=== PATIENT | female | born 1955 ===

== ENCOUNTER → 2020-07-09 13:53 | Outpatient (BNVA) | payer OTHER, SELFPAY | PROVIDERS: PCP Internal Medicine; Visit Provider Student in an Organized Health Care Education/Training Program | DX: M25.50 Pain in unspecified joint (principal) | CPT/HCPCS: 99202 ==

== ENCOUNTER 2020-07-17 09:50 | Outpatient (REF) | payer OTHER, SELFPAY ==
[2020-07-17 11:04] LABS: MANUAL DIFF FLAG NO
[2020-07-17 11:08] LABS: Basophils Percent Auto 0.4 % (0-2); Eosinophils Absolute Auto 0.2 X10*3/uL (0.0-0.4); Eosinophils Percent Auto 2.3 % (0-4); Hematocrit 38.6 % (37-47); Hemoglobin 12.7 g/dl (12.0-16.0); Imm Gran Abs Auto 0.03 X10*3/uL (0.00-0.03); Imm Gran Pct Auto 0.4 % (0.0-0.4); Lymphocytes Percent Auto 36.6 % (20-40); Mean Corpuscular HGB Conc 32.9 g/dl (31.0-35.0); Mean Corpuscular Hemoglobin 29.7 pg (27.0-33.0); Mean Corpuscular Volume 90.2 fL (80-98); Mean Platelet Volume 10.4 fL (9.4-12.3); Monocytes Absolute Auto 0.4 X10*3/uL (0.1-1.2); Monocytes Percent Auto 4.8 % (2-11); Neutrophils Absolute Auto 4.5 X10*3/uL (2.0-8.3); Neutrophils Percent Auto 55.5 % (45-73); Platelet Count 244 X10*3/uL (160-400); Red Blood Count 4.28 X10*6/uL (4.20-5.50); Red Cell Distribution Width 12.2 % (11.0-16.0); White Blood Count 8.1 X10*3/uL (4.8-10.8)
[2020-07-17 11:37] LABS: Alanine Aminotransferase 16 U/L (0-31); Albumin Level 4.2 g/dL (3.5-5.0); Alkaline Phosphatase 74 U/L (39-117); Anion Gap 12 (12-20); Aspartate Amino Transferase 19 U/L (5-31); Bilirubin Total 0.9 mg/dL (0.0-1.0); Blood Urea Nitrogen 18 mg/dL (9-16); C Reactive Protein 1.17 mg/dL (< or = 0.50); Carbon Dioxide 31 mmol/L (22-29); Chloride 100 mmol/L (96-108); Estimated Glomerular Filt Rate 49; Glucose Random 164 mg/dL (60-115); Potassium 4.3 mmol/L (3.3-5.1); Rheumatoid Factor < 15.0 IU/mL (<15.0); Sodium 139 mmol/L (135-145); Total Protein 7.3 g/dL (6.5-8.0)
[2020-07-17 11:38] LABS: Alanine Aminotransferase 15 U/L (0-31); Albumin Level 4.2 g/dL (3.5-5.0); Alkaline Phosphatase 73 U/L (39-117); Anion Gap 13 (12-20); Aspartate Amino Transferase 19 U/L (5-31); Bilirubin Total 0.9 mg/dL (0.0-1.0); Blood Urea Nitrogen 17 mg/dL (9-16); Calcium 10.1 mg/dL (8.4-10.2); Carbon Dioxide 30 mmol/L (22-29); Chloride 100 mmol/L (96-108); Cholesterol 149 mg/dL; Estimated Glomerular Filt Rate 50; Glucose Fasting 165 mg/dL (60-99); HDL Cholesterol 37 mg/dL; LDL Cholesterol Calculated 75 mg/dl; Potassium 4.4 mmol/L (3.3-5.1); Sodium 139 mmol/L (135-145); Total Protein 7.2 g/dL (6.5-8.0); Triglycerides 186 mg/dL
[2020-07-17 11:56] LABS: Erythrocyte Sedimentation Rate 28 MM/HR (0-20)
[2020-07-17 12:00] LABS: TSH reflex Free T4 1.56 uIU/mL (0.32-4.0); Thyroid Stimulating Hormone 1.65 uIU/mL (0.32-4.0)
[2020-07-17 12:38] LABS: Microalbum/Creatinine Ratio Ur 25.3 ug/mg cr
[2020-07-20 09:21] LABS: IgA 528 mg/dL (70-320); IgG 1231 mg/dL (600-1540); IgM 95 mg/dL (50-300)
[2020-07-21 14:17] LABS: Vitamin D 25-OH, D2 <4 ng/mL; Vitamin D 25-OH, D3 27 ng/mL; Vitamin D 25-OH, Total 27 ng/mL (30-100)
[2020-07-21 15:27] LABS: Prot Elec - Alpha1 0.3 g/dL (0.2-0.3); Prot Elec - Alpha2 0.7 g/dL (0.5-0.9); Prot Elec - Beta 1 0.5 g/dL (0.4-0.6); Prot Elec - Beta 2 0.5 g/dL (0.2-0.5); Prot Elec - Gamma 1.2 g/dL (0.8-1.7); Prot Elec - Total Protein 7.1 g/dL (6.1-8.1)
[2020-07-22 22:57] LABS: Cyclic Citrullinated Peptide <16 UNITS
== END 2020-07-17 09:51 | disposition home or self-care (01) ==
LOC: HO.LAB 09:50
PROVIDERS: Absent Provider Student in an Organized Health Care Education/Training Program; PCP Physician Assistant; Visit Provider Physician Assistant
DX: M25.50 Pain in unspecified joint (principal); E11.9 Type 2 diabetes mellitus without complications; I10 Essential (primary) hypertension
CPT/HCPCS: 36415; 80053; 80061; 82043; 82306; 82784; 84155; 84165; 84443; 85025; 85652; 86140; 86200; 86334; 86431

== ENCOUNTER → 2020-08-13 12:54 | Outpatient (BNVA) | payer OTHER, SELFPAY | PROVIDERS: PCP Internal Medicine; Visit Provider Student in an Organized Health Care Education/Training Program | DX: M25.50 Pain in unspecified joint (principal) | CPT/HCPCS: 99212 ==

== ENCOUNTER → 2020-09-02 10:29 | Outpatient (BNVA) | payer OTHER, SELFPAY | PROVIDERS: PCP Internal Medicine; Visit Provider Hospitalist | DX: J45.40 Moderate persistent asthma, uncomplicated (principal); K21.9 Gastro-esophageal reflux disease without esophagitis; G47.33 Obstructive sleep apnea (adult) (pediatric); E11.9 Type 2 diabetes mellitus without complications; I27.20 Pulmonary hypertension, unspecified | CPT/HCPCS: 99202 ==

== ENCOUNTER 2020-10-06 09:20 | Outpatient (REF) | payer OTHER, SELFPAY ==
--- NOTE | 2020-10-06 17:42 | PFT_ITS ---
Forced vital capacity is moderately decreased. FEV1 also moderately decreased, but FEV1/FVC ratio is normal. [id number] normal. MVV moderately decreased. Post bronchodilator therapy, there is no significant change. Total lung capacity and residual volume are both moderately reduced. Diffusion capacity normal. CONCLUSION: There is no obstructive airway disorder and no response to bronchodilator therapy. Findings are consistent with moderately severe restrictive pulmonary disorder. Clinical correlation recommended. MD KATHIE Francis/SARAH / [id number]
== END 2020-10-06 09:21 | disposition home or self-care (01) ==
LOC: HO.RESP 09:20
PROVIDERS: PCP Internal Medicine; Visit Provider Hospitalist
DX: J45.40 Moderate persistent asthma, uncomplicated (principal)
CPT/HCPCS: 94060; 94727; 94729; 99212

== ENCOUNTER 2020-10-14 17:55 | Emergency (ER) | payer OTHER, SELFPAY ==
--- NOTE | ~2020-10-14 | XR_ITS ---
EXAMINATION: PORTABLE CHEST 1 VIEW CLINICAL INFORMATION: Cough . COMPARISON: 02/07/2018. TECHNIQUE: Portable frontal view of the chest was obtained. FINDINGS: Lungs well-expanded. Chronic reticular markings suggesting scarring again seen in the left lung and medial right base. No superimposed focal infiltrate, effusion, edema, or pneumothorax. Cardiac and mediastinal silhouettes within normal limits for size. Chronic bony deformity to the right ribs with degenerative changes in the spine and shoulders XR/XR chest 1V IMPRESSION: Chronic appearing changes similar to the prior study without acute superimposed process.
[2020-10-14 18:11] VITALS: BP 160/90; PULSE 94; RESP 18; TEMP 37.4; O2SAT 95; BMI 39.0
[2020-10-14 20:16] LABS: Basophils Percent Auto 0.4 % (0-2); Eosinophils Absolute Auto 0.2 X10*3/uL (0.0-0.4); Eosinophils Percent Auto 3.1 % (0-4); Hematocrit 36.7 % (37-47); Hemoglobin 12.1 g/dl (12.0-16.0); Imm Gran Abs Auto 0.02 X10*3/uL (0.00-0.03); Imm Gran Pct Auto 0.4 % (0.0-0.4); Lymphocytes Absolute Auto 1.9 X10*3/uL (1.2-4.9); Lymphocytes Percent Auto 35.3 % (20-40); MANUAL DIFF FLAG NO; Mean Corpuscular Hemoglobin 29.3 pg (27.0-33.0); Mean Corpuscular Volume 88.9 fL (80-98); Monocytes Absolute Auto 0.3 X10*3/uL (0.1-1.2); Neutrophils Percent Auto 54.8 % (45-73); Platelet Count 215 X10*3/uL (160-400); Red Blood Count 4.13 X10*6/uL (4.20-5.50); Red Cell Distribution Width 12.4 % (11.0-16.0); White Blood Count 5.5 X10*3/uL (4.8-10.8)
--- NOTE | 2020-10-14 20:26 | ED_ITS ---
HPI - URI/Sore Throat General Chief Complaint: Upper Respiratory Symptoms Stated Complaint: diff breathing, fever Time Seen by Provider: 10/14/20 20:24 Source: patient Mode of arrival: ambulatory Limitations: no limitations History of Present Illness HPI Narrative: 65-year-old female with a past medical history of hypertension, hypothyroidism, asthma, obstructive sleep apnea here with complaints of cough, wheezing, shortness of breath, headache, subjective fever for 2-3 days. No chest pain, leg swelling or pain. Using inhalers with continued symptoms. Of note seen by pulmonology on October 06. Diagnosed with pharyngitis and placed on course of Augmentin. Patient tells me that she took for several days but then discontinued due to complaints of diarrhea and abdominal discomfort. Related Data Home Medications Medication Instructions Recorded Confirmed albuterol sulfate 90 mcg/actuation 1 inh INHALATION QID 05/01/20 09/02/20 aerosol inhaler mirtazapine 7.5 mg tablet 7.5 mg PO BEDTIME 09/02/20 09/02/20 Previous Rx's Medication Instructions Recorded bupropion HCl 150 mg 24 hr tablet, 150 mg PO QAM #90 tab 03/13/20 extended release CPAP (CPAP Machine/Device) #1 ea 05/01/20 fluticasone propionate 50 1 spray INTRANASAL DAILY #15.8 ml 05/01/20 mcg/actuation nasal spray,suspension gabapentin 100 mg capsule 100 mg PO DAILY #90 cap 05/01/20 levothyroxine 25 mcg tablet 25 mcg PO DAILY 90 Days #90 tab 05/01/20 miscellaneous medical supply #1 ea 05/01/20 (Blood Pressure Cuff) omeprazole 20 mg capsule,delayed 20 mg PO DAILY #90 cap 05/01/20 release terbinafine HCl 1 % topical cream 1 appl TOPICAL BID 15 Days #30 g 05/01/20 doxepin 50 mg capsule 50 mg PO BEDTIME #90 cap 06/13/20 duloxetine 60 mg capsule,delayed 60 mg PO DAILY #90 cap 07/17/20 release (Cymbalta) metformin 1,000 mg tablet 1,000 mg PO BID #180 tab 07/17/20 cholecalciferol (vitamin D3) 25 25 mcg PO DAILY 90 Days #90 cap 08/05/20 mcg (1,000 unit) capsule fluticasone propionate 110 1 puff INHALATION BID 30 Days #12 g 08/05/20 mcg/actuation HFA aerosol inhaler (Flovent HFA) loratadine 10 mg tablet (Allergy 10 mg PO DAILY 90 Days #90 tab 08/05/20 Relief (loratadine)) fluticasone propionate 230 2 puff INHALATION Q12H 30 Days #12 09/02/20 mcg-salmeterol 21 mcg/actuation g HFA inhaler (Advair HFA) furosemide 20 mg tablet (Lasix) 20 mg PO DAILY 7 Days #7 tab 09/02/20 lancets 28 gauge (FreeStyle #100 ea 09/08/20 Lancets) amoxicillin 875 mg-potassium 1 tab PO BID 8 Days #16 tab 10/06/20 clavulanate 125 mg tablet (Augmentin) fluconazole 100 mg tablet 100 mg PO DAILY 7 Days #7 tab 10/06/20 (Diflucan) hydrochlorothiazide 25 mg tablet 25 mg PO DAILY #90 tab 10/11/20 meclizine 25 mg tablet 25 mg PO DAILY #90 tab 10/11/20 metoprolol tartrate 25 mg tablet 25 mg PO BID #90 tab 10/11/20 pravastatin 40 mg tablet 40 mg PO BEDTIME #90 tab 10/11/20 albuterol sulfate 2.5 mg/0.5 mL 2.5 mg INHALATION Q20M PRN #30 ea 10/14/20 solution for nebulization azithromycin 250 mg tablet See Rx Instructions .ROUTE 10/14/20 .COMPLEX #6 tab prednisone 20 mg tablet 40 mg PO DAILY #10 tab 10/14/20 Allergies Allergy/AdvReac Type Severity Reaction Status Date / Time acetaminophen [Ultracet] Allergy Intermediate anaphylaxis Verified 10/06/20 10:09 tramadol [From ULTRACET] Allergy Intermediate ANAPHYLAXIS Verified 10/06/20 10:09 lisinopril [Lisinopril] Allergy Mild SWELLING, Verified 10/06/20 10:09 anaphylaxis Review of Systems Review of Systems: Yes all other systems are reviewed and are negative Constitutional: Constitutional: Reports no additional constitutional complaints, Denies body ache(s), Reports chills, Reports fever(s), Reports headache(s) and Denies weakness Eyes: Eyes: Reports no additional eye complaints and Denies change in vision ENT: Reports system reviewed and no additional complaints, except as documented, Denies dizziness, Reports headache(s), Denies nasal congestion, Denies nasal discharge and Denies neck pain Cardiovascular: Cardiovascular: Reports no additional cardiovascular complaints, Denies chest pain, Denies leg edema and Reports dyspnea Respiratory: Respiratory: Reports no additional respiratory complaints, Reports cough and Reports dyspnea Gastrointestinal: Gastrointestinal: Reports no additional gastrointestinal complaints, Denies abdominal pain, Denies diarrhea, Denies nausea and Denies vomiting Genitourinary: Genitourinary: Reports no additional female genitourinary complaints and Denies urinary incontinence Musculoskeletal: Musculoskeletal: Reports no additional musculoskeletal complaints, Denies back pain, Denies arthralgias, Denies joint swelling, Denies neck pain, Denies numbness and Denies tingling Integumentary/Breasts: Skin/Breast: Reports system reviewed and no additional complaints, except as docu and Denies rash Neurologic: Reports system reviewed and no additional complaints, except as documented, Denies Abnormal speech present, Denies dizziness, Reports headache(s), Denies numbness, Denies tingling and Denies weakness PMFSH Past Medical History Attestation statement: The following information was validated with the patient. Source: old records reviewed and nursing notes reviewed Medical History Chronic restrictive lung disease Moderate asthma Murmur Surgical History History of laparoscopic cholecystectomy History of tubal ligation Family History Family History Father No problems noted. Mother Lymphoma Maternal Aunt Diabetes Paternal Uncle Diabetes Brother No problems noted. Sister No problems noted. Sister No problems noted. Son No problems noted. Daughter No problems noted. Daughter No problems noted. Social History Social History Housing: Apartment Alcohol intake: never Patient Tobacco Use Status: Never used Tobacco e-Cigarette/Vaping Use: Never Used Second Hand Smoke Exposure: No Advance Directives: No Advance Directives Information Provided: No Patient : No service: No Current occupational status: disabled Physical Exam Vital Signs: Vital Signs: Last Vital Signs Temp 99.4 F 10/14/20 18:11 Pulse 73 10/14/20 21:10 Resp 18 10/14/20 18:11 BP 160/90 H 10/14/20 18:11 Pulse Ox 95 10/14/20 18:11 Body Mass Index 39.0 Const: General: cooperative, healthy appearing, comfortable and no acute distress Orientation/consciousness: patient oriented x3 Limitations: no limitations HENMT: Head: Yes normal to inspection Ears: hearing grossly normal bilaterally General nose exam: Normal external nose present Face and sinus: Yes normal facial exam Mouth: Normal oral and palatal mucosa present Throat: Yes posterior oropharynx normal Eyes: General: appearance normal, both eyes and all related structures Pupils: Equal, round and reactive pupils present Neck: Neck: Yes normal visual inspection Chest: Chest palpation & inspection: normal inspection of the chest Resp: Other: Mild expiratory wheezing throughout Effort & Inspection: normal respiratory effort Cardio: Rate: regular rate Rhythm: regular rhythm Peripheral pulses: Per ipheral pulses 2+ throughout GI: Inspection: Yes normal to inspection Palpation (GI): Soft to palpation and nontender Auscultation: normal bowel sounds Back/Spine/Pelvis: Thoracic/Lumbar Spine: thoracic and lumbar spine normal to inspection Skin: General skin exam: no rashes or lesions noted Neuro: General: patient oriented x3, no focal motor deficits and normal sensation to monofilament Cranial nerves: Yes Equal, round and reactive pupils present Cognition (Neuro): normal cognition Speech: No Abnormal speech present Gait exam (Neuro): Normal gait present Motor exam (neuro): 5/5 motor strength present throughout Extrem: General: Yes normal to inspection, Yes no pedal edema and Yes no calf tenderness Course Course Course Narrative: Viral symptoms for several days. Using home inhalers with continued cough and wheezing with some mild shortness of breath. Will check labs, chest x-ray, COVID screen. 2100-chest x-ray shows no acute finding. COVID screen is negative. Labs are unremarkable. Patient has some mild expiratory wheezing throughout. Will give DuoNeb.. Likely benefit from prednisone burst which patient tells me has been helpful in the past. Will change antibiotic from Augmentin to azithromycin which patient to tolerate. 2230-feels much better. Oxygen saturations greater than 99%. Speaking full sentences. Will discharge home with course of antibiotics and prednisone. Reviewed worrisome signs and symptoms of when to return to the emergency department. Comfortable discharge home. MDM - URI/Sore Throat MDM Narrative Medical decision making narrative: Bronchitis, viral syndrome, pneumonia Medical Records Attestation: I reviewed the patient's medical records. Lab Data Attestation: I reviewed the patient's lab results. Result diagrams: 10/14/20 20:09 10/14/20 20:09 Labs: Lab Results 10/14/20 10/14/20 10/14/20 Range/Units 20:05 20:09 20:09 WBC 5.5 (4.8-10.8) X10*3/uL RBC 4.13 L (4.20-5.50) X10*6/uL Hgb 12.1 (12.0-16.0) g/dl Hct 36.7 L (37-47) % MCV 88.9 (80-98) fL MCH 29.3 (27.0-33.0) pg MCHC 33.0 (31.0-35.0) g/dl RDW 12.4 (11.0-16.0) % Plt Count 215 (160-400) X10*3/uL MPV 10.0 (9.4-12.3) fL Immature Gran % (Auto) 0.4 (0.0-0.4) % Neut % (Auto) 54.8 (45-73) % Lymph % (Auto) 35.3 (20-40) % Nicol[place] % (Auto) 6.0 (2-11) % Eos % (Auto) 3.1 (0-4) % Baso % (Auto) 0.4 (0-2) % Lymph # (Auto) 1.9 (1.2-4.9) X10*3/uL [place] # (Auto) 0.3 (0.1-1.2) X10*3/uL Eos # (Auto) 0.2 (0.0-0.4) X10*3/uL Baso # (Auto) 0.0 (0.0-0.2) X10*3/uL Abs Immat Gran (auto) 0.02 (0.00-0.03) X10*3/uL Absolute Neuts (auto) 3.0 (2.0-8.3) X10*3/uL Absolute Nucleated RBC 0.000 (0.0-0.012) X10*3/uL Nucleated RBC % (auto) 0.0 (0.0-0.2) /100WBC Sodium 143 (135-145) mmol/L Potassium 3.9 (3.3-5.1) mmol/L Chloride 108 (96-108) mmol/L Carbon Dioxide 26 (22-29) mmol/L Anion Gap 13 (12-20) BUN 9 (9-16) mg/dL Creatinine 0.92 (0.5-1.4) mg/dL Estim Creat Clear Calc 62.0 Estimated GFR > 60 Random Glucose 165 H (60-115) mg/dL Calcium 9.6 (8.4-10.2) mg/dL Total Bilirubin 0.7 (0.0-1.0) mg/dL AST 32 H D (5-31) U/L ALT 23 (0-31) U/L Alkaline Phosphatase 83 (39-117) U/L Total Protein 7.8 (6.5-8.0) g/dL Albumin 4.4 (3.5-5.0) g/dL COVID-19 (NESTOR) Negative (Negative) COVID-19 Clin Com See Note Imaging Data Chest x-ray: Attestation: I personally reviewed and interpreted this imaging study as follows: Radiologist's impression: [place] [id number] XRay Report Signed Patient: Fiordaliza Taveras I MR#: [id number] : 1955 Acct:[id number] Age/Sex: 65 / F ADM Date: 10/14/20 Loc: .ED Attending Dr: Ordering Physician: Generic ED Physician Date of Service: 10/14/20 Procedure(s): XR chest 1V Accession Number(s): [id number] cc: Generic ED Physician~ EXAMINATION: PORTABLE CHEST 1 VIEW CLINICAL INFORMATION: Cough . COMPARISON: 02/07/2018. TECHNIQUE: Portable frontal view of the chest was obtained. FINDINGS: Lungs well-expanded. Chronic reticular markings suggesting scarring again seen in the left lung and medial right base. No superimposed focal infiltrate, effusion, edema, or pneumothorax. Cardiac and mediastinal silhouettes within normal limits for size. Chronic bony deformity to the right ribs with degenerative changes in the spine and shoulders XR/XR chest 1V IMPRESSION: Chronic appearing changes similar to the prior study without acute superimposed process. ? Discharge Plan Discharge Clinical Impression: Bronchitis Patient Disposition: Home, Self-Care Instructions: Acute Bronchitis (ED) Additional Instructions: Use your albuterol inhaler 2 puffs every 4-6 hours as needed Start your prednisone and antibiotic tomorrow Increase fluids and rest COVID test negative Prescriptions: New albuterol sulfate 2.5 mg/0.5 mL solution for nebulization 2.5 mg inhalation Q20M PRN (Reason: shortness of breath or wheezing) Qty: 30 RF: 0 azithromycin 250 mg tablet See Rx Instructions .ROUTE .COMPLEX Qty: 6 RF: 0 prednisone 20 mg tablet 40 mg PO DAILY Qty: 10 RF: 0 No Action bupropion HCl 150 mg tablet extended release 24 hr 150 mg PO QAM Qty: 90 RF: 3 doxepin 50 mg capsule 50 mg PO BEDTIME Qty: 90 RF: 2 duloxetine [Cymbalta] 60 mg capsule,delayed release(DR/EC) 60 mg PO DAILY Qty: 90 RF: 1 metformin 1,000 mg tablet 1,000 mg PO BID Qty: 180 RF: 1 (DME) lancets [FreeStyle Lancets] 28 gauge misc See Rx Instructions .Route Qty: 100 RF: 11 metoprolol tartrate 25 mg tablet 25 mg PO BID Qty: 90 RF: 0 pravastatin 40 mg tablet 40 mg PO BEDTIME Qty: 90 RF: 0 meclizine 25 mg tablet 25 mg PO DAILY Qty: 90 RF: 0 hydrochlorothiazide 25 mg tablet 25 mg PO DAILY Qty: 90 RF: 0 Flovent HFA 110 mcg/actuation HFA aerosol inhaler 1 puff inhalation BID 30 Days Qty: 12 RF: 6 cholecalciferol (vitamin D3) 25 mcg (1,000 unit) capsule 25 mcg PO DAILY 90 Days Qty: 90 RF: 1 loratadine [Allergy Relief (loratadine)] 10 mg tablet 10 mg PO DAILY 90 Days Qty: 90 RF: 3 (DME) Blood Pressure Cuff Misc See Rx Instructions .ROUTE .MEDSUPPLY Qty: 1 RF: 0 (DME) CPAP Machine/Device Device See Rx Instructions .ROUTE .MEDSUPPLY Qty: 1 RF: 0 levothyroxine 25 mcg tablet 25 mcg PO DAILY 90 Days Qty: 90 RF: 1 omeprazole 20 mg capsule,delayed release(DR/EC) 20 mg PO DAILY Qty: 90 RF: 1 gabapentin 100 mg capsule 100 mg PO DAILY Qty: 90 RF: 1 fluticasone propionate 50 mcg/actuation spray,suspension 1 spray intranasal DAILY Qty: 15.8 RF: 1 terbinafine HCl 1 % cream 1 appl topical BID 15 Days Qty: 30 RF: 1 albuterol sulfate 90 mcg/actuation HFA aerosol inhaler 1 inh inhalation QID RF: 0 mirtazapine 7.5 mg tablet 7.5 mg PO BEDTIME RF: 0 Advair HFA 230-21 mcg/actuation HFA aerosol inhaler 2 puff inhalation Q12H 30 Days Qty: 12 RF: 5 furosemide [Lasix] 20 mg tablet 20 mg PO DAILY 7 Days Qty: 7 RF: 0 amoxicillin-pot clavulanate [Augmentin] 875-125 mg tablet 1 tab PO BID 8 Days Qty: 16 RF: 0 fluconazole [Diflucan] 100 mg tablet 100 mg PO DAILY 7 Days Qty: 7 RF: 0 Referrals: Dalila Olsen MD [Primary Care Provider] - 2 days Interventions: ED Discharge Assessment Last Done: 10/14/20 22:21 Discharge Date/Time: 10/14/20 22:23 Print Language: Estonian
[2020-10-14 20:34] LABS: COVID-19 Test Negative (Negative); IDNOW Serial# 9DD0AD1C
[2020-10-14 20:35] LABS: Alanine Aminotransferase 23 U/L (0-31); Albumin Level 4.4 g/dL (3.5-5.0); Alkaline Phosphatase 83 U/L (39-117); Anion Gap 13 (12-20); Aspartate Amino Transferase 32 U/L (5-31); Bilirubin Total 0.7 mg/dL (0.0-1.0); Blood Urea Nitrogen 9 mg/dL (9-16); Calcium 9.6 mg/dL (8.4-10.2); Carbon Dioxide 26 mmol/L (22-29); Chloride 108 mmol/L (96-108); Estimated Glomerular Filt Rate > 60; Glucose Random 165 mg/dL (60-115); Potassium 3.9 mmol/L (3.3-5.1); Sodium 143 mmol/L (135-145); Total Protein 7.8 g/dL (6.5-8.0)
[2020-10-14] MEDS: Albuterol/Iprat 2.5/0.5MG 3 ML AMPUL.NEB INHALE (21:09)
[2020-10-14] MEDS: Albuterol Sulfate (0.083%) 2.5 MG/3 ML VIAL.NEB 5 MG INHALE (21:09)
[2020-10-14 21:10] VITALS: PULSE 73; O2SAT 97
== END 2020-10-14 22:23 | disposition home or self-care (01) ==
PROVIDERS: Emergency Provider Emergency Medicine; PCP Internal Medicine
DX: J40 Bronchitis, not specified as acute or chronic (principal); Z20.822 Contact with and (suspected) exposure to COVID-19; R06.02 Shortness of breath; I10 Essential (primary) hypertension; E11.9 Type 2 diabetes mellitus without complications
CPT/HCPCS: 36415; 71045; 80053; 85025; 87635; 94640; 94644; 99283; 99284

== ENCOUNTER → 2020-10-16 14:06 | Outpatient (REF) | payer OTHER, SELFPAY ==
--- NOTE | 2020-10-16 14:09 | CA_ITS ---
Transthoracic Echocardiogram Patient (Last, First, Middle): Fiordaliza Taveras I Gender: Female Date of : 1955 Age: 65 Procedure Date: 10/16/2020 Procedure Type: Transthoracic Echocardiogram Location: OP Height: 149.86 cm Weight: 88.45 kg BSA: 1.82 m2 Heart Rate: bpm BP: 120 / 80 mmHg Education Managers: ORA Referring MD: Jai Loepz MD Symptoms: I27.20 - Pulmonary hypertension, unspecified Study Quality: Fair ECG Rhythm: Sinus Conclusions: - The left ventricular systolic function is normal. The visually estimated ejection fraction is between 60-65%. - No obvious valvular pathology seen on this study. - E/E prime ratio is between 8 and 15 consistent with indeterminate filling pressures. - Top normal pulmonary artery systolic pressure. Findings Left Ventricle Normal left ventricular cavity size. There is normal left ventricular wall thickness. The left ventricular systolic function is normal. The visually estimated ejection fraction is between 60-65%. There is no evidence of regional wall motion abnormalities. E/E prime ratio is between 8 and 15 consistent with indeterminate filling pressures. Evidence suggests grade I (mild) diastolic dysfunction. Right Ventricle Normal right ventricular cavity size and systolic function. Atria Both atria are normal in size. Aortic Valve There is a normal trileaflet aortic valve. There is no aortic valve stenosis. There is no aortic valve regurgitation. Mitral Valve The mitral valve appears normal. There is trace mitral valve regurgitation. There is no mitral valve stenosis. Pulmonic Valve The pulmonic valve was not well visualized. Tricuspid Valve Normal tricuspid valve structure. There is trace tricuspid valve regurgitation. The right ventricular systolic pressure is 35 mmHg. Top normal pulmonary artery systolic pressure. Great Vessels The aortic annulus, sinuses of valsalva, and asc aorta are normal in size. Venous The inferior vena cava is normal in size and collapses greater than 50% with inspiration. Pericardium/Pleural There is no evidence of pericardial effusion. Prior Study Comparison No significant change compared to prior study dated: 03/08/2007. Recommendations, Care & Conclusions No obvious valvular pathology seen on this study. Measurements 2D Linear Measurements IVSd: 0.96 0.6-0.9/0.6-1.0 cm LVIDd: 4.46 3.9-5.3/4.2-5.9 cm LVIDd Index: 2.45 2.4-3.2/2.2-3.1 cm/m2 LVIDs: 2.57 2.0-3.6 cm LVPWd: 0.97 0.7-1.1 cm Ao Root: 2.70 2.1-3.5 cm LA Diam: 3.70 2.7-3.8/3.0-4.0 cm LAIDs Index: 2.03 1.5-2.3 cm/m2 LV Mass: 179.22 67-162/88-224 g LV Mass Index: 98.47 43-95/49-115 g/m2 LVOT Diam: 1.90 3.0+(-)1.3 cm 2D Systolic Function EF 4C: 67.60 >55% EF 2C: 57.10 >55% EF BiP: 63.00 >55% Mitral Valve MV Pk E: 0.98 MV PK A: 0.73 MV Decel Time: 175.00 E/A: 1.30 E'Lateral: 9.14 E'Medial: 6.09 E/E' Med: 16.00 E/E' Lat: 10.70 PHT: 51.00 MVA PHT: 4.31 Decel [place]: 5.58 Aortic Valve AoV Pk Macario: 1.45 AoV Mn Macario: 1.02 AoV VTI: 0.34 AoV Pk Grad: 8.00 Aov Mn Grad: 5.00 REG Cont.VTI: 2.14 LVOT LVOT Pk Macario: 1.16 LVOT Mn Macario: 0.74 LVOT VTI: 0.26 LVOT Pk Grad: 5.00 LVOT Mn Grad: 3.00 LVOT Diam: 1.90 LVOT Area: 2.84 Diastolic Function MV Pk E: 0.98 MV Pk A: 0.73 E/A: 1.30 E'Medial: 6.09 E/E' Med: 16.00 E' Laterial: 9.14 E/E' Lat: 10.70 Right Ventricle TAPSE (mm): 2.26 TVS' Macario: 9.90 Tricuspid Valve TR Pk Macario: 2.84 TR Pk Grad: 32.00 RA Press: 3.00 RVSP: 35.00 Great Vessels Aorta Ao Root-2D: 2.70 2.0-3.7 cm Ao Asc: 3.30 2.1-3.4 cm Ao Arch: 3.40 Updated in Other Vendor System with Status of Final Omar Martinez MD electronically signed on 10/18/2020 1:14:25 PM with status of Final
== END ==
LOC: HO.CARD 14:06
PROVIDERS: Visit Provider Hospitalist
DX: I27.20 Pulmonary hypertension, unspecified (principal)
CPT/HCPCS: 93306

== ENCOUNTER 2020-12-02 08:17 | Outpatient (REF) | payer OTHER, SELFPAY ==
--- NOTE | ~2020-12-02 | XR_ITS ---
EXAMINATION: XR CHEST CLINICAL INFORMATION: Disorders of the lung COMPARISON: 10/14/2020 TECHNIQUE: 2 views of the chest were obtained. FINDINGS: Chronic chest wall deformity, particularly at the right apex. The lungs are well expanded. Linear markings at the lung bases are similar to prior and could represent atelectasis or scarring. No dense consolidation. No pleural effusion or pneumothorax. The cardiomediastinal silhouette is unchanged. Degenerative change throughout the spine. XR/XR chest 2V IMPRESSION: No acute pulmonary finding. Linear atelectasis or scarring.
[2020-12-02 09:24] LABS: Hematocrit 39.3 % (37-47); Hemoglobin 12.4 g/dl (12.0-16.0); Mean Corpuscular HGB Conc 31.6 g/dl (31.0-35.0); Mean Corpuscular Hemoglobin 28.3 pg (27.0-33.0); Mean Corpuscular Volume 89.7 fL (80-98); Mean Platelet Volume 11.1 fL (9.4-12.3); Platelet Count 227 X10*3/uL (160-400); Red Blood Count 4.38 X10*6/uL (4.20-5.50); Red Cell Distribution Width 12.4 % (11.0-16.0); White Blood Count 7.7 X10*3/uL (4.8-10.8)
[2020-12-02 09:52] LABS: Alanine Aminotransferase 22 U/L (0-31); Albumin Level 4.2 g/dL (3.5-5.0); Alkaline Phosphatase 69 U/L (39-117); Anion Gap 12 (12-20); Aspartate Amino Transferase 20 U/L (5-31); Bilirubin Total 0.6 mg/dL (0.0-1.0); Blood Urea Nitrogen 25 mg/dL (9-16); Calcium 10.1 mg/dL (8.4-10.2); Carbon Dioxide 28 mmol/L (22-29); Chloride 106 mmol/L (96-108); Cholesterol 159 mg/dL; Estimated Glomerular Filt Rate 58; Glucose Fasting 182 mg/dL (60-99); HDL Cholesterol 35 mg/dL; LDL Cholesterol Calculated 86 mg/dl; Potassium 4.2 mmol/L (3.3-5.1); Sodium 142 mmol/L (135-145); Total Protein 7.2 g/dL (6.5-8.0); Triglycerides 194 mg/dL
[2020-12-02 10:14] LABS: Thyroid Stimulating Hormone 3.12 uIU/mL (0.32-4.0)
[2020-12-02 10:48] LABS: Creatinine Urine 189.13 mg/dL; Microalbum/Creatinine Ratio Ur 55.5 ug/mg cr
[2020-12-06 15:16] LABS: Vitamin D 25-OH, D2 <4 ng/mL; Vitamin D 25-OH, D3 28 ng/mL; Vitamin D 25-OH, Total 28 ng/mL (30-100)
== END 2020-12-02 08:18 | disposition home or self-care (01) ==
LOC: HO.XRAY 08:17
PROVIDERS: Physician Assistant; Absent Provider Internal Medicine; PCP Internal Medicine; Visit Provider Hospitalist
DX: J98.4 Other disorders of lung (principal); E55.9 Vitamin D deficiency, unspecified; E03.9 Hypothyroidism, unspecified; E78.5 Hyperlipidemia, unspecified; I10 Essential (primary) hypertension; E11.9 Type 2 diabetes mellitus without complications
CPT/HCPCS: 36415; 71046; 80053; 80061; 82043; 82306; 84443; 85027

== ENCOUNTER → 2020-12-04 09:56 | Outpatient (BNVA) | payer OTHER, SELFPAY | PROVIDERS: PCP Internal Medicine; Visit Provider Hospitalist | DX: J45.40 Moderate persistent asthma, uncomplicated (principal); J98.4 Other disorders of lung; G47.33 Obstructive sleep apnea (adult) (pediatric); K21.9 Gastro-esophageal reflux disease without esophagitis; R01.1 Cardiac murmur, unspecified; I51.89 Other ill-defined heart diseases | CPT/HCPCS: 99212 ==

== ENCOUNTER → 2021-04-02 10:44 | Outpatient (BNVA) | payer OTHER, SELFPAY | PROVIDERS: PCP Internal Medicine; Visit Provider Hospitalist | DX: J45.40 Moderate persistent asthma, uncomplicated (principal); G47.33 Obstructive sleep apnea (adult) (pediatric); R01.1 Cardiac murmur, unspecified; I51.89 Other ill-defined heart diseases; J98.4 Other disorders of lung; J32.9 Chronic sinusitis, unspecified; Z99.89 Dependence on other enabling machines and devices | CPT/HCPCS: 99212 ==

== ENCOUNTER 2021-04-09 09:45 | Outpatient (REF) | payer OTHER, SELFPAY ==
--- NOTE | ~2021-04-09 | XR_ITS ---
EXAMINATION: XR CHEST CLINICAL INFORMATION: Type 2 diabetes mellitus without complications. COMPARISON: Prior chest x-ray 12/02/2020. TECHNIQUE: Chest 2 views. FINDINGS: LUNGS AND VALERIE: There is plate-like atelectasis at left lung base, this might be chronic or recurrent unchanged from prior exam. No lobar consolidation pneumonia. PLEURA: Normal. Costophrenic angles are sharp. No pneumothorax. HEART: The heart is normal in size. MEDIASTINUM: The mediastinum is within normal limits.. BONES: Right cervical rib, spondylosis of the dorsal spine, coursing osteophytes through multiple vertebra suggesting DISH. XR/XR chest 2V IMPRESSION: 1. Linear opacity likely plate-like atelectasis left lung base might be chronic or recurrent. 2. Right cervical rib. 3. Bridging osteophytes through multiple dorsal vertebrae suggesting DISH.
[2021-04-09 10:58] LABS: MANUAL DIFF FLAG NO
[2021-04-09 11:11] LABS: Basophils Percent Auto 0.4 % (0-2); Eosinophils Absolute Auto 0.1 X10*3/uL (0.0-0.4); Eosinophils Percent Auto 1.2 % (0-4); Hematocrit 37.5 % (37.0-47.0); Imm Gran Abs Auto 0.02 X10*3/uL (0.00-0.03); Imm Gran Pct Auto 0.3 % (0.0-0.4); Lymphocytes Absolute Auto 2.8 X10*3/uL (1.2-4.9); Lymphocytes Percent Auto 36.1 % (20-40); Mean Corpuscular Hemoglobin 28.8 pg (27.0-33.0); Mean Corpuscular Volume 90.1 fL (80.0-98.0); Mean Platelet Volume 10.3 fL (9.4-12.3); Monocytes Absolute Auto 0.4 X10*3/uL (0.1-1.2); Monocytes Percent Auto 4.8 % (2-11); Neutrophils Absolute Auto 4.4 x10*3/uL (2.0-8.3); Neutrophils Percent Auto 57.2 % (45-73); Platelet Count 258 X10*3/uL (160-400); Red Blood Count 4.16 X10*6/uL (4.20-5.50); Red Cell Distribution Width 12.5 % (11.0-16.0); White Blood Count 7.7 X10*3/uL (4.8-10.8)
[2021-04-09 11:54] LABS: Erythrocyte Sedimentation Rate 23 MM/HR (0-20)
[2021-04-15 00:01] LABS: IgA 459 mg/dL (70-320); IgG 1114 mg/dL (600-1540); IgM 90 mg/dL (50-300)
== END 2021-04-09 09:46 | disposition home or self-care (01) ==
LOC: HO.LAB 09:45
PROVIDERS: PCP Internal Medicine; Visit Provider Hospitalist
DX: E11.9 Type 2 diabetes mellitus without complications (principal); J30.9 Allergic rhinitis, unspecified; J45.40 Moderate persistent asthma, uncomplicated
CPT/HCPCS: 36415; 71046; 82784; 82785; 85025; 85652; 86003

== ENCOUNTER → 2021-07-07 07:47 | Outpatient (BNVA) | payer OTHER, SELFPAY | PROVIDERS: PCP Internal Medicine; Visit Provider Hospitalist | DX: J45.40 Moderate persistent asthma, uncomplicated (principal); J98.4 Other disorders of lung; K21.9 Gastro-esophageal reflux disease without esophagitis; G47.33 Obstructive sleep apnea (adult) (pediatric); R01.1 Cardiac murmur, unspecified; I51.89 Other ill-defined heart diseases | CPT/HCPCS: 99212 ==

== ENCOUNTER 2021-08-31 11:34 | Outpatient (REF) | payer OTHER, SELFPAY ==
[2021-08-31 12:13] LABS: COVID-19 Test Negative (Negative); IDNOW Serial# 16C4AD1C
== END 2021-08-31 11:35 | disposition home or self-care (01) ==
LOC: HO.LAB 11:34
PROVIDERS: Hospitalist; Visit Provider Internal Medicine
DX: Z20.822 Contact with and (suspected) exposure to COVID-19 (principal); J45.40 Moderate persistent asthma, uncomplicated
CPT/HCPCS: 87635; 99212

== ENCOUNTER → 2021-09-29 12:51 | Outpatient (REF) | payer OTHER, SELFPAY | LOC: HO.SL 12:51 | PROVIDERS: PCP Internal Medicine; Visit Provider Hospitalist | DX: G47.33 Obstructive sleep apnea (adult) (pediatric) (principal) | CPT/HCPCS: 95806 ==

== ENCOUNTER 2021-10-01 09:13 | Outpatient (REF) | payer OTHER, SELFPAY ==
[2021-10-01 10:47] LABS: Alanine Aminotransferase 21 U/L (0-31); Albumin Level 4.3 g/dL (3.5-5.0); Alkaline Phosphatase 69 U/L (39-117); Anion Gap 16 (12-20); Aspartate Amino Transferase 21 U/L (5-31); Bilirubin Total 1.1 mg/dL (0.0-1.0); Blood Urea Nitrogen 21 mg/dL (9-16); Carbon Dioxide 28 mmol/L (22-29); Chloride 100 mmol/L (96-108); Cholesterol 168 mg/dL; Estimated Glomerular Filt Rate 49; Glucose Fasting 155 mg/dL (60-99); HDL Cholesterol 39 mg/dL; LDL Cholesterol Calculated 85 mg/dl; Potassium 4.5 mmol/L (3.3-5.1); Sodium 139 mmol/L (135-145); Total Protein 7.4 g/dL (6.5-8.0); Triglycerides 222 mg/dL
[2021-10-01 10:57] LABS: Thyroid Stimulating Hormone 2.09 uIU/mL (0.32-4.0); Vitamin D 25-OH Total 28.6 ng/mL (>30)
[2021-10-01 11:19] LABS: Creatinine Urine 261.73 mg/dL; Microalbum/Creatinine Ratio Ur 42.7 ug/mg cr
== END 2021-10-01 09:14 | disposition home or self-care (01) ==
LOC: HO.LAB 09:13
PROVIDERS: PCP Internal Medicine; Visit Provider Internal Medicine
DX: E03.9 Hypothyroidism, unspecified (principal); E55.9 Vitamin D deficiency, unspecified; E78.5 Hyperlipidemia, unspecified; E11.9 Type 2 diabetes mellitus without complications
CPT/HCPCS: 36415; 80053; 80061; 82043; 82306; 84443

== ENCOUNTER → 2022-04-05 14:20 | Outpatient (BNVA) | payer OTHER, SELFPAY | PROVIDERS: PCP Internal Medicine; Visit Provider Hospitalist | DX: J45.40 Moderate persistent asthma, uncomplicated (principal); G47.33 Obstructive sleep apnea (adult) (pediatric); J98.4 Other disorders of lung; K21.9 Gastro-esophageal reflux disease without esophagitis; I51.89 Other ill-defined heart diseases; R01.1 Cardiac murmur, unspecified | CPT/HCPCS: 99212 ==

== ENCOUNTER 2022-05-11 09:10 | Outpatient (REF) | payer OTHER, SELFPAY ==
[2022-05-11 10:40] LABS: Alanine Aminotransferase 11 U/L (0-31); Albumin Level 4.1 g/dL (3.5-5.0); Alkaline Phosphatase 79 U/L (39-117); Anion Gap 15 (12-20); Aspartate Amino Transferase 15 U/L (5-31); Bilirubin Total 0.8 mg/dL (0.0-1.0); Blood Urea Nitrogen 19 mg/dL (9-16); Calcium 9.9 mg/dL (8.4-10.2); Carbon Dioxide 29 mmol/L (22-29); Chloride 102 mmol/L (96-108); Cholesterol 146 mg/dL; Estimated Glomerular Filt Rate 52; Glucose Fasting 128 mg/dL (60-99); HDL Cholesterol 33 mg/dL; LDL Cholesterol Calculated 86 mg/dl; Potassium 4.5 mmol/L (3.3-5.1); Sodium 141 mmol/L (135-145); Total Protein 7.5 g/dL (6.5-8.0); Triglycerides 135 mg/dL
[2022-05-11 10:53] LABS: Vitamin D 25-OH Total 35.5 ng/mL (>30)
[2022-05-11 11:10] LABS: Thyroid Stimulating Hormone 1.21 uIU/mL (0.32-4.0)
[2022-05-11 12:26] LABS: Microalbum/Creatinine Ratio Ur 87.9 ug/mg cr
[2022-05-13 12:18] LABS: NT-proBNP 81 pg/mL
== END 2022-05-11 09:11 | disposition home or self-care (01) ==
LOC: HO.LAB 09:10
PROVIDERS: PCP Internal Medicine; Visit Provider Internal Medicine
DX: E78.5 Hyperlipidemia, unspecified (principal); I51.89 Other ill-defined heart diseases; E55.9 Vitamin D deficiency, unspecified; E11.9 Type 2 diabetes mellitus without complications; E03.9 Hypothyroidism, unspecified
CPT/HCPCS: 36415; 80053; 80061; 82043; 82306; 83880; 84443

== ENCOUNTER 2022-10-04 14:31 | Outpatient (AMB) | payer OTHER, SELFPAY ==
--- NOTE | 2022-10-04 14:32 | A.OFFVIS_ITS ---
Intake Vital Signs 10/04/22 14:33 Height 4 ft 11 in Weight 194 lb 0.108 oz BMI 39.2 BP 154/78 H Blood Pressure Location Lt brachial Position Sitting Pulse 68 Pulse Source Pulse Oximeter Pulse Oximetry (%) 96 Oxygen Delivery Method Room Air Intake Visit Reasons: MELBA Follow Up Allergies acetaminophen [Ultracet] Allergy (Intermediate, Verified 10/04/22 14:39) anaphylaxis tramadol [From ULTRACET] Allergy (Intermediate, Verified 10/04/22 14:39) ANAPHYLAXIS lisinopril [Lisinopril] Allergy (Mild, Verified 10/04/22 14:39) SWELLING, anaphylaxis HPI HPI Comments History of Present Illness Details Patient is a 67-year-old woman with a known history of asthma in addition to obstructive sleep apnea on CPAP. Became sick with COVID-19 back in arly 2020. She did not require hospitalization. Although, she felt her respiratory status worsens. The patient been using Flovent but did the prescription ran and she using it. Therefore she has been using her short- acting beta agonist 3 to 4 times a day. The short-acting beta agonists is only partially helpful. She is describing increasing shortness of with activity. Severity. She has also noticed increased lower extremity edema. Although, she does get more edema usually in the summertime she has not had any recent pulmonary function studies or imaging studies to review at this time. On my examination her cardiac exam is still it out with a significant pronounced S2 suggesting the possibility of pulmonary hypertension. Again from a CPAP standpoint the patient has been very adherent to the therapy the 10 years. She used the machine than 4 hours a night. I do need to get a download from her machine to make sure that is adequate for her. 07/07/2021 the patient is here for a pulmonary follow-up visit. She is complaining of worsening shortness of breath and chest tightness. Moderate severity. She states that she is got back from [place]. Unfortunately when she was there she was not monitoring her intake. Therefore she did develop significant edema. She started developing wheezing and chest tightness. She is concerned about potential allergies. My suspicion is that she may have some cardiac asthma. We will increase her diuresis and she is going to monitor closely her sodium intake. In the meantime she does use her CPAP. The CPAP therapy continues to be affecting beneficial. She does use it more than 4 hours a night. She even to get on vacation to [place] based on the fact that she is now very comfortable using it. She does need to get supplies and will will request CPAP supplies from her DME company, [employer]. Based on the patient's symptoms also request a chest x-ray. Will also provide her with allergy medicine. If the patient is no better she is to call the office for an earlier evaluation. 08/31/2021 the patient is here for a pulmonary follow-up visit. Since we spoke the patient has developed a worsening cough and URI like symptoms. Denies any fevers or chills. She has not been tested for COVID. She feels like she has increasing wheezing and coughing. She has been using her rescue inhaler between 3 to 4 times a day. Will go ahead and treat her for an asthma exacerbation. In the meantime she can get tested for COVID as well. She has been using the CPAP. The CPAP therapy continues to be affecting beneficial. She does use it for more than 4 hours a night. Unfortunately she has not been able to get supplies because she is no longer active with a DME company. Therefore I will request a repeat study in order to get a reactivated with a [employer] company start getting supplies regularly. She is very compliant with therapy 04/05/2022 the patient is here for a pulmonary follow-up visit. She still struggling not get supplies with her CPAP. We did review her CPAP study from September 2021 demonstrating [id number] sleep apnea. we will resend a prescription for CPAP supplies will local DME company to see if we can try to assist in getting her supplies. In the meantime she does use a P 10 mask and I did have a sample available for her to use. She is going to continue using her machine as much as possible since she can not sleep without it. His CPAP therapy has been very affecting beneficial. Unfortunately she has not been able to the supplies. From the asthma standpoint she started to get more asthma symptoms now that she going to the fall. She is having significant allergies nasal congestion. Moderate severity. She does respond to the allergy medication and also her additional refills. [facility] Medical History Atelectasis Chronic restrictive lung disease Diastolic dysfunction Moderate asthma Murmur (~08/31/21) Surgical History History of colonoscopy (~2018) History of laparoscopic cholecystectomy (~2009) History of tubal ligation (~1991) Family History Father No problems noted. Mother Lymphoma Maternal Aunt Diabetes Paternal Uncle Diabetes Brother No problems noted. Sister No problems noted. Sister No problems noted. Son No problems noted. Daughter No problems noted. Daughter No problems noted. Social History Housing: Apartment Alcohol intake: never Patient Tobacco Use Status: Never used Tobacco e-Cigarette/Vaping Use: Never Used Second Hand Smoke Exposure: No service: No Current occupational status: disabled Cognitive needs: No Hearing needs: No Vision needs: No Review of Systems Const All systems reviewed & are unremarkable except as noted in HPI and below Reports weight gain Eyes Reports no additional complaints, Denies change in vision and Denies other visual disturbances ENT Reports nasal congestion, Reports nasal discharge and Denies sinus pressure Card Denies chest pain at rest, Denies chest pain with activity, Denies edema, Denies irregular heart rhythm, Denies claudication, Reports leg edema, Reports dyspnea, Reports dyspnea on exertion, Denies orthopnea, Denies paroxysmal nocturnal dyspnea and Denies slow heart rate Resp Reports cough, Reports dyspnea, Reports dyspnea on exertion and Reports wheezing GI Denies abdominal pain, Denies change in bowel habits, Denies excessive flatus, Reports dyspepsia, Reports heartburn, Denies nausea and Denies vomiting Denies urinary incontinence, Denies urinary hesitancy and Denies urinary urgency Aller/Immun Reports wheezing Physical Exam Vital Signs: Last Vital Signs Pulse 68 10/04/22 14:33 BP 154/78 H 10/04/22 14:33 Pulse Ox 96 10/04/22 14:33 Oxygen Delivery Method Room Air 10/04/22 14:33 BMI result Body Mass Index 39.2 Const General: alert HEENT Face and sinus: Yes sinus tenderness Neck Neck: Yes normal visual inspection, Yes full ROM and Yes no lymphadenopathy Chest Chest palpation & inspection: normal inspection of the chest Resp Auscultation: wheezes and diminished lung sounds Cardio Rate: regular rate Rhythm: regular rhythm Heart sounds: S1 normal heart sound present, S2 normal heart sound present (pronounced) and Murmur heart sound present systolic early, II/ and at the right sternal border GI Palpation (GI): Soft to palpation and nontender Auscultation: normal bowel sounds Skin General skin exam: rashes and/or lesions noted Immunizations pneumoc 20-tom conj-dip cr(PF) Performing Provider: Jai Lopez MD Administered by: Rain Smith LPN on 10/04/22 15:15 Dose Route Admin Location Lot Number Expiration Date NDC Reimbursement Representative 0.5 mL IM Left Deltoid [id number] 12/08/23 [id number] [address]/[employer]ide[employer] VIS Given Date VIS Provided VIS Publication Date 10/04/22 Single Vaccine 22 Eligibility Eligibility Date Funding Source Not [facility] Eligible 10/04/22 Private Assessment & Plan Assessment & Plan (1) Moderate asthma: Code(s): J45.909 - Unspecified asthma, uncomplicated Qualifiers: Asthma complication type: uncomplicated Asthma persistence: persistent Qualified Code(s): J45.40 - Moderate persistent asthma, uncomplicated (2) GERD (gastroesophageal reflux disease): Code(s): K21.9 - Gastro-esophageal reflux disease without esophagitis Qualifiers: Esophagitis presence: without esophagitis Qualified Code(s): K21.9 - Gastro-esophageal reflux disease without esophagitis (3) MELBA (obstructive sleep apnea): Code(s): G47.33 - Obstructive sleep apnea (adult) (pediatric) (4) Murmur: Onset Date: ~08/31/21 Code(s): R01.1 - Cardiac murmur, unspecified (5) Diastolic dysfunction: Code(s): I51.89 - Other ill-defined heart diseases (6) Chronic restrictive lung disease: Code(s): J98.4 - Other disorders of lung Plan cont Advair HFA twice a day ANIBAL to use as needed continue using CPAP, sent for supplies, will resend a script to the DME along with her recent +PSG Low Na diet Allergy medicine: Claritin Nasal therapy: fluticasone F/U 6 month Orders: Orders Pneumococcal 20 Immunization Today I27.20 - Pulmonary hypertension, unspecified, J45.909 - Unspecified asthma, uncomplicated, J98.4 - Other disorders of lung Medications: New montelukast (Singulair) 10 mg PO BEDTIME 30 days 30 tabs 11RF J45.909 - Unspecified asthma, uncomplicated Changed From fluticasone propionate 50 mcg/actuation administer into each nostril 1 spray intranasal DAILY 15.8 mL 1RF J30.9 - Allergic rhinitis, unspecified To fluticasone propionate 50 mcg/actuation administer into each nostril 2 sprays intranasal DAILY 15.8 mL 11RF J30.9 - Allergic rhinitis, unspecified Refilled cetirizine 10 mg PO DAILY 90 tabs 11RF fluticasone propion-salmeterol 230-21 mcg/actuation (Advair HFA) 2 puffs inhalation Q12H 30 days 12 grams 11RF albuterol sulfate 90 mcg/actuation 2 inhalations inhalation Q6H PRN 8.5 grams 11RF shortness of breath or wheezing 30 days B35.3 - Tinea pedis Coding Level of Care Code Est Pt Level 4 (34440) Diagnoses Moderate asthma J45.40 Asthma complication type: uncomplicated Asthma persistence: persistent GERD (gastroesophageal reflux disease) K21.9 Esophagitis presence: without esophagitis MELBA (obstructive sleep apnea) G47.33 Murmur R01.1 Diastolic dysfunction I51.89 Chronic restrictive lung disease J98.4 Time Spent (min) 18
[2022-10-04 14:33] VITALS: BP 154/78; PULSE 68; O2SAT 96; BMI 39.2
== END 2022-10-04 15:04 | disposition home or self-care (01) ==
PROVIDERS: PCP Physician Assistant; Visit Provider Hospitalist
DX: J45.40 Moderate persistent asthma, uncomplicated (principal); K21.9 Gastro-esophageal reflux disease without esophagitis; G47.33 Obstructive sleep apnea (adult) (pediatric); R01.1 Cardiac murmur, unspecified; I51.89 Other ill-defined heart diseases; J98.4 Other disorders of lung
CPT/HCPCS: 99214

== ENCOUNTER → 2022-10-04 14:31 | Outpatient (BNVA) | payer OTHER, SELFPAY | PROVIDERS: Visit Provider Hospitalist | DX: G47.33 Obstructive sleep apnea (adult) (pediatric) (principal); J45.40 Moderate persistent asthma, uncomplicated; K21.9 Gastro-esophageal reflux disease without esophagitis; R01.1 Cardiac murmur, unspecified; I51.89 Other ill-defined heart diseases; J98.4 Other disorders of lung; Z23 Encounter for immunization | CPT/HCPCS: 90471; 90677; 99212 ==

== ENCOUNTER 2022-11-10 14:58 | Outpatient (REF) | payer OTHER, SELFPAY | END 2022-11-10 14:59 | disposition home or self-care (01) | LOC: HO.US 14:58 | PROVIDERS: PCP Internal Medicine; Visit Provider Internal Medicine Hypertension Specialist | DX: N18.31 Chronic kidney disease, stage 3a (principal) | CPT/HCPCS: 76775 ==

== ENCOUNTER 2022-11-18 14:19 | Outpatient (AMB) | payer OTHER, SELFPAY ==
--- NOTE | 2022-11-18 14:29 | A.OFFPC_ITS ---
Vital Signs 11/18/22 14:36 Height 4 ft 11 in Weight 193 lb 0.2 oz BMI 39.0 BP 136/84 Blood Pressure Location Rt brachial Position Sitting Pulse 72 Pulse Source Pulse Oximeter Pulse Oximetry (%) 97 Oxygen Delivery Method Room Air Intake Visit Reasons: PE Allergies acetaminophen [Ultracet] Allergy (Intermediate, Verified 11/19/22 06:48) anaphylaxis tramadol [From ULTRACET] Allergy (Intermediate, Verified 11/19/22 06:48) ANAPHYLAXIS lisinopril [Lisinopril] Allergy (Mild, Verified 11/19/22 06:48) SWELLING, anaphylaxis Medication List - Last Reconciled 11/19/22 by MARIA L VillatoroP [adult diapers pull-ups As directed] albuterol sulfate 2.5 mg (0.5 mL) inhalation Q20M PRN albuterol sulfate 90 mcg/actuation 2 inhalations inhalation Q6H PRN 30 days [bath mat As directed] blood pressure monitor As directed blood sugar diagnostic (FreeStyle Lite Strips) Use 1 strip once a day blood-glucose meter (FreeStyle Lite Meter kit) As directed bupropion HCl 150 mg PO DAILY PRN cane As directed cetirizine 10 mg PO DAILY cholecalciferol (vitamin D3) 25 mcg PO DAILY 90 days CPAP (CPAP Machine/Device) As directed disposable gloves latex free gloves, large doxepin 50 mg PO BEDTIME duloxetine (Cymbalta) 60 mg PO DAILY fluticasone propion-salmeterol 230-21 mcg/actuation (Advair HFA) 2 puffs inhalation Q12H 30 days fluticasone propionate 50 mcg/actuation 2 sprays intranasal DAILY gabapentin 100 mg PO DAILY [handheld showerhead As directed] hydrochlorothiazide 25 mg PO DAILY [incontinence wipes 4 packages per month] lancets (FreeStyle Lancets) Use 1 lancet once a day levothyroxine 25 mcg PO DAILY 90 days loratadine (Allergy Relief (loratadine)) 10 mg PO DAILY 90 days meclizine 25 mg PO DAILY metformin 1,000 mg PO BID 90 days metoprolol tartrate 25 mg PO BID mirtazapine 7.5 mg PO BEDTIME miscellaneous medical supply (Blood Pressure Cuff) As directed montelukast (Singulair) 10 mg PO BEDTIME 30 days omeprazole 20 mg PO DAILY [pantyliner As directed] rosuvastatin 20 mg PO DAILY 90 days Tobacco use date assessed: 11/18/22 Fall risk assessment: No Falls in past year Last assessed Fall Risk: 11/18/22 Dental Screening Dental Screen Date: 11/18/22 Did you have a dental visit in the last 12 months?: Yes Did you have a dental problem in the last 6 months where you did not have access to dental care?: No Was dental information given to patient?: Patient has dentist HPI HPI Comments History of Present Illness Details 67-year-old female past medical history significant for polyarthralgia, GERD, hypothyroidism, type 2 diabetes, hyperlipidemia, hypertension, MELBA, chronic restrictive lung disease, depression and urinary continence. Patient , presents today for physical exam. Patient reports ongoing polyarthralgia will add CRP, ESR, ERIN and rheumatoid factor to previously ordered blood. Patient requesting referral to Rheumatology, referral entered. Mammogram:Scheduled on 11/25/22 Pap smear not required given patient's age Eye Exam:Appointment in February, Dr. Torres Colonoscopy: 10/24/18; By Dr. Christopher recommended follow up in 10 years. [facility] Medical History Atelectasis Diastolic dysfunction Chronic restrictive lung disease Murmur (~08/31/21) Moderate asthma Surgical History History of colonoscopy (~2018) History of laparoscopic cholecystectomy (~2009) History of tubal ligation (~1991) Family History Father No problems noted. Mother Lymphoma Maternal Aunt Diabetes Paternal Uncle Diabetes Brother No problems noted. Sister No problems noted. Sister No problems noted. Son No problems noted. Daughter No problems noted. Daughter No problems noted. Social History Housing: Apartment Alcohol intake: never Patient Tobacco Use Status: Never used Tobacco e-Cigarette/Vaping Use: Never Used Second Hand Smoke Exposure: No service: No Current occupational status: disabled Cognitive needs: No Hearing needs: No Vision needs: No Questionnaire PHQ-9 Over the last 2 weeks, how often have you been bothered by any of the following problems? 1. Little interest or pleasure in doing things: more than half the days 2. Feeling down, depressed, or hopeless: more than half the days 3. Trouble falling or staying asleep, or sleeping too much: nearly every day 4. Feeling tired or having little energy: nearly every day 5. Poor appetite or overeating: nearly every day 6. Feeling bad about yourself - or that you are a failure or have let yourself or your family down: several days 7. Trouble concentrating on things, such as reading the newspaper or watching television: not at all 8. Moving or speaking so slowly that other people could have noticed. Or the opposite - being so fidgety or restless that you have been moving around a lot more than usual: not at all 9. Thoughts that you would be better off or of hurting yourself in some way: not at all Total score: 14 Depression Screening Interpretation: Positive Depression Screening Follow-up: Existing condition (On medication) Depression Screening Done: Yes [id number] - PHQ-9 Billing: Yes Source: Developed by Drs. Aristeo Gifford, Cheryl Burgess, Chauncey Armenta and colleagues, with an educational nilsa from [employer]. Thrive Questionnaire Date Thrive assessed: 03/11/22 AUDIT C Alcohol Use Questionnaire (AUDIT-C) 1. How often do you have a drink containing alcohol?: Never Total Score: 0 BOBBY-7 AMB Questionnaire BOBBY-7 Date BOBBY - 7 assessed: 11/18/22 Feeling nervous, anxious, or on edge: 3 = Nearly every day Not being able to stop or control worryin = Nearly every day Worrying too much about different things: 1 = Several days Trouble relaxin = Several days Being so restless that it is hard to sit still: 1 = Several days Becoming easily annoyed or irritable: 0 = Not at all Feeling afraid as if something awful might happen: 0 = Not at all Total BOBBY-7 score (0-4 normal; 5-9 mild; 10-14 moderate; 15-21 severe): 9 Source: Developed by Drs. Aristeo GiffordCheryl, Chauncey Armenta and colleagues, with an educational nilsa from [employer]. BOBBY-7 Assessment Billing BOBBY-7 Assessment Tool: BOBBY-7 Assessment [id number] Review of Systems Const Denies chills, Denies fatigue, Denies fever(s) and Denies poor appetite Eyes Denies no additional complaints ENT Reports Normal hearing present Card Denies chest pain, Denies syncope, Denies rapid heart rate and Denies dyspnea Resp Denies cough and Denies dyspnea GI Denies change in stool character, Denies constipation, Denies diarrhea, Denies nausea and Denies vomiting Denies urinary frequency, Denies dysuria and Denies urinary urgency Neuro Reports Normal hearing present, Denies confusion and Denies syncope Psych Denies confusion Endo Denies fatigue Physical exam (Primary Care) Vital Signs: Last Vital Signs Pulse 72 11/18/22 14:36 BP 136/84 11/18/22 14:36 Pulse Ox 97 11/18/22 14:36 Oxygen Delivery Method Room Air 11/18/22 14:36 BMI result Body Mass Index 39.0 Tobacco/Smoking Status: Tobacco use Status Tobacco use date assessed 11/18/22 11/18/22 14:43 Patient Tobacco Use Status Never used Tobacco 11/18/22 14:34 e-Cigarette/Vaping Use Never Used 11/18/22 14:34 PHQ-9: PHQ-9 Score PHQ-9: Total score 14 11/19/22 06:52 Depression Screening Interpretation: Positive Depression Screening Follow-up: Existing condition (On medication) Thrive Assessment: Date of Thrive Assessment Date Thrive assessed 03/11/22 11/18/22 14:34 Const General: No confusion Orientation/consciousness: No confusion HENMT Head: Yes normocephalic and Yes atraumatic Ears: external ears normal and TM's normal bilaterally General nose exam: Normal external nose present and Normal nasal mucous membranes and turbinates present Face and sinus: Yes normal facial exam and Yes sinuses nontender Mouth: moist mucous membranes Throat: Yes tonsils normal Eyes Conjunctivae: conjunctivae normal Sclerae: sclerae normal Pupils: Equal, round and reactive pupils present and Pupils normal by confrontation EOM: EOMs intact bilaterally Direct Ophthalmoscopy: normal light reflex Neck Neck: Yes no lymphadenopathy and Yes supple Thyroid: Thyroid normal Chest Chest palpation & inspection: normal inspection of the chest Resp Effort & Inspection: normal respiratory effort Auscultation: clear to auscultation bilaterally, no crackles, no rhonchi and no wheezes Cardio Rate: regular rate Rhythm: regular rhythm Peripheral pulses: radial pulses present and dorsalis pedis present GI Inspection: Yes normal to inspection Palpation (GI): Soft to palpation, nontender and No hepatosplenomegaly present Auscultation: normoactive bowel sounds Skin General skin exam: no rashes or lesions noted Neuro General: No confusion Cranial nerves: Yes Equal, round and reactive pupils present and Yes Normal hearing present Cognition (Neuro): normal cognition Gait exam (Neuro): Normal gait present Motor exam (neuro): 5/5 motor strength present throughout Deep tendon reflexes (DTR's): Right brachioradialis reflex intensity grade: 2+, Left brachioradialis reflex intensity grade: 2+, Right patellar reflex intensity grade: 2+ and Left patellar reflex intensity grade: 2+ Extrem General: No edema Results AMB Hemoglobin A1c AMB Hemoglobin A1c 8.4 % Last Edit by RO Morgan on 11/18/22 14:49 Results Reviewed Results Reviewed: Laboratory Last Values Hgb A1c (Clinic) 8.4 % (4.0-6.0) H 11/18/22 14:44 Assessment and Plan Assessment & Plan (1) DMII (diabetes mellitus, type 2): Code(s): E11.9 - Type 2 diabetes mellitus without complications Qualifiers: Diabetes mellitus complication status: without complication Diabetes mellitus fpc insulin use: without patient registration clerk use Qualified Code(s): E11.9 - Type 2 diabetes mellitus without complications Plan: Hemoglobin A1c: 8.4%, will increase patient's metformin 1000 mg daily to 1000 mg b.i.d. and follow-up in 3 months. Patient educated to decrease the amount of carbohydrate intake such as pasta, bread, rice and potatoes are all sugar in addition to the sweet stuff. Remember that fruits are good but they also have sugar. (2) Hypothyroidism: Code(s): E03.9 - Hypothyroidism, unspecified Qualifiers: Hypothyroidism type: unspecified Qualified Code(s): E03.9 - Hypothyroidism, unspecified Plan: Continue on levothyroxine 25 mcg daily. (3) HLD (hyperlipidemia): Code(s): E78.5 - Hyperlipidemia, unspecified Qualifiers: Hyperlipidemia type: mixed hyperlipidemia Qualified Code(s): E78.2 - Mixed hyperlipidemia Plan: Continue on rosuvastatin 20 mg daily. Avoid fried foods, chicken skin, eggs, butter,margarine, pastries and?? red meat. (4) HTN (hypertension): Code(s): I10 - Essential (primary) hypertension Qualifiers: Hypertension type: essential hypertension Qualified Code(s): I10 - Essential (primary) hypertension Plan: Continue on hydrochlorothiazide 25 mg daily. Follow low-salt diet and exercise. Blood pressure goal less than 140/90. (5) MELBA (obstructive sleep apnea): Code(s): G47.33 - Obstructive sleep apnea (adult) (pediatric) Plan: Continue to use CPAP nightly for greater than 4 hours a night with good effect. (6) Physical exam, annual: Code(s): Z00.00 - Encounter for general adult medical examination without abnormal findings Plan: Follow-up in 1 year for physical exam. (7) Polyarthralgia: Code(s): M25.50 - Pain in unspecified joint Plan: ESR, CRP, ERIN and rheumatoid factor added to previously ordered blood work. Referral entered to Rheumatology as requested by patient. (8) Post menopausal syndrome: Code(s): N95.1 - Menopausal and female climacteric states Plan: Bone density screening ordered. Plan Follow-up in 3 months Orders: Orders Erythrocyte Sedimentation Rate 11/18/22 M25.50 - Pain in unspecified joint AMB Hemoglobin A1c 11/18/22 E11.9 - Type 2 diabetes mellitus without complications XR DEXA axial skeleton 11/18/22 N95.1 - Menopausal and female climacteric states C Reactive Protein 11/18/22 M25.50 - Pain in unspecified joint ERIN Reflex Titer and Pattern 11/18/22 M25.50 - Pain in unspecified joint Rheumatoid Factor 11/18/22 M25.50 - Pain in unspecified joint Referrals Rheumatology Referral M25.50 - Pain in unspecified joint Medications: Changed From metformin 1,000 mg PO DAILY 90 days 90 tabs 2RF E11.9 - Type 2 diabetes mellitus without complications To metformin 1,000 mg PO BID 180 tabs 2RF 90 days E11.9 - Type 2 diabetes mellitus without complications Coding Level of Care Code Est Pt Prev Care >65y(34778) Diagnoses Type 2 diabetes mellitus without complication, without long-term current use of insulin E11.9 Diabetes mellitus complication status: without complication Diabetes mellitus patient registration clerk insulin use: without fpc use Hypothyroidism, unspecified type E03.9 Hypothyroidism type: unspecified Mixed hyperlipidemia E78.2 Hyperlipidemia type: mixed hyperlipidemia Essential hypertension I10 Hypertension type: essential hypertension MELBA (obstructive sleep apnea) G47.33 Physical exam, annual Z00.00 Polyarthralgia M25.50 Post menopausal syndrome N95.1 Additional Codes BOBBY-7 Assessment Billing - BOBBY-7 Assessment Tool: BOBBY-7 Assessment [id number] ([id number])
[2022-11-18 14:36] VITALS: BP 136/84; PULSE 72; O2SAT 97; BMI 39.0
== END 2022-11-18 15:02 | disposition home or self-care (01) ==
PROVIDERS: PCP Internal Medicine; Visit Provider Nurse Practitioner Family
DX: E11.9 Type 2 diabetes mellitus without complications (principal)
CPT/HCPCS: 83036; 99397

== ENCOUNTER 2022-11-23 07:41 | Outpatient (REF) | payer OTHER, SELFPAY ==
[2022-11-23 08:39] LABS: Rheumatoid Factor < 13.0 IU/mL (<15.0)
[2022-11-23 08:49] LABS: Alanine Aminotransferase 24 U/L (0-31); Albumin Level 4.2 g/dL (3.5-5.0); Alkaline Phosphatase 82 U/L (39-117); Anion Gap 15 (12-20); Aspartate Amino Transferase 27 U/L (5-31); Bilirubin Total 0.8 mg/dL (0.0-1.0); Blood Urea Nitrogen 18 mg/dL (9-16); C Reactive Protein 1.49 mg/dL (< or = 0.50); Calcium 10.1 mg/dL (8.4-10.2); Carbon Dioxide 27 mmol/L (22-29); Chloride 102 mmol/L (96-108); Cholesterol 87 mg/dL (<200); Estimated Glomerular Filt Rate 51; Glucose Fasting 118 mg/dL (60-99); HDL Cholesterol 31 mg/dL (>40); LDL Cholesterol Calculated 28 mg/dL (<100); Potassium 3.8 mmol/L (3.3-5.1); Sodium 140 mmol/L (135-145); Total Protein 7.7 g/dL (6.5-8.0); Triglycerides 140 mg/dL (<150)
[2022-11-23 08:59] LABS: Erythrocyte Sedimentation Rate 49 MM/HR (0-20)
[2022-11-23 09:06] LABS: Thyroid Stimulating Hormone 1.93 uIU/mL (0.32-4.0); Vitamin D 25-OH Total 37.7 ng/mL (>30)
[2022-11-23 09:32] LABS: Creatinine Urine 237.76 mg/dL; Microalbum/Creatinine Ratio Ur 39.1 ug/mg cr (<30)
[2022-11-24 14:48] LABS: Anti Nuclear Antibody Screen NEGATIVE (NEGATIVE)
== END 2022-11-23 07:42 | disposition home or self-care (01) ==
LOC: HO.LAB 07:41
PROVIDERS: Absent Provider Nurse Practitioner Family; PCP Physician Assistant; Visit Provider Internal Medicine
DX: M25.50 Pain in unspecified joint (principal); E11.9 Type 2 diabetes mellitus without complications; E78.5 Hyperlipidemia, unspecified; E03.9 Hypothyroidism, unspecified; E55.9 Vitamin D deficiency, unspecified
CPT/HCPCS: 36415; 80053; 80061; 82043; 82306; 82570; 84443; 85652; 86038; 86140; 86431

== ENCOUNTER 2022-11-26 15:26 | Outpatient (REF) | payer OTHER, SELFPAY ==
--- NOTE | ~2022-11-26 | MM_ITS ---
EXAMINATION: MM SCREENING DIGITAL BREAST TOMOSYNTHESIS, BILATERAL CLINICAL INFORMATION: Screening. Asymptomatic. COMPARISON: Mammography: This study is compared with prior exams dating back to 2017. TECHNIQUE: Digital breast tomosynthesis is performed in both the craniocaudal and mediolateral oblique views along with computer-aided detection (CAD). Synthesized 2D images are generated from the tomosynthesis. FINDINGS: The breasts are almost entirely fatty (ACR BI-RADS breast composition Category a). There are no significant masses, abnormal calcifications, or other abnormalities. MM/MM tomosynthesis screening BI IMPRESSION: No mammographic evidence of malignancy. ASSESSMENT: BI-RADS BI-RADS 1 - Negative RECOMMENDATION: Routine annual mammography screening. 1 year F/U This examination should not preclude the clinical evaluation of a suspicious palpable abnormality. This patient's information was entered into a reminder system with a target due date for their next mammogram.
== END 2022-11-26 15:27 | disposition home or self-care (01) ==
LOC: HO.MAMMO 15:26
PROVIDERS: PCP Physician Assistant; Visit Provider Internal Medicine
DX: Z12.31 Encounter for screening mammogram for malignant neoplasm of breast (principal)
CPT/HCPCS: 77063; 77067

== ENCOUNTER → 2022-11-26 15:45 | Outpatient (BNV) | payer OTHER, SELFPAY | PROVIDERS: PCP Physician Assistant; Visit Provider Radiology Diagnostic Radiology | DX: Z12.31 Encounter for screening mammogram for malignant neoplasm of breast (principal) | CPT/HCPCS: 77063; 77067 ==

== ENCOUNTER 2022-12-08 13:14 | Outpatient (REF) | payer OTHER, SELFPAY ==
--- NOTE | ~2022-12-08 | MM_ITS ---
EXAMINATION: BONE DENSITOMETRY CLINICAL INDICATION: Menopausal and female climacteric states. COMPARISON: Previous BD dated 06/30/2018 and baseline BD dated 12/10/2010. TECHNIQUE: Using a [employer] DXA System (software version: 13.1) manufactured by [employer], dual-energy x-ray absorptiometry was performed of the lumbar spine and left hip. The images are of good technical quality. Summary results are attached. FINDINGS: LEFT FEMUR, NECK: Current: BMD 0.906 g/cm2, Z-score 0.1, T-score -0.9, normal. Prior: BMD 0.947 g/cm2. Baseline: BMD 0.983 g/cm2. LEFT FEMUR, TOTAL: Current: BMD 1.115 g/cm2, Z-score 1.6, T-score 0.9, normal, 0.1% increase from previous, 1.9% increase from baseline (<5% change is not significant). Prior: BMD 1.114 g/cm2. Baseline: BMD 1.094 g/cm2. AP SPINE L3-L4 (excluding L1 and L2): The data of L1-L4 has been changed to exclude the L1 and L2 vertebral bodies, because degenerative sclerosis at these levels may cause overestimation of lumbar spine density. Current: BMD 0.905 g/cm2, Z-score -1.6, T-score -2.5, osteoporosis, 9.8% decrease from previous, 14.1% decrease from baseline (<5% change is not significant). Prior: BMD 1.003 g/cm2. Baseline: BMD 1.053 g/cm2. IDENTIFIED RISK FACTORS: Menopause, osteoporosis. HISTORY OF FRACTURE: None listed. MEDICATIONS: Vitamin D. MM/XR DEXA axial skeleton IMPRESSION: 1. DIAGNOSIS: Osteoporosis based on the lowest T-score value of -2.5 in the lumbar spine applying World Health Organization criteria. 2. 10-YEAR FRACTURE RISK PREDICTION, FRAX: According to the guidelines, FRAX calculation should only be performed on patients in the osteopenia bone density category. Therefore, FRAX was not performed on this patient. 3. Treatment Recommendations: NOF guidelines recommend consideration for treatment in postmenopausal women and men age 50 and older presenting with the following: -A hip or vertebral (clinical or morphometric) fracture. -T-score less than or equal to -2.5 at the femoral neck or spine after appropriate evaluation to exclude secondary causes. -Low bone mass at the hip or spine and a 10-year fracture probability by FRAX of greater than or equal to 3% for hip fracture or greater than or equal to 20% for major osteoporotic fracture based on the [place] adapted WHO algorithm. 4. Other Recommendations: All treatment decisions require clinical judgment and consideration of individual patient factors, including patient preferences, comorbidities, previous drug use, risk factors not captured in the FRAX model (e.g. frailty, falls, vitamin D deficiency, increased bone turnover, interval significant decline in bone density) and possible under or overestimation of fracture risk by FRAX. Additional medical evaluation for secondary cause of low bone mineral density may be appropriate. FUTURE SCAN RECOMMENDATION: People with diagnosed cases of osteoporosis or at high risk for fracture should have regular bone mineral density tests. For patients eligible for Medicare, routine testing is allowed once every 2 years. The testing frequency can be increased to one year for patients who have rapidly progressing disease, those who are receiving or discontinuing medical therapy to restore bone mass, or have additional risk factors.
== END 2022-12-08 13:15 | disposition home or self-care (01) ==
LOC: HO.MAMMO 13:14
PROVIDERS: PCP Physician Assistant; Visit Provider Nurse Practitioner Family
DX: Z13.820 Encounter for screening for osteoporosis (principal); Z78.0 Asymptomatic menopausal state
CPT/HCPCS: 77080

== ENCOUNTER 2022-12-10 14:43 | Outpatient (AMB) | payer OTHER, SELFPAY ==
--- NOTE | 2022-12-10 14:54 | MHC.OFFVIS ---
Intake Vital Signs 12/10/22 14:55 Height 4 ft 11 in Weight 194 lb 0.108 oz BMI 39.2 BP 140/80 H Blood Pressure Location Rt brachial Position Sitting Pulse 68 Pulse Source Pulse Oximeter Temp 97.2 F Temp Source Skin Pulse Oximetry (%) 97 Intake Visit Reasons: Joint Pain Intake Note: Pt last seen by Dr Lara on 08/13/20 for FM , was advised to follow up with PCP for further management. She presents today at the request of PCP for polyarthralgia consult. Has complaints of pain in hips, hands/wrist, elbows Parts Counter Representative Required: No Accompanied by: Daughter Allergies acetaminophen [Ultracet] Allergy (Intermediate, Verified 12/10/22 14:58) anaphylaxis tramadol [From ULTRACET] Allergy (Intermediate, Verified 12/10/22 14:58) ANAPHYLAXIS lisinopril [Lisinopril] Allergy (Mild, Verified 12/10/22 14:58) SWELLING, anaphylaxis Medication List - Last Reconciled 12/10/22 by Chrissie Stauffer MD acetaminophen ER (Tylenol Arthritis Pain) 650 mg PO Q12H [adult diapers pull-ups As directed] albuterol sulfate 2.5 mg (0.5 mL) inhalation Q20M PRN albuterol sulfate 90 mcg/actuation 2 inhalations inhalation Q6H PRN 30 days [bath mat As directed] blood pressure monitor As directed blood sugar diagnostic (FreeStyle Lite Strips) Use 1 strip once a day blood-glucose meter (FreeStyle Lite Meter kit) As directed bupropion HCl 300 mg PO DAILY cane As directed cetirizine 10 mg PO DAILY cholecalciferol (vitamin D3) 25 mcg PO DAILY 90 days CPAP (CPAP Machine/Device) As directed disposable gloves latex free gloves, large doxepin 50 mg PO BEDTIME duloxetine (Cymbalta) 60 mg PO DAILY fluticasone propion-salmeterol 230-21 mcg/actuation (Advair HFA) 2 puffs inhalation Q12H 30 days fluticasone propionate 50 mcg/actuation 2 sprays intranasal DAILY gabapentin 100 mg PO DAILY [handheld showerhead As directed] hydrochlorothiazide 25 mg PO DAILY [incontinence wipes 4 packages per month] lancets (FreeStyle Lancets) Use 1 lancet once a day levothyroxine 25 mcg PO DAILY 90 days loratadine (Allergy Relief (loratadine)) 10 mg PO DAILY 90 days meclizine 25 mg PO DAILY metformin 1,000 mg PO BID 90 days metoprolol tartrate 25 mg PO BID mirtazapine 7.5 mg PO BEDTIME miscellaneous medical supply (Blood Pressure Cuff) As directed montelukast (Singulair) 10 mg PO BEDTIME 30 days omeprazole 20 mg PO DAILY [pantyliner As directed] rosuvastatin 20 mg PO DAILY 90 days HPI HPI Comments History of Present Illness Details This is a 67-year-old female who presents for evaluation of diffuse joint pain. She presents with her daughter. Over the last year patient has been having pain and swelling of her hands, fingers. She has morning stiffness of her hands lasting 30 minutes to 1 hour. She also has swelling of her ankles, usually worse at night. She also has significant lower back pain radiating to her buttocks. She takes Tylenol Arthritis which provides little relief. She mentions that her mother had rheumatoid arthritis [facility] Medical History (Updated 12/10/22 @ 17:19 by Chrissie Stauffer MD) Atelectasis Diastolic dysfunction Chronic restrictive lung disease Murmur (~08/31/21) Moderate asthma Surgical History History of colonoscopy (~2018) History of laparoscopic cholecystectomy (~2009) History of tubal ligation (~1991) Family History Father No problems noted. Mother Lymphoma Maternal Aunt Diabetes Paternal Uncle Diabetes Brother No problems noted. Sister No problems noted. Sister No problems noted. Son No problems noted. Daughter No problems noted. Daughter No problems noted. Social History Housing: Apartment Alcohol intake: never Patient Tobacco Use Status: Never used Tobacco e-Cigarette/Vaping Use: Never Used Second Hand Smoke Exposure: No service: No Current occupational status: disabled Cognitive needs: No Hearing needs: No Vision needs: No Review of Systems Musc Reports back pain, Reports arthralgias, Reports joint swelling and Reports stiffness Physical Exam Vital Signs: Last Vital Signs Temp 97.2 F 12/10/22 14:55 Pulse 68 12/10/22 14:55 BP 140/80 H 12/10/22 14:55 Pulse Ox 97 12/10/22 14:55 BMI result Body Mass Index 39.2 Const General: cooperative, healthy appearing and comfortable Nutritional Appearance: obese morbidly obese Orientation/consciousness: patient oriented x3 Limitations: no limitations HEENT Head: Yes normocephalic and Yes atraumatic Mouth: moist mucous membranes Resp Other: Gets short of breath with walking and talking Auscultation: diminished lung sounds Cardio Rate: regular rate Neuro General: patient oriented x3 Extrem Other: Bilateral wrist tenderness and pain with flexion and extension Bilateral MCP puffiness and few tender MCPs and PIPs Right ankle tenderness to palpation No MTP tenderness and negative MTP squeeze test bilaterally Results Reviewed Results Reviewed: PELVIS AP ONLY [id number] SYMPTOMS,HX? LT HIP PAIN. EXAMINATION: XR PELVIS CLINICAL INFORMATION: Left hip pain. No injury. Pain for 1 week. COMPARISON: X-ray left hip 02/01/2018, x-rays bilateral hips and pelvis 03/20/2014 TECHNIQUE: AP view of the pelvis. FINDINGS: Degenerative changes bilateral hip joints. Moderate to severe arthritic changes noted in the lumbosacral spine. Mild degenerative changes noted in the symphysis pubis. Lucency bilateral posterior iliac bones adjacent to inferior SI joints likely representing bony osteopenia. Similar appearance also seen on the prior examination. IMPRESSION: Moderate arthritic changes bilateral hips, and bilateral SI joints. Severe arthritic changes lumbosacral spine. Further assessment with MRI may be of value. Mild arthritic change symphysis pubis. Assessment & Plan Assessment & Plan (1) Polyarthralgia: Code(s): M25.50 - Pain in unspecified joint Plan: This is a 67-year-old female who presents for evaluation of diffuse joint pain. Over the last year she has been having pain, swelling and stiffness of her wrists, hands, ankles. Will order serology to evaluate for underlying autoimmune rheumatic disease. Check x-rays of involved joints Follow-up in 2-3 weeks (2) Chronic low back pain: Code(s): M54.50 - Low back pain, unspecified; G89.29 - Other chronic pain Qualifiers: Back pain laterality: midline Sciatica presence: with sciatica Sciatica laterality: bilateral sciatica Qualified Code(s): M54.41 - Lumbago with sciatica, right side; M54.42 - Lumbago with sciatica, left side; G89.29 - Other chronic pain Plan: Will check an L-spine x-ray. Referred patient to pain management Plan I spent 36 minutes reviewing patient's chart, evaluating patient, ordering diagnostic workup, counseling patient and documenting in the chart Orders: Orders C Reactive Protein Today M06.9 - Rheumatoid arthritis, unspecified T Spot TB Today Z11.7 - Encounter for testing for latent tuberculosis infection XR hand wrist LT Today M06.9 - Rheumatoid arthritis, unspecified XR hand wrist RT Today M06.9 - Rheumatoid arthritis, unspecified XR shoulder LT min 2V Today M06.9 - Rheumatoid arthritis, unspecified XR shoulder RT min 2V Today M06.9 - Rheumatoid arthritis, unspecified XR knee LT 3V Today M06.9 - Rheumatoid arthritis, unspecified XR foot RT min 3V Today M06.9 - Rheumatoid arthritis, unspecified XR ankle RT min 3V Today M06.9 - Rheumatoid arthritis, unspecified XR lumbar spine 4V min Today M06.9 - Rheumatoid arthritis, unspecified Complete Blood Count Auto Diff Today M06.9 - Rheumatoid arthritis, unspecified Comprehensive Met. Panel Today M06.9 - Rheumatoid arthritis, unspecified Erythrocyte Sedimentation Rate Today M06.9 - Rheumatoid arthritis, unspecified Hepatitis A,B,C Profile Today Z11.59 - Encounter for screening for other viral diseases Immunofixation Pnl, Serum Today M06.9 - Rheumatoid arthritis, unspecified Protein Electrophoresis, Serum Today M06.9 - Rheumatoid arthritis, unspecified XR knee standing BI Today M06.9 - Rheumatoid arthritis, unspecified XR knee RT 3V Today M06.9 - Rheumatoid arthritis, unspecified XR foot LT min 3V Today M06.9 - Rheumatoid arthritis, unspecified XR ankle LT min 3V Today M06.9 - Rheumatoid arthritis, unspecified XR sacroiliac joint min 3V Today M06.9 - Rheumatoid arthritis, unspecified HLA B27 Today G89.29 - Other chronic pain, M54.50 - Low back pain, unspecified Referrals Pain Management Referral G89.29 - Other chronic pain, M54.50 - Low back pain, unspecified Coding Level of Care Code Est Pt Level 4 (49714) Diagnoses Polyarthralgia M25.50 Chronic midline low back pain with bilateral sciatica M54.41; M54.42; G89.29 Back pain laterality: midline Sciatica presence: with sciatica Sciatica laterality: bilateral sciatica
[2022-12-10 14:55] VITALS: BP 140/80; PULSE 68; TEMP 36.2; O2SAT 97; BMI 39.2
== END 2022-12-10 15:28 | disposition home or self-care (01) ==
LOC: HO.RHE 14:43
PROVIDERS: PCP Physician Assistant; Visit Provider Student in an Organized Health Care Education/Training Program
DX: M25.50 Pain in unspecified joint (principal); M54.41 Lumbago with sciatica, right side; M54.42 Lumbago with sciatica, left side; G89.29 Other chronic pain
CPT/HCPCS: 99214

== ENCOUNTER → 2022-12-10 14:43 | Outpatient (BNVA) | payer OTHER, SELFPAY | PROVIDERS: PCP Physician Assistant; Visit Provider Student in an Organized Health Care Education/Training Program | DX: M25.50 Pain in unspecified joint (principal); M54.41 Lumbago with sciatica, right side; M54.42 Lumbago with sciatica, left side; G89.29 Other chronic pain | CPT/HCPCS: 99212 ==

== ENCOUNTER 2022-12-16 10:14 | Outpatient (REF) | payer OTHER, SELFPAY ==
--- NOTE | ~2022-12-16 | XR_ITS ---
EXAMINATION: XR BILATERAL KNEES XR BILATERAL ANKLES XR BILATERAL FEET CLINICAL INFORMATION: Rheumatoid arthritis. COMPARISON: None available. TECHNIQUE: 4 views left knee. 4 views right knee. 2 views left ankle. 2 views left foot. 3 views right ankle. 3 views right foot. FINDINGS: Left Knee: Small tricompartmental osteophytes. Joint effusion. Superior and inferior anterior patellar enthesophytes. Small joint effusion. Mild medial joint space narrowing. Right Knee: Small tricompartmental osteophytes. Small, faint soft tissue calcifications lateral to the lateral femoral condyle. Trace joint effusion. Small anterior and superior/anterior patellar enthesophytes. Left Ankle: Soft tissue swelling. Advanced plantar calcaneal and dorsal calcaneal spurring/hypertrophic change. Advanced degenerative changes with hypertrophic change in the midfoot. Soft tissue swelling at the ankle. Left Foot: Degenerative changes in the tarsometatarsal joints. Mild degenerative changes first metatarsophalangeal joint. Hypertrophic/enthesopathic change along the lateral aspect of the base of the fifth metatarsal with soft tissue ossific/calcific densities at the lateral aspect of the midfoot. Right Ankle: Advanced plantar calcaneal and dorsal calcaneal spurring/hypertrophic change. Moderate degenerative changes with hypertrophic change in the midfoot. Soft tissue swelling at the ankle. Right Foot: Degenerative changes in the tarsometatarsal joints. Mild degenerative changes in the first metatarsophalangeal joint. Ossific/calcific densities along the lateral aspect of the midfoot. XR/XR shoulder LT min 2V IMPRESSION: 1. Mild degenerative changes in the bilateral knees. 2. Degenerative changes in the bilateral feet and ankles.
--- NOTE | ~2022-12-16 | XR_ITS ---
EXAMINATION: XR BILATERAL KNEES XR BILATERAL ANKLES XR BILATERAL FEET CLINICAL INFORMATION: Rheumatoid arthritis. COMPARISON: None available. TECHNIQUE: 4 views left knee. 4 views right knee. 2 views left ankle. 2 views left foot. 3 views right ankle. 3 views right foot. FINDINGS: Left Knee: Small tricompartmental osteophytes. Joint effusion. Superior and inferior anterior patellar enthesophytes. Small joint effusion. Mild medial joint space narrowing. Right Knee: Small tricompartmental osteophytes. Small, faint soft tissue calcifications lateral to the lateral femoral condyle. Trace joint effusion. Small anterior and superior/anterior patellar enthesophytes. Left Ankle: Soft tissue swelling. Advanced plantar calcaneal and dorsal calcaneal spurring/hypertrophic change. Advanced degenerative changes with hypertrophic change in the midfoot. Soft tissue swelling at the ankle. Left Foot: Degenerative changes in the tarsometatarsal joints. Mild degenerative changes first metatarsophalangeal joint. Hypertrophic/enthesopathic change along the lateral aspect of the base of the fifth metatarsal with soft tissue ossific/calcific densities at the lateral aspect of the midfoot. Right Ankle: Advanced plantar calcaneal and dorsal calcaneal spurring/hypertrophic change. Moderate degenerative changes with hypertrophic change in the midfoot. Soft tissue swelling at the ankle. Right Foot: Degenerative changes in the tarsometatarsal joints. Mild degenerative changes in the first metatarsophalangeal joint. Ossific/calcific densities along the lateral aspect of the midfoot. XR/XR knee LT 4V IMPRESSION: 1. Mild degenerative changes in the bilateral knees. 2. Degenerative changes in the bilateral feet and ankles.
--- NOTE | ~2022-12-16 | XR_ITS ---
EXAMINATION: XR BILATERAL KNEES XR BILATERAL ANKLES XR BILATERAL FEET CLINICAL INFORMATION: Rheumatoid arthritis. COMPARISON: None available. TECHNIQUE: 4 views left knee. 4 views right knee. 2 views left ankle. 2 views left foot. 3 views right ankle. 3 views right foot. FINDINGS: Left Knee: Small tricompartmental osteophytes. Joint effusion. Superior and inferior anterior patellar enthesophytes. Small joint effusion. Mild medial joint space narrowing. Right Knee: Small tricompartmental osteophytes. Small, faint soft tissue calcifications lateral to the lateral femoral condyle. Trace joint effusion. Small anterior and superior/anterior patellar enthesophytes. Left Ankle: Soft tissue swelling. Advanced plantar calcaneal and dorsal calcaneal spurring/hypertrophic change. Advanced degenerative changes with hypertrophic change in the midfoot. Soft tissue swelling at the ankle. Left Foot: Degenerative changes in the tarsometatarsal joints. Mild degenerative changes first metatarsophalangeal joint. Hypertrophic/enthesopathic change along the lateral aspect of the base of the fifth metatarsal with soft tissue ossific/calcific densities at the lateral aspect of the midfoot. Right Ankle: Advanced plantar calcaneal and dorsal calcaneal spurring/hypertrophic change. Moderate degenerative changes with hypertrophic change in the midfoot. Soft tissue swelling at the ankle. Right Foot: Degenerative changes in the tarsometatarsal joints. Mild degenerative changes in the first metatarsophalangeal joint. Ossific/calcific densities along the lateral aspect of the midfoot. XR/XR ankle LT min 3V IMPRESSION: 1. Mild degenerative changes in the bilateral knees. 2. Degenerative changes in the bilateral feet and ankles.
--- NOTE | ~2022-12-16 | XR_ITS ---
EXAMINATION: XR LUMBOSACRAL SPINE XR BILATERAL HANDS XR RIGHT SHOULDER CLINICAL INFORMATION: Lumbar spine pain. Rheumatoid arthritis. COMPARISON: Lumbar spine 02/01/2023. TECHNIQUE: 5 views of the lumbar spine. 3 views of the sacroiliac joints. 4 views of each hand. 3 views of the right shoulder. FINDINGS: Lumbar Spine: Surgical clips in the right upper quadrant of the abdomen. 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 Redemonstration of severe dextroscoliosis of the lumbosacral spine. Advanced multilevel degenerative changes in the lumbar spine with multilevel hypertrophic change and loss of disc space height. Facet arthritis in the lower lumbar spine. Advanced degenerative changes in the imaged lower thoracic spine with large anterior osteophytes. Bilateral Sacroiliac Joints: Moderate degenerative changes in the bilateral sacroiliac joints with joint space narrowing and hypertrophic change. Degenerative changes on very limited views of the bilateral hips. Right Shoulder: Moderate degenerative changes in the acromioclavicular joint with joint space narrowing and hypertrophic change. Narrowing of the subacromial space. Small soft tissue calcifications along the superior aspect of the glenoid. Advanced degenerative changes in the imaged lower cervical and upper thoracic spine. Degenerative changes with hypertrophic change along the glenoid. Right Hand: Mild degenerative changes in the first carpometacarpal joint with joint space narrowing and hypertrophic change. Mild degenerative changes in the first metacarpophalangeal joint with joint space narrowing and hypertrophic change. Left Hand: Punctate soft tissue calcification adjacent to the third metacarpophalangeal joint. Mild degenerative changes in the first carpometacarpal joint with joint space narrowing and hypertrophic change. Mild degenerative changes in the first metacarpophalangeal joint with joint space narrowing and hypertrophic change. Degenerative changes with moderate hypertrophic change in the third DIP joint. XR/XR lumbar spine 4V min IMPRESSION: 1. 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 MRI should be considered for further evaluation. 2. Moderate degenerative changes in the bilateral sacroiliac joints. 3. Degenerative changes in the right shoulder. 4. Mild degenerative changes in the bilateral hands.
--- NOTE | ~2022-12-16 | XR_ITS ---
EXAMINATION: XR BILATERAL KNEES XR BILATERAL ANKLES XR BILATERAL FEET CLINICAL INFORMATION: Rheumatoid arthritis. COMPARISON: None available. TECHNIQUE: 4 views left knee. 4 views right knee. 2 views left ankle. 2 views left foot. 3 views right ankle. 3 views right foot. FINDINGS: Left Knee: Small tricompartmental osteophytes. Joint effusion. Superior and inferior anterior patellar enthesophytes. Small joint effusion. Mild medial joint space narrowing. Right Knee: Small tricompartmental osteophytes. Small, faint soft tissue calcifications lateral to the lateral femoral condyle. Trace joint effusion. Small anterior and superior/anterior patellar enthesophytes. Left Ankle: Soft tissue swelling. Advanced plantar calcaneal and dorsal calcaneal spurring/hypertrophic change. Advanced degenerative changes with hypertrophic change in the midfoot. Soft tissue swelling at the ankle. Left Foot: Degenerative changes in the tarsometatarsal joints. Mild degenerative changes first metatarsophalangeal joint. Hypertrophic/enthesopathic change along the lateral aspect of the base of the fifth metatarsal with soft tissue ossific/calcific densities at the lateral aspect of the midfoot. Right Ankle: Advanced plantar calcaneal and dorsal calcaneal spurring/hypertrophic change. Moderate degenerative changes with hypertrophic change in the midfoot. Soft tissue swelling at the ankle. Right Foot: Degenerative changes in the tarsometatarsal joints. Mild degenerative changes in the first metatarsophalangeal joint. Ossific/calcific densities along the lateral aspect of the midfoot. XR/XR ankle RT min 3V IMPRESSION: 1. Mild degenerative changes in the bilateral knees. 2. Degenerative changes in the bilateral feet and ankles.
--- NOTE | ~2022-12-16 | XR_ITS ---
EXAMINATION: XR BILATERAL KNEES XR BILATERAL ANKLES XR BILATERAL FEET CLINICAL INFORMATION: Rheumatoid arthritis. COMPARISON: None available. TECHNIQUE: 4 views left knee. 4 views right knee. 2 views left ankle. 2 views left foot. 3 views right ankle. 3 views right foot. FINDINGS: Left Knee: Small tricompartmental osteophytes. Joint effusion. Superior and inferior anterior patellar enthesophytes. Small joint effusion. Mild medial joint space narrowing. Right Knee: Small tricompartmental osteophytes. Small, faint soft tissue calcifications lateral to the lateral femoral condyle. Trace joint effusion. Small anterior and superior/anterior patellar enthesophytes. Left Ankle: Soft tissue swelling. Advanced plantar calcaneal and dorsal calcaneal spurring/hypertrophic change. Advanced degenerative changes with hypertrophic change in the midfoot. Soft tissue swelling at the ankle. Left Foot: Degenerative changes in the tarsometatarsal joints. Mild degenerative changes first metatarsophalangeal joint. Hypertrophic/enthesopathic change along the lateral aspect of the base of the fifth metatarsal with soft tissue ossific/calcific densities at the lateral aspect of the midfoot. Right Ankle: Advanced plantar calcaneal and dorsal calcaneal spurring/hypertrophic change. Moderate degenerative changes with hypertrophic change in the midfoot. Soft tissue swelling at the ankle. Right Foot: Degenerative changes in the tarsometatarsal joints. Mild degenerative changes in the first metatarsophalangeal joint. Ossific/calcific densities along the lateral aspect of the midfoot. XR/XR foot LT min 3V IMPRESSION: 1. Mild degenerative changes in the bilateral knees. 2. Degenerative changes in the bilateral feet and ankles.
--- NOTE | ~2022-12-16 | XR_ITS ---
EXAMINATION: XR LUMBOSACRAL SPINE XR BILATERAL HANDS XR RIGHT SHOULDER CLINICAL INFORMATION: Lumbar spine pain. Rheumatoid arthritis. COMPARISON: Lumbar spine 02/01/2023. TECHNIQUE: 5 views of the lumbar spine. 3 views of the sacroiliac joints. 4 views of each hand. 3 views of the right shoulder. FINDINGS: Lumbar Spine: Surgical clips in the right upper quadrant of the abdomen. 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 Redemonstration of severe dextroscoliosis of the lumbosacral spine. Advanced multilevel degenerative changes in the lumbar spine with multilevel hypertrophic change and loss of disc space height. Facet arthritis in the lower lumbar spine. Advanced degenerative changes in the imaged lower thoracic spine with large anterior osteophytes. Bilateral Sacroiliac Joints: Moderate degenerative changes in the bilateral sacroiliac joints with joint space narrowing and hypertrophic change. Degenerative changes on very limited views of the bilateral hips. Right Shoulder: Moderate degenerative changes in the acromioclavicular joint with joint space narrowing and hypertrophic change. Narrowing of the subacromial space. Small soft tissue calcifications along the superior aspect of the glenoid. Advanced degenerative changes in the imaged lower cervical and upper thoracic spine. Degenerative changes with hypertrophic change along the glenoid. Right Hand: Mild degenerative changes in the first carpometacarpal joint with joint space narrowing and hypertrophic change. Mild degenerative changes in the first metacarpophalangeal joint with joint space narrowing and hypertrophic change. Left Hand: Punctate soft tissue calcification adjacent to the third metacarpophalangeal joint. Mild degenerative changes in the first carpometacarpal joint with joint space narrowing and hypertrophic change. Mild degenerative changes in the first metacarpophalangeal joint with joint space narrowing and hypertrophic change. Degenerative changes with moderate hypertrophic change in the third DIP joint. XR/XR sacroiliac joint min 3V IMPRESSION: 1. 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 MRI should be considered for further evaluation. 2. Moderate degenerative changes in the bilateral sacroiliac joints. 3. Degenerative changes in the right shoulder. 4. Mild degenerative changes in the bilateral hands.
--- NOTE | ~2022-12-16 | XR_ITS ---
EXAMINATION: XR LUMBOSACRAL SPINE XR BILATERAL HANDS XR RIGHT SHOULDER CLINICAL INFORMATION: Lumbar spine pain. Rheumatoid arthritis. COMPARISON: Lumbar spine 02/01/2023. TECHNIQUE: 5 views of the lumbar spine. 3 views of the sacroiliac joints. 4 views of each hand. 3 views of the right shoulder. FINDINGS: Lumbar Spine: Surgical clips in the right upper quadrant of the abdomen. 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 Redemonstration of severe dextroscoliosis of the lumbosacral spine. Advanced multilevel degenerative changes in the lumbar spine with multilevel hypertrophic change and loss of disc space height. Facet arthritis in the lower lumbar spine. Advanced degenerative changes in the imaged lower thoracic spine with large anterior osteophytes. Bilateral Sacroiliac Joints: Moderate degenerative changes in the bilateral sacroiliac joints with joint space narrowing and hypertrophic change. Degenerative changes on very limited views of the bilateral hips. Right Shoulder: Moderate degenerative changes in the acromioclavicular joint with joint space narrowing and hypertrophic change. Narrowing of the subacromial space. Small soft tissue calcifications along the superior aspect of the glenoid. Advanced degenerative changes in the imaged lower cervical and upper thoracic spine. Degenerative changes with hypertrophic change along the glenoid. Right Hand: Mild degenerative changes in the first carpometacarpal joint with joint space narrowing and hypertrophic change. Mild degenerative changes in the first metacarpophalangeal joint with joint space narrowing and hypertrophic change. Left Hand: Punctate soft tissue calcification adjacent to the third metacarpophalangeal joint. Mild degenerative changes in the first carpometacarpal joint with joint space narrowing and hypertrophic change. Mild degenerative changes in the first metacarpophalangeal joint with joint space narrowing and hypertrophic change. Degenerative changes with moderate hypertrophic change in the third DIP joint. XR/XR hand wrist RT IMPRESSION: 1. 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 MRI should be considered for further evaluation. 2. Moderate degenerative changes in the bilateral sacroiliac joints. 3. Degenerative changes in the right shoulder. 4. Mild degenerative changes in the bilateral hands.
--- NOTE | ~2022-12-16 | XR_ITS ---
EXAMINATION: XR BILATERAL KNEES XR BILATERAL ANKLES XR BILATERAL FEET CLINICAL INFORMATION: Rheumatoid arthritis. COMPARISON: None available. TECHNIQUE: 4 views left knee. 4 views right knee. 2 views left ankle. 2 views left foot. 3 views right ankle. 3 views right foot. FINDINGS: Left Knee: Small tricompartmental osteophytes. Joint effusion. Superior and inferior anterior patellar enthesophytes. Small joint effusion. Mild medial joint space narrowing. Right Knee: Small tricompartmental osteophytes. Small, faint soft tissue calcifications lateral to the lateral femoral condyle. Trace joint effusion. Small anterior and superior/anterior patellar enthesophytes. Left Ankle: Soft tissue swelling. Advanced plantar calcaneal and dorsal calcaneal spurring/hypertrophic change. Advanced degenerative changes with hypertrophic change in the midfoot. Soft tissue swelling at the ankle. Left Foot: Degenerative changes in the tarsometatarsal joints. Mild degenerative changes first metatarsophalangeal joint. Hypertrophic/enthesopathic change along the lateral aspect of the base of the fifth metatarsal with soft tissue ossific/calcific densities at the lateral aspect of the midfoot. Right Ankle: Advanced plantar calcaneal and dorsal calcaneal spurring/hypertrophic change. Moderate degenerative changes with hypertrophic change in the midfoot. Soft tissue swelling at the ankle. Right Foot: Degenerative changes in the tarsometatarsal joints. Mild degenerative changes in the first metatarsophalangeal joint. Ossific/calcific densities along the lateral aspect of the midfoot. XR/XR knee RT 4V IMPRESSION: 1. Mild degenerative changes in the bilateral knees. 2. Degenerative changes in the bilateral feet and ankles.
--- NOTE | ~2022-12-16 | XR_ITS ---
EXAMINATION: XR BILATERAL KNEES XR BILATERAL ANKLES XR BILATERAL FEET CLINICAL INFORMATION: Rheumatoid arthritis. COMPARISON: None available. TECHNIQUE: 4 views left knee. 4 views right knee. 2 views left ankle. 2 views left foot. 3 views right ankle. 3 views right foot. FINDINGS: Left Knee: Small tricompartmental osteophytes. Joint effusion. Superior and inferior anterior patellar enthesophytes. Small joint effusion. Mild medial joint space narrowing. Right Knee: Small tricompartmental osteophytes. Small, faint soft tissue calcifications lateral to the lateral femoral condyle. Trace joint effusion. Small anterior and superior/anterior patellar enthesophytes. Left Ankle: Soft tissue swelling. Advanced plantar calcaneal and dorsal calcaneal spurring/hypertrophic change. Advanced degenerative changes with hypertrophic change in the midfoot. Soft tissue swelling at the ankle. Left Foot: Degenerative changes in the tarsometatarsal joints. Mild degenerative changes first metatarsophalangeal joint. Hypertrophic/enthesopathic change along the lateral aspect of the base of the fifth metatarsal with soft tissue ossific/calcific densities at the lateral aspect of the midfoot. Right Ankle: Advanced plantar calcaneal and dorsal calcaneal spurring/hypertrophic change. Moderate degenerative changes with hypertrophic change in the midfoot. Soft tissue swelling at the ankle. Right Foot: Degenerative changes in the tarsometatarsal joints. Mild degenerative changes in the first metatarsophalangeal joint. Ossific/calcific densities along the lateral aspect of the midfoot. XR/XR foot RT min 3V IMPRESSION: 1. Mild degenerative changes in the bilateral knees. 2. Degenerative changes in the bilateral feet and ankles.
--- NOTE | ~2022-12-16 | XR_ITS ---
EXAMINATION: XR LUMBOSACRAL SPINE XR BILATERAL HANDS XR RIGHT SHOULDER CLINICAL INFORMATION: Lumbar spine pain. Rheumatoid arthritis. COMPARISON: Lumbar spine 02/01/2023. TECHNIQUE: 5 views of the lumbar spine. 3 views of the sacroiliac joints. 4 views of each hand. 3 views of the right shoulder. FINDINGS: Lumbar Spine: Surgical clips in the right upper quadrant of the abdomen. 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 Redemonstration of severe dextroscoliosis of the lumbosacral spine. Advanced multilevel degenerative changes in the lumbar spine with multilevel hypertrophic change and loss of disc space height. Facet arthritis in the lower lumbar spine. Advanced degenerative changes in the imaged lower thoracic spine with large anterior osteophytes. Bilateral Sacroiliac Joints: Moderate degenerative changes in the bilateral sacroiliac joints with joint space narrowing and hypertrophic change. Degenerative changes on very limited views of the bilateral hips. Right Shoulder: Moderate degenerative changes in the acromioclavicular joint with joint space narrowing and hypertrophic change. Narrowing of the subacromial space. Small soft tissue calcifications along the superior aspect of the glenoid. Advanced degenerative changes in the imaged lower cervical and upper thoracic spine. Degenerative changes with hypertrophic change along the glenoid. Right Hand: Mild degenerative changes in the first carpometacarpal joint with joint space narrowing and hypertrophic change. Mild degenerative changes in the first metacarpophalangeal joint with joint space narrowing and hypertrophic change. Left Hand: Punctate soft tissue calcification adjacent to the third metacarpophalangeal joint. Mild degenerative changes in the first carpometacarpal joint with joint space narrowing and hypertrophic change. Mild degenerative changes in the first metacarpophalangeal joint with joint space narrowing and hypertrophic change. Degenerative changes with moderate hypertrophic change in the third DIP joint. XR/XR shoulder RT min 2V IMPRESSION: 1. 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 MRI should be considered for further evaluation. 2. Moderate degenerative changes in the bilateral sacroiliac joints. 3. Degenerative changes in the right shoulder. 4. Mild degenerative changes in the bilateral hands.
[2022-12-16 10:31] LABS: MANUAL DIFF FLAG NO
[2022-12-16 10:53] LABS: Basophils Percent Auto 0.4 % (0-2); Eosinophils Absolute Auto 0.1 X10*3/uL (0.0-0.4); Eosinophils Percent Auto 1.1 % (0-4); Hematocrit 39.3 % (37.0-47.0); Hemoglobin 12.6 g/dl (12.0-16.0); Imm Gran Abs Auto 0.02 X10*3/uL (0.00-0.03); Imm Gran Pct Auto 0.3 % (0.0-0.4); Lymphocytes Absolute Auto 2.8 X10*3/uL (1.2-4.9); Lymphocytes Percent Auto 38.9 % (20-40); Mean Corpuscular HGB Conc 32.1 g/dl (31.0-35.0); Mean Corpuscular Hemoglobin 28.4 pg (27.0-33.0); Mean Corpuscular Volume 88.7 fL (80.0-98.0); Mean Platelet Volume 10.3 fL (9.4-12.3); Monocytes Absolute Auto 0.4 X10*3/uL (0.1-1.2); Monocytes Percent Auto 5.1 % (2-11); Neutrophils Percent Auto 54.2 % (45-73); Platelet Count 233 X10*3/uL (160-400); Red Blood Count 4.43 X10*6/uL (4.20-5.50); Red Cell Distribution Width 12.5 % (11.0-16.0); White Blood Count 7.3 X10*3/uL (4.8-10.8)
[2022-12-16 11:16] LABS: Alanine Aminotransferase 20 U/L (0-31); Albumin Level 4.4 g/dL (3.5-5.0); Alkaline Phosphatase 84 U/L (39-117); Anion Gap 15 (12-20); Aspartate Amino Transferase 22 U/L (5-31); Bilirubin Total 0.7 mg/dL (0.0-1.0); Blood Urea Nitrogen 15 mg/dL (9-16); C Reactive Protein 0.95 mg/dL (< or = 0.50); Calcium 10.5 mg/dL (8.4-10.2); Carbon Dioxide 28 mmol/L (22-29); Chloride 102 mmol/L (96-108); Estimated Glomerular Filt Rate 57; Glucose Random 157 mg/dL (60-115); Potassium 3.7 mmol/L (3.3-5.1); Sodium 141 mmol/L (135-145); Total Protein 8.1 g/dL (6.5-8.0)
[2022-12-16 11:32] LABS: Erythrocyte Sedimentation Rate 40 MM/HR (0-20)
[2022-12-17 08:33] LABS: HBS Num1 0.43 mIU/mL (0-7.99); HBc Num1 0.09 S/CO (0.00-0.79); HBsAGNum1 0.22 S/CO (0.00-0.99); Hepatitis A Antibody IgM 0.35 Index (0-0.79); Hepatitis B Core Antibody Nonreactive (Nonreactive); Hepatitis B Surface Antigen Negative (Negative); ~HepC Num1 0.07 S/CO (0.00-0.79); ~Hepatitis A Antibody IgM Nonreactive (Nonreactive); ~Hepatitis B Surface Antibody NONREACTIVE (Nonreactive); ~Hepatitis C Antibody Nonreactive (Nonreactive)
[2022-12-17 21:08] LABS: Prot Elec - Alpha1 0.3 g/dL (0.2-0.3); Prot Elec - Alpha2 0.9 g/dL (0.5-0.9); Prot Elec - Beta 1 0.5 g/dL (0.4-0.6); Prot Elec - Beta 2 0.6 g/dL (0.2-0.5); Prot Elec - Gamma 1.3 g/dL (0.8-1.7); Prot Elec - Total Protein 7.5 g/dL (6.1-8.1)
[2022-12-18 21:19] LABS: TS Negative Control Passed; TS Panel A 0; TS Panel B 0; TS Positive Control Passed; TSpotTB Negative (Negative)
[2022-12-20 22:44] LABS: HLA B27 Negative (Negative)
[2022-12-21 11:09] LABS: IgA 541 mg/dL (70-320); IgG 1388 mg/dL (600-1540); IgM 120 mg/dL (50-300)
== END 2022-12-16 10:15 | disposition home or self-care (01) ==
LOC: HO.XRAY 10:14
PROVIDERS: PCP Internal Medicine; Visit Provider Student in an Organized Health Care Education/Training Program
DX: Z11.7 Encounter for testing for latent tuberculosis infection (principal); Z11.59 Encounter for screening for other viral diseases; M06.9 Rheumatoid arthritis, unspecified; M54.50 Low back pain, unspecified; G89.29 Other chronic pain; Z72.89 Other problems related to lifestyle
CPT/HCPCS: 36415; 72110; 72202; 73030; 73110; 73130; 73564; 73610; 73630; 80053; 82784; 84165; 85025; 85652; 86140; 86334; 86481; 86704; 86706; 86709; 86803; 86812; 87340

== ENCOUNTER 2022-12-24 14:33 | Outpatient (AMB) | payer OTHER, SELFPAY ==
[2022-12-24 14:36] VITALS: BP 116/90; PULSE 76; TEMP 36.2; O2SAT 95; BMI 38.7
--- NOTE | 2022-12-24 14:36 | MHC.OFFVIS ---
Intake Vital Signs 12/24/22 14:36 Height 4 ft 11 in Weight 191 lb 9.307 oz BMI 38.7 BP 116/90 H Blood Pressure Location Rt brachial Position Sitting Pulse 76 Pulse Source Pulse Oximeter Temp 97.2 F Temp Source Skin Pulse Oximetry (%) 95 Oxygen Delivery Method Room Air Intake Visit Reasons: RA Intake Note: Pt last seen 12/10/22, presents today for follow up and test results. Glass Blowing Instructor Required: Yes Glass Blowing Instructor Language: Inflated Pad Buffer Name: daughter Accompanied by: Daughter Allergies acetaminophen [Ultracet] Allergy (Intermediate, Verified 12/24/22 14:40) anaphylaxis tramadol [From ULTRACET] Allergy (Intermediate, Verified 12/24/22 14:40) ANAPHYLAXIS lisinopril [Lisinopril] Allergy (Mild, Verified 12/24/22 14:40) SWELLING, anaphylaxis Medication List - Last Reconciled 12/24/22 by Chrissie Stauffer MD acetaminophen ER (Tylenol Arthritis Pain) 650 mg PO Q12H [adult diapers pull-ups As directed] albuterol sulfate 2.5 mg (0.5 mL) inhalation Q20M PRN albuterol sulfate 90 mcg/actuation 2 inhalations inhalation Q6H PRN 30 days [bath mat As directed] blood pressure monitor As directed blood sugar diagnostic (FreeStyle Lite Strips) Use 1 strip once a day blood-glucose meter (FreeStyle Lite Meter kit) As directed bupropion HCl 300 mg PO DAILY cane As directed cetirizine 10 mg PO DAILY cholecalciferol (vitamin D3) 25 mcg PO DAILY 90 days CPAP (CPAP Machine/Device) As directed disposable gloves latex free gloves, large doxepin 10 mg PO BEDTIME duloxetine (Cymbalta) 60 mg PO DAILY fluticasone propion-salmeterol 230-21 mcg/actuation (Advair HFA) 2 puffs inhalation Q12H 30 days fluticasone propionate 50 mcg/actuation 2 sprays intranasal DAILY gabapentin 100 mg PO DAILY [handheld showerhead As directed] hydrochlorothiazide 25 mg PO DAILY [incontinence wipes 4 packages per month] lancets (FreeStyle Lancets) Use 1 lancet once a day levothyroxine 25 mcg PO DAILY 90 days loratadine (Allergy Relief (loratadine)) 10 mg PO DAILY 90 days meclizine 25 mg PO DAILY metformin 1,000 mg PO BID 90 days metoprolol tartrate 25 mg PO BID mirtazapine 7.5 mg PO BEDTIME miscellaneous medical supply (Blood Pressure Cuff) As directed montelukast (Singulair) 10 mg PO BEDTIME 30 days omeprazole 20 mg PO DAILY [pantyliner As directed] rosuvastatin 20 mg PO DAILY 90 days spironolactone 12.5 mg PO DAILY HPI HPI Comments History of Present Illness Details Patient returns for follow-up with her daughter after completion of her diagnostic workup. Continues to feel about the same. Initial history: This is a 67-year-old female who presents for evaluation of diffuse joint pain. She presents with her daughter. Over the last year patient has been having pain and swelling of her hands, fingers. She has morning stiffness of her hands lasting 30 minutes to 1 hour. She also has swelling of her ankles, usually worse at night. She also has significant lower back pain radiating to her buttocks. She takes Tylenol Arthritis which provides little relief. She mentions that her mother had rheumatoid arthritis. States that her joints improved when she gets prednisone taper for her bronchitis [facility] Medical History Atelectasis Diastolic dysfunction Chronic restrictive lung disease Murmur (~08/31/21) Moderate asthma Surgical History History of colonoscopy (~2018) History of laparoscopic cholecystectomy (~2009) History of tubal ligation (~1991) Family History Father No problems noted. Mother Lymphoma Maternal Aunt Diabetes Paternal Uncle Diabetes Brother No problems noted. Sister No problems noted. Sister No problems noted. Son No problems noted. Daughter No problems noted. Daughter No problems noted. Social History Housing: Apartment Alcohol intake: never Patient Tobacco Use Status: Never used Tobacco e-Cigarette/Vaping Use: Never Used Second Hand Smoke Exposure: No service: No Current occupational status: disabled Cognitive needs: No Hearing needs: No Vision needs: No Review of Systems Musc Reports back pain, Reports arthralgias, Reports joint swelling and Reports stiffness Physical Exam Vital Signs: Last Vital Signs Temp 97.2 F 12/24/22 14:36 Pulse 76 12/24/22 14:36 BP 116/90 H 12/24/22 14:36 Pulse Ox 95 12/24/22 14:36 Oxygen Delivery Method Room Air 12/24/22 14:36 BMI result Body Mass Index 38.7 Const General: cooperative, healthy appearing and comfortable Nutritional Appearance: obese morbidly obese Orientation/consciousness: patient oriented x3 Limitations: no limitations HEENT Head: Yes normocephalic and Yes atraumatic Resp Other: Gets short of breath with walking and talking Auscultation: diminished lung sounds Cardio Rate: regular rate Neuro General: patient oriented x3 Extrem Other: Bilateral wrist tenderness and pain with flexion and extension Bilateral MCP puffiness and few tender MCPs and PIPs Right ankle tenderness to palpation No MTP tenderness and negative MTP squeeze test bilaterally Results Reviewed Results Reviewed: PELVIS AP ONLY [id number] SYMPTOMS,HX? LT HIP PAIN. EXAMINATION: XR PELVIS CLINICAL INFORMATION: Left hip pain. No injury. Pain for 1 week. COMPARISON: X-ray left hip 02/01/2018, x-rays bilateral hips and pelvis 03/20/2014 TECHNIQUE: AP view of the pelvis. FINDINGS: Degenerative changes bilateral hip joints. Moderate to severe arthritic changes noted in the lumbosacral spine. Mild degenerative changes noted in the symphysis pubis. Lucency bilateral posterior iliac bones adjacent to inferior SI joints likely representing bony osteopenia. Similar appearance also seen on the prior examination. IMPRESSION: Moderate arthritic changes bilateral hips, and bilateral SI joints. Severe arthritic changes lumbosacral spine. Further assessment with MRI may be of value. Mild arthritic change symphysis pubis. EXAMINATION: XR BILATERAL KNEES XR BILATERAL ANKLES XR BILATERAL FEET CLINICAL INFORMATION:? Rheumatoid arthritis. COMPARISON:? None available. TECHNIQUE:? 4 views left knee. 4 views right knee. 2 views left ankle. 2 views left foot. 3 views right ankle. 3 views right foot. FINDINGS: Left Knee: Small tricompartmental osteophytes. Joint effusion. Superior and inferior anterior patellar enthesophytes. Small joint effusion. Mild medial joint space narrowing. Right Knee: Small tricompartmental osteophytes. Small, faint soft tissue calcifications lateral to the lateral femoral condyle. Trace joint effusion. Small anterior and superior/anterior patellar enthesophytes. Left Ankle: Soft tissue swelling. Advanced plantar calcaneal and dorsal calcaneal spurring/hypertrophic change. Advanced degenerative changes with hypertrophic change in the midfoot. Soft tissue swelling at the ankle. Left Foot: Degenerative changes in the tarsometatarsal joints. Mild degenerative changes first metatarsophalangeal joint. Hypertrophic/enthesopathic change along the lateral aspect of the base of the fifth metatarsal with soft tissue ossific/calcific densities at the lateral aspect of the midfoot. Right Ankle: Advanced plantar calcaneal and dorsal calcaneal spurring/hypertrophic change. Moderate degenerative changes with hypertrophic change in the midfoot. Soft tissue swelling at the ankle. Right Foot: Degenerative changes in the tarsometatarsal joints. Mild degenerative changes in the first metatarsophalangeal joint. Ossific/calcific densities along the lateral aspect of the midfoot. XR/XR shoulder LT min 2V IMPRESSION: 1. Mild degenerative changes in the bilateral knees. 2. Degenerative changes in the bilateral feet and ankles. [place] [id number] XRay Report? Signed Patient: Fiordaliza Taveras I MR#: [id number] : 1955 Acct:[id number] Age/Sex: 67 / F ADM Date: 12/16/22 Loc: [facility] Attending Dr: Chrissie Stauffer MD Ordering Physician: Chrissie Stauffer MD Date of Service: 12/16/22 Procedure(s): XR sacroiliac joint min 3V Accession Number(s): [id number] cc: Dalila Olsen MD; Chrissie Stauffer MD~ EXAMINATION: XR LUMBOSACRAL SPINE XR BILATERAL HANDS XR RIGHT SHOULDER CLINICAL INFORMATION:? Lumbar spine pain. Rheumatoid arthritis. COMPARISON:? Lumbar spine 02/01/2023.? TECHNIQUE:? 5 views of the lumbar spine. 3 views of the sacroiliac joints. 4 views of each hand. 3 views of the right shoulder. FINDINGS: Lumbar Spine: Surgical clips in the right upper quadrant of the abdomen. 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 Redemonstration of severe dextroscoliosis of the lumbosacral spine. Advanced multilevel degenerative changes in the lumbar spine with multilevel hypertrophic change and loss of disc space height. Facet arthritis in the lower lumbar spine. Advanced degenerative changes in the imaged lower thoracic spine with large anterior osteophytes. Bilateral Sacroiliac Joints: Moderate degenerative changes in the bilateral sacroiliac joints with joint space narrowing and hypertrophic change. Degenerative changes on very limited views of the bilateral hips. Right Shoulder: Moderate degenerative changes in the acromioclavicular joint with joint space narrowing and hypertrophic change. Narrowing of the subacromial space. Small soft tissue calcifications along the superior aspect of the glenoid. Advanced degenerative changes in the imaged lower cervical and upper thoracic spine. Degenerative changes with hypertrophic change along the glenoid. Right Hand: Mild degenerative changes in the first carpometacarpal joint with joint space narrowing and hypertrophic change. Mild degenerative changes in the first metacarpophalangeal joint with joint space narrowing and hypertrophic change. Left Hand: Punctate soft tissue calcification adjacent to the third metacarpophalangeal joint. Mild degenerative changes in the first carpometacarpal joint with joint space narrowing and hypertrophic change. Mild degenerative changes in the first metacarpophalangeal joint with joint space narrowing and hypertrophic change. Degenerative changes with moderate hypertrophic change in the third DIP joint. XR/XR sacroiliac joint min 3V IMPRESSION: 1. 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 MRI should be considered for further evaluation. 2. Moderate degenerative changes in the bilateral sacroiliac joints. 3. Degenerative changes in the right shoulder. 4. Mild degenerative changes in the bilateral hands. Assessment & Plan Assessment & Plan (1) Polyarthralgia: Code(s): M25.50 - Pain in unspecified joint Plan: This is a 67-year-old female who presents for evaluation of diffuse joint pain. Over the last year she has been having pain, swelling and stiffness of her wrists, hands, ankles. Comprehensive serology including DALILA/RF/CCP/HLA B27 is all negative. Inflammatory markers are mildly elevated. She has multiple swollen joints. X-ray shows multiple joints with enthesopathy. Clinical picture consistent with a seronegative arthritis. Will need to start DMARDs. Discussed risks and benefits of methotrexate. Patient agreed to proceed. Start methotrexate 15 mg once weekly for 2 weeks then 20 mg once weekly plus folic acid 1 mg daily. 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
== END 2022-12-24 15:04 | disposition home or self-care (01) ==
PROVIDERS: PCP Internal Medicine; Visit Provider Student in an Organized Health Care Education/Training Program
DX: M25.50 Pain in unspecified joint (principal); M54.41 Lumbago with sciatica, right side; M54.42 Lumbago with sciatica, left side; G89.29 Other chronic pain; Z79.631 Long term (current) use of antimetabolite agent
CPT/HCPCS: 99214

== ENCOUNTER → 2022-12-24 14:33 | Outpatient (BNVA) | payer OTHER, SELFPAY | PROVIDERS: PCP Internal Medicine; Visit Provider Student in an Organized Health Care Education/Training Program | DX: M25.50 Pain in unspecified joint (principal); M54.41 Lumbago with sciatica, right side; M54.42 Lumbago with sciatica, left side; G89.29 Other chronic pain; Z79.631 Long term (current) use of antimetabolite agent | CPT/HCPCS: 99212 ==

== ENCOUNTER 2023-02-10 13:53 | Outpatient (REF) | payer OTHER, SELFPAY ==
[2023-02-10 14:04] LABS: MANUAL DIFF FLAG NO
[2023-02-10 15:15] LABS: Basophils Percent Auto 0.3 % (0-2); Eosinophils Absolute Auto 0.1 X10*3/uL (0.0-0.4); Eosinophils Percent Auto 0.9 % (0-4); Hematocrit 38.8 % (37.0-47.0); Hemoglobin 12.5 g/dl (12.0-16.0); Imm Gran Abs Auto 0.04 X10*3/uL (0.00-0.03); Imm Gran Pct Auto 0.3 % (0.0-0.4); Lymphocytes Absolute Auto 4.4 X10*3/uL (1.2-4.9); Lymphocytes Percent Auto 37.5 % (20-40); Mean Corpuscular HGB Conc 32.2 g/dl (31.0-35.0); Mean Platelet Volume 10.6 fL (9.4-12.3); Monocytes Absolute Auto 0.6 X10*3/uL (0.1-1.2); Monocytes Percent Auto 5.2 % (2-11); Neutrophils Absolute Auto 6.6 x10*3/uL (2.0-8.3); Neutrophils Percent Auto 55.8 % (45-73); Platelet Count 287 X10*3/uL (160-400); Red Blood Count 4.31 X10*6/uL (4.20-5.50); Red Cell Distribution Width 13.6 % (11.0-16.0); White Blood Count 11.8 X10*3/uL (4.8-10.8)
== END 2023-02-10 13:54 | disposition home or self-care (01) ==
LOC: HO.LAB 13:53
PROVIDERS: PCP Internal Medicine; Visit Provider Student in an Organized Health Care Education/Training Program
DX: M13.80 Other specified arthritis, unspecified site (principal)
CPT/HCPCS: 36415; 80053; 85025; 85652; 86140

== ENCOUNTER 2023-02-21 13:15 | Outpatient (AMB) | payer OTHER, SELFPAY ==
[2023-02-21 13:28] VITALS: BP 138/80; PULSE 70; O2SAT 98; BMI 37.4
--- NOTE | 2023-02-21 13:28 | MHC.PC.OV ---
Vital Signs 02/21/23 13:28 Height 4 ft 11 in Weight 185 lb 4 oz BMI 37.4 BP 138/80 Blood Pressure Location Lt brachial Position Sitting Pulse 70 Pulse Source Pulse Oximeter Pulse Oximetry (%) 98 Oxygen Delivery Method Room Air Intake Visit Reasons: SERICULTURIST, transfer, high BP, sleep Apnea Intake Note: Pt is here for transfer of care from [facility]ULTURIST-[facility] F/U on HTn, sleep apnea and DMII. Battery Plate Remover Required: No Accompanied by: Daughter Allergies acetaminophen [Ultracet] Allergy (Intermediate, Verified 02/21/23 13:48) anaphylaxis tramadol [From ULTRACET] Allergy (Intermediate, Verified 02/21/23 13:48) ANAPHYLAXIS lisinopril [Lisinopril] Allergy (Mild, Verified 02/21/23 13:48) SWELLING, anaphylaxis Medication List - Last Reconciled 02/21/23 by Mikey Buenrostro PA-C acetaminophen ER (Tylenol Arthritis Pain) 650 mg PO Q12H PRN [adult diapers pull-ups As directed] albuterol sulfate 2.5 mg (0.5 mL) inhalation Q20M PRN albuterol sulfate 90 mcg/actuation 2 inhalations inhalation Q6H PRN 30 days [bath mat As directed] blood pressure monitor As directed blood sugar diagnostic (FreeStyle Lite Strips) Use 1 strip once a day blood-glucose meter (FreeStyle Lite Meter kit) As directed bupropion HCl 300 mg PO DAILY cane As directed cetirizine 10 mg PO DAILY cholecalciferol (vitamin D3) 25 mcg PO DAILY 90 days CPAP (CPAP Machine/Device) As directed disposable gloves latex free gloves, large doxepin 10 mg PO BEDTIME duloxetine (Cymbalta) 60 mg PO DAILY fluticasone propion-salmeterol 230-21 mcg/actuation (Advair HFA) 2 puffs inhalation Q12H 30 days fluticasone propionate 50 mcg/actuation 2 sprays intranasal DAILY folic acid 1 mg PO DAILY gabapentin 100 mg PO DAILY [handheld showerhead As directed] hydrochlorothiazide 25 mg PO DAILY [incontinence wipes 4 packages per month] lancets (FreeStyle Lancets) Use 1 lancet once a day levothyroxine 25 mcg PO DAILY 90 days loratadine (Allergy Relief (loratadine)) 10 mg PO DAILY 90 days meclizine 25 mg PO DAILY metformin 1,000 mg PO BID 90 days methotrexate sodium 6 tablets by mouth once week for 2 weeks, then 8 tablets by mouth once weekly. metoprolol tartrate 25 mg PO BID mirtazapine 7.5 mg PO BEDTIME miscellaneous medical supply (Blood Pressure Cuff) As directed montelukast (Singulair) 10 mg PO BEDTIME 30 days omeprazole 20 mg PO DAILY [pantyliner As directed] rosuvastatin 20 mg PO DAILY 90 days spironolactone 12.5 mg PO DAILY Tobacco use date assessed: 02/21/23 Fall risk assessment: 1 Fall in past year Last assessed Fall Risk: 02/21/23 Dental Screening Dental Screen Date: 02/21/23 Did you have a dental visit in the last 12 months?: Yes Did you have a dental problem in the last 6 months where you did not have access to dental care?: No Was dental information given to patient?: Patient has dentist HPI SERICULTURIST, transfer, high BP, sleep Apnea HPI Details Patient is a 67-year-old Yi-speaking female here today for new patient transfer care visit. Patient has multiple medical conditions including hypertension, type 2 diabetes, hyperlipidemia, obstructive sleep apnea, asthma, seronegative arthritis, obesity. . Arthritis: She is now followed by evaporator helper and has been started on disease modifying medication. .. HTN: Blood pressure today in office acceptable. Will continue her current dose of antihypertensive medication. She otherwise denies any chest discomfort, headache, dizziness or vision issues. .. Hypothyroidism: Has a few lb since last office visit. Patient continues on levothyroxine 25 mcg. Will recheck TSH to assure normal. .. Moderate persistent asthma/ MELBA: Patient is followed by pulmonology. She continues on CPAP at night. Continues on feeds inhaler. .. Type 2 diabetes: Has been suboptimally controlled with A1c over suffer patient continues on metformin a 1000 mg b.i.d.. Today's A1c is 7.4 from 8.4. PLAN: Interested in starting a GLP 1 for added benefit of weight loss and hyperglycemic control .. Laboratory Tests 11/18/22 11/23/22 11/23/22 14:44 07:54 07:54 WBC RBC ESR 49 H Random Glucose Hgb A1c (Clinic) 8.4 H Calcium C-Reactive Protein LDL Cholesterol, C alc 28 TB Test (T-Spot) C om 11/09/23 11/09/23 11/09/23 10:27 10:27 10:27 WBC RBC ESR 40 H Random Glucose Hgb A1c (Clinic) Calcium C-Reactive Protein 0.95 H LDL Cholesterol, C alc TB Test (T-Spot) C om Negative 02/10/23 02/10/23 02/21/23 14:02 14:02 13:45 WBC 11.8 H RBC 4.31 ESR 44 H Random Glucose 144 H Hgb A1c (Clinic) 7.4 H Calcium 10.7 H C-Reactive Protein 1.23 H LDL Cholesterol, C alc TB Test (T-Spot) C om PFSH Medical History Pulmonary hypertension Atelectasis Diastolic dysfunction Chronic restrictive lung disease Murmur (~08/31/21) Moderate asthma Surgical History History of colonoscopy (~2018) History of laparoscopic cholecystectomy (~2009) History of tubal ligation (~1991) Family History Father No problems noted. Mother Lymphoma Maternal Aunt Diabetes Paternal Uncle Diabetes Brother No problems noted. Sister No problems noted. Sister No problems noted. Son No problems noted. Daughter No problems noted. Daughter No problems noted. Social History Housing: Apartment Alcohol intake: never Patient Tobacco Use Status: Never used Tobacco e-Cigarette/Vaping Use: Never Used Second Hand Smoke Exposure: No service: No Current occupational status: disabled Cognitive needs: No Hearing needs: No Vision needs: No Questionnaire PHQ-9 Over the last 2 weeks, how often have you been bothered by any of the following problems? 1. Little interest or pleasure in doing things: nearly every day 2. Feeling down, depressed, or hopeless: more than half the days 3. Trouble falling or staying asleep, or sleeping too much: nearly every day 4. Feeling tired or having little energy: nearly every day 5. Poor appetite or overeating: more than half the days 6. Feeling bad about yourself - or that you are a failure or have let yourself or your family down: several days 7. Trouble concentrating on things, such as reading the newspaper or watching television: nearly every day 8. Moving or speaking so slowly that other people could have noticed. Or the opposite - being so fidgety or restless that you have been moving around a lot more than usual: not at all 9. Thoughts that you would be better off or of hurting yourself in some way: not at all Total score: 17 Depression Screening Interpretation: Positive Depression Screening Follow-up: Existing condition and In treatment Depression Screening Done: Yes 57427 - PHQ-9 Billing: Yes Source: Developed by Drs. Aristeo Gifford, Cheryl Burgess, Chauncey Armenta and colleagues, with an educational nilsa from [employer] Thrive Questionnaire Date Thrive assessed: 02/21/23 I am a: Patient What is your living situation today?: I have a steady place to live Within the past 12 months, did the food you bought not last and you didn't have the money to get more?: Never true Within the past 12 months, did you worry whether your food would run out before you got money to buy more?: Never true Do you have trouble paying for medicines?: No Do you have trouble getting transportation to medical appointments?: No Do you have trouble paying your heating and electricity bill?: No Do you have trouble taking care of your child, family member or friend?: No Do you have trouble with day-to-day activities such as bathing, preparing meals, shopping, managing finances, etc.?: No Are you currently unemployed and looking for a job?: No Are you interested in more education?: No Please select the resources that you would like help with: None AUDIT C Alcohol Use Questionnaire (AUDIT-C) 1. How often do you have a drink containing alcohol?: Never 3. How often do you have six or more drinks on one occasion?: Never Total Score: 0 BOBBY-7 AMB Questionnaire BOBBY-7 Date BOBBY - 7 assessed: 02/21/23 Feeling nervous, anxious, or on edge: 3 = Nearly every day Not being able to stop or control worryin = More than half the days Worrying too much about different things: 2 = More than half the days Trouble relaxin = Nearly every day Being so restless that it is hard to sit still: 3 = Nearly every day Becoming easily annoyed or irritable: 3 = Nearly every day Feeling afraid as if something awful might happen: 2 = More than half the days Total BOBBY-7 score (0-4 normal; 5-9 mild; 10-14 moderate; 15-21 severe): 18 Source: Developed by Drs. Aristeo Gifford, Cheryl Burgess, Chanucey Armenta and colleagues, with an educational nilsa from [employer] BOBBY-7 Assessment Billing BOBBY-7 Assessment Tool: BOBBY-7 Assessment 05145 Review of Systems Const Denies headache(s) Eyes Denies loss of vision ENT Denies vertigo, Denies dizziness, Denies headache(s) and Denies sore throat Card Denies chest pain, Denies leg edema and Denies lightheadedness Resp Denies cough, Denies hemoptysis and Denies wheezing GI Denies abdominal pain, Denies melena, Denies constipation, Denies diarrhea and Denies vomiting Denies urinary frequency, Denies dysuria and Denies urinary urgency Musc Denies arthralgias, Denies joint swelling, Denies numbness and Denies tingling Neuro Denies Abnormal speech present, Denies behavioral changes, Denies vertigo, Denies dizziness, Denies headache(s), Denies loss of vision, Denies memory loss, Denies numbness and Denies tingling Psych Denies anxiety, Denies behavioral changes, Denies depression, Denies memory loss and Denies panic attacks Werner/Lymph Denies easy bleeding and Denies easy bruising Aller/Immun Denies wheezing Physical exam (Primary Care) Vital Signs: Last Vital Signs Pulse 70 02/21/23 13:28 BP 138/80 02/21/23 13:28 Pulse Ox 98 02/21/23 13:28 Oxygen Delivery Method Room Air 02/21/23 13:28 BMI result Body Mass Index 37.4 BMI Assessment/Plan discussion: High Tobacco/Smoking Status: Tobacco use Status Tobacco use date assessed 02/21/23 02/21/23 13:41 Patient Tobacco Use Status Never used Tobacco 02/21/23 13:41 e-Cigarette/Vaping Use Never Used 02/21/23 13:41 PHQ-9: PHQ-9 Score PHQ-9: Total score 17 02/21/23 13:41 Depression Screening Interpretation: Positive Depression Screening Follow-up: Existing condition and In treatment Thrive Assessment: Date of Thrive Assessment Date Thrive assessed 02/21/23 02/21/23 13:41 Const Other: OBESE General: healthy appearing, no acute distress, alert and awake Nutritional Appearance: well nourished Orientation/consciousness: oriented to person, oriented to place and oriented to time HENMT Ears: TM's normal bilaterally General nose exam: Normal nasal mucous membranes and turbinates present Eyes Conjunctivae: conjunctivae normal Sclerae: sclerae normal Pupils: Equal, round and reactive pupils present Neck Neck: Yes no lymphadenopathy and Yes no JVD Thyroid: Thyroid normal Carotids: no bruits Resp Effort & Inspection: normal respiratory effort and not tachypneic Auscultation: no crackles, no rales, no rhonchi and no wheezes Cardio Rate: regular rate Rhythm: regular rhythm Heart sounds: no murmurs and normal S1 and S2 GI Palpation (GI): Soft to palpation, nontender, no hepatomegaly and no splenomegaly Auscultation: normal bowel sounds Skin General skin exam: no rashes or lesions noted and dry skin Neuro General: oriented to person, oriented to place and oriented to time Cranial nerves: Yes Equal, round and reactive pupils present Speech: No Abnormal speech present Gait exam (Neuro): Normal gait present Motor exam (neuro): no tremor noted Extrem Right upper extremity: full ROM Left upper extremity: full ROM Right lower extremity: full ROM; no edema Left lower extremity: full ROM; no edema Psych Mental Status: mental status grossly normal Speech and movement: Normal speech and movement present Affect: normal affect Attitude: cooperative Thought process: Normal thought process present Office Procedures Flu Questionnaire Does the patient have a severe egg allergy?: No Does the patient have severe life threatening allergies?: No Does the patient have a fever or illness today?: No Has the patient ever had Guillain-[place] Syndrome?: No Has the patient ever had any past reaction to a flu shot?: No Results AMB Hemoglobin A1c AMB Hemoglobin A1c 7.4 % Last Edit by WALTER Stewart on 02/21/23 13:46 Immunizations flu vacc [id number] 6mos up(PF) 60 mcg(15 mcgx4)/0.5 mL IM syringe Performing Provider: Mikey Buenrostro PA-C Performing Location: [facility] Administered by: WALTER Stewart on 02/21/23 13:49 Dose Route Admin Location Dispensed Lot Number Expiration Date NDC Ophthalmic Tech 0.5 mL IM Left Deltoid 0.5 mL [id number] 08/07/23 [id number] [employer] VIS Given Date VIS Provided VIS Publication Date 02/21/23 Single Vaccine 20 Eligibility Eligibility Date Funding Source Not [facility] Eligible 02/21/23 Private Assessment and Plan Assessment & Plan (1) Seronegative arthritis: Code(s): M13.80 - Other specified arthritis, unspecified site Plan: Followed by Rheumatology, recently started on disease modifing medication--> MTX (2) Mild recurrent major depression: Code(s): F33.0 - Major depressive disorder, recurrent, mild Plan: Patient's PHQ-9 score positive for depression which has been an existing condition for her she speaks with a mental health therapist and a med provider. (3) Morbid obesity: Code(s): E66.01 - Morbid (severe) obesity due to excess calories Plan: Patient does understand her BMI is over 35 and will work on better eating habits to reduce her weight. She is interested in trying a GLP 1 for added benefit of weight loss. (4) DMII (diabetes mellitus, type 2): Code(s): E11.9 - Type 2 diabetes mellitus without complications Qualifiers: Diabetes mellitus complication status: without complication Diabetes mellitus local intermodal truck driver insulin use: without local intermodal truck driver use Qualified Code(s): E11.9 - Type 2 diabetes mellitus without complications Plan: Patient's type 2 diabetes suboptimally controlled. She continues on metformin a 1000 b.i.d.. She is interested in starting a GLP 1 for better diabetic control and weight reduction. Goal A1c is to be below 7.0 (5) Hypothyroidism: Code(s): E03.9 - Hypothyroidism, unspecified Qualifiers: Hypothyroidism type: unspecified Qualified Code(s): E03.9 - Hypothyroidism, unspecified Plan: Will recheck TSH to assure normal. She continues on levothyroxine 25 mcg. (6) Moderate asthma: Code(s): J45.909 - Unspecified asthma, uncomplicated Qualifiers: Asthma complication type: uncomplicated Asthma persistence: persistent Qualified Code(s): J45.40 - Moderate persistent asthma, uncomplicated Plan: Patient continues to follow [facility]. She continues with daily use of her maintenance inhaler. Her physical activity is severely limited due to shortness of breath on exertion Orders: Orders Microalbumin, Random (w Creat) Today E11.9 - Type 2 diabetes mellitus without complications Comprehensive [place]. Panel Fast Today E11.9 - Type 2 diabetes mellitus without complications Influenza [id number] Immunization Today Z23 - Encounter for immunization AMB Hemoglobin A1c Today E11.9 - Type 2 diabetes mellitus without complications Lipid Panel Today E78.2 - Mixed hyperlipidemia TSH reflex Free T4 Today E03.9 - Hypothyroidism, unspecified Medications: New dulaglutide (Trulicity) 0.75 mg (0.5 mL) subcut QWEEK 4 weeks 2 mL 2RF E11.9 - Type 2 diabetes mellitus without complications Changed From hydrochlorothiazide 25 mg PO DAILY 90 tabs 0RF I10 - Essential (primary) hypertension To hydrochlorothiazide 25 mg PO DAILY 90 days 90 tabs 2RF I10 - Essential (primary) hypertension Refilled albuterol sulfate for up to 3 doses 2.5 mg (0.5 mL) inhalation Q20M PRN 30 ea 0RF shortness of breath or wheezing J98.4 - Other disorders of lung meclizine 25 mg PO DAILY 90 tabs 3RF I10 - Essential (primary) hypertension metoprolol tartrate 25 mg PO BID 180 tabs 1RF I10 - Essential (primary) hypertension Discontinued loratadine (Allergy Relief (loratadine)) Discontinued Reason: Doctor's Order 10 mg PO DAILY 90 days 90 tabs 3RF Coding Level of Care Code Est Pt Level 4 (03797) Diagnoses Seronegative arthritis M13.80 Mild recurrent major depression F33.0 Morbid obesity E66.01 Type 2 diabetes mellitus without complication, without long-term current use of insulin E11.9 Diabetes mellitus complication status: without complication Diabetes mellitus usp insulin use: without local intermodal truck driver use Hypothyroidism, unspecified type E03.9 Hypothyroidism type: unspecified Moderate persistent asthma without complication J45.40 Asthma complication type: uncomplicated Asthma persistence: persistent Additional Codes BOBBY-7 Assessment Billing - BOBBY-7 Assessment Tool: BOBBY-7 Assessment [id number] ([id number])
== END 2023-02-21 14:12 | disposition home or self-care (01) ==
PROVIDERS: PCP Internal Medicine; Visit Provider Physician Assistant
DX: E11.9 Type 2 diabetes mellitus without complications (principal); F33.0 Major depressive disorder, recurrent, mild; E66.01 Morbid (severe) obesity due to excess calories; Z23 Encounter for immunization; Z68.37 Body mass index [BMI] 37.0-37.9, adult; M13.80 Other specified arthritis, unspecified site; E03.9 Hypothyroidism, unspecified; J45.40 Moderate persistent asthma, uncomplicated
CPT/HCPCS: 83036; 90471; 90686; 99214

== ENCOUNTER 2023-02-23 13:52 | Outpatient (AMB) | payer OTHER, SELFPAY ==
[2023-02-23 13:55] VITALS: BP 138/72; PULSE 78; O2SAT 97; BMI 37.7
--- NOTE | 2023-02-23 13:55 | A.OFFVIS_ITS ---
Intake Vital Signs 02/23/23 13:55 Height 4 ft 11 in Weight 186 lb 11.704 oz BMI 37.7 BP 138/72 Blood Pressure Location Rt brachial Position Sitting Pulse 78 Pulse Source Pulse Oximeter Pulse Oximetry (%) 97 Oxygen Delivery Method Room Air Intake Visit Reasons: RA Intake Note: Pt last seen 12/24/22 presents today for follow up and test results. Vp Design Required: No Accompanied by: Daughter Allergies acetaminophen [Ultracet] Allergy (Intermediate, Verified 02/23/23 14:02) anaphylaxis tramadol [From ULTRACET] Allergy (Intermediate, Verified 02/23/23 14:02) ANAPHYLAXIS lisinopril [Lisinopril] Allergy (Mild, Verified 02/23/23 14:02) SWELLING, anaphylaxis Medication List - Last Reconciled 02/23/23 by Chrissie Stauffer MD acetaminophen ER (Tylenol Arthritis Pain) 650 mg PO Q12H PRN [adult diapers pull-ups As directed] albuterol sulfate 2.5 mg (0.5 mL) inhalation Q20M PRN albuterol sulfate 90 mcg/actuation 2 inhalations inhalation Q6H PRN 30 days [bath mat As directed] blood pressure monitor As directed blood sugar diagnostic (FreeStyle Lite Strips) Use 1 strip once a day blood-glucose meter (FreeStyle Lite Meter kit) As directed bupropion HCl 150 mg PO QAM bupropion HCl 300 mg PO DAILY cane As directed cetirizine 10 mg PO DAILY cholecalciferol (vitamin D3) 25 mcg PO DAILY 90 days CPAP (CPAP Machine/Device) As directed disposable gloves latex free gloves, large doxepin 10 mg PO BEDTIME dulaglutide (Trulicity) 0.75 mg (0.5 mL) subcut QWEEK 4 weeks duloxetine (Cymbalta) 60 mg PO DAILY fluticasone propion-salmeterol 230-21 mcg/actuation (Advair HFA) 2 puffs inhalation Q12H 30 days fluticasone propionate 50 mcg/actuation 2 sprays intranasal DAILY folic acid 1 mg PO DAILY gabapentin 100 mg PO DAILY [handheld showerhead As directed] hydrochlorothiazide 25 mg PO DAILY 90 days [incontinence wipes 4 packages per month] lancets (FreeStyle Lancets) Use 1 lancet once a day levothyroxine 25 mcg PO DAILY 90 days meclizine 25 mg PO DAILY metformin 1,000 mg PO BID 90 days methotrexate sodium 6 tablets by mouth once week for 2 weeks, then 8 tablets by mouth once weekly. metoprolol tartrate 25 mg PO BID mirtazapine 7.5 mg PO BEDTIME miscellaneous medical supply (Blood Pressure Cuff) As directed montelukast (Singulair) 10 mg PO BEDTIME 30 days omeprazole 20 mg PO DAILY [pantyliner As directed] rosuvastatin 20 mg PO DAILY 90 days spironolactone 12.5 mg PO DAILY HPI HPI Comments History of Present Illness Details 67-year-old female with seronegative art hritis returns for follow-up. Has been taking methotrexate regularly for the last 8 weeks. States that she is feeling better overall. Less pain in her wrists, ankles, and buttock area. Her daughter also has noticed that her mother is less achy when she walks. Initial history: This is a 67-year-old female who presents for evaluation of diffuse joint pain. She presents with her daughter. Over the last year patient has been having pain and swelling of her hands, fingers. She has morning stiffness of her hands lasting 30 minutes to 1 hour. She also has swelling of her ankles, usually worse at night. She also has significant lower back pain radiating to her buttocks. She takes Tylenol Arthritis which provides little relief. She mentions that her mother had rheumatoid arthritis. States that her joints improved when she gets prednisone taper for her bronchitis PFSH Medical History Pulmonary hypertension Atelectasis Diastolic dysfunction Chronic restrictive lung disease Murmur (~08/31/21) Moderate asthma Surgical History History of colonoscopy (~2018) History of laparoscopic cholecystectomy (~2009) History of tubal ligation (~1991) Family History Father No problems noted. Mother Lymphoma Maternal Aunt Diabetes Paternal Uncle Diabetes Brother No problems noted. Sister No problems noted. Sister No problems noted. Son No problems noted. Daughter No problems noted. Daughter No problems noted. Social History Housing: Apartment Alcohol intake: never Patient Tobacco Use Status: Never used Tobacco e-Cigarette/Vaping Use: Never Used Second Hand Smoke Exposure: No service: No Current occupational status: disabled Cognitive needs: No Hearing needs: No Vision needs: No Review of Systems Musc Reports back pain, Reports arthralgias and Reports stiffness Physical Exam Vital Signs: Last Vital Signs Pulse 78 02/23/23 13:55 BP 138/72 02/23/23 13:55 Pulse Ox 97 02/23/23 13:55 Oxygen Delivery Method Room Air 02/23/23 13:55 BMI result Body Mass Index 37.7 Const General: cooperative, healthy appearing and comfortable Nutritional Appearance: obese morbidly obese Orientation/consciousness: patient oriented x3 Limitations: no limitations HEENT Head: Yes normocephalic and Yes atraumatic Resp Other: Gets short of breath with walking and talking Auscultation: diminished lung sounds Cardio Rate: regular rate Neuro General: patient oriented x3 Extrem Other: No wrist tenderness or pain with flexion and extension bilaterally No tender MCPs, PIPs or DIPs bilaterally Minimal tenderness at the common extensor origin of the lateral epicondyles bilaterally Bilateral reduced shoulder abduction, a little worse on the right Positive empty can test and positive Speed's test bilaterally No ankle tenderness or swelling bilaterally No MTP tenderness and negative MTP squeeze test bilaterally Results Reviewed Results Reviewed: PELVIS AP ONLY [id number] SYMPTOMS,HX? LT HIP PAIN. EXAMINATION: XR PELVIS CLINICAL INFORMATION: Left hip pain. No injury. Pain for 1 week. COMPARISON: X-ray left hip 02/01/2018, x-rays bilateral hips and pelvis 03/20/2014 TECHNIQUE: AP view of the pelvis. FINDINGS: Degenerative changes bilateral hip joints. Moderate to severe arthritic changes noted in the lumbosacral spine. Mild degenerative changes noted in the symphysis pubis. Lucency bilateral posterior iliac bones adjacent to inferior SI joints likely representing bony osteopenia. Similar appearance also seen on the prior examination. IMPRESSION: Moderate arthritic changes bilateral hips, and bilateral SI joints. Severe arthritic changes lumbosacral spine. Further assessment with MRI may be of value. Mild arthritic change symphysis pubis. EXAMINATION: XR BILATERAL KNEES XR BILATERAL ANKLES XR BILATERAL FEET CLINICAL INFORMATION:? Rheumatoid arthritis. COMPARISON:? None available. TECHNIQUE:? 4 views left knee. 4 views right knee. 2 views left ankle. 2 views left foot. 3 views right ankle. 3 views right foot. FINDINGS: Left Knee: Small tricompartmental osteophytes. Joint effusion. Superior and inferior anterior patellar enthesophytes. Small joint effusion. Mild medial joint space narrowing. Right Knee: Small tricompartmental osteophytes. Small, faint soft tissue calcifications lateral to the lateral femoral condyle. Trace joint effusion. Small anterior and superior/anterior patellar enthesophytes. Left Ankle: Soft tissue swelling. Advanced plantar calcaneal and dorsal calcaneal spurring/hypertrophic change. Advanced degenerative changes with hypertrophic change in the midfoot. Soft tissue swelling at the ankle. Left Foot: Degenerative changes in the tarsometatarsal joints. Mild degenerative changes first metatarsophalangeal joint. Hypertrophic/enthesopathic change along the lateral aspect of the base of the fifth metatarsal with soft tissue ossific/calcific densities at the lateral aspect of the midfoot. Right Ankle: Advanced plantar calcaneal and dorsal calcaneal spurring/hypertrophic change. Moderate degenerative changes with hypertrophic change in the midfoot. Soft tissue swelling at the ankle. Right Foot: Degenerative changes in the tarsometatarsal joints. Mild degenerative changes in the first metatarsophalangeal joint. Ossific/calcific densities along the lateral aspect of the midfoot. XR/XR shoulder LT min 2V IMPRESSION: 1. Mild degenerative changes in the bilateral knees. 2. Degenerative changes in the bilateral feet and ankles. [place] [id number] XRay Report? Signed Patient: Fiordaliza Taveras I MR#: [id number] : 1955 Acct:[id number] Age/Sex: 67 / F ADM Date: 12/16/22 Loc: [facility] Attending Dr: Chrissie Stauffer MD Ordering Physician: Chrissie Stauffer MD Date of Service: 12/16/22 Procedure(s): XR sacroiliac joint min 3V Accession Number(s): [id number] cc: Dalila Olsen MD; Chrissie Stauffer MD~ EXAMINATION: XR LUMBOSACRAL SPINE XR BILATERAL HANDS XR RIGHT SHOULDER CLINICAL INFORMATION:? Lumbar spine pain. Rheumatoid arthritis. COMPARISON:? Lumbar spine 02/01/2023.? TECHNIQUE:? 5 views of the lumbar spine. 3 views of the sacroiliac joints. 4 views of each hand. 3 views of the right shoulder. FINDINGS: Lumbar Spine: Surgical clips in the right upper quadrant of the abdomen. 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 Redemonstration of severe dextroscoliosis of the lumbosacral spine. Advanced multilevel degenerative changes in the lumbar spine with multilevel hypertrophic change and loss of disc space height. Facet arthritis in the lower lumbar spine. Advanced degenerative changes in the imaged lower thoracic spine with large anterior osteophytes. Bilateral Sacroiliac Joints: Moderate degenerative changes in the bilateral sacroiliac joints with joint space narrowing and hypertrophic change. Degenerative changes on very limited views of the bilateral hips. Right Shoulder: Moderate degenerative changes in the acromioclavicular joint with joint space narrowing and hypertrophic change. Narrowing of the subacromial space. Small soft tissue calcifications along the superior aspect of the glenoid. Advanced degenerative changes in the imaged lower cervical and upper thoracic spine. Degenerative changes with hypertrophic change along the glenoid. Right Hand: Mild degenerative changes in the first carpometacarpal joint with joint space narrowing and hypertrophic change. Mild degenerative changes in the first metacarpophalangeal joint with joint space narrowing and hypertrophic change. Left Hand: Punctate soft tissue calcification adjacent to the third metacarpophalangeal joint. Mild degenerative changes in the first carpometacarpal joint with joint space narrowing and hypertrophic change. Mild degenerative changes in the first metacarpophalangeal joint with joint space narrowing and hypertrophic change. Degenerative changes with moderate hypertrophic change in the third DIP joint. XR/XR sacroiliac joint min 3V IMPRESSION: 1. 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 MRI should be considered for further evaluation. 2. Moderate degenerative changes in the bilateral sacroiliac joints. 3. Degenerative changes in the right shoulder. 4. Mild degenerative changes in the bilateral hands. Assessment & Plan Assessment & Plan (1) Seronegative arthritis: Comment: -ve RF/CCP/DALILA/HLA B27. X-ray shows multiple joints with enthesopathy dx 12/2022 MTX 12/2022 effective Code(s): M13.80 - Other specified arthritis, unspecified site Plan: 67-year-old female with seronegative arthritis returns for follow-up. Has been on methotrexate 20 mg weekly for the last 2 months with significant improvement. She has much less swollen and tender joints today. Continue methotrexate 20 mg once weekly plus folic acid 1 mg daily Labs before next visit in 3 months (2) intermediate accountant methotrexate user: Code(s): Z79.631 - half-way (current) use of antimetabolite agent Plan: Monitor safety labs Plan I spent 24 minutes reviewing patient's chart, evaluating patient, ordering diagnostic workup, counseling patient & her daughter and documenting in the chart Coding Level of Care Code Est Pt Level 4 (07022) Diagnoses Seronegative arthritis M13.80 intermediate accountant methotrexate user Z79.631
== END 2023-02-23 14:15 | disposition home or self-care (01) ==
PROVIDERS: PCP Internal Medicine; Visit Provider Student in an Organized Health Care Education/Training Program
DX: M13.80 Other specified arthritis, unspecified site (principal); Z79.631 Long term (current) use of antimetabolite agent
CPT/HCPCS: 99214

== ENCOUNTER → 2023-02-23 13:52 | Outpatient (BNVA) | payer OTHER, SELFPAY | PROVIDERS: PCP Internal Medicine; Visit Provider Student in an Organized Health Care Education/Training Program | DX: M13.80 Other specified arthritis, unspecified site (principal); Z79.631 Long term (current) use of antimetabolite agent | CPT/HCPCS: 99212 ==

== ENCOUNTER 2023-03-15 06:15 | Outpatient (REF) | payer OTHER, SELFPAY ==
[2023-03-15 08:05] LABS: Creatinine Urine 283.35 mg/dL; Microalbum/Creatinine Ratio Ur 37.7 ug/mg cr (<30)
[2023-03-15 08:07] LABS: Alanine Aminotransferase 19 U/L (0-31); Albumin Level 4.3 g/dL (3.5-5.0); Alkaline Phosphatase 76 U/L (39-117); Anion Gap 15 (12-20); Aspartate Amino Transferase 19 U/L (5-31); Bilirubin Total 0.8 mg/dL (0.0-1.0); Blood Urea Nitrogen 24 mg/dL (9-16); Calcium 10.1 mg/dL (8.4-10.2); Carbon Dioxide 27 mmol/L (22-29); Chloride 104 mmol/L (96-108); Cholesterol 92 mg/dL (<200); Estimated Glomerular Filt Rate 35; Glucose Fasting 105 mg/dL (60-99); HDL Cholesterol 30 mg/dL (>40); LDL Cholesterol Calculated 35 mg/dL (<100); Sodium 142 mmol/L (135-145); Total Protein 7.9 g/dL (6.5-8.0); Triglycerides 138 mg/dL (<150)
[2023-03-15 08:24] LABS: TSH reflex Free T4 2.19 uIU/mL (0.32-4.0)
== END 2023-03-15 06:16 | disposition home or self-care (01) ==
LOC: HO.LAB 06:15
PROVIDERS: PCP Physician Assistant; Visit Provider Physician Assistant
DX: E11.9 Type 2 diabetes mellitus without complications (principal); E03.9 Hypothyroidism, unspecified; E78.2 Mixed hyperlipidemia
CPT/HCPCS: 36415; 80053; 80061; 82043; 82570; 84443

== ENCOUNTER 2023-03-17 13:27 | Outpatient (REF) | payer OTHER, SELFPAY ==
[2023-03-17 14:17] LABS: Anion Gap 11 (12-20); Blood Urea Nitrogen 19 mg/dL (9-16); Calcium 10.6 mg/dL (8.4-10.2); Carbon Dioxide 30 mmol/L (22-29); Chloride 102 mmol/L (96-108); Estimated Glomerular Filt Rate 49; Glucose Random 95 mg/dL (60-115); Potassium 4.1 mmol/L (3.3-5.1); Sodium 139 mmol/L (135-145)
== END 2023-03-17 13:28 | disposition home or self-care (01) ==
LOC: HO.LAB 13:27
PROVIDERS: PCP Physician Assistant; Visit Provider Physician Assistant
DX: N17.9 Acute kidney failure, unspecified (principal)
CPT/HCPCS: 36415; 80048

== ENCOUNTER 2023-03-19 07:48 | Outpatient (REF) | payer OTHER, SELFPAY ==
[2023-03-19 09:29] LABS: Appearance Urine Cloudy; Color Urine Yellow; Glucose Urine UA Negative (Negative); Leukocyte Esterase Urine Trace (Negative); Nitrite Urine Positive (Negative); PH 5.5 (5.0-9.0); UMIC TRIGGER UACC YES; Urine Blood Negative (Negative); Urine Ketones Negative (Negative); Urine Protein Negative (Neg-Trace)
[2023-03-19 10:05] LABS: Bacteria Urine 4+ (None Seen); RBC Urine 0-2 /HPF (0-2); UACC Culture Trigger YES
== END 2023-03-19 07:49 | disposition home or self-care (01) ==
LOC: HO.LAB 07:48
PROVIDERS: PCP Physician Assistant; Visit Provider Physician Assistant
DX: R30.0 Dysuria (principal)
CPT/HCPCS: 81001; 87086; 87088; 87186

== ENCOUNTER 2023-03-23 13:47 | Outpatient (AMB) | payer OTHER, SELFPAY ==
[2023-03-23 13:50] VITALS: BP 100/64; PULSE 65; O2SAT 98; BMI 36.7
--- NOTE | 2023-03-23 13:50 | MHC.PC.OV ---
Vital Signs 03/23/23 13:50 Height 4 ft 11 in Weight 181 lb 8 oz BMI 36.7 BP 100/64 Blood Pressure Location Lt brachial Position Sitting Pulse 65 Pulse Source Pulse Oximeter Pulse Oximetry (%) 98 Oxygen Delivery Method Room Air Intake Visit Reasons: f/u DMII ( weight check) Intake Note: Pt is present for follow-up regarding Diabetes Mellitus Type II and weight check. Area Development Manager Required: No Accompanied by: Daughter Allergies acetaminophen [Ultracet] Allergy (Intermediate, Verified 03/23/23 14:22) anaphylaxis tramadol [From ULTRACET] Allergy (Intermediate, Verified 03/23/23 14:22) ANAPHYLAXIS lisinopril [Lisinopril] Allergy (Mild, Verified 03/23/23 14:22) SWELLING, anaphylaxis Tobacco use date assessed: 02/21/23 HPI f/u DMII ( weight check) HPI Details Patient is a 67-year-old Kyrgyz-speaking female here today for new patient transfer care visit. Patient has multiple medical conditions including hypertension, type 2 diabetes, hyperlipidemia, obstructive sleep apnea, asthma, seronegative arthritis, obesity. Recent urinalysis showing positive evidence of UTI.- will treat with Macrobid . Arthritis: She is now followed by network control operator and has been started on disease modifying medication. .. HTN: Blood pressure today in office acceptable. Will continue her current dose of antihypertensive medication. She otherwise denies any chest discomfort, headache, dizziness or vision issues. .. Hypothyroidism: Has a few lb since last office visit. Patient continues on levothyroxine 25 mcg. Most recent TSH stable .. Moderate persistent asthma/ MELBA: Patient is followed by pulmonology. She continues on CPAP at night. Continues on feeds inhaler. .. Type 2 diabetes: Has been suboptimally controlled with A1c over suffer patient continues on metformin a 1000 mg b.i.d.. PLAN: Interested in starting a GLP 1 for added benefit of weight loss and hyperglycemic control .. PFSH Medical History Pulmonary hypertension Atelectasis Diastolic dysfunction Chronic restrictive lung disease Murmur (~08/31/21) Moderate asthma Surgical History History of colonoscopy (~2018) History of laparoscopic cholecystectomy (~2009) History of tubal ligation (~1991) Family History Father No problems noted. Mother Lymphoma Maternal Aunt Diabetes Paternal Uncle Diabetes Brother No problems noted. Sister No problems noted. Sister No problems noted. Son No problems noted. Daughter No problems noted. Daughter No problems noted. Social History Housing: Apartment Alcohol intake: never Patient Tobacco Use Status: Never used Tobacco e-Cigarette/Vaping Use: Never Used Second Hand Smoke Exposure: No service: No Current occupational status: disabled Cognitive needs: No Hearing needs: No Vision needs: No Questionnaire Thrive Questionnaire Date Thrive assessed: 02/21/23 BOBBY-7 AMB Questionnaire BOBBY-7 Date BOBBY - 7 assessed: 02/21/23 Source: Developed by Drs. Aristeo Gifford, Cheryl Burgess, Chauncey Armenta and colleagues, with an educational nilsa from [employer]. Review of Systems Const Denies headache(s) Eyes Denies loss of vision ENT Denies vertigo, Denies dizziness, Denies headache(s) and Denies sore throat Card Denies chest pain, Denies leg edema and Denies lightheadedness Resp Denies cough, Denies hemoptysis and Denies wheezing GI Denies abdominal pain, Denies melena, Denies constipation, Denies diarrhea and Denies vomiting Denies urinary frequency, Denies dysuria and Denies urinary urgency Musc Denies arthralgias, Denies joint swelling, Denies numbness and Denies tingling Neuro Denies Abnormal speech present, Denies behavioral changes, Denies vertigo, Denies dizziness, Denies headache(s), Denies loss of vision, Denies memory loss, Denies numbness and Denies tingling Psych Denies anxiety, Denies behavioral changes, Denies depression, Denies memory loss and Denies panic attacks Werner/Lymph Denies easy bleeding and Denies easy bruising Aller/Immun Denies wheezing Physical exam (Primary Care) Vital Signs: Last Vital Signs Pulse 65 03/23/23 13:50 BP 100/64 03/23/23 13:50 Pulse Ox 98 03/23/23 13:50 Oxygen Delivery Method Room Air 03/23/23 13:50 BMI result Body Mass Index 36.7 BMI Assessment/Plan discussion: High Tobacco/Smoking Status: Tobacco use Status Tobacco use date assessed 02/21/23 03/23/23 13:51 Patient Tobacco Use Status Never used Tobacco 03/23/23 13:51 e-Cigarette/Vaping Use Never Used 03/23/23 13:51 Thrive Assessment: Date of Thrive Assessment Date Thrive assessed 02/21/23 03/23/23 13:51 Const Other: Obese though weight loss noted General: healthy appearing, no acute distress, alert and awake Nutritional Appearance: well nourished Orientation/consciousness: oriented to person, oriented to place and oriented to time HENMT Ears: TM's normal bilaterally General nose exam: Normal nasal mucous membranes and turbinates present Eyes Conjunctivae: conjunctivae normal Sclerae: sclerae normal Pupils: Equal, round and reactive pupils present Neck Neck: Yes no lymphadenopathy and Yes no JVD Thyroid: Thyroid normal Carotids: no bruits Resp Effort & Inspection: normal respiratory effort and not tachypneic Auscultation: no crackles, no rales, no rhonchi and no wheezes Cardio Rate: regular rate Rhythm: regular rhythm Heart sounds: no murmurs and normal S1 and S2 GI Palpation (GI): Soft to palpation, nontender, no hepatomegaly and no splenomegaly Auscultation: normal bowel sounds Skin General skin exam: no rashes or lesions noted and dry skin Neuro General: oriented to person, oriented to place and oriented to time Cranial nerves: Yes Equal, round and reactive pupils present Speech: No Abnormal speech present Gait exam (Neuro): Normal gait present Motor exam (neuro): no tremor noted Extrem Right upper extremity: full ROM Left upper extremity: full ROM Right lower extremity: full ROM; no edema Left lower extremity: full ROM; no edema Psych Mental Status: mental status grossly normal Speech and movement: Normal speech and movement present Affect: normal affect Attitude: cooperative Thought process: Normal thought process present Assessment and Plan Assessment & Plan (1) DMII (diabetes mellitus, type 2): Code(s): E11.9 - Type 2 diabetes mellitus without complications Qualifiers: Diabetes mellitus technician terminal and repeater insulin use: without technician terminal and repeater use Diabetes mellitus complication status: without complication Qualified Code(s): E11.9 - Type 2 diabetes mellitus without complications Plan: Patient's type 2 diabetes suboptimally controlled, most recent A1c above 7. She continues on metformin a 1000 b.i.d.. Has started GLP 1 and has noted 5 lb weight loss since last office visit. Goal A1c is to be below 7.0 (2) Seronegative arthritis: Comment: -ve RF/CCP/ERIN/HLA B27. X-ray shows multiple joints with enthesopathy dx 12/2022 MTX 12/2022 effective Code(s): M13.80 - Other specified arthritis, unspecified site Plan: Followed by Rheumatology, recently started on disease modifing medication--> MTX (3) Morbid obesity: Code(s): E66.01 - Morbid (severe) obesity due to excess calories Plan: Patient does understand her BMI is over 35 and will work on better eating habits to reduce her weight. She is interested in trying a GLP 1 for added benefit of weight loss. (4) Hypothyroidism: Code(s): E03.9 - Hypothyroidism, unspecified Qualifiers: Hypothyroidism type: unspecified Qualified Code(s): E03.9 - Hypothyroidism, unspecified Plan: Will recheck TSH to assure normal. She continues on levothyroxine 25 mcg. (5) Moderate asthma: Code(s): J45.909 - Unspecified asthma, uncomplicated Qualifiers: Asthma persistence: persistent Asthma complication type: uncomplicated Qualified Code(s): J45.40 - Moderate persistent asthma, uncomplicated Plan: Patient continues to follow [facility]. She continues with daily use of her maintenance inhaler. Her physical activity is severely limited due to shortness of breath on exertion (6) UTI (urinary tract infection): Code(s): N39.0 - Urinary tract infection, site not specified Qualifiers: Urinary tract infection type: acute cystitis Hematuria presence: without hematuria Qualified Code(s): N30.00 - Acute cystitis without hematuria Plan: Recent UTI with E coli. Will send in Macrobid Orders: Orders Lipid Panel 6 Months E78.2 - Mixed hyperlipidemia Hemoglobin A1c 6 Months E11.9 - Type 2 diabetes mellitus without complications Microalbumin, Random (w Creat) 6 Months R80.9 - Proteinuria, unspecified Comprehensive [place]. Panel Fast 6 Months I10 - Essential (primary) hypertension TSH reflex Free T4 6 Months E03.9 - Hypothyroidism, unspecified Medications: New nitrofurantoin monohyd/m-cryst 100 mg (Macrobid) must administer with a meal/food 100 mg PO Q12H 5 days 10 caps 0RF N30.00 - Acute cystitis without hematuria Discontinued nitrofurantoin macrocrystal must administer with a meal/food Discontinued Reason: Doctor's Order 100 mg PO BID 5 days 10 caps 0RF N39.0 - Urinary tract infection, site not specified Coding Level of Care Code Est Pt Level 4 (40847) Diagnoses Type 2 diabetes mellitus without complication, without long-term current use of insulin E11.9 Diabetes mellitus technician terminal and repeater insulin use: without care home use Diabetes mellitus complication status: without complication Seronegative arthritis M13.80 Morbid obesity E66.01 Hypothyroidism, unspecified type E03.9 Hypothyroidism type: unspecified Moderate persistent asthma without complication J45.40 Asthma persistence: persistent Asthma complication type: uncomplicated Acute cystitis without hematuria N30.00 Urinary tract infection type: acute cystitis Hematuria presence: without hematuria
== END 2023-03-23 14:32 | disposition home or self-care (01) ==
PROVIDERS: PCP Physician Assistant; Visit Provider Physician Assistant
DX: E11.9 Type 2 diabetes mellitus without complications (principal); E66.01 Morbid (severe) obesity due to excess calories; M13.80 Other specified arthritis, unspecified site; Z68.36 Body mass index [BMI] 36.0-36.9, adult; E03.9 Hypothyroidism, unspecified; J45.40 Moderate persistent asthma, uncomplicated; N30.00 Acute cystitis without hematuria
CPT/HCPCS: 99214

== ENCOUNTER 2023-04-08 13:53 | Outpatient (AMB) | payer OTHER, SELFPAY ==
[2023-04-08 13:58] VITALS: PULSE 71; O2SAT 97; BMI 36.8
--- NOTE | 2023-04-08 13:58 | MHC.OFFVIS ---
Intake Vital Signs 04/08/23 13:58 Height 4 ft 11 in Weight 182 lb BMI 36.8 Pulse 71 Pulse Source Pulse Oximeter Pulse Oximetry (%) 97 Oxygen Delivery Method Room Air Intake Visit Reasons: MELBA Follow Up Allergies acetaminophen [Ultracet] Allergy (Intermediate, Verified 04/08/23 13:59) anaphylaxis tramadol [From ULTRACET] Allergy (Intermediate, Verified 04/08/23 13:59) ANAPHYLAXIS lisinopril [Lisinopril] Allergy (Mild, Verified 04/08/23 13:59) SWELLING, anaphylaxis HPI HPI Comments History of Present Illness Details Patient is a 67-year-old woman with a known history of asthma in addition to obstructive sleep apnea on CPAP. Became sick with COVID-19 back in arly 2020. She did not require hospitalization. Although, she felt her respiratory status worsens. The patient been using Flovent but did the prescription ran and she using it. Therefore she has been using her short-acting beta agonist 3 to 4 times a day. The short-acting beta agonists is only partially helpful. She is describing increasing shortness of with activity. Severity. She has also noticed increased lower extremity edema. Although, she does get more edema usually in the summertime she has not had any recent pulmonary function studies or imaging studies to review at this time. On my examination her cardiac exam is still it out with a significant pronounced S2 suggesting the possibility of pulmonary hypertension. Again from a CPAP standpoint the patient has been very adherent to the therapy the 10 years. She used the machine than 4 hours a night. I do need to get a download from her machine to make sure that is adequate for her. 07/07/2021 the patient is here for a pulmonary follow-up visit. She is complaining of worsening shortness of breath and chest tightness. Moderate severity. She states that she is got back from [place]. Unfortunately when she was there she was not monitoring her intake. Therefore she did develop significant edema. She started developing wheezing and chest tightness. She is concerned about potential allergies. My suspicion is that she may have some cardiac asthma. We will increase her diuresis and she is going to monitor closely her sodium intake. In the meantime she does use her CPAP. The CPAP therapy continues to be affecting beneficial. She does use it more than 4 hours a night. She even to get on vacation to [place] based on the fact that she is now very comfortable using it. She does need to get supplies and will will request CPAP supplies from her DME company, [employer]. Based on the patient's symptoms also request a chest x-ray. Will also provide her with allergy medicine. If the patient is no better she is to call the office for an earlier evaluation. 08/31/2021 the patient is here for a pulmonary follow-up visit. Since we spoke the patient has developed a worsening cough and URI like symptoms. Denies any fevers or chills. She has not been tested for COVID. She feels like she has increasing wheezing and coughing. She has been using her rescue inhaler between 3 to 4 times a day. Will go ahead and treat her for an asthma exacerbation. In the meantime she can get tested for COVID as well. She has been using the CPAP. The CPAP therapy continues to be affecting beneficial. She does use it for more than 4 hours a night. Unfortunately she has not been able to get supplies because she is no longer active with a [employer] company. Therefore I will request a repeat study in order to get a reactivated with a [employer] company start getting supplies regularly. She is very compliant with therapy 04/05/2022 the patient is here for a pulmonary follow-up visit. She still struggling not get supplies with her CPAP. We did review her CPAP study from September 2021 demonstrating [id number] sleep apnea. we will resend a prescription for CPAP supplies will local DME company to see if we can try to assist in getting her supplies. In the meantime she does use a P 10 mask and I did have a sample available for her to use. She is going to continue using her machine as much as possible since she can not sleep without it. His CPAP therapy has been very affecting beneficial. Unfortunately she has not been able to the supplies. From the asthma standpoint she started to get more asthma symptoms now that she going to the fall. She is having significant allergies nasal congestion. Moderate severity. She does respond to the allergy medication and also her additional refills. 04/08/2023 the patient is here for a pulmonary follow-up visit. Overall she has been doing well. She has been using the Advair as prescribed. She has not had significant wheezing which is reassuring. She does have a rescue inhaler available. In the meantime she continues use her CPAP. CPAP therapy has been very affecting beneficial for her for many years. She does use it for more than 4 hours a night. Unfortunately she does have a dispute with her [employer] company regarding unpaid bills and currently under collection. Therefore she has not able to get supplies. We did go over some ways that she can get some supplies online. There we fairly reasonable. She does use the P 10 nasal pillows. We did have a cushion available that she can use. Her master works well. She is going to get tubing in a water chamber from an online store. We did review her last chest x-ray. Appears that she does have some atelectasis on an x-ray done more than a year ago. Would be reasonable just to repeat the x-ray to make sure there has no worsening or further changes. Will plan to follow-up in 6-8 months. The patient has any difficulties prior to that she will call for an assessment. [facility] Medical History Pulmonary hypertension Atelectasis Diastolic dysfunction Chronic restrictive lung disease Murmur (~08/31/21) Moderate asthma Surgical History History of colonoscopy (~2018) History of laparoscopic cholecystectomy (~2009) History of tubal ligation (~1991) Family History Father No problems noted. Mother Lymphoma Maternal Aunt Diabetes Paternal Uncle Diabetes Brother No problems noted. Sister No problems noted. Sister No problems noted. Son No problems noted. Daughter No problems noted. Daughter No problems noted. Social History Housing: Apartment Alcohol intake: never Patient Tobacco Use Status: Never used Tobacco e-Cigarette/Vaping Use: Never Used Second Hand Smoke Exposure: No service: No Current occupational status: disabled Cognitive needs: No Hearing needs: No Vision needs: No Review of Systems Const All systems reviewed & are unremarkable except as noted in HPI and below Denies weight gain Eyes Reports no additional complaints, Denies change in vision and Denies other visual disturbances ENT Reports nasal congestion, Reports nasal discharge and Denies sinus pressure Card Denies chest pain at rest, Denies chest pain with activity, Denies edema, Denies irregular heart rhythm, Denies claudication, Reports leg edema, Reports dyspnea, Reports dyspnea on exertion, Denies orthopnea, Denies paroxysmal nocturnal dyspnea and Denies slow heart rate Resp Reports cough, Reports dyspnea, Reports dyspnea on exertion and Reports wheezing GI Denies abdominal pain, Denies change in bowel habits, Denies excessive flatus, Reports dyspepsia, Reports heartburn, Denies nausea and Denies vomiting Denies urinary incontinence, Denies urinary hesitancy and Denies urinary urgency Aller/Immun Reports wheezing Physical Exam Vital Signs: Last Vital Signs Pulse 71 04/08/23 13:58 Pulse Ox 97 04/08/23 13:58 Oxygen Delivery Method Room Air 04/08/23 13:58 BMI result Body Mass Index 36.8 Const General: alert HEENT Face and sinus: Yes sinus tenderness Neck Neck: Yes normal visual inspection, Yes full ROM and Yes no lymphadenopathy Chest Chest palpation & inspection: normal inspection of the chest Resp Auscultation: no wheezes and diminished lung sounds Cardio Rate: regular rate Rhythm: regular rhythm Heart sounds: S1 normal heart sound present, S2 normal heart sound present (pronounced) and Murmur heart sound present systolic early, II/ and at the right sternal border GI Palpation (GI): Soft to palpation and nontender Auscultation: normal bowel sounds Skin General skin exam: rashes and/or lesions noted Assessment & Plan Assessment & Plan (1) Moderate asthma: Code(s): J45.909 - Unspecified asthma, uncomplicated Qualifiers: Asthma complication type: uncomplicated Asthma persistence: persistent Qualified Code(s): J45.40 - Moderate persistent asthma, uncomplicated (2) GERD (gastroesophageal reflux disease): Code(s): K21.9 - Gastro-esophageal reflux disease without esophagitis Qualifiers: Esophagitis presence: without esophagitis Qualified Code(s): K21.9 - Gastro-esophageal reflux disease without esophagitis (3) MELBA (obstructive sleep apnea): Code(s): G47.33 - Obstructive sleep apnea (adult) (pediatric) (4) Murmur: Onset Date: ~08/31/21 Code(s): R01.1 - Cardiac murmur, unspecified (5) Diastolic dysfunction: Code(s): I51.89 - Other ill-defined heart diseases (6) Chronic restrictive lung disease: Code(s): J98.4 - Other disorders of lung (7) Atelectasis: Code(s): J98.11 - Atelectasis Plan cont Advair HFA twice a day ANIBAL to use as needed continue using CPAP, not able to get supplies due to collection issue with [employer], using P10. Will get some supplies online Low Na diet Allergy medicine: Claritin Nasal therapy: fluticasone CXR F/U 6-8 month Orders: Orders XR chest 2V 04/08/23 J98.11 - Atelectasis Coding Level of Care Code Est Pt Level 4 (23500) Diagnoses Moderate persistent asthma without complication J45.40 Asthma complication type: uncomplicated Asthma persistence: persistent Gastroesophageal reflux disease without esophagitis K21.9 Esophagitis presence: without esophagitis MELBA (obstructive sleep apnea) G47.33 Murmur R01.1 Diastolic dysfunction I51.89 Chronic restrictive lung disease J98.4 Atelectasis J98.11 Time Spent (min) 17
== END 2023-04-08 14:17 | disposition home or self-care (01) ==
PROVIDERS: PCP Internal Medicine; Visit Provider Hospitalist
DX: J45.40 Moderate persistent asthma, uncomplicated (principal); K21.9 Gastro-esophageal reflux disease without esophagitis; G47.33 Obstructive sleep apnea (adult) (pediatric); R01.1 Cardiac murmur, unspecified; I51.89 Other ill-defined heart diseases; J98.4 Other disorders of lung; J98.11 Atelectasis
CPT/HCPCS: 99214

== ENCOUNTER → 2023-04-08 13:53 | Outpatient (BNVA) | payer OTHER, SELFPAY | PROVIDERS: PCP Internal Medicine; Visit Provider Hospitalist | DX: J45.40 Moderate persistent asthma, uncomplicated (principal); J98.4 Other disorders of lung; J98.11 Atelectasis; R01.1 Cardiac murmur, unspecified; G47.33 Obstructive sleep apnea (adult) (pediatric); I51.89 Other ill-defined heart diseases; K21.9 Gastro-esophageal reflux disease without esophagitis | CPT/HCPCS: 99212 ==

== ENCOUNTER 2023-06-21 08:01 | Outpatient (REF) | payer OTHER, SELFPAY ==
[2023-06-21 08:17] LABS: MANUAL DIFF FLAG NO
[2023-06-21 09:03] LABS: Basophils Absolute Auto 0.1 X10*3/uL (0.0-0.2); Basophils Percent Auto 0.6 % (0-2); Eosinophils Absolute Auto 0.2 X10*3/uL (0.0-0.4); Eosinophils Percent Auto 1.9 % (0-4); Hematocrit 38.3 % (37.0-47.0); Hemoglobin 12.3 g/dl (12.0-16.0); Imm Gran Abs Auto 0.03 X10*3/uL (0.00-0.03); Imm Gran Pct Auto 0.3 % (0.0-0.4); Lymphocytes Absolute Auto 3.6 X10*3/uL (1.2-4.9); Lymphocytes Percent Auto 34.8 % (20-40); Mean Corpuscular HGB Conc 32.1 g/dl (31.0-35.0); Mean Corpuscular Hemoglobin 29.8 pg (27.0-33.0); Mean Corpuscular Volume 92.7 fL (80.0-98.0); Mean Platelet Volume 10.4 fL (9.4-12.3); Monocytes Absolute Auto 0.6 X10*3/uL (0.1-1.2); Monocytes Percent Auto 6.2 % (2-11); Neutrophils Absolute Auto 5.8 x10*3/uL (2.0-8.3); Neutrophils Percent Auto 56.2 % (45-73); Platelet Count 336 X10*3/uL (160-400); Red Blood Count 4.13 X10*6/uL (4.20-5.50); Red Cell Distribution Width 13.9 % (11.0-16.0); White Blood Count 10.3 X10*3/uL (4.8-10.8)
[2023-06-21 09:37] LABS: Alanine Aminotransferase 16 U/L (0-31); Albumin Level 4.3 g/dL (3.5-5.0); Alkaline Phosphatase 73 U/L (39-117); Anion Gap 16 (12-20); Aspartate Amino Transferase 18 U/L (5-31); Bilirubin Total 0.5 mg/dL (0.0-1.0); Blood Urea Nitrogen 19 mg/dL (9-16); C Reactive Protein 0.83 mg/dL (< or = 0.50); Calcium 10.5 mg/dL (8.4-10.2); Carbon Dioxide 25 mmol/L (22-29); Chloride 107 mmol/L (96-108); Estimated Glomerular Filt Rate 57; Glucose Random 110 mg/dL (60-115); Potassium 4.3 mmol/L (3.3-5.1); Sodium 144 mmol/L (135-145)
[2023-06-21 09:49] LABS: Erythrocyte Sedimentation Rate 64 MM/HR (0-20)
== END 2023-06-21 08:02 | disposition home or self-care (01) ==
LOC: HO.LAB 08:01
PROVIDERS: PCP Physician Assistant; Visit Provider Student in an Organized Health Care Education/Training Program
DX: M13.80 Other specified arthritis, unspecified site (principal); Z79.631 Long term (current) use of antimetabolite agent
CPT/HCPCS: 36415; 80053; 85025; 85652; 86140

== ENCOUNTER 2023-06-28 12:28 | Outpatient (AMB) | payer OTHER, SELFPAY ==
[2023-06-28 12:36] VITALS: BP 116/62; BMI 34.4
--- NOTE | 2023-06-28 12:36 | MHC.OFFVIS ---
Vital Signs 06/28/23 12:36 Height 4 ft 11 in Weight 170 lb 6.677 oz BMI 34.4 BP 116/62 Blood Pressure Location Rt brachial Position Sitting Intake Visit Reasons: SpA/CM Intake Note: Patient last seen 02/23/23 presents today for follow up and test results. Metal Bonder Required: Yes Metal Bonder Name: Pily Gaston - form signed Accompanied by: Daughter Allergies acetaminophen [Ultracet] Allergy (Intermediate, Verified 06/28/23 12:37) anaphylaxis tramadol [From ULTRACET] Allergy (Intermediate, Verified 06/28/23 12:37) ANAPHYLAXIS lisinopril [Lisinopril] Allergy (Mild, Verified 06/28/23 12:37) SWELLING, anaphylaxis Medication List - Last Reconciled 06/28/23 by Chrissie Stauffer MD acetaminophen ER (Tylenol Arthritis Pain) 650 mg PO Q12H PRN [adult diapers pull-ups As directed] albuterol sulfate 2.5 mg (0.5 mL) inhalation Q20M PRN albuterol sulfate 90 mcg/actuation 2 inhalations inhalation Q6H PRN 30 days [bath mat As directed] blood pressure monitor As directed blood sugar diagnostic (FreeStyle Lite Strips) Use 1 strip once a day blood-glucose meter (FreeStyle Lite Meter kit) As directed bupropion HCl XL 150 mg PO QAM bupropion HCl XL 300 mg PO DAILY cane As directed cetirizine 10 mg PO DAILY cholecalciferol (vitamin D3) 25 mcg PO DAILY 90 days CPAP (CPAP Machine/Device) As directed disposable gloves latex free gloves, large doxepin 10 mg PO BEDTIME dulaglutide (Trulicity) 0.75 mg (0.5 mL) subcut QWEEK 4 weeks duloxetine (Cymbalta) 60 mg PO DAILY fluticasone propion-salmeterol 230-21 mcg/actuation (Advair HFA) 2 puffs inhalation Q12H 30 days fluticasone propionate 50 mcg/actuation 2 sprays intranasal DAILY folic acid 1 mg PO DAILY gabapentin 100 mg PO DAILY [handheld showerhead As directed] hydrochlorothiazide 25 mg PO DAILY 90 days [incontinence wipes 4 packages per month] lancets (FreeStyle Lancets) Use 1 lancet once a day levothyroxine 25 mcg PO DAILY 90 days meclizine 25 mg PO DAILY metformin 1,000 mg PO BID 90 days methotrexate sodium 20 mg (8 x 2.5 mg) PO QWEEK metoprolol tartrate 25 mg PO BID mirtazapine 7.5 mg PO BEDTIME miscellaneous medical supply (Blood Pressure Cuff) As directed montelukast (Singulair) 10 mg PO BEDTIME 30 days nebulizers As directed nitrofurantoin monohyd/m-cryst 100 mg (Macrobid) 100 mg PO Q12H 5 days omeprazole 20 mg PO DAILY [pantyliner As directed] rosuvastatin 20 mg PO DAILY 90 days spironolactone 12.5 mg PO DAILY HPI Comments Details: 67-year-old female with seronegative arthritis returns for follow-up. On methotrexate 20 mg once weekly plus folic acid 1 mg daily. Well-tolerated. Doing much better overall in terms of her joint pain. Recently she has been having bilateral shoulder pain, more severe on the left as well as low back pain. Initial history: This is a 67-year-old female who presents for evaluation of diffuse joint pain. She presents with her daughter. Over the last year patient has been having pain and swelling of her hands, fingers. She has morning stiffness of her hands lasting 30 minutes to 1 hour. She also has swelling of her ankles, usually worse at night. She also has significant lower back pain radiating to her buttocks. She takes Tylenol Arthritis which provides little relief. She mentions that her mother had rheumatoid arthritis. States that her joints improved when she gets prednisone taper for her bronchitis PFSH Medical History Pulmonary hypertension Atelectasis Diastolic dysfunction Chronic restrictive lung disease Murmur (~08/31/21) Moderate asthma Surgical History History of colonoscopy (~2018) History of laparoscopic cholecystectomy (~2009) History of tubal ligation (~1991) Family History Father No problems noted. Mother Lymphoma Maternal Aunt Diabetes Paternal Uncle Diabetes Brother No problems noted. Sister No problems noted. Sister No problems noted. Son No problems noted. Daughter No problems noted. Daughter No problems noted. Social History Housing: Apartment Alcohol intake: never Patient Tobacco Use Status: Never used Tobacco e-Cigarette/Vaping Use: Never Used Second Hand Smoke Exposure: No service: No Current occupational status: disabled Cognitive needs: No Hearing needs: No Vision needs: No Review of Systems Musc Reports back pain, Reports arthralgias, Reports limited range of motion and Reports stiffness Physical Exam Vital Signs: Last Vital Signs BP 116/62 06/28/23 12:36 BMI result Body Mass Index 34.4 Const General: cooperative, healthy appearing and comfortable Nutritional Appearance: obese morbidly obese Orientation/consciousness: patient oriented x3 Limitations: no limitations HEENT Head: Yes normocephalic and Yes atraumatic Resp Effort & Inspection: normal respiratory effort and able to speak in complete sentences Cardio Rate: regular rate Neuro General: patient oriented x3 Extrem Other: No wrist tenderness or pain with flexion and extension bilaterally No tender MCPs, PIPs or DIPs bilaterally Bilateral reduced shoulder abduction, a little worse on the right Positive empty can test on the right Negative Speed's test bilaterally Negative infraspinatus test and lift-off test bilaterally Right trochanteric bursa area tenderness with negative Mumtaz's test No ankle tenderness or swelling bilaterally No MTP tenderness and negative MTP squeeze test bilaterally Office Procedures Joint Injection/Drain Joint Injection/Drain Primary Site: right shoulder Prep: site was prepped using sterile technique and ethochloride spray was applied Injected: 40 mg of, Kenalog and other (1 mL of 1% lidocaine) Approach Used: posterolateral Procedure: The patient tolerated the procedure well Coding Details: With patient's consent, The right shoulder was prepped ChloraPrep and alcohol. The subacromial space was injected with 40 mg of triamcinolone and 1 cc of lidocaine. Patient tolerated the procedure well no apparent immediate side effects. 93271 - Large joint Procedure code (CPT) selection complete Results Reviewed Results Reviewed: PELVIS AP ONLY 32138 SYMPTOMS,HX? LT HIP PAIN. EXAMINATION: XR PELVIS CLINICAL INFORMATION: Left hip pain. No injury. Pain for 1 week. COMPARISON: X-ray left hip 02/01/2018, x-rays bilateral hips and pelvis 03/20/2014 TECHNIQUE: AP view of the pelvis. FINDINGS: Degenerative changes bilateral hip joints. Moderate to severe arthritic changes noted in the lumbosacral spine. Mild degenerative changes noted in the symphysis pubis. Lucency bilateral posterior iliac bones adjacent to inferior SI joints likely representing bony osteopenia. Similar appearance also seen on the prior examination. IMPRESSION: Moderate arthritic changes bilateral hips, and bilateral SI joints. Severe arthritic changes lumbosacral spine. Further assessment with MRI may be of value. Mild arthritic change symphysis pubis. EXAMINATION: XR BILATERAL KNEES XR BILATERAL ANKLES XR BILATERAL FEET CLINICAL INFORMATION:? Rheumatoid arthritis. COMPARISON:? None available. TECHNIQUE:? 4 views left knee. 4 views right knee. 2 views left ankle. 2 views left foot. 3 views right ankle. 3 views right foot. FINDINGS: Left Knee: Small tricompartmental osteophytes. Joint effusion. Superior and inferior anterior patellar enthesophytes. Small joint effusion. Mild medial joint space narrowing. Right Knee: Small tricompartmental osteophytes. Small, faint soft tissue calcifications lateral to the lateral femoral condyle. Trace joint effusion. Small anterior and superior/anterior patellar enthesophytes. Left Ankle: Soft tissue swelling. Advanced plantar calcaneal and dorsal calcaneal spurring/hypertrophic change. Advanced degenerative changes with hypertrophic change in the midfoot. Soft tissue swelling at the ankle. Left Foot: Degenerative changes in the tarsometatarsal joints. Mild degenerative changes first metatarsophalangeal joint. Hypertrophic/enthesopathic change along the lateral aspect of the base of the fifth metatarsal with soft tissue ossific/calcific densities at the lateral aspect of the midfoot. Right Ankle: Advanced plantar calcaneal and dorsal calcaneal spurring/hypertrophic change. Moderate degenerative changes with hypertrophic change in the midfoot. Soft tissue swelling at the ankle. Right Foot: Degenerative changes in the tarsometatarsal joints. Mild degenerative changes in the first metatarsophalangeal joint. Ossific/calcific densities along the lateral aspect of the midfoot. XR/XR shoulder LT min 2V IMPRESSION: 1. Mild degenerative changes in the bilateral knees. 2. Degenerative changes in the bilateral feet and ankles. [address] [address] XRay Report? Signed Patient: Fiordaliza Taveras I MR#: [id number] : 1955 Acct:[id number] Age/Sex: 67 / F ADM Date: 12/16/22 Loc: [facility] Attending Dr: Chrissie Stauffer MD Ordering Physician: Chrissie Stauffer MD Date of Service: 12/16/22 Procedure(s): XR sacroiliac joint min 3V Accession Number(s): [id number] cc: Dalila Olsen MD; Chrissie Stauffer MD~ EXAMINATION: XR LUMBOSACRAL SPINE XR BILATERAL HANDS XR RIGHT SHOULDER CLINICAL INFORMATION:? Lumbar spine pain. Rheumatoid arthritis. COMPARISON:? Lumbar spine 02/01/2023.? TECHNIQUE:? 5 views of the lumbar spine. 3 views of the sacroiliac joints. 4 views of each hand. 3 views of the right shoulder. FINDINGS: Lumbar Spine: Surgical clips in the right upper quadrant of the abdomen. 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 Redemonstration of severe dextroscoliosis of the lumbosacral spine. Advanced multilevel degenerative changes in the lumbar spine with multilevel hypertrophic change and loss of disc space height. Facet arthritis in the lower lumbar spine. Advanced degenerative changes in the imaged lower thoracic spine with large anterior osteophytes. Bilateral Sacroiliac Joints: Moderate degenerative changes in the bilateral sacroiliac joints with joint space narrowing and hypertrophic change. Degenerative changes on very limited views of the bilateral hips. Right Shoulder: Moderate degenerative changes in the acromioclavicular joint with joint space narrowing and hypertrophic change. Narrowing of the subacromial space. Small soft tissue calcifications along the superior aspect of the glenoid. Advanced degenerative changes in the imaged lower cervical and upper thoracic spine. Degenerative changes with hypertrophic change along the glenoid. Right Hand: Mild degenerative changes in the first carpometacarpal joint with joint space narrowing and hypertrophic change. Mild degenerative changes in the first metacarpophalangeal joint with joint space narrowing and hypertrophic change. Left Hand: Punctate soft tissue calcification adjacent to the third metacarpophalangeal joint. Mild degenerative changes in the first carpometacarpal joint with joint space narrowing and hypertrophic change. Mild degenerative changes in the first metacarpophalangeal joint with joint space narrowing and hypertrophic change. Degenerative changes with moderate hypertrophic change in the third DIP joint. XR/XR sacroiliac joint min 3V IMPRESSION: 1. 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 MRI should be considered for further evaluation. 2. Moderate degenerative changes in the bilateral sacroiliac joints. 3. Degenerative changes in the right shoulder. 4. Mild degenerative changes in the bilateral hands. Assessment & Plan Assessment & Plan (1) Seronegative arthritis: Comment: -ve RF/CCP/DALILA/HLA B27. X-ray shows multiple joints with enthesopathy dx 12/2022 MTX 12/2022 effective Code(s): M13.80 - Other specified arthritis, unspecified site Category: Medical Plan: 67-year-old female with seronegative arthritis returns for follow-up. On methotrexate 20 mg weekly folic acid 1 mg daily. Doing much better overall. 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 With patient's consent, right shoulder was injected with Kenalog today. Advised patient to watch her blood sugar and coming 3-4 days. (4) Trochanteric bursitis of right hip: Code(s): M70.61 - Trochanteric bursitis, right hip Category: Medical Plan: I provided patient with a printout of home exercises Plan I spent 24 minutes reviewing patient's chart, evaluating patient, ordering diagnostic workup, counseling patient & her daughter and documenting in the chart Orders: Orders Complete Blood Count Auto Diff 4 Months Z79.63 - professor of [employer] (current) use of antimetabolite agent Comprehensive Met. 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
== END 2023-06-28 13:06 | disposition home or self-care (01) ==
PROVIDERS: PCP Physician Assistant; Visit Provider Student in an Organized Health Care Education/Training Program
DX: M13.80 Other specified arthritis, unspecified site (principal); Z79.631 Long term (current) use of antimetabolite agent; M75.81 Other shoulder lesions, right shoulder; M70.61 Trochanteric bursitis, right hip
CPT/HCPCS: 20610; 99214

== ENCOUNTER → 2023-06-28 12:28 | Outpatient (BNVA) | payer OTHER, SELFPAY | PROVIDERS: PCP Physician Assistant; Visit Provider Student in an Organized Health Care Education/Training Program | DX: M13.80 Other specified arthritis, unspecified site (principal); M75.81 Other shoulder lesions, right shoulder; M70.61 Trochanteric bursitis, right hip; Z79.631 Long term (current) use of antimetabolite agent | CPT/HCPCS: 20610; 99212 ==

== ENCOUNTER 2023-07-25 14:06 | Outpatient (AMB) | payer OTHER, SELFPAY ==
--- NOTE | 2023-07-25 14:23 | MHC.PC.OV ---
Vital Signs 07/25/23 14:24 Height 4 ft 11 in Weight 172 lb 8 oz BMI 34.8 BP 122/66 Blood Pressure Location Lt brachial Position Sitting Pulse 70 Pulse Source Pulse Oximeter Pulse Oximetry (%) 97 Oxygen Delivery Method Room Air Intake Visit Reasons: f/u DMII Panelboard Tank Pumper Required: No Customer Professional: Present Accompanied by: Daughter Allergies acetaminophen [Ultracet] Allergy (Intermediate, Verified 07/25/23 14:32) anaphylaxis tramadol [From ULTRACET] Allergy (Intermediate, Verified 07/25/23 14:32) ANAPHYLAXIS lisinopril [Lisinopril] Allergy (Mild, Verified 07/25/23 14:32) SWELLING, anaphylaxis Medication List - Last Reconciled 07/25/23 by Mikey Buenrostro PA-C acetaminophen ER (Tylenol Arthritis Pain) 650 mg PO Q12H PRN [adult diapers pull-ups As directed] albuterol sulfate 2.5 mg (0.5 mL) inhalation Q20M PRN albuterol sulfate 90 mcg/actuation 2 inhalations inhalation Q6H PRN 30 days [bath mat As directed] blood pressure monitor As directed blood sugar diagnostic (FreeStyle Lite Strips) Use 1 strip once a day blood-glucose meter (FreeStyle Lite Meter kit) As directed bupropion HCl XL 150 mg PO QAM bupropion HCl XL 300 mg PO DAILY cane As directed cetirizine 10 mg PO DAILY cholecalciferol (vitamin D3) 25 mcg PO DAILY 90 days CPAP (CPAP Machine/Device) As directed disposable gloves latex free gloves, large doxepin 10 mg PO BEDTIME dulaglutide (Trulicity) 0.75 mg (0.5 mL) subcut QWEEK 4 weeks duloxetine (Cymbalta) 60 mg PO DAILY fluticasone propion-salmeterol 230-21 mcg/actuation (Advair HFA) 2 puffs inhalation Q12H 30 days fluticasone propionate 50 mcg/actuation 2 sprays intranasal DAILY folic acid 1 mg PO DAILY gabapentin 100 mg PO DAILY [handheld showerhead As directed] [incontinence wipes 4 packages per month] lancets (FreeStyle Lancets) Use 1 lancet once a day levothyroxine 25 mcg PO DAILY 90 days meclizine 25 mg PO DAILY metformin 1,000 mg PO BID 90 days methotrexate sodium 20 mg (8 x 2.5 mg) PO QWEEK metoprolol tartrate 25 mg PO BID mirtazapine 7.5 mg PO BEDTIME miscellaneous medical supply (Blood Pressure Cuff) As directed montelukast (Singulair) 10 mg PO BEDTIME 30 days nebulizers As directed nitrofurantoin monohyd/m-cryst 100 mg (Macrobid) 100 mg PO Q12H 5 days omeprazole 20 mg PO DAILY [pantyliner As directed] rosuvastatin 20 mg PO DAILY 90 days spironolactone 12.5 mg PO DAILY Tobacco use date assessed: 02/21/23 Fall risk assessment: No Falls in past year Last assessed Fall Risk: 07/25/23 Dental Screening Dental Screen Date: 02/21/23 HPI f/u DMII HPI Details Patient is a 68-year-old Israeli-speaking female here today for a follow-up visit Patient has multiple medical conditions including hypertension, type 2 diabetes, hyperlipidemia, obstructive sleep apnea, asthma, seronegative arthritis, obesity. Concern--> reports having a odor to her urine and right flank pain . Arthritis: She is now followed by sewer and inspector and has been started on disease modifying medication. .. HTN: Has recently followed up with a sandblaster supervisor and was started on spironolactone. Blood pressure today in office acceptable. Will continue her current dose of antihypertensive medication. She otherwise denies any chest discomfort, headache, dizziness or vision issues. She does have hypercalcemia and Nephrology in advised to discontinue hydrochlorothiazide .. Hypothyroidism: Has a few lb since last office visit. Patient continues on levothyroxine 25 mcg. Most recent TSH stable .. Moderate persistent asthma/ EMLBA: Patient is followed by pulmonology. She continues on CPAP at night. Continues on feeds inhaler. .. Type 2 diabetes: She did start Trulicity which allowed her to lose weight and A1c now appropriate level. Does report having diarrhea thus will reduce her metformin dose to a 1000 daily. [facility] Medical History Pulmonary hypertension Atelectasis Diastolic dysfunction Chronic restrictive lung disease Murmur (~08/31/21) Moderate asthma Surgical History History of colonoscopy (~2018) History of laparoscopic cholecystectomy (~2009) History of tubal ligation (~1991) Family History Father No problems noted. Mother Lymphoma Maternal Aunt Diabetes Paternal Uncle Diabetes Brother No problems noted. Sister No problems noted. Sister No problems noted. Son No problems noted. Daughter No problems noted. Daughter No problems noted. Social History Housing: Apartment Alcohol intake: never Patient Tobacco Use Status: Never used Tobacco e-Cigarette/Vaping Use: Never Used Second Hand Smoke Exposure: No service: No Current occupational status: disabled Cognitive needs: No Hearing needs: No Vision needs: No Questionnaire Thrive Questionnaire Date Thrive assessed: 02/21/23 BOBBY-7 AMB Questionnaire BOBBY-7 Date BOBBY - 7 assessed: 02/21/23 Source: Developed by Drs. Aristeo Gifford, Cheryl Burgess, Chauncey Armenta and colleagues, with an educational nilsa from [employer]. Review of Systems Const Denies headache(s) Eyes Denies loss of vision ENT Denies vertigo, Denies dizziness, Denies headache(s) and Denies sore throat Card Denies chest pain, Denies leg edema and Denies lightheadedness Resp Denies cough, Denies hemoptysis and Denies wheezing GI Denies abdominal pain, Denies melena, Denies constipation, Denies diarrhea and Denies vomiting Denies urinary frequency, Denies dysuria and Denies urinary urgency Musc Denies arthralgias, Denies joint swelling, Denies numbness and Denies tingling Neuro Denies Abnormal speech present, Denies behavioral changes, Denies vertigo, Denies dizziness, Denies headache(s), Denies loss of vision, Denies memory loss, Denies numbness and Denies tingling Psych Denies anxiety, Denies behavioral changes, Denies depression, Denies memory loss and Denies panic attacks Werner/Lymph Denies easy bleeding and Denies easy bruising Aller/Immun Denies wheezing Physical exam (Primary Care) Vital Signs: Last Vital Signs Pulse 70 07/25/23 14:24 BP 122/66 07/25/23 14:24 Pulse Ox 97 07/25/23 14:24 Oxygen Delivery Method Room Air 07/25/23 14:24 BMI result Body Mass Index 34.8 Tobacco/Smoking Status: Tobacco use Status Tobacco use date assessed 02/21/23 07/25/23 14:29 Patient Tobacco Use Status Never used Tobacco 07/25/23 14:29 e-Cigarette/Vaping Use Never Used 07/25/23 14:29 Thrive Assessment: Date of Thrive Assessment Date Thrive assessed 02/21/23 07/25/23 14:29 Const General: healthy appearing, no acute distress, alert and awake Nutritional Appearance: well nourished Orientation/consciousness: oriented to person, oriented to place and oriented to time HENMT Ears: TM's normal bilaterally General nose exam: Normal nasal mucous membranes and turbinates present Eyes Conjunctivae: conjunctivae normal Sclerae: sclerae normal Pupils: Equal, round and reactive pupils present Neck Neck: Yes no lymphadenopathy and Yes no JVD Thyroid: Thyroid normal Carotids: no bruits Resp Effort & Inspection: normal respiratory effort and not tachypneic Auscultation: no crackles, no rales, no rhonchi and no wheezes Cardio Rate: regular rate Rhythm: regular rhythm Heart sounds: no murmurs and normal S1 and S2 GI Palpation (GI): Soft to palpation, nontender, no hepatomegaly and no splenomegaly Auscultation: normal bowel sounds Skin General skin exam: no rashes or lesions noted and dry skin Neuro General: oriented to person, oriented to place and oriented to time Cranial nerves: Yes Equal, round and reactive pupils present Speech: No Abnormal speech present Gait exam (Neuro): Normal gait present Motor exam (neuro): no tremor noted Extrem Right upper extremity: full ROM Left upper extremity: full ROM Right lower extremity: full ROM; no edema Left lower extremity: full ROM; no edema Psych Mental Status: mental status grossly normal Speech and movement: Normal speech and movement present Affect: normal affect Attitude: cooperative Thought process: Normal thought process present Results AMB Hemoglobin A1c AMB Hemoglobin A1c 6.0 % Last Edit by WALTER Stewart on 07/25/23 14:38 AMB Urinalysis, Automated UA Leukoctes 125 Ciera/uL Last Edit by WALTER Stewart on 07/25/23 15:00 UA Nitrite Negative Last Edit by WATLER Stewart on 07/25/23 15:00 UA Urobilinogen 0.2 mg/dL Last Edit by WALTER Stewart on 07/25/23 15:00 UA Protein 15 mg/dL Last Edit by WALTER Stewart on 07/25/23 15:00 UA pH 6.0 Last Edit by WALTER Stewart on 07/25/23 15:00 UA Blood 0 Bib/uL Last Edit by WALTER Stewart on 07/25/23 15:00 UA Specific Leary 1.030 Last Edit by WALTER Stewart on 07/25/23 15:00 UA Ketone Negative Last Edit by WALTER Stewart on 07/25/23 15:00 UA Bilirubin 2 mg/dL Last Edit by WALTER Stewart on 07/25/23 15:00 UA Glucose 0 mg/dL Last Edit by WALTER Stewart on 07/25/23 15:00 Results Reviewed Results Reviewed: Laboratory Last Values Hgb A1c (Clinic) 6.0 % (4.0-6.0) 07/25/23 14:38 Assessment and Plan Assessment & Plan (1) DMII (diabetes mellitus, type 2): Code(s): E11.9 - Type 2 diabetes mellitus without complications Qualifiers: Diabetes mellitus complication status: without complication Diabetes mellitus [facility] insulin use: without [facility] use Qualified Code(s): E11.9 - Type 2 diabetes mellitus without complications Plan: Patient's type 2 diabetes now well controlled since starting GLP 1. Today's A1c is 6.0. Will reduce her metformin dose to a 1000 daily. Goal A1c is to be below 7.0 (2) Seronegative arthritis: Comment: -ve RF/CCP/ERIN/HLA B27. X-ray shows multiple joints with enthesopathy dx 12/2022 MTX 12/2022 effective Code(s): M13.80 - Other specified arthritis, unspecified site Plan: Followed by Rheumatology, recently started on disease modifing medication--> MTX (3) Morbid obesity: Code(s): E66.01 - Morbid (severe) obesity due to excess calories Plan: Patient does understand her BMI is over 35 and will work on better eating habits to reduce her weight. She is interested in trying a GLP 1 for added benefit of weight loss. (4) Hypothyroidism: Code(s): E03.9 - Hypothyroidism, unspecified Qualifiers: Hypothyroidism type: unspecified Qualified Code(s): E03.9 - Hypothyroidism, unspecified Plan: Will recheck TSH to assure normal. She continues on levothyroxine 25 mcg. (5) Moderate asthma: Code(s): J45.909 - Unspecified asthma, uncomplicated Qualifiers: Asthma complication type: uncomplicated Asthma persistence: persistent Qualified Code(s): J45.40 - Moderate persistent asthma, uncomplicated Plan: Patient continues to follow [place] [facility]. She continues with daily use of her maintenance inhaler. Her physical activity is severely limited due to shortness of breath on exertion (6) UTI (urinary tract infection): Code(s): N39.0 - Urinary tract infection, site not specified Qualifiers: Hematuria presence: without hematuria Urinary tract infection type: acute cystitis Qualified Code(s): N30.00 - Acute cystitis without hematuria Plan: Reports over the last 3 days having a smell to her urine. Does often get UTIs. Urinalysis today in office does show 2+ leukocytes. Will send urine culture Will empirically treat due to patient's symptoms of right flank pain and urinary frequency and odor to the urine. Orders: Orders AMB Hemoglobin A1c Today E11.9 - Type 2 diabetes mellitus without complications AMB Urinalysis Automated Today N30.00 - Acute cystitis without hematuria Urine Culture Today N30.00 - Acute cystitis without hematuria Medications: Changed From metformin 1,000 mg PO BID 90 days 180 tabs 2RF E11.9 - Type 2 diabetes mellitus without complications To metformin 1,000 mg PO DAILY 90 days 90 tabs 2RF E11.9 - Type 2 diabetes mellitus without complications Refilled nitrofurantoin monohyd/m-cryst 100 mg (Macrobid) must administer with a meal/food 100 mg PO Q12H 5 days 10 caps 0RF N30.00 - Acute cystitis without hematuria Patient Instructions: Goal: A1c to remain below 7.0 Barrier: Adherence to physical activity and healthy eating habits Coding Level of Care Code Est Pt Level 4 (12739) Complex EM visit Add On G2211 Diagnoses Type 2 diabetes mellitus without complication, without long-term current use of insulin E11.9 Diabetes mellitus complication status: without complication Diabetes mellitus intermediate school teacher insulin use: without [facility] use Seronegative arthritis M13.80 Morbid obesity E66.01 Hypothyroidism, unspecified type E03.9 Hypothyroidism type: unspecified Moderate persistent asthma without complication J45.40 Asthma complication type: uncomplicated Asthma persistence: persistent Acute cystitis without hematuria N30.00 Hematuria presence: without hematuria Urinary tract infection type: acute cystitis
[2023-07-25 14:24] VITALS: BP 122/66; PULSE 70; O2SAT 97; BMI 34.8
== END 2023-07-25 15:02 | disposition home or self-care (01) ==
PROVIDERS: PCP Physician Assistant; Visit Provider Physician Assistant
DX: E11.9 Type 2 diabetes mellitus without complications (principal); M13.80 Other specified arthritis, unspecified site; E03.9 Hypothyroidism, unspecified; J45.40 Moderate persistent asthma, uncomplicated; N30.00 Acute cystitis without hematuria
CPT/HCPCS: 81003; 83036; 99214; G2211

== ENCOUNTER 2023-07-25 18:32 | Outpatient (REF) | payer OTHER, SELFPAY | END 2023-07-25 18:33 | disposition home or self-care (01) | LOC: HO.LNP 18:32 | PROVIDERS: Visit Provider Physician Assistant | DX: N30.00 Acute cystitis without hematuria (principal) | CPT/HCPCS: 87086 ==

== ENCOUNTER 2023-10-18 07:03 | Outpatient (REF) | payer OTHER, SELFPAY ==
[2023-10-18 08:04] LABS: Appearance Urine Clear; Color Urine Dark Yellow; Glucose Urine UA Negative (Negative); Leukocyte Esterase Urine Trace (Negative); Nitrite Urine Negative (Negative); PH 5.5 (5.0-9.0); UMIC TRIGGER UACC YES; Urine Blood Negative (Negative); Urine Ketones Trace mg/dL (Negative); Urine Protein 30 (1+) mg/dL (Neg-Trace)
[2023-10-18 08:08] LABS: Alanine Aminotransferase 21 U/L (0-31); Albumin Level 4.1 g/dL (3.5-5.0); Alkaline Phosphatase 80 U/L (39-117); Anion Gap 15 (12-20); Aspartate Amino Transferase 24 U/L (5-31); Bilirubin Total 0.7 mg/dL (0.0-1.0); Blood Urea Nitrogen 17 mg/dL (9-16); Calcium 10.3 mg/dL (8.4-10.2); Carbon Dioxide 26 mmol/L (22-29); Chloride 105 mmol/L (96-108); Cholesterol 120 mg/dL (<200); Estimated Glomerular Filt Rate 58; Glucose Fasting 91 mg/dL (60-99); HDL Cholesterol 35 mg/dL (>40); LDL Cholesterol Calculated 56 mg/dL (<100); Potassium 3.7 mmol/L (3.3-5.1); Sodium 142 mmol/L (135-145); Total Protein 7.5 g/dL (6.5-8.0); Triglycerides 146 mg/dL (<150)
[2023-10-18 08:10] LABS: Bacteria Urine None Seen (None Seen); Hyaline Casts Urine 0-2 /LPF (0-2); RBC Urine 0-2 /HPF (0-2); WBC Urine 0-5 /HPF (0-5)
[2023-10-18 08:18] LABS: Microalbum/Creatinine Ratio Ur 30.2 ug/mg cr (<30)
== END 2023-10-18 07:04 | disposition home or self-care (01) ==
LOC: HO.LAB 07:03
PROVIDERS: Absent Provider Student in an Organized Health Care Education/Training Program; PCP Physician Assistant; Visit Provider Physician Assistant
DX: R80.9 Proteinuria, unspecified (principal); E78.2 Mixed hyperlipidemia; I10 Essential (primary) hypertension; E03.9 Hypothyroidism, unspecified; R30.0 Dysuria
CPT/HCPCS: 36415; 80053; 80061; 81001; 81003; 82043; 82570; 84443

== ENCOUNTER 2023-10-27 13:25 | Outpatient (AMB) | payer OTHER, SELFPAY ==
[2023-10-27 13:55] VITALS: BP 120/68; PULSE 66; O2SAT 99; BMI 36.0
--- NOTE | 2023-10-27 13:55 | A.OFFVIS_ITS ---
Vital Signs 10/27/23 13:55 Height 4 ft 11 in Weight 178 lb 2.136 oz BMI 36.0 BP 120/68 Blood Pressure Location Lt brachial Position Sitting Pulse 66 Pulse Source Pulse Oximeter Pulse Oximetry (%) 99 Oxygen Delivery Method Room Air Intake Visit Reasons: RA Intake Note: Patient last seen by Doctor Chrissie Stauffer on 06/28/23. Presents today for RA follow up and test results. Patient is refusing interpretive service today her daughter is compo caster today. Patient is requesting folic acis and Methotrexate refills today. Allergies acetaminophen [Ultracet] Allergy (Intermediate, Verified 10/27/23 13:58) anaphylaxis tramadol [From ULTRACET] Allergy (Intermediate, Verified 10/27/23 13:58) ANAPHYLAXIS lisinopril [Lisinopril] Allergy (Mild, Verified 10/27/23 13:58) SWELLING, anaphylaxis Medication List - Last Reconciled 10/27/23 by Chrissie Stauffer MD acetaminophen ER (Tylenol Arthritis Pain) 650 mg PO Q12H PRN [adult diapers pull-ups As directed] albuterol sulfate 2.5 mg (0.5 mL) inhalation Q20M PRN albuterol sulfate 90 mcg/actuation 2 inhalations inhalation Q6H PRN 30 days [bath mat As directed] [Bed rails As directed] blood pressure monitor As directed blood sugar diagnostic (FreeStyle Lite Strips) Use 1 strip once a day blood-glucose meter (FreeStyle Lite Meter kit) As directed blood-glucose meter,continuous (FreeStyle [place] 3 [place]) As directed blood-glucose sensor (FreeStyle [place] 3 Sensor device) As directed bupropion HCl XL 150 mg PO QAM bupropion HCl XL 300 mg PO DAILY cane As directed cetirizine 10 mg PO DAILY cholecalciferol (vitamin D3) 25 mcg PO DAILY 90 days compr.stocking,knee,long,large As directed CPAP (CPAP Machine/Device) As directed disposable gloves latex free gloves, large doxepin 10 mg PO BEDTIME dulaglutide (Trulicity) 0.75 mg (0.5 mL) subcut QWEEK 4 weeks duloxetine (Cymbalta) 60 mg PO DAILY fluticasone propion-salmeterol 230-21 mcg/actuation (Advair HFA) 2 puffs inhalation Q12H 30 days fluticasone propionate 50 mcg/actuation 2 sprays intranasal DAILY folic acid 1 mg PO DAILY gabapentin 100 mg PO DAILY [handheld showerhead As directed] [incontinence wipes 4 packages per month] lancets (FreeStyle Lancets) Use 1 lancet once a day levothyroxine 25 mcg PO DAILY 90 days meclizine 25 mg PO DAILY metformin 1,000 mg PO DAILY 90 days methotrexate sodium 20 mg (8 x 2.5 mg) PO QWEEK metoprolol tartrate 25 mg PO BID mirtazapine 7.5 mg PO BEDTIME miscellaneous medical supply (Blood Pressure Cuff) As directed miscellaneous medical supply 1 ea miscellaneous DAILY 99 days miscellaneous medical supply 1 ea miscellaneous DAILY 99 days montelukast (Singulair) 10 mg PO BEDTIME 30 days nebulizers As directed nitrofurantoin monohyd/m-cryst 100 mg (Macrobid) 100 mg PO Q12H 5 days omeprazole 20 mg PO DAILY [pantyliner As directed] rosuvastatin 20 mg PO DAILY 90 days [Shower gel As directed] spironolactone 12.5 mg PO DAILY tirzepatide (Mounjaro) 5 mg (0.5 mL) subcut QWEEK 4 weeks HPI Comments Details: 68-year-old female with seronegative arthritis returns for follow-up. On methotrexate 20 mg once weekly plus folic acid 1 mg daily. Well-tolerated. She states that she is doing reasonably well. The right shoulder injection done last visit provided about 2 months relief, she is having pain and limitation of motion of her right shoulder, left elbow pain lower back pain. Initial history: This is a 67-year-old female who presents for evaluation of diffuse joint pain. She presents with her daughter. Over the last year patient has been having pain and swelling of her hands, fingers. She has morning stiffness of her hands lasting 30 minutes to 1 hour. She also has swelling of her ankles, usually worse at night. She also has significant lower back pain radiating to her buttocks. She takes Tylenol Arthritis which provides little relief. She mentions that her mother had rheumatoid arthritis. States that her joints improved when she gets prednisone taper for her bronchitis PFSH Medical History Pulmonary hypertension Atelectasis Diastolic dysfunction Chronic restrictive lung disease Murmur (~07/25/22) Moderate asthma Surgical History History of colonoscopy (~2018) History of laparoscopic cholecystectomy (~2009) History of tubal ligation (~1991) Family History Father No problems noted. Mother Lymphoma Maternal Aunt Diabetes Paternal Uncle Diabetes Brother No problems noted. Sister No problems noted. Sister No problems noted. Son No problems noted. Daughter No problems noted. Daughter No problems noted. Social History Housing: Apartment Alcohol intake: never Patient Tobacco Use Status: Never used Tobacco e-Cigarette/Vaping Use: Never Used Second Hand Smoke Exposure: No service: No Current occupational status: disabled Cognitive needs: No Hearing needs: No Vision needs: No Review of Systems Musc Reports back pain, Reports arthralgias, Reports limited range of motion and Reports stiffness Physical Exam Vital Signs: Last Vital Signs Pulse 66 10/27/23 13:55 BP 120/68 10/27/23 13:55 Pulse Ox 99 10/27/23 13:55 Oxygen Delivery Method Room Air 10/27/23 13:55 BMI result Body Mass Index 36.0 Const General: cooperative, healthy appearing and comfortable Nutritional Appearance: obese morbidly obese Orientation/consciousness: patient oriented x3 Limitations: no limitations HEENT Head: Yes normocephalic and Yes atraumatic Resp Effort & Inspection: normal respiratory effort and able to speak in complete sentences Auscultation: clear to auscultation bilaterally Cardio Rate: regular rate Neuro General: patient oriented x3 Extrem Other: No wrist tenderness or pain with flexion and extension bilaterally No tender MCPs, PIPs or DIPs bilaterally Reduced right shoulder abduction Negative Speed's test bilaterally Negative infraspinatus test and lift-off test bilaterally Tenderness at the common extensor origin at the left lateral epicondyle with positive resisted wrist extension test No ankle tenderness or swelling bilaterally No MTP tenderness and negative MTP squeeze test bilaterally Results Reviewed Results Reviewed: PELVIS AP ONLY [id number] SYMPTOMS,HX? LT HIP PAIN. EXAMINATION: XR PELVIS CLINICAL INFORMATION: Left hip pain. No injury. Pain for 1 week. COMPARISON: X-ray left hip 02/01/2018, x-rays bilateral hips and pelvis 03/20/2014 TECHNIQUE: AP view of the pelvis. FINDINGS: Degenerative changes bilateral hip joints. Moderate to severe arthritic changes noted in the lumbosacral spine. Mild degenerative changes noted in the symphysis pubis. Lucency bilateral posterior iliac bones adjacent to inferior SI joints likely representing bony osteopenia. Similar appearance also seen on the prior examination. IMPRESSION: Moderate arthritic changes bilateral hips, and bilateral SI joints. Severe arthritic changes lumbosacral spine. Further assessment with MRI may be of value. Mild arthritic change symphysis pubis. EXAMINATION: XR BILATERAL KNEES XR BILATERAL ANKLES XR BILATERAL FEET CLINICAL INFORMATION:? Rheumatoid arthritis. COMPARISON:? None available. TECHNIQUE:? 4 views left knee. 4 views right knee. 2 views left ankle. 2 views left foot. 3 views right ankle. 3 views right foot. FINDINGS: Left Knee: Small tricompartmental osteophytes. Joint effusion. Superior and inferior anterior patellar enthesophytes. Small joint effusion. Mild medial joint space narrowing. Right Knee: Small tricompartmental osteophytes. Small, faint soft tissue calcifications lateral to the lateral femoral condyle. Trace joint effusion. Small anterior and superior/anterior patellar enthesophytes. Left Ankle: Soft tissue swelling. Advanced plantar calcaneal and dorsal calcaneal spurring/hypertrophic change. Advanced degenerative changes with hypertrophic change in the midfoot. Soft tissue swelling at the ankle. Left Foot: Degenerative changes in the tarsometatarsal joints. Mild degenerative changes first metatarsophalangeal joint. Hypertrophic/enthesopathic change along the lateral aspect of the base of the fifth metatarsal with soft tissue ossific/calcific densities at the lateral aspect of the midfoot. Right Ankle: Advanced plantar calcaneal and dorsal calcaneal spurring/hypertrophic change. Moderate degenerative changes with hypertrophic change in the midfoot. Soft tissue swelling at the ankle. Right Foot: Degenerative changes in the tarsometatarsal joints. Mild degenerative changes in the first metatarsophalangeal joint. Ossific/calcific densities along the lateral aspect of the midfoot. XR/XR shoulder LT min 2V IMPRESSION: 1. Mild degenerative changes in the bilateral knees. 2. Degenerative changes in the bilateral feet and ankles. [address] [address] XRay Report? Signed Patient: Fiordaliza Taveras I MR#: [id number] : 1955 Acct:[id number] Age/Sex: 67 / F ADM Date: 12/16/22 Loc: HO.XRAY Attending Dr: Chrissie Stauffer MD Ordering Physician: Chrissie Stauffer MD Date of Service: 12/16/22 Procedure(s): XR sacroiliac joint min 3V Accession Number(s): [id number] cc: Dalila Olsen MD; Chrissie Stauffer MD~ EXAMINATION: XR LUMBOSACRAL SPINE XR BILATERAL HANDS XR RIGHT SHOULDER CLINICAL INFORMATION:? Lumbar spine pain. Rheumatoid arthritis. COMPARISON:? Lumbar spine 02/01/2023.? TECHNIQUE:? 5 views of the lumbar spine. 3 views of the sacroiliac joints. 4 views of each hand. 3 views of the right shoulder. FINDINGS: Lumbar Spine: Surgical clips in the right upper quadrant of the abdomen. 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 Redemonstration of severe dextroscoliosis of the lumbosacral spine. Advanced multilevel degenerative changes in the lumbar spine with multilevel hypertrophic change and loss of disc space height. Facet arthritis in the lower lumbar spine. Advanced degenerative changes in the imaged lower thoracic spine with large anterior osteophytes. Bilateral Sacroiliac Joints: Moderate degenerative changes in the bilateral sacroiliac joints with joint space narrowing and hypertrophic change. Degenerative changes on very limited views of the bilateral hips. Right Shoulder: Moderate degenerative changes in the acromioclavicular joint with joint space narrowing and hypertrophic change. Narrowing of the subacromial space. Small soft tissue calcifications along the superior aspect of the glenoid. Advanced degenerative changes in the imaged lower cervical and upper thoracic spine. Degenerative changes with hypertrophic change along the glenoid. Right Hand: Mild degenerative changes in the first carpometacarpal joint with joint space narrowing and hypertrophic change. Mild degenerative changes in the first metacarpophalangeal joint with joint space narrowing and hypertrophic change. Left Hand: Punctate soft tissue calcification adjacent to the third metacarpophalangeal joint. Mild degenerative changes in the first carpometacarpal joint with joint space narrowing and hypertrophic change. Mild degenerative changes in the first metacarpophalangeal joint with joint space narrowing and hypertrophic change. Degenerative changes with moderate hypertrophic change in the third DIP joint. XR/XR sacroiliac joint min 3V IMPRESSION: 1. 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 MRI should be considered for further evaluation. 2. Moderate degenerative changes in the bilateral sacroiliac joints. 3. Degenerative changes in the right shoulder. 4. Mild degenerative changes in the bilateral hands. Assessment & Plan Assessment & Plan (1) Seronegative arthritis: Comment: -ve RF/CCP/DALILA/HLA B27. X-ray shows multiple joints with enthesopathy dx 12/2022 MTX 12/2022 effective Code(s): M13.80 - Other specified arthritis, unspecified site Category: Medical Plan: 68-year-old female with seronegative arthritis returns for follow-up. On methotrexate 20 mg weekly folic acid 1 mg daily. Doing well overall with no active synovitis Continue current meds Labs before next visit in 4 months (2) [facility] methotrexate user: Code(s): Z79.631 - terminal gauger (current) use of antimetabolite agent Category: Medical Plan: Monitor safety labs (3) Right rotator cuff tendonitis: Code(s): M75.81 - Other shoulder lesions, right shoulder Category: Medical Plan: Injected last visit in clinic, provided about 2 months relief. Referred patient to PT (4) Left tennis elbow: Code(s): M77.12 - Lateral epicondylitis, left elbow Category: Medical Plan: Referred to OT (5) Lumbar degenerative disc disease: Code(s): M51.36 - Other intervertebral disc degeneration, lumbar region Category: Medical Plan: Referred to pain management Plan I spent 46 minutes reviewing patient's chart, evaluating patient, ordering diagnostic workup, counseling patient & her daughter and documenting in the chart Orders: Orders PT Evaluation and Treatment Today M75.81 - Other shoulder lesions, right shoulder OT Evaluation and Treatment Today M77.12 - Lateral epicondylitis, left elbow Complete Blood Count Auto Diff 4 Months M13.80 - Other specified arthritis, unspecified site, Z79.631 - terminal gauger (current) use of antimetabolite agent C Reactive Protein 4 Months M13.80 - Other specified arthritis, unspecified site, Z79.631 - terminal gauger (current) use of antimetabolite agent Erythrocyte Sedimentation Rate 4 Months M13.80 - Other specified arthritis, unspecified site, Z79.631 - terminal gauger (current) use of antimetabolite agent Comprehensive Met. Panel 4 Months M13.80 - Other specified arthritis, unspecified site, Z79.631 - [facility] (current) use of antimetabolite agent Referrals Pain Management Referral M51.36 - Other intervertebral disc degeneration, lumbar region Medications: Refilled methotrexate sodium 20 mg (8 x 2.5 mg) PO QWEEK 103 tabs 0RF folic acid 1 mg PO DAILY 90 tabs 1RF Coding Level of Care Code Est Pt Level 5 (75967) Diagnoses Seronegative arthritis M13.80 terminal gauger methotrexate user Z79.631 Right rotator cuff tendonitis M75.81 Left tennis elbow M77.12 Lumbar degenerative disc disease M51.36
== END 2023-10-27 14:25 | disposition home or self-care (01) ==
PROVIDERS: PCP Physician Assistant; Visit Provider Student in an Organized Health Care Education/Training Program
DX: M13.80 Other specified arthritis, unspecified site (principal); Z79.631 Long term (current) use of antimetabolite agent; M75.81 Other shoulder lesions, right shoulder; M77.12 Lateral epicondylitis, left elbow; M51.36 Other intervertebral disc degeneration, lumbar region
CPT/HCPCS: 99215

== ENCOUNTER → 2023-10-27 13:25 | Outpatient (BNVA) | payer OTHER, SELFPAY | PROVIDERS: PCP Physician Assistant; Visit Provider Student in an Organized Health Care Education/Training Program | DX: M13.80 Other specified arthritis, unspecified site (principal); M75.81 Other shoulder lesions, right shoulder; M77.12 Lateral epicondylitis, left elbow; M51.36 Other intervertebral disc degeneration, lumbar region; Z79.631 Long term (current) use of antimetabolite agent | CPT/HCPCS: 99212 ==

== ENCOUNTER 2023-11-07 14:21 | Outpatient (AMB) | payer OTHER, SELFPAY ==
--- NOTE | 2023-11-07 14:23 | MHC.OFFVIS ---
Vital Signs 11/07/23 14:28 Height 4 ft 11 in Weight 177 lb 6 oz BMI 35.8 BP 169/77 H Blood Pressure Location Lt brachial Position Sitting Pulse 73 Pulse Source Pulse Oximeter Pulse Oximetry (%) 98 Oxygen Delivery Method Room Air Intake Visit Reasons: Intevertebral Disc Disease Intake Note: Pain today 06/16 Transmission Mechanic Required: Yes Transmission Mechanic Language: Distance Learning Coordinator Services: Transmission Mechanic Offered & Declined Transmission Mechanic Name: Daughter Accompanied by: Daughter Allergies acetaminophen [Ultracet] Allergy (Intermediate, Verified 11/07/23 14:26) anaphylaxis tramadol [From ULTRACET] Allergy (Intermediate, Verified 11/07/23 14:26) ANAPHYLAXIS lisinopril [Lisinopril] Allergy (Mild, Verified 11/07/23 14:26) SWELLING, anaphylaxis HPI HPI Intevertebral Disc Disease: Details: Patient is a pleasant 68 years old Turkish female with prior history of seronegative arthritis, osteoporosis of lumbar spine, chronic low back pain, morbid obesity, diabetes mellitus (A1C=6.0), and polyarthralgia, presents today for initial evaluation of low back pain with radicular symptoms. ep specialist via [facility] was offered and declined by patient. Patient requested her daughter Evangelista to assist with translation today. Denies any recent trauma, injury or falls. Back pain is most severe with extension than flexion with positive provocative testing for bilateral sacroiliac joint pain, worse on the right. Patient reports radiation of back pain into her BLE laterally with associated numbness and tingling in lower extremities and feet. Patient also reports mid back pain is bending or coughing. Denies previous spine surgery or injections. Pain affects her daily activities and functioning, mobility, sleep, mood, and social interactions. Patient is hesitant towards interventional treatments but will consider injections under sedation only. She denies previous spine MRI as this was recommended per previous imaging in 2022. She also reports right shoulder pain with limited ROM and has pending PT. Patient reports she wants to avoid back surgery. Denies any fever or chills, abdominal or groin pain, foot drop, bladder or bowel dysfunction or saddle anesthesia. Location: Lower back radiates to upper buttcks and down bilateral legs laterally Duration: Chronic pain for many years Characteristics of symptom or complaint: Aching, shock-like, shooting, tingling, throbbing, numbness, tiring, heavy Aggravating or associated factors: Any movement, cold application or cold weather, bending, walking, standing Relieving factors: Tylenol Arthritis, gabapentin, heat therapy Treatment: Pending PT [facility] Medical History Pulmonary hypertension Atelectasis Diastolic dysfunction Chronic restrictive lung disease Murmur (~08/31/21) Moderate asthma Surgical History History of colonoscopy (~2018) History of laparoscopic cholecystectomy (~2009) History of tubal ligation (~1991) Family History Father No problems noted. Mother Lymphoma Maternal Aunt Diabetes Paternal Uncle Diabetes Brother No problems noted. Sister No problems noted. Sister No problems noted. Son No problems noted. Daughter No problems noted. Daughter No problems noted. Social History Housing: Apartment Alcohol intake: never Patient Tobacco Use Status: Never used Tobacco e-Cigarette/Vaping Use: Never Used Second Hand Smoke Exposure: No service: No Current occupational status: disabled Cognitive needs: No Hearing needs: No Vision needs: No Review of Systems Const All systems reviewed & are unremarkable except as noted in HPI and below Physical Exam Vital Signs: Last Vital Signs Pulse 73 11/07/23 14:28 BP 169/77 H 11/07/23 14:28 Pulse Ox 98 11/07/23 14:28 Oxygen Delivery Method Room Air 11/07/23 14:28 BMI result Body Mass Index 35.8 General: Appears afebrile. Alert and oriented. Mood and affect appropriate. Follows and participates in conversation appropriately. Respiratory effort is unlabored. No cough. Able to transition from sit to stand unassisted. Ambulates with bilaterally normal heel strike and toe off. Neck Neck: Yes normal visual inspection, Yes no lymphadenopathy, Yes supple, No anterior neck swelling, Yes no JVD and Yes prominent dorsocervical fat pad General: Yes no CVA tenderness Back/Spine/Pelvis Other: Limited lumbar ROM due to pain. Antalgic gait with limping. Demonstrates 5/5 left and 4/5 right strength of quadriceps bilaterally as well as flexion/dorsiflexion of bilateral feet against resistance. 2+ pedal pulses bilaterally. Seated straight leg rise with dorsiflexion positive bilaterally. +2 patellar and achilles reflexes bilaterally. Facet loading test positive bilaterally. Maryse sign positive bilaterally, Mack?s, limited Gaenslen, Pelvic compression and Stinchfield tests are positive bilaterally, right>left. Mild groin pain with I/E hip rotations. Valsalva maneuver positive for pain increase in mid and lower thoracic area. Back: no CVA tenderness Cervical Spine: loss of normal cervical lordosis, cervical muscular tenderness, pain with cervical ROM and No Cervical spine tenderness Thoracic/Lumbar Spine: thoracic and lumbar spine normal to inspection, No Thoracic/lumbar spine scar(s), Lasegue's sign positive bilateral and diffuse, pain with thoraco-lumbar ROM, paraspinal muscle tenderness, thoraco-lumbar ROM limited, Thoracic/lumbar scoliosis, thoracic spinal tenderness (lower spine) and lumbar spinal tenderness (L4-S1) Pelvis: buttock tenderness bilaterally Sacroiliac joints: bilaterally tender to palpation Extrem General: Yes capillary refill normal and Yes edema (nonpitting BLE edema) Results Reviewed Results Reviewed: XR LUMBOSACRAL SPINE XR BILATERAL HANDS XR RIGHT SHOULDER 12/16/22 CLINICAL INFORMATION: Lumbar spine pain. Rheumatoid arthritis. COMPARISON: Lumbar spine 02/01/2023. FINDINGS: Lumbar Spine: Surgical clips in the right upper quadrant of the abdomen. 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 Redemonstration of severe dextroscoliosis of the lumbosacral spine. Advanced multilevel degenerative changes in the lumbar spine with multilevel hypertrophic change and loss of disc space height. Facet arthritis in the lower lumbar spine. Advanced degenerative changes in the imaged lower thoracic spine with large anterior osteophytes. Bilateral Sacroiliac Joints: Moderate degenerative changes in the bilateral sacroiliac joints with joint space narrowing and hypertrophic change. Degenerative changes on very limited views of the bilateral hips. Right Shoulder: Moderate degenerative changes in the acromioclavicular joint with joint space narrowing and hypertrophic change. Narrowing of the subacromial space. Small soft tissue calcifications along the superior aspect of the glenoid. Advanced degenerative changes in the imaged lower cervical and upper thoracic spine. Degenerative changes with hypertrophic change along the glenoid. Right Hand: Mild degenerative changes in the first carpometacarpal joint with joint space narrowing and hypertrophic change. Mild degenerative changes in the first metacarpophalangeal joint with joint space narrowing and hypertrophic change. Left Hand: Punctate soft tissue calcification adjacent to the third metacarpophalangeal joint. Mild degenerative changes in the first carpometacarpal joint with joint space narrowing and hypertrophic change. Mild degenerative changes in the first metacarpophalangeal joint with joint space narrowing and hypertrophic change. Degenerative changes with moderate hypertrophic change in the third DIP joint. IMPRESSION: 1. 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 MRI should be considered for further evaluation. 2. Moderate degenerative changes in the bilateral sacroiliac joints. 3. Degenerative changes in the right shoulder. 4. Mild degenerative changes in the bilateral hands. Assessment & Plan Assessment & Plan (1) Lumbar degenerative disc disease: Code(s): M51.36 - Other intervertebral disc degeneration, lumbar region Category: Medical (2) Lumbosacral spondylosis: Code(s): M47.817 - Spondylosis without myelopathy or radiculopathy, lumbosacral region Category: Medical (3) Low back pain: Code(s): M54.50 - Low back pain, unspecified Category: Medical (4) Lumbar radiculopathy: Code(s): M54.16 - Radiculopathy, lumbar region Category: Medical (5) Thoracic degenerative disc disease: Code(s): M51.34 - Other intervertebral disc degeneration, thoracic region Category: Medical (6) Dextroscoliosis: Code(s): M41.80 - Other forms of scoliosis, site unspecified Category: Medical (7) Thoracic degenerative disc disease: Code(s): M51.34 - Other intervertebral disc degeneration, thoracic region Category: Medical (8) Degeneration of intervertebral disc of thoracic region with osteophyte: Code(s): M51.34 - Other intervertebral disc degeneration, thoracic region; M25.78 - Osteophyte, vertebrae Category: Medical (9) Osteoporosis of lumbar spine: Code(s): M81.0 - Age-related osteoporosis without current pathological fracture Category: Medical Plan MRI of the lumbar and thoracic spine to assess for neural integrity and compression and follow up on recent xray findings. For axial low back pain, will tentatively plan for diagnostic bilateral L3-L4 DR L5 medial branch blocks with local and fluoroscopy. If she has significant relief from the diagnostic blocks for her axial low back pain, will consider Sprint PNS or RFA depending on her preference. Given osteoporosis in lumbar spine, patient is not candidate for therapeutic injections. Informational pamphlets were provided in Turkish to patient today. Start PT and establish home exercise program. Patient has been referred to PT on 10/27/23. All questions were answered. The patient is on board with the plan. Follow up for MRI results and sooner as needed. Orders: Orders MR thoracic spine wo con Today M25.78 - Osteophyte, vertebrae, M41.80 - Other forms of scoliosis, site unspecified, M51.34 - Other intervertebral disc degeneration, thoracic region MR lumbar spine wo con Today M41.80 - Other forms of scoliosis, site unspecified, M47.817 - Spondylosis without myelopathy or radiculopathy, lumbosacral region, M51.36 - Other intervertebral disc degeneration, lumbar region, M54.16 - Radiculopathy, lumbar region, M81.0 - Age-related osteoporosis without current pathological fracture Medications: New lidocaine HCl 4% (Theraworx Pain Relief) 1 ea topical TID 74 mL 1RF pain M47.817 - Spondylosis without myelopathy or radiculopathy, lumbosacral region, M51.36 - Other intervertebral disc degeneration, lumbar region, M54.50 - Low back pain, unspecified Coding Level of Care Code New Pt Level 4 (20329) Complex EM visit Add On G2211 Diagnoses Lumbar degenerative disc disease M51.36 Lumbosacral spondylosis M47.817 Low back pain M54.50 Lumbar radiculopathy M54.16 Thoracic degenerative disc disease M51.34 Dextroscoliosis M41.80 Degeneration of intervertebral disc of thoracic region with osteophyte M51.34; M25.78 Osteoporosis of lumbar spine M81.0
[2023-11-07 14:28] VITALS: BP 169/77; PULSE 73; O2SAT 98; BMI 35.8
== END 2023-11-07 14:57 | disposition home or self-care (01) ==
PROVIDERS: PCP Physician Assistant; Referring Provider Student in an Organized Health Care Education/Training Program; Visit Provider Nurse Practitioner Family
DX: M51.36 Other intervertebral disc degeneration, lumbar region (principal); M47.817 Spondylosis without myelopathy or radiculopathy, lumbosacral region; M54.50 Low back pain, unspecified; M54.16 Radiculopathy, lumbar region; M51.34 Other intervertebral disc degeneration, thoracic region; M41.80 Other forms of scoliosis, site unspecified; M25.78 Osteophyte, vertebrae; M81.0 Age-related osteoporosis without current pathological fracture
CPT/HCPCS: 99204; G2211

== ENCOUNTER → 2023-11-07 14:21 | Outpatient (BNVA) | payer OTHER, SELFPAY | PROVIDERS: PCP Physician Assistant; Referring Provider Student in an Organized Health Care Education/Training Program; Visit Provider Nurse Practitioner Family | DX: M51.36 Other intervertebral disc degeneration, lumbar region (principal); M47.817 Spondylosis without myelopathy or radiculopathy, lumbosacral region; M54.50 Low back pain, unspecified; M54.16 Radiculopathy, lumbar region; M51.34 Other intervertebral disc degeneration, thoracic region; M41.80 Other forms of scoliosis, site unspecified; M25.78 Osteophyte, vertebrae; M81.0 Age-related osteoporosis without current pathological fracture | CPT/HCPCS: 99202 ==

== ENCOUNTER 2023-11-30 13:50 | Outpatient (AMB) | payer OTHER, SELFPAY ==
[2023-11-30 14:09] VITALS: BP 104/60; PULSE 84; O2SAT 99; BMI 36.0
--- NOTE | 2023-11-30 14:09 | MHC.PC.OV ---
Vital Signs 11/30/23 14:09 Height 4 ft 11 in Weight 178 lb 2 oz BMI 36.0 BP 104/60 Blood Pressure Location Lt brachial Position Sitting Pulse 84 Pulse Source Pulse Oximeter Pulse Oximetry (%) 99 Oxygen Delivery Method Room Air Intake Visit Reasons: f/u DMII/ HTN Ob Gyn Required: No Accompanied by: Daughter Allergies acetaminophen [Ultracet] Allergy (Intermediate, Verified 11/30/23 14:20) anaphylaxis tramadol [From ULTRACET] Allergy (Intermediate, Verified 11/30/23 14:20) ANAPHYLAXIS lisinopril [Lisinopril] Allergy (Mild, Verified 11/30/23 14:20) SWELLING, anaphylaxis Medication List - Last Reconciled 11/30/23 by Mikey Buenrostro PA-C acetaminophen ER (Tylenol Arthritis Pain) 650 mg PO Q12H PRN [adult diapers pull-ups As directed] albuterol sulfate 90 mcg/actuation 2 inhalations inhalation Q6H PRN 30 days albuterol sulfate 2.5 mg (0.5 mL) inhalation Q20M PRN amlodipine 5 mg PO DAILY [bath mat As directed] [Bed rails As directed] blood pressure monitor As directed blood sugar diagnostic (FreeStyle Lite Strips) Use 1 strip once a day blood-glucose meter (FreeStyle Lite Meter kit) As directed blood-glucose meter,continuous (FreeStyle [place] 3 [place]) As directed blood-glucose sensor (FreeStyle [place] 3 Sensor device) As directed bupropion HCl XL 150 mg PO QAM bupropion HCl XL 300 mg PO DAILY cane As directed cetirizine 10 mg PO DAILY cholecalciferol (vitamin D3) 25 mcg PO DAILY 90 days compr.stocking,knee,long,large As directed CPAP (CPAP Machine/Device) As directed disposable gloves latex free gloves, large doxepin 10 mg PO BEDTIME dulaglutide (Trulicity) 0.75 mg (0.5 mL) subcut QWEEK 4 weeks duloxetine (Cymbalta) 60 mg PO DAILY fluticasone propion-salmeterol 230-21 mcg/actuation (Advair HFA) 2 puffs inhalation Q12H 30 days fluticasone propionate 50 mcg/actuation 2 sprays intranasal DAILY folic acid 1 mg PO DAILY gabapentin 100 mg PO DAILY [handheld showerhead As directed] [incontinence wipes 4 packages per month] lancets (FreeStyle Lancets) Use 1 lancet once a day levothyroxine 25 mcg PO DAILY 90 days lidocaine HCl 4% (Theraworx Pain Relief) 1 ea topical TID meclizine 25 mg PO DAILY metformin 1,000 mg PO DAILY 90 days methotrexate sodium 20 mg (8 x 2.5 mg) PO QWEEK metoprolol tartrate 25 mg PO BID mirtazapine 7.5 mg PO BEDTIME miscellaneous medical supply (Blood Pressure Cuff) As directed miscellaneous medical supply 1 ea miscellaneous DAILY 99 days miscellaneous medical supply 1 ea miscellaneous DAILY 99 days montelukast (Singulair) 10 mg PO BEDTIME 30 days nebulizers As directed omeprazole 20 mg PO DAILY [pantyliner As directed] rosuvastatin 20 mg PO DAILY 90 days [Shower gel As directed] spironolactone 12.5 mg PO DAILY tirzepatide (Mounjaro) 5 mg (0.5 mL) subcut QWEEK 4 weeks Tobacco use date assessed: 02/21/23 Fall risk assessment: No Falls in past year Last assessed Fall Risk: 11/30/23 Dental Screening Dental Screen Date: 02/21/23 HPI f/u DMII/ HTN HPI Details Patient is a 68-year-old Kiswahili-speaking female here today for a follow-up visit . Patient has multiple medical conditions including hypertension, type 2 diabetes, hyperlipidemia, obstructive sleep apnea, asthma, seronegative arthritis, obesity. Concern--> currently has an upper respiratory cold. Does report sick contacts at home or grandchildren. Will use [id number] cough cold medication. . Arthritis: She is now followed by guest relations associate and has been started on disease modifying medication. .. HTN: Has recently followed up with a car cleaner and was started on spironolactone. Blood pressure today in office acceptable. Will continue her current dose of antihypertensive medication. She otherwise denies any chest discomfort, headache, dizziness or vision issues. She does have hypercalcemia and Nephrology in advised to discontinue hydrochlorothiazide .. Hypothyroidism: Has a few lb since last office visit. Patient continues on levothyroxine 25 mcg. Most recent TSH stable .. Moderate persistent asthma/ MELBA: Patient is followed by pulmonology. She continues on CPAP at night. Continues on feeds inhaler. .. Type 2 diabetes: Patient continues with Trulicity 0.75 an A1c today at 5.5 from 6.6. Laboratory Tests 02/10/23 03/15/23 03/15/23 14:02 06:31 06:35 WBC 11.8 H RBC 4.31 Hgb Creatinine 1.48 H Calcium C-Reactive Protein 1.23 H Cholesterol 92 TSH Urine Microalbumin 107.0 03/17/23 06/21/23 10/18/23 13:32 08:15 07:15 WBC RBC 4.13 L Hgb 12.3 Creatinine 1.12 0.98 Calcium 10.6 H 10.5 H C-Reactive Protein 0.83 H Cholesterol TSH Urine Microalbumin 99.0 10/18/23 07:18 WBC RBC Hgb Creatinine 0.96 Calcium 10.3 H C-Reactive Protein Cholesterol 120 TSH 2.10 Urine Microalbumin PFSH Medical History Pulmonary hypertension Atelectasis Diastolic dysfunction Chronic restrictive lung disease Murmur (~08/31/21) Moderate asthma Surgical History History of colonoscopy (~2018) History of laparoscopic cholecystectomy (~2009) History of tubal ligation (~1991) Family History Father No problems noted. Mother Lymphoma Maternal Aunt Diabetes Paternal Uncle Diabetes Brother No problems noted. Sister No problems noted. Sister No problems noted. Son No problems noted. Daughter No problems noted. Daughter No problems noted. Social History Housing: Apartment Alcohol intake: never Patient Tobacco Use Status: Never used Tobacco e-Cigarette/Vaping Use: Never Used Second Hand Smoke Exposure: No service: No Current occupational status: disabled Cognitive needs: No Hearing needs: No Vision needs: No Questionnaire Thrive Questionnaire Date Thrive assessed: 02/21/23 BOBBY-7 AMB Questionnaire BOBBY-7 Date BOBBY - 7 assessed: 02/21/23 Source: Developed by Drs. Aristeo Gifford, Cheryl Burgess, Chauncey Armenta and colleagues, with an educational nilsa from [employer]. Review of Systems Const Denies headache(s) Eyes Denies loss of vision ENT Denies vertigo, Denies dizziness, Denies headache(s) and Denies sore throat Card Denies chest pain, Denies leg edema and Denies lightheadedness Resp Denies cough, Denies hemoptysis and Denies wheezing GI Denies abdominal pain, Denies melena, Denies constipation, Denies diarrhea and Denies vomiting Denies urinary frequency, Denies dysuria and Denies urinary urgency Musc Denies arthralgias, Denies joint swelling, Denies numbness and Denies tingling Neuro Denies Abnormal speech present, Denies behavioral changes, Denies vertigo, Denies dizziness, Denies headache(s), Denies loss of vision, Denies memory loss, Denies numbness and Denies tingling Psych Denies anxiety, Denies behavioral changes, Denies depression, Denies memory loss and Denies panic attacks Werner/Lymph Denies easy bleeding and Denies easy bruising Aller/Immun Denies wheezing Physical exam (Primary Care) Vital Signs: Last Vital Signs Pulse 84 11/30/23 14:09 BP 104/60 11/30/23 14:09 Pulse Ox 99 11/30/23 14:09 Oxygen Delivery Method Room Air 11/30/23 14:09 BMI result Body Mass Index 36.0 Tobacco/Smoking Status: Tobacco use Status Tobacco use date assessed 02/21/23 11/30/23 14:10 Patient Tobacco Use Status Never used Tobacco 11/30/23 14:10 e-Cigarette/Vaping Use Never Used 11/30/23 14:10 Thrive Assessment: Date of Thrive Assessment Date Thrive assessed 02/21/23 11/30/23 14:10 Const General: healthy appearing, no acute distress, alert and awake Nutritional Appearance: well nourished Orientation/consciousness: oriented to person, oriented to place and oriented to time HENMT Ears: TM's normal bilaterally General nose exam: Normal nasal mucous membranes and turbinates present Eyes Conjunctivae: conjunctivae normal Sclerae: sclerae normal Pupils: Equal, round and reactive pupils present Neck Neck: Yes no lymphadenopathy and Yes no JVD Thyroid: Thyroid normal Carotids: no bruits Resp Effort & Inspection: normal respiratory effort and not tachypneic Auscultation: no crackles, no rales, no rhonchi and no wheezes Cardio Rate: regular rate Rhythm: regular rhythm Heart sounds: no murmurs and normal S1 and S2 GI Palpation (GI): Soft to palpation, nontender, no hepatomegaly and no splenomegaly Auscultation: normal bowel sounds Skin General skin exam: no rashes or lesions noted and dry skin Neuro General: oriented to person, oriented to place and oriented to time Cranial nerves: Yes Equal, round and reactive pupils present Speech: No Abnormal speech present Gait exam (Neuro): Normal gait present Motor exam (neuro): no tremor noted Extrem Right upper extremity: full ROM Left upper extremity: full ROM Right lower extremity: full ROM; no edema Left lower extremity: full ROM; no edema Psych Mental Status: mental status grossly normal Speech and movement: Normal speech and movement present Affect: normal affect Attitude: cooperative Thought process: Normal thought process present Office Procedures Flu Questionnaire Does the patient have a severe egg allergy?: No Does the patient have severe life threatening allergies?: No Does the patient have a fever or illness today?: No Has the patient ever had Guillain-[place] Syndrome?: No Has the patient ever had any past reaction to a flu shot?: No Results AMB Hemoglobin A1c AMB Hemoglobin A1c 5.5 % Last Edit by WALTER Stewart on 11/30/23 14:21 Immunizations Fluarix Triv [id number] (PF) 45 mcg (15 mcg x 3)/0.5 mL IM syringe Performing Provider: Mikey Buenrostro PA-C [facility] Administered by: WALTER Stewart on 11/30/23 14:11 Dose Route Admin Location Dispensed Lot Number Expiration Date [facility] [employer] 0.5 mL IM Left Deltoid 0.5 mL [id number] 08/06/24 [id number] Arke[employer] VIS Given Date VIS Provided VIS Publication Date 11/30/23 Single Vaccine 20 Eligibility Eligibility Date Funding Source Not [facility] Eligible 11/30/23 Private Results Reviewed Results Reviewed: Laboratory Last Values Hgb A1c (Clinic) 5.5 % (4.0-6.0) 11/30/23 14:10 Coding Level of Care Code Est Pt Level 4 (27147) Diagnoses Mixed hyperlipidemia E78.2 Hyperlipidemia type: mixed hyperlipidemia Essential hypertension I10 Hypertension type: essential hypertension Type 2 diabetes mellitus without complication, without long-term current use of insulin E11.9 Diabetes mellitus complication status: without complication Diabetes mellitus long term care administrator insulin use: without long term care administrator use Hypothyroidism, unspecified type E03.9 Hypothyroidism type: unspecified Assessment & Plan Assessment & Plan (1) HLD (hyperlipidemia): Code(s): E78.5 - Hyperlipidemia, unspecified Category: Medical Qualifiers: Hyperlipidemia type: mixed hyperlipidemia Qualified Code(s): E78.2 - Mixed hyperlipidemia Plan: Patient's most recent lipid panel showing excellent control over total cholesterol and LDL. Will continue on current statin therapy. Goal LDL to remain below 100 (2) HTN (hypertension): Code(s): I10 - Essential (primary) hypertension Category: Medical Qualifiers: Hypertension type: essential hypertension Qualified Code(s): I10 - Essential (primary) hypertension Plan: Patient's blood pressure today acceptable. Will continue her current dose of antihypertensive medication. Goal blood pressures to remain below 140/90 and P above 100/60 (3) DMII (diabetes mellitus, type 2): Code(s): E11.9 - Type 2 diabetes mellitus without complications Category: Medical Qualifiers: Diabetes mellitus complication status: without complication Diabetes mellitus long-term insulin use: without long term care administrator use Qualified Code(s): E11.9 - Type 2 diabetes mellitus without complications Plan: Patient's type 2 diabetes well controlled with Trulicity 0.75 weekly only. Will continue current dose of Trulicity with goal A1c to remain below 7.0 (4) Hypothyroidism: Code(s): E03.9 - Hypothyroidism, unspecified Category: Medical Qualifiers: Hypothyroidism type: unspecified Qualified Code(s): E03.9 - Hypothyroidism, unspecified Plan: Patient's most recent TSH normal. Continues on levothyroxine 25 mcg with good effect. Orders: Orders Influenza [id number] Immunization 11/30/23 Z23 - Encounter for immunization AMB Hemoglobin A1c 11/30/23 E11.9 - Type 2 diabetes mellitus without complications Medications: Refilled albuterol sulfate 90 mcg/actuation 2 inhalations inhalation Q6H PRN 8.5 grams 11RF shortness of breath or wheezing 30 days B35.3 - Tinea pedis cholecalciferol (vitamin D3) 25 mcg PO DAILY 90 caps 1RF 90 days rosuvastatin 20 mg PO DAILY 90 tabs 1RF 90 days blood sugar diagnostic (FreeStyle Lite Strips) Use 1 strip once a day 50 ea 11RF E11.9 - Type 2 diabetes mellitus without complications albuterol sulfate for up to 3 doses 2.5 mg (0.5 mL) inhalation Q20M PRN 30 ea 0RF shortness of breath or wheezing J98.4 - Other disorders of lung fluticasone propion-salmeterol 230-21 mcg/actuation (Advair HFA) 2 puffs inhalation Q12H 12 grams 11RF 30 days metoprolol tartrate 25 mg PO BID 180 tabs 1RF I10 - Essential (primary) hypertension lancets (FreeStyle Lancets) Use 1 lancet once a day 100 ea 3RF E11.9 - Type 2 diabetes mellitus without complications Patient Instructions: Goal: A1c to remain below 7.0 Barriers: Adherence to physical activity and healthy eating habits
== END 2023-11-30 14:29 | disposition home or self-care (01) ==
PROVIDERS: PCP Physician Assistant; Visit Provider Physician Assistant
DX: E78.2 Mixed hyperlipidemia (principal); I10 Essential (primary) hypertension; E11.9 Type 2 diabetes mellitus without complications; E03.9 Hypothyroidism, unspecified

== ENCOUNTER → 2023-11-30 13:50 | Outpatient (BNVA) | payer OTHER, SELFPAY | PROVIDERS: PCP Physician Assistant; Visit Provider Physician Assistant | DX: E78.2 Mixed hyperlipidemia (principal); I10 Essential (primary) hypertension; E11.9 Type 2 diabetes mellitus without complications; E03.9 Hypothyroidism, unspecified; Z79.85 Long-term (current) use of injectable non-insulin antidiabetic drugs; Z79.899 Other long term (current) drug therapy; Z23 Encounter for immunization | CPT/HCPCS: 83036; 90471; 90656; 99212 ==

== ENCOUNTER 2023-12-02 15:07 | Outpatient (REF) | payer OTHER, SELFPAY ==
--- NOTE | ~2023-12-02 | MM_ITS ---
EXAMINATION: MM SCREENING DIGITAL BREAST TOMOSYNTHESIS, BILATERAL CLINICAL INFORMATION: Screening. Asymptomatic. COMPARISON: Mammography: Comparison is made with available priors TECHNIQUE: Digital breast mammography with tomosynthesis is performed in both the craniocaudal and mediolateral oblique views along with computer-aided detection (CAD). FINDINGS: There are scattered areas of fibroglandular density (ACR BI-RADS breast composition Category b). There are no significant masses, abnormal calcifications, or other abnormalities. MM/MM tomosynthesis screening BI IMPRESSION: No mammographic evidence of malignancy. ASSESSMENT: BI-RADS BI-RADS 1 - Negative RECOMMENDATION: Routine annual mammography screening. 1 year F/U This examination should not preclude the clinical evaluation of a suspicious palpable abnormality. This patient's information was entered into a reminder system with a target due date for their next mammogram. Electronically signed by: Marcela Jones DO 12/12/2023 08:51 AM KEAGAN
== END 2023-12-02 15:08 | disposition home or self-care (01) ==
LOC: HO.MAMMO 15:07
PROVIDERS: PCP Physician Assistant; Visit Provider Physician Assistant
DX: Z12.31 Encounter for screening mammogram for malignant neoplasm of breast (principal)
CPT/HCPCS: 77063; 77067

== ENCOUNTER → 2023-12-02 15:15 | Outpatient (BNV) | payer OTHER, SELFPAY | PROVIDERS: PCP Physician Assistant; Visit Provider Internal Medicine | DX: Z12.31 Encounter for screening mammogram for malignant neoplasm of breast (principal) | CPT/HCPCS: 77063; 77067 ==

== ENCOUNTER 2023-12-03 11:08 | Outpatient (REF) | payer OTHER, SELFPAY ==
--- NOTE | ~2023-12-03 | MR_ITS ---
EXAMINATION: MR THORACIC SPINE WITHOUT CONTRAST MRI LUMBAR SPINE WITHOUT CONTRAST INDICATION: Spondylosis without myelopathy or radiculopathy COMPARISON: None available. TECHNIQUE: Multiplanar multisequence MR imaging of the thoracic and lumbar spine without administration of intravenous contrast. FINDINGS: THORACIC SPINE: Mild to moderate dextrocurvature of the cervicothoracic junction. Straightening of the normal thoracic kyphosis. Diffusely heterogeneous bone marrow signal is likely degenerative. No acute bone marrow abnormality. Probable atypical intraosseous hemangioma at T6 posteriorly. The vertebral body heights are preserved. Multilevel disc desiccation without significant disc height loss. The visualized spinal cord is normal in caliber. No abnormal cord signal. Several disc bulges, most notable at T5-6. There is otherwise no significant disc herniation, spinal canal stenosis, or neural foraminal narrowing. LUMBAR SPINE: Moderate levocurvature of the lower lumbar spine. Straightening of the normal lumbar lordosis. Diffuse heterogeneous bone marrow signal is likely degenerative. No acute bone marrow abnormality. Incidentally noted butterfly L1 and L3 vertebrae. 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 Multilevel disc desiccation with moderate disc height loss at L5-S1. Multilevel endplate osteophytosis. The visualized spinal cord is normal in caliber. 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 The conus medullaris terminates at L4-5. T12-L1: Diffuse disc bulge and bilateral facet arthrosis. There is distortion of the thecal sac predominantly on the left. Moderate to severe left neural foraminal narrowing with mass effect on the left exiting T12 nerve roots. L1-2: Bilateral facet arthrosis. No significant spinal canal or neural foraminal narrowing. L2-3: Diffuse disc bulge and bilateral facet arthrosis. Mild bilateral neural foraminal narrowing. No significant spinal canal stenosis. L3-4: Bilateral facet arthrosis. No significant spinal canal stenosis. Mild to moderate bilateral neural foraminal narrowing with the disc abutting the exiting L3 nerve roots bilaterally. L4-5: Diffuse disc bulge with superimposed annular fissure. Bilateral facet arthrosis. Mild to moderate right and mild left neural foraminal narrowing with the disc abutting the right exiting L4 nerve roots. L5-S1: Diffuse disc bulge and bilateral facet arthrosis. There is significant distortion of the thecal sac. Moderate to severe left and moderate right neural foraminal narrowing with mass effect on the exiting L5 nerve roots bilaterally. Mild diffuse atrophy of the paraspinal musculature. T2 hyperintense subpleural consolidative opacity in the right lung. MR/MR thoracic spine wo con IMPRESSION: -Incidentally noted fusion/segmentation anomalies involving the L1 and L3 vertebrae. 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 The conus medullaris terminates at L4-5. -Mild to moderate dextrocurvature of the cervicothoracic junction and moderate levocurvature of the lower lumbar spine. -Multilevel degenerative changes of the thoracic and lumbar spine without significant spinal canal stenosis. There is moderate to severe left neural foraminal narrowing at T12-L1 and L5-S1 with mass effect on the exiting left T12 and bilateral L5 nerve roots. -T2 hyperintense subpleural consolidative opacity in the right lung. Recommend further evaluation with dedicated chest CT. Electronically signed by: Marla Arango MD 12/03/2023 01:08 PM EDT
== END 2023-12-03 11:09 | disposition home or self-care (01) ==
LOC: HO.MRI 11:08
PROVIDERS: PCP Physician Assistant; Visit Provider Nurse Practitioner Family
DX: M51.34 Other intervertebral disc degeneration, thoracic region (principal); M25.78 Osteophyte, vertebrae; M41.80 Other forms of scoliosis, site unspecified; M47.817 Spondylosis without myelopathy or radiculopathy, lumbosacral region; M54.16 Radiculopathy, lumbar region; M81.0 Age-related osteoporosis without current pathological fracture; M51.369 Other intervertebral disc degeneration, lumbar region without mention of lumbar back pain or lower extremity pain
CPT/HCPCS: 72146; 72148

== ENCOUNTER 2023-12-05 14:17 | Outpatient (AMB) | payer OTHER, SELFPAY ==
--- NOTE | 2023-12-05 14:24 | MHC.OFFVIS ---
Vital Signs 12/05/23 14:29 Height 4 ft 11 in Weight 178 lb BMI 35.9 BP 134/78 Blood Pressure Location Lt brachial Position Sitting Pulse 64 Pulse Source Pulse Oximeter Pulse Oximetry (%) 99 Oxygen Delivery Method Room Air Intake Visit Reasons: Obstructive sleep apnea Lace Sewer Required: No Allergies acetaminophen [Ultracet] Allergy (Intermediate, Verified 12/05/23 14:28) anaphylaxis tramadol [From ULTRACET] Allergy (Intermediate, Verified 12/05/23 14:28) ANAPHYLAXIS lisinopril [Lisinopril] Allergy (Mild, Verified 12/05/23 14:28) SWELLING, anaphylaxis HPI Comments Details: Patient is a 68 year-old woman with a known history of asthma in addition to obstructive sleep apnea on CPAP. Became sick with COVID-19 back in arly 2020. She did not require hospitalization. Although, she felt her respiratory status worsens. The patient been using Flovent but did the prescription ran and she using it. Therefore she has been using her short-acting beta agonist 3 to 4 times a day. The short-acting beta agonists is only partially helpful. She is describing increasing shortness of with activity. Severity. She has also noticed increased lower extremity edema. Although, she does get more edema usually in the summertime she has not had any recent pulmonary function studies or imaging studies to review at this time. On my examination her cardiac exam is still it out with a significant pronounced S2 suggesting the possibility of pulmonary hypertension. Again from a CPAP standpoint the patient has been very adherent to the therapy the 10 years. She used the machine than 4 hours a night. I do need to get a download from her machine to make sure that is adequate for her. 07/07/2021 the patient is here for a pulmonary follow-up visit. She is complaining of worsening shortness of breath and chest tightness. Moderate severity. She states that she is got back from [place]. Unfortunately when she was there she was not monitoring her intake. Therefore she did develop significant edema. She started developing wheezing and chest tightness. She is concerned about potential allergies. My suspicion is that she may have some cardiac asthma. We will increase her diuresis and she is going to monitor closely her sodium intake. In the meantime she does use her CPAP. The CPAP therapy continues to be affecting beneficial. She does use it more than 4 hours a night. She even to get on vacation to [place] based on the fact that she is now very comfortable using it. She does need to get supplies and will will request CPAP supplies from her DME company, [employer]. Based on the patient's symptoms also request a chest x-ray. Will also provide her with allergy medicine. If the patient is no better she is to call the office for an earlier evaluation. 08/31/2021 the patient is here for a pulmonary follow-up visit. Since we spoke the patient has developed a worsening cough and URI like symptoms. Denies any fevers or chills. She has not been tested for COVID. She feels like she has increasing wheezing and coughing. She has been using her rescue inhaler between 3 to 4 times a day. Will go ahead and treat her for an asthma exacerbation. In the meantime she can get tested for COVID as well. She has been using the CPAP. The CPAP therapy continues to be affecting beneficial. She does use it for more than 4 hours a night. Unfortunately she has not been able to get supplies because she is no longer active with a [employer] company. Therefore I will request a repeat study in order to get a reactivated with a [employer] company start getting supplies regularly. She is very compliant with therapy 04/05/2022 the patient is here for a pulmonary follow-up visit. She still struggling not get supplies with her CPAP. We did review her CPAP study from September 2021 demonstrating [id number] sleep apnea. we will resend a prescription for CPAP supplies will local DME company to see if we can try to assist in getting her supplies. In the meantime she does use a P 10 mask and I did have a sample available for her to use. She is going to continue using her machine as much as possible since she can not sleep without it. His CPAP therapy has been very affecting beneficial. Unfortunately she has not been able to the supplies. From the asthma standpoint she started to get more asthma symptoms now that she going to the fall. She is having significant allergies nasal congestion. Moderate severity. She does respond to the allergy medication and also her additional refills. 04/08/2023 the patient is here for a pulmonary follow-up visit. Overall she has been doing well. She has been using the Advair as prescribed. She has not had significant wheezing which is reassuring. She does have a rescue inhaler available. In the meantime she continues use her CPAP. CPAP therapy has been very affecting beneficial for her for many years. She does use it for more than 4 hours a night. Unfortunately she does have a dispute with her [employer] company regarding unpaid bills and currently under collection. Therefore she has not able to get supplies. We did go over some ways that she can get some supplies online. There we fairly reasonable. She does use the P 10 nasal pillows. We did have a cushion available that she can use. Her master works well. She is going to get tubing in a water chamber from an online store. We did review her last chest x-ray. Appears that she does have some atelectasis on an x-ray done more than a year ago. Would be reasonable just to repeat the x-ray to make sure there has no worsening or further changes. Will plan to follow-up in 6-8 months. The patient has any difficulties prior to that she will call for an assessment. 12/05/2023 the patient is here for a pulmonary follow-up visit. The patient has been complaining of worsening cough for the last week. Chest congestion. Chest tightness. Moderate severity. She has been using her respiratory medications only partial improvement. She did get tested for COVID was negative. She has not had any imaging studies. Her exam she does have diminished breath sounds with some cough post exhalation. Will go ahead and treat her. She does have a from diabetes so prednisone only if her symptoms worsen. The patient also has been using the CPAP. CPAP therapy continues to be affecting beneficial. She does try to use it more than 4 hours a night. [facility] Medical History Pulmonary hypertension Atelectasis Diastolic dysfunction Chronic restrictive lung disease Murmur (~08/31/21) Moderate asthma Surgical History History of colonoscopy (~2018) History of laparoscopic cholecystectomy (~2009) History of tubal ligation (~1991) Family History Father No problems noted. Mother Lymphoma Maternal Aunt Diabetes Paternal Uncle Diabetes Brother No problems noted. Sister No problems noted. Sister No problems noted. Son No problems noted. Daughter No problems noted. Daughter No problems noted. Social History Housing: Apartment Alcohol intake: never Patient Tobacco Use Status: Never used Tobacco e-Cigarette/Vaping Use: Never Used Second Hand Smoke Exposure: No service: No Current occupational status: disabled Cognitive needs: No Hearing needs: No Vision needs: No Review of Systems Const All systems reviewed & are unremarkable except as noted in HPI and below Denies weight gain Eyes Reports no additional complaints, Denies change in vision and Denies other visual disturbances ENT Reports nasal congestion, Reports nasal discharge and Denies sinus pressure Card Denies chest pain at rest, Denies chest pain with activity, Denies edema, Denies irregular heart rhythm, Denies claudication, Reports leg edema, Reports dyspnea, Reports dyspnea on exertion, Denies orthopnea, Denies paroxysmal nocturnal dyspnea and Denies slow heart rate Resp Reports cough, Reports dyspnea, Reports dyspnea on exertion and Reports wheezing GI Denies abdominal pain, Denies change in bowel habits, Denies excessive flatus, Reports dyspepsia, Reports heartburn, Denies nausea and Denies vomiting Denies urinary incontinence, Denies urinary hesitancy and Denies urinary urgency Aller/Immun Reports wheezing Physical Exam Vital Signs: Last Vital Signs Pulse 64 12/05/23 14:29 BP 134/78 12/05/23 14:29 Pulse Ox 99 12/05/23 14:29 Oxygen Delivery Method Room Air 12/05/23 14:29 BMI result Body Mass Index 35.9 Const General: alert HEENT Face and sinus: Yes sinus tenderness Neck Neck: Yes normal visual inspection, Yes full ROM and Yes no lymphadenopathy Chest Chest palpation & inspection: normal inspection of the chest Resp Auscultation: no wheezes and diminished lung sounds Cardio Rate: regular rate Rhythm: regular rhythm Heart sounds: S1 normal heart sound present, S2 normal heart sound present (pronounced) and Murmur heart sound present systolic early, II/ and at the right sternal border GI Palpation (GI): Soft to palpation and nontender Auscultation: normal bowel sounds Skin General skin exam: rashes and/or lesions noted Assessment & Plan Assessment & Plan (1) Moderate asthma: Code(s): J45.909 - Unspecified asthma, uncomplicated Category: Social Hx Qualifiers: Asthma complication type: uncomplicated Asthma persistence: persistent Qualified Code(s): J45.40 - Moderate persistent asthma, uncomplicated (2) GERD (gastroesophageal reflux disease): Code(s): K21.9 - Gastro-esophageal reflux disease without esophagitis Category: Medical Qualifiers: Esophagitis presence: without esophagitis Qualified Code(s): K21.9 - Gastro-esophageal reflux disease without esophagitis (3) MELBA (obstructive sleep apnea): Code(s): G47.33 - Obstructive sleep apnea (adult) (pediatric) Category: Medical (4) Murmur: Onset Date: ~08/31/21 Code(s): R01.1 - Cardiac murmur, unspecified Category: Medical (5) Diastolic dysfunction: Code(s): I51.89 - Other ill-defined heart diseases Category: Medical (6) Chronic restrictive lung disease: Code(s): J98.4 - Other disorders of lung Category: Medical (7) Atelectasis: Code(s): J98.11 - Atelectasis Category: Medical (8) Bronchitis: Comment: pneumonia noted on MRI Code(s): J40 - Bronchitis, not specified as acute or chronic Category: Medical Plan start Azithromycin/vantin cont Advair HFA twice a day ANIBAL to use as needed Continue using CPAP, not able to get supplies due to collection issue with [employer], using P10. Will get some supplies online Low Na diet Allergy medicine: Claritin Nasal therapy: fluticasone CXR bloodwork F/U 4-6 month Orders: Orders XR chest 2V Today J40 - Bronchitis, not specified as acute or chronic Complete Blood Count Auto Diff Today J40 - Bronchitis, not specified as acute or chronic Basic Metabolic Panel Today J40 - Bronchitis, not specified as acute or chronic Erythrocyte Sedimentation Rate Today J40 - Bronchitis, not specified as acute or chronic Immunoglobulin E Today J40 - Bronchitis, not specified as acute or chronic Immunoglobulins,IgG IgA IgM Today J40 - Bronchitis, not specified as acute or chronic SARS COV2 IgG Today J40 - Bronchitis, not specified as acute or chronic Medications: New benzonatate 200 mg PO BID PRN 60 caps 5RF cough 30 days methylprednisolone (Medrol (Brandon)) PO PER PKG DIR 21 ea 0RF 6 days azithromycin 500 mg PO DAILY 5 tabs 0RF 5 days Coding Level of Care Code Est Pt Level 4 (82462) Diagnoses Moderate persistent asthma without complication J45.40 Asthma complication type: uncomplicated Asthma persistence: persistent Gastroesophageal reflux disease without esophagitis K21.9 Esophagitis presence: without esophagitis MELBA (obstructive sleep apnea) G47.33 Murmur R01.1 Diastolic dysfunction I51.89 Chronic restrictive lung disease J98.4 Atelectasis J98.11 Bronchitis J40 Time Spent (min) 17
[2023-12-05 14:29] VITALS: BP 134/78; PULSE 64; O2SAT 99; BMI 35.9
== END 2023-12-05 14:47 | disposition home or self-care (01) ==
LOC: HO.HPS 14:18
PROVIDERS: PCP Physician Assistant; Visit Provider Hospitalist
DX: J45.40 Moderate persistent asthma, uncomplicated (principal); K21.9 Gastro-esophageal reflux disease without esophagitis; G47.33 Obstructive sleep apnea (adult) (pediatric); R01.1 Cardiac murmur, unspecified; I51.89 Other ill-defined heart diseases; J98.4 Other disorders of lung; J98.11 Atelectasis; J40 Bronchitis, not specified as acute or chronic
CPT/HCPCS: 99214

== ENCOUNTER → 2023-12-05 14:17 | Outpatient (BNVA) | payer OTHER, SELFPAY | PROVIDERS: PCP Physician Assistant; Visit Provider Hospitalist | DX: J40 Bronchitis, not specified as acute or chronic (principal); J45.40 Moderate persistent asthma, uncomplicated; J98.4 Other disorders of lung; J98.11 Atelectasis; G47.33 Obstructive sleep apnea (adult) (pediatric); K21.9 Gastro-esophageal reflux disease without esophagitis; R01.1 Cardiac murmur, unspecified; I51.89 Other ill-defined heart diseases; Z99.89 Dependence on other enabling machines and devices | CPT/HCPCS: 99212 ==

== ENCOUNTER 2023-12-12 12:55 | Outpatient (AMB) | payer OTHER, SELFPAY ==
--- NOTE | 2023-12-12 13:00 | A.SPINEOV_ITS ---
Intake Visit Reasons: LBP Intake Note: Ms. Taveras is here today c/o low back pain that radiates down the legs with numbness. Leadership Program Internship Required: Yes Leadership Program Internship Name: Tablet Allergies acetaminophen [Ultracet] Allergy (Intermediate, Verified 12/12/23 13:04) anaphylaxis tramadol [From ULTRACET] Allergy (Intermediate, Verified 12/12/23 13:04) ANAPHYLAXIS lisinopril [Lisinopril] Allergy (Mild, Verified 12/12/23 13:04) SWELLING, anaphylaxis Assessment & Plan Assessment & Plan (1) Back pain: Code(s): M54.9 - Dorsalgia, unspecified Category: Medical Plan Dear Evelyn, Thank you for referring Mrs Taveras to our office today. She is a very nice 68 -year-old female who has history of scoliosis dating back to when she was younger, she was born in [place] and at some point along the line was put in a brace for about 5 years. She has had chronic back pain her whole life, more recently has developed the radiculopathy going down into her anterior thigh into her knee. Over the course of her life, she has been offered surgery a few times but has passed on it. In general the pain has never been bad enough to justify an operation. She has been seen in your office and evaluated with MRIs of the thoracic and lumbar which have shown multiple congenital anomalies. She was referred to us today for evaluation. Her pain is aggravated with standing walking, or prolonged sitting. She seems to be okay when she is lying down at night. She takes Tylenol. She can not take nonsteroidal anti-inflammatories because of her stomach problems. She has never had a cortisone injection in her back. She did physical therapy at 1 point a number of years ago but it does not seem to have done much other than just give her more pain. No bowel or bladder incontinence. Denies any reports of problems during infancy or time where she needed an operation or anything to suggest spina bifida. Other than scoliotic curvature of her spine, she grew up with a slight leg length discrepancy with a shorter leg on the right but otherwise normal function of her lower extremities in her bladder. PMH: Diabetes, her A1c is 5.5, hypothyroidism, lung nodules that have been followed clinically with radiographs, hypertension, asthma, sleep apnea, c holecystectomy, tubal ligation, depression, osteoporosis, heart murmur, high cholesterol, polyarthralgia on methotrexate long-term Social hx: She has not smoke, drink use any recreational drugs Medications: Please see the extensive [facility] list for medications Allergies: Lisinopril and Ultracet Physical exam: She is awake alert oriented no acute distress, she stands up and leans to the right in a vertical posture, does not have any kyphotic curvature. She has normal strength of lower extremities with normal sensation and slightly decreased patellar reflexes 1+, absent Achilles reflex. Imaging review: She is a lumbar MRI and a thoracic MRI. 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 The conus ends at about L4. There does appear to be thickened filum on the T1 axial sequences down into the sacrum. She has a partially developed vertebrae between what the radiologist is calling L4 and L5 in the intradiscal space giving her a significant scoliotic curvature to the right. She has severely collapsed disc at the most bottom disc level. It is hard to calculate exactly which disc level this may be secondary to what appears to be transitional anatomy as well as incomplete development of the lumbar spine. The radiologist is calling it L5- S1. There are multiple other areas of degeneration above in the upper lumbar areas. No significant central canal stenosis anywhere in the thoracic or the lumbar spine. She has diffuse overgrowth of osteophytes all throughout her lumbar spine. 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 She has been hesitant about surgery throughout her life, and has never gotten to the point where she really felt that it was necessary for pain control. She has developed a newer radiculopathy over the last number of years which goes down into her anterior thigh in her knee with numbness of her knee. It is hard to tell from her imaging exactly where the source of this could be coming from. The only left-sided foraminal stenosis that I see is at the bottom most disc level which is being labeled L5-S1. Her symptoms do not seem to fit with an L5 distribution. That being said, because of the developmental anomalies, her anatomy may not fit with the standard text book anatomy. It might be worth giving her an injection in this foramen see if it would help some of her symptoms. With regard to her back pain, obviously she has many reasons to explain that based on her imaging, but again she does not want any surgery on her back as the symptoms are not really that bad. If we were to consider surgery on her, we would need standing scoliosis x-rays as well as a CT scan of her lumbar spine to assess her bone quality in light of her history of osteoporosis. I explained all this to her daughter, told her we would be happy to see her back down the road if things get to a point where they become intolerable. Thank you for allowing us to care for your patient. The total time spent with this visit with this patient was 65 minutes reviewing history, physical exam, thoracic and lumbar imaging review, and implementation of treatment plan or further diagnostic testing Andrade Nicole MD,PhD [facility] Coding Level of Care Code New Pt Level 5 (42568) Diagnoses Back pain M54.9
== END 2023-12-12 14:33 | disposition home or self-care (01) ==
LOC: HO.HNS 12:56
PROVIDERS: PCP Physician Assistant; Referring Provider Nurse Practitioner Family; Visit Provider Physician Assistant
DX: M54.9 Dorsalgia, unspecified (principal)
CPT/HCPCS: 99205

== ENCOUNTER → 2023-12-12 12:55 | Outpatient (BNVA) | payer OTHER, SELFPAY | PROVIDERS: PCP Physician Assistant; Referring Provider Nurse Practitioner Family; Visit Provider Physician Assistant | DX: M54.50 Low back pain, unspecified (principal); G89.29 Other chronic pain | CPT/HCPCS: 99202 ==

== ENCOUNTER 2024-01-23 13:01 | Outpatient (AMB) | payer OTHER, SELFPAY ==
--- NOTE | 2024-01-23 13:04 | A.OFFVIS_ITS ---
Vital Signs 01/23/24 13:07 Height 4 ft 11 in Weight 182 lb BMI 36.8 BP 154/69 H Blood Pressure Location Lt brachial Position Sitting Pulse 72 Pulse Source Pulse Oximeter Pulse Oximetry (%) 97 Oxygen Delivery Method Room Air Intake Visit Reasons: Follow up to discuss next steps/[facility] 01/15 Intake Note: Pain today 07/17 High School Assistant Principal Required: Yes High School Assistant Principal Language: Health Policy Analyst Services: High School Assistant Principal Offered & Declined High School Assistant Principal Name: Daughter Accompanied by: Daughter Allergies acetaminophen [Ultracet] Allergy (Intermediate, Verified 01/23/24 13:08) anaphylaxis tramadol [From ULTRACET] Allergy (Intermediate, Verified 01/23/24 13:08) ANAPHYLAXIS lisinopril [Lisinopril] Allergy (Mild, Verified 01/23/24 13:08) SWELLING, anaphylaxis HPI Comments Details: Patient presents today for follow up for low back pain. She was evaluated by [facility] last month and was deemed non-surgical at that time as noted below. Patient continues to endorse low back pain with radiation into her left buttock and left leg, laterally and posteriorly. She also reports her knees frequently give out and she looses balance. We reviewed interventional and medical treatments for pain control. Patient is hesitant toward diagnostic left L5-S1 (transitional anatomy noted) transforaminal epidural injection. Patient declined injection as she is not interested in back surgery and was told it would be a very complicated back surgery in her case. She declined short script of low dose opioid trial given prior anaphylactic reaction with tramadol. Patient is interested in mild gabapentin dose increase. Denies any recent cough, cold, infection, fever, any significant changes in her medical history, medications or recent hospitalizations. 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 She has been hesitant about surgery throughout her life, and has never gotten to the point where she really felt that it was necessary for pain control. She has developed a newer radiculopathy over the last number of years which goes down into her anterior thigh in her knee with numbness of her knee. It is hard to tell from her imaging exactly where the source of this could be coming from. The only left-sided foraminal stenosis that I see is at the bottom most disc level which is being labeled L5-S1. Her symptoms do not seem to fit with an L5 distribution. That being said, because of the developmental anomalies, her anatomy may not fit with the standard text book anatomy. It might be worth giving her an injection in this foramen see if it would help some of her symptoms. With regard to her back pain, obviously she has many reasons to explain that based on her imaging, but again she does not want any surgery on her back as the symptoms are not really that bad. If we were to consider surgery on her, we would need standing scoliosis x-rays as well as a CT scan of her lumbar spine to assess her bone quality in light of her history of osteoporosis. I explained all this to her daughter, told her we would be happy to see her back down the road if things get to a point where they become intolerable. PRIOR: Patient is a pleasant 68 years old Irish female with prior history of seronegative arthritis, osteoporosis of lumbar spine, chronic low back pain, morbid obesity, diabetes mellitus (A1C=6.0), and polyarthralgia, presents today for initial evaluation of low back pain with radicular symptoms. 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 Patient requested her daughter Evangelista to assist with translation today. Denies any recent trauma, injury or falls. Back pain is most severe with extension than flexion with positive provocative testing for bilateral sacroiliac joint pain, worse on the right. Patient reports radiation of back pain into her BLE laterally with associated numbness and tingling in lower extremities and feet. Patient also reports mid back pain is bending or coughing. Denies previous spine surgery or injections. Pain affects her daily activities and functioning, mobility, sleep, mood, and social interactions. Patient is hesitant towards interventional treatments but will consider injections under sedation only. She denies previous spine MRI as this was recommended per previous imaging in 2022. She also reports right shoulder pain with limited ROM and has pending PT. Patient reports she wants to avoid back surgery. Denies any fever or chills, abdominal or groin pain, foot drop, bladder or bowel dysfunction or saddle anesthesia. Location: Lower back radiates to upper buttcks and down bilateral legs laterally Duration: Chronic pain for many years Characteristics of symptom or complaint: Aching, shock-like, shooting, tingling, throbbing, numbness, tiring, heavy Aggravating or associated factors: Any movement, cold application or cold weather, bending, walking, standing Relieving factors: Tylenol Arthritis, gabapentin, heat therapy Treatment: Pending PT [facility] Medical History Pulmonary hypertension Atelectasis Diastolic dysfunction Chronic restrictive lung disease Murmur (~08/31/21) Moderate asthma Surgical History History of colonoscopy (~2018) History of laparoscopic cholecystectomy (~2009) History of tubal ligation (~1991) Family History Father No problems noted. Mother Lymphoma Maternal Aunt Diabetes Paternal Uncle Diabetes Brother No problems noted. Sister No problems noted. Sister No problems noted. Son No problems noted. Daughter No problems noted. Daughter No problems noted. Social History Housing: Apartment Alcohol intake: never Patient Tobacco Use Status: Never used Tobacco e-Cigarette/Vaping Use: Never Used Second Hand Smoke Exposure: No service: No Current occupational status: disabled Cognitive needs: No Hearing needs: No Vision needs: No Review of Systems Const All systems reviewed & are unremarkable except as noted in HPI and below Physical Exam Vital Signs: Last Vital Signs Pulse 72 01/23/24 13:07 BP 154/69 H 01/23/24 13:07 Pulse Ox 97 01/23/24 13:07 Oxygen Delivery Method Room Air 01/23/24 13:07 BMI result Body Mass Index 36.8 General: Appears afebrile. Alert and oriented. Mood and affect appropriate. Follows and participates in conversation appropriately. Respiratory effort is unlabored. No cough. Able to transition from sit to stand unassisted. Ambulates with bilaterally normal heel strike and toe off. Neck Neck: Yes normal visual inspection, Yes no lymphadenopathy, Yes supple, No anterior neck swelling, Yes no JVD and Yes prominent dorsocervical fat pad General: Yes no CVA tenderness Back/Spine/Pelvis Other: Limited lumbar ROM due to pain. Antalgic gait with limping. Demonstrates 4/5 left and 5/5 right strength of quadriceps bilaterally as well as flexion/dorsiflexion of bilateral feet against resistance. 2+ pedal pulses bilaterally. Straight leg rise with dorsiflexion positive on the left. +1 p atellar and achilles reflexes bilaterally. Facet loading test positive bilaterally. Maryse sign positive bilaterally, Mack?s, limited Gaenslen, Pelvic compression and Stinchfield tests are positive bilaterally, right>left. Mild groin pain with I/E hip rotations bilaterally. Valsalva maneuver is positive. Back: no CVA tenderness Cervical Spine: loss of normal cervical lordosis, cervical muscular tenderness, pain with cervical ROM and No Cervical spine tenderness Thoracic/Lumbar Spine: thoracic and lumbar spine normal to inspection, No Thoracic/lumbar spine scar(s), Lasegue's sign positive on the left and localized, pain with thoraco-lumbar ROM, paraspinal muscle tenderness, thoraco- lumbar ROM limited, Thoracic/lumbar scoliosis, thoraco-lumbar spasm on the left in the mid lumbar and in the lower lumbar, thoracic spinal tenderness (lower spine) and lumbar spinal tenderness (L4-S1) Pelvis: buttock tenderness (left>right) bilaterally Sacroiliac joints: bilaterally tender to palpation Results Reviewed Results Reviewed: MR THORACIC SPINE WITHOUT CONTRAST MRI LUMBAR SPINE WITHOUT CONTRAST 12/03/23 INDICATION: Spondylosis without myelopathy or radiculopathy FINDINGS: THORACIC SPINE: Mild to moderate dextrocurvature of the cervicothoracic junction. Straightening of the normal thoracic kyphosis. Diffusely heterogeneous bone marrow signal is likely degenerative. No acute bone marrow abnormality. Probable atypical intraosseous hemangioma at T6 posteriorly. The vertebral body heights are preserved. Multilevel disc desiccation without significant disc height loss. The visualized spinal cord is normal in caliber. No abnormal cord signal. Several disc bulges, most notable at T5-6. There is otherwise no significant disc herniation, spinal canal stenosis, or neural foraminal narrowing. LUMBAR SPINE: Moderate levocurvature of the lower lumbar spine. Straightening of the normal lumbar lordosis. Diffuse heterogeneous bone marrow signal is likely degenerative. No acute bone marrow abnormality. Incidentally noted butterfly L1 and L3 vertebrae. 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 Multilevel disc desiccation with moderate disc height loss at L5-S1. Multilevel endplate osteophytosis. The visualized spinal cord is normal in caliber. 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 The conus medullaris terminates at L4-5. T12-L1: Diffuse disc bulge and bilateral facet arthrosis. There is distortion of the thecal sac predominantly on the left. Moderate to severe left neural foraminal narrowing with mass effect on the left exiting T12 nerve roots. L1-2: Bilateral facet arthrosis. No significant spinal canal or neural foraminal narrowing. L2-3: Diffuse disc bulge and bilateral facet arthrosis. Mild bilateral neural foraminal narrowing. No significant spinal canal stenosis. L3-4: Bilateral facet arthrosis. No significant spinal canal stenosis. Mild to moderate bilateral neural foraminal narrowing with the disc abutting the exiting L3 nerve roots bilaterally. L4-5: Diffuse disc bulge with superimposed annular fissure. Bilateral facet arthrosis. Mild to moderate right and mild left neural foraminal narrowing with the disc abutting the right exiting L4 nerve roots. L5-S1: Diffuse disc bulge and bilateral facet arthrosis. There is significant distortion of the thecal sac. Moderate to severe left and moderate right neural foraminal narrowing with mass effect on the exiting L5 nerve roots bilaterally. Mild diffuse atrophy of the paraspinal musculature. T2 hyperintense subpleural consolidative opacity in the right lung. IMPRESSION: -Incidentally noted fusion/segmentation anomalies involving the L1 and L3 vertebrae. 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 The conus medullaris terminates at L4-5. -Mild to moderate dextrocurvature of the cervicothoracic junction and moderate levocurvature of the lower lumbar spine. -Multilevel degenerative changes of the thoracic and lumbar spine without significant spinal canal stenosis. There is moderate to severe left neural foraminal narrowing at T12-L1 and L5-S1 with mass effect on the exiting left T12 and bilateral L5 nerve roots. -T2 hyperintense subpleural consolidative opacity in the right lung. Recommend further evaluation with dedicated chest CT. Assessment & Plan Assessment & Plan (1) Lumbar degenerative disc disease: Code(s): M51.36 - Other intervertebral disc degeneration, lumbar region Category: Medical (2) Lumbosacral spondylosis: Code(s): M47.817 - Spondylosis without myelopathy or radiculopathy, lumbosacral region Category: Medical (3) Low back pain: Code(s): M54.50 - Low back pain, unspecified Category: Medical (4) Lumbar radiculopathy: Code(s): M54.16 - Radiculopathy, lumbar region Category: Medical (5) Dextroscoliosis: Code(s): M41.80 - Other forms of scoliosis, site unspecified Category: Medical (6) Thoracic degenerative disc disease: Code(s): M51.34 - Other intervertebral disc degeneration, thoracic region Category: Medical (7) Chronic low back pain: Code(s): M54.50 - Low back pain, unspecified; G89.29 - Other chronic pain Category: Medical Qualifiers: Back pain laterality: midline Sciatica presence: with sciatica Sciatica laterality: bilateral sciatica Qualified Code(s): M54.41 - Lumbago with sciatica, right side; M54.42 - Lumbago with sciatica, left side; G89.29 - Other chronic pain (8) Lumbar spinal stenosis: Code(s): M48.061 - Spinal stenosis, lumbar region without neurogenic claudication Category: Medical Plan MRI of the lumbar and thoracic spine imaging results were reviewed with patient and her daughter. Patient was seen by [facility] last month, and was deemed non-surgical at that time. Patient continues to endorse left sided radicular symptoms. Given osteoporosis in lumbar spine, patient is not candidate for therapeutic injections. We discussed diagnostic left L5-S1 TFESI without steroids, patient declined. We also discussed medical management for ongoing chronic pain. Patient requests mild increase in gabapentin 100 mg twice daily. Refill provided today. All questions were answered. The patient is on board with the plan. Follow up as needed. Medications: Changed From gabapentin 100 mg PO DAILY 90 caps 1RF G89.29 - Other chronic pain, M48.061 - Spinal stenosis, lumbar region without neurogenic claudication, M51.36 - Other intervertebral disc degeneration, lumbar region, M54.41 - Lumbago with sciatica, right side, M54.42 - Lumbago with sciatica, left side To gabapentin 100 mg PO BID 30 days 60 caps 1RF pain G89.29 - Other chronic pain, M48.061 - Spinal stenosis, lumbar region without neurogenic claudication, M51.36 - Other intervertebral disc degeneration, lumbar region, M54.41 - Lumbago with sciatica, right side, M54.42 - Lumbago with sciatica, left side Coding Level of Care Code Est Pt Level 4 (21441) Complex EM visit Add On G2211 Diagnoses Lumbar degenerative disc disease M51.36 Lumbosacral spondylosis M47.817 Low back pain M54.50 Lumbar radiculopathy M54.16 Dextroscoliosis M41.80 Thoracic degenerative disc disease M51.34 Chronic midline low back pain with bilateral sciatica M54.41; M54.42; G89.29 Back pain laterality: midline Sciatica presence: with sciatica Sciatica laterality: bilateral sciatica Lumbar spinal stenosis M48.061
[2024-01-23 13:07] VITALS: BP 154/69; PULSE 72; O2SAT 97; BMI 36.8
== END 2024-01-23 13:36 | disposition home or self-care (01) ==
PROVIDERS: PCP Physician Assistant; Visit Provider Nurse Practitioner Family
DX: M51.369 Other intervertebral disc degeneration, lumbar region without mention of lumbar back pain or lower extremity pain (principal); M47.817 Spondylosis without myelopathy or radiculopathy, lumbosacral region; M54.50 Low back pain, unspecified; M54.16 Radiculopathy, lumbar region; M41.80 Other forms of scoliosis, site unspecified; M51.34 Other intervertebral disc degeneration, thoracic region; M54.41 Lumbago with sciatica, right side; M54.42 Lumbago with sciatica, left side; G89.29 Other chronic pain; M48.061 Spinal stenosis, lumbar region without neurogenic claudication
CPT/HCPCS: 99214; G2211

== ENCOUNTER 2024-01-23 13:42 | Outpatient (REF) | payer OTHER, SELFPAY ==
[2024-01-23 14:03] LABS: MANUAL DIFF FLAG NO
[2024-01-23 14:53] LABS: Basophils Absolute Auto 0.1 X10*3/uL (0.0-0.2); Basophils Percent Auto 0.6 % (0-2); Eosinophils Absolute Auto 0.1 X10*3/uL (0.0-0.4); Eosinophils Percent Auto 1.5 % (0-4); Hematocrit 36.5 % (37.0-47.0); Hemoglobin 11.8 g/dl (12.0-16.0); Imm Gran Abs Auto 0.03 X10*3/uL (0.00-0.03); Imm Gran Pct Auto 0.4 % (0.0-0.4); Lymphocytes Absolute Auto 2.9 X10*3/uL (1.2-4.9); Lymphocytes Percent Auto 34.3 % (20-40); Mean Corpuscular HGB Conc 32.3 g/dl (31.0-35.0); Mean Corpuscular Hemoglobin 29.4 pg (27.0-33.0); Mean Corpuscular Volume 90.8 fL (80.0-98.0); Mean Platelet Volume 10.3 fL (9.4-12.3); Monocytes Absolute Auto 0.6 X10*3/uL (0.1-1.2); Neutrophils Absolute Auto 4.8 x10*3/uL (2.0-8.3); Neutrophils Percent Auto 56.2 % (45-73); Platelet Count 288 X10*3/uL (160-400); Red Blood Count 4.02 X10*6/uL (4.20-5.50); Red Cell Distribution Width 14.3 % (11.0-16.0); White Blood Count 8.5 X10*3/uL (4.8-10.8)
[2024-01-23 15:14] LABS: Alanine Aminotransferase 26 U/L (0-31); Albumin Level 4.1 g/dL (3.5-5.0); Alkaline Phosphatase 77 U/L (39-117); Anion Gap 11 (12-20); Aspartate Amino Transferase 25 U/L (5-31); Bilirubin Total 0.7 mg/dL (0.0-1.0); Blood Urea Nitrogen 18 mg/dL (9-16); C Reactive Protein 0.59 mg/dL (< or = 0.50); Calcium 9.7 mg/dL (8.4-10.2); Carbon Dioxide 30 mmol/L (22-29); Chloride 108 mmol/L (96-108); Estimated Glomerular Filt Rate 45; Glucose Random 91 mg/dL (60-115); Potassium 4.2 mmol/L (3.3-5.1); Sodium 145 mmol/L (135-145); Total Protein 7.4 g/dL (6.5-8.0)
[2024-01-23 15:43] LABS: Erythrocyte Sedimentation Rate 36 MM/HR (0-20)
== END 2024-01-23 13:43 | disposition home or self-care (01) ==
LOC: HO.LAB 13:42
PROVIDERS: PCP Physician Assistant; Visit Provider Student in an Organized Health Care Education/Training Program
DX: M51.360 Other intervertebral disc degeneration, lumbar region with discogenic back pain only (principal); Z79.631 Long term (current) use of antimetabolite agent; M47.817 Spondylosis without myelopathy or radiculopathy, lumbosacral region; M54.16 Radiculopathy, lumbar region; M41.80 Other forms of scoliosis, site unspecified; M51.34 Other intervertebral disc degeneration, thoracic region; M54.41 Lumbago with sciatica, right side; M54.42 Lumbago with sciatica, left side; G89.29 Other chronic pain; M48.061 Spinal stenosis, lumbar region without neurogenic claudication
CPT/HCPCS: 36415; 80053; 85025; 85652; 86140; 99212

== ENCOUNTER 2024-02-23 13:36 | Outpatient (AMB) | payer OTHER, SELFPAY ==
--- NOTE | 2024-02-23 13:50 | MHC.OFFVIS ---
Vital Signs 02/23/24 13:57 Height 4 ft 11 in Weight 183 lb 3.266 oz BMI 37.0 BP 134/70 Blood Pressure Location Rt brachial Position Sitting Pulse 65 Pulse Source Pulse Oximeter Pulse Oximetry (%) 99 Oxygen Delivery Method Room Air Intake Visit Reasons: RA Intake Note: Patient presents for RA. Photo Producer Required: Yes Photo Producer Language: Parcel Post Delivery Name: Bambi Gaston Information Interpreted: non-clinical & clinical Sample Finisher: Sample Finisher Present (Bambi Gaston) Accompanied by: Daughter Allergies acetaminophen [Ultracet] Allergy (Intermediate, Verified 02/23/24 13:56) anaphylaxis tramadol [From ULTRACET] Allergy (Intermediate, Verified 02/23/24 13:56) ANAPHYLAXIS lisinopril [Lisinopril] Allergy (Mild, Verified 02/23/24 13:56) SWELLING, anaphylaxis Medication List - Last Reconciled 02/23/24 by Chrissie Stauffer MD acetaminophen ER (Tylenol Arthritis Pain) 650 mg PO Q12H PRN [adult diapers pull-ups As directed] albuterol sulfate 90 mcg/actuation 2 inhalations inhalation Q6H PRN 30 days albuterol sulfate 2.5 mg (0.5 mL) inhalation Q20M PRN amlodipine 5 mg PO DAILY azithromycin 500 mg PO DAILY 5 days [bath mat As directed] [Bed rails As directed] benzonatate 200 mg PO BID PRN 30 days blood pressure monitor As directed blood sugar diagnostic (FreeStyle Lite Strips) Use 1 strip once a day blood-glucose meter (FreeStyle Lite Meter kit) As directed blood-glucose meter,continuous (FreeStyle [place] 3 [place]) As directed blood-glucose sensor (FreeStyle [place] 3 Sensor device) As directed bupropion HCl XL 150 mg PO QAM bupropion HCl XL 300 mg PO DAILY cane As directed cefpodoxime 100 mg PO BID 8 days cetirizine 10 mg PO DAILY cholecalciferol (vitamin D3) 25 mcg PO DAILY 90 days compr.stocking,knee,long,large As directed CPAP (CPAP Machine/Device) As directed disposable gloves latex free gloves, large doxepin 10 mg PO BEDTIME dulaglutide (Trulicity) 0.75 mg (0.5 mL) subcut QWEEK 4 weeks duloxetine (Cymbalta) 60 mg PO DAILY fluticasone propion-salmeterol 230-21 mcg/actuation (Advair HFA) 2 puffs inhalation Q12H 30 days fluticasone propionate 50 mcg/actuation 2 sprays intranasal DAILY folic acid 1 mg PO DAILY gabapentin 100 mg PO BID 30 days [handheld showerhead As directed] [incontinence wipes 4 packages per month] lancets (FreeStyle Lancets) Use 1 lancet once a day levothyroxine 25 mcg PO DAILY 90 days lidocaine HCl 4% (Theraworx Pain Relief) 1 ea topical TID meclizine 25 mg PO DAILY metformin 1,000 mg PO DAILY 90 days methotrexate sodium 20 mg (8 x 2.5 mg) PO QWEEK methylprednisolone (Medrol (Brandon)) PO PER PKG DIR 6 days metoprolol tartrate 25 mg PO BID mirtazapine 7.5 mg PO BEDTIME miscellaneous medical supply (Blood Pressure Cuff) As directed miscellaneous medical supply 1 ea miscellaneous DAILY 99 days miscellaneous medical supply 1 ea miscellaneous DAILY 99 days montelukast (Singulair) 10 mg PO BEDTIME 30 days nebulizers As directed omeprazole 20 mg PO DAILY [pantyliner As directed] rosuvastatin 20 mg PO DAILY 90 days [Shower gel As directed] spironolactone 12.5 mg PO DAILY tirzepatide (Mounjaro) 5 mg (0.5 mL) subcut QWEEK 4 weeks HPI Comments Details: 68-year-old female with seronegative arthritis returns for follow-up with her daughter. On methotrexate 20 mg once weekly plus folic acid 1 mg daily. Well-tolerated. She states that she has been more achy recently she believes it is due to the cold, she has been having pain and stiffness in her knees, hands, right shoulder and back. She was evaluated by pain management and spine surgery, she was deemed not a candidate for a surgical procedure and not a good candidate for steroid injections, she refused diagnostic procedures. Her gabapentin dose was increased. Initial history: This is a 67-year-old female who presents for evaluation of diffuse joint pain. She presents with her daughter. Over the last year patient has been having pain and swelling of her hands, fingers. She has morning stiffness of her hands lasting 30 minutes to 1 hour. She also has swelling of her ankles, usually worse at night. She also has significant lower back pain radiating to her buttocks. She takes Tylenol Arthritis which provides little relief. She mentions that her mother had rheumatoid arthritis. States that her joints improved when she gets prednisone taper for her bronchitis [facility] Medical History Pulmonary hypertension Atelectasis Diastolic dysfunction Chronic restrictive lung disease Murmur (~08/31/21) Moderate asthma Surgical History History of colonoscopy (~2018) History of laparoscopic cholecystectomy (~2009) History of tubal ligation (~1991) Family History Father No problems noted. Mother Lymphoma Maternal Aunt Diabetes Paternal Uncle Diabetes Brother No problems noted. Sister No problems noted. Sister No problems noted. Son No problems noted. Daughter No problems noted. Daughter No problems noted. Social History Housing: Apartment Alcohol intake: never Patient Tobacco Use Status: Never used Tobacco e-Cigarette/Vaping Use: Never Used Second Hand Smoke Exposure: No service: No Current occupational status: disabled Cognitive needs: No Hearing needs: No Vision needs: No Review of Systems Musc Reports back pain, Reports arthralgias, Reports limited range of motion and Reports stiffness Physical Exam Vital Signs: Last Vital Signs Pulse 65 02/23/24 13:57 BP 134/70 02/23/24 13:57 Pulse Ox 99 02/23/24 13:57 Oxygen Delivery Method Room Air 02/23/24 13:57 BMI result Body Mass Index 37.0 Const General: cooperative, healthy appearing and comfortable Nutritional Appearance: obese morbidly obese Orientation/consciousness: patient oriented x3 Limitations: no limitations HEENT Head: Yes normocephalic and Yes atraumatic Resp Effort & Inspection: normal respiratory effort and able to speak in complete sentences Auscultation: clear to auscultation bilaterally Cardio Rate: regular rate Neuro General: patient oriented x3 Extrem Other: No wrist tenderness or pain with flexion and extension bilaterally No tender MCPs, PIPs or DIPs bilaterally Mildly positive Elias's test right hand Significantly Reduced right shoulder abduction (chronic) No knee swelling, warmth or pain with full flexion-extension bilaterally No ankle tenderness or swelling bilaterally No MTP tenderness and negative MTP squeeze test bilaterally Assessment & Plan Assessment & Plan (1) Seronegative arthritis: Comment: -ve RF/CCP/ERIN/HLA B27. X-ray shows multiple joints with enthesopathy dx 12/2022 MTX 12/2022 effective Code(s): M13.80 - Other specified arthritis, unspecified site Category: Medical Plan: 68-year-old female with seronegative arthritis returns for follow-up. On methotrexate 20 mg weekly folic acid 1 mg daily. Doing well overall with no active synovitis. Complaints today are due to degenerative arthritis Advised patient to try OTC Voltaren gel on her knees, also on radial aspect of her right wrist for her mild de Quervain tenosynovitis Continue methotrexate and folic acid as prescribed Labs before next visit in 4 months (2) continuous churn buttermaker methotrexate user: Code(s): Z79.631 - continuous churn buttermaker (current) use of antimetabolite agent Category: Medical Plan: Monitor safety labs (3) Pleural condition, unspecified: Code(s): J94.9 - Pleural condition, unspecified Category: Medical Plan: Her spine MRI showed a T2 enhancing pleural lesion. Order a CT chest with contrast for further evaluation Plan I spent 26 minutes reviewing patient's chart, evaluating patient, ordering diagnostic workup, counseling patient & her daughter and documenting in the chart Orders: Orders CT chest w IV con Today J94.9 - Pleural condition, unspecified Complete Blood Count Auto Diff 4 Months M13.80 - Other specified arthritis, unspecified site, Z79.631 - continuous churn buttermaker (current) use of antimetabolite agent Comprehensive Met. Panel 4 Months M13.80 - Other specified arthritis, unspecified site, Z79.631 - continuous churn buttermaker (current) use of antimetabolite agent C Reactive Protein 4 Months M13.80 - Other specified arthritis, unspecified site, Z79.631 - continuous churn buttermaker (current) use of antimetabolite agent Erythrocyte Sedimentation Rate 4 Months M13.80 - Other specified arthritis, unspecified site, Z79.631 - alf (current) use of antimetabolite agent Coding Level of Care Code Est Pt Level 4 (63263) Diagnoses Seronegative arthritis M13.80 alf methotrexate user Z79.631 Pleural condition, unspecified J94.9
[2024-02-23 13:57] VITALS: BP 134/70; PULSE 65; O2SAT 99; BMI 37.0
== END 2024-02-23 14:25 | disposition home or self-care (01) ==
PROVIDERS: PCP Physician Assistant; Visit Provider Student in an Organized Health Care Education/Training Program
DX: M13.80 Other specified arthritis, unspecified site (principal); Z79.631 Long term (current) use of antimetabolite agent; J94.9 Pleural condition, unspecified
CPT/HCPCS: 99214

== ENCOUNTER → 2024-02-23 13:36 | Outpatient (BNVA) | payer OTHER, SELFPAY | PROVIDERS: PCP Physician Assistant; Visit Provider Student in an Organized Health Care Education/Training Program | DX: M13.80 Other specified arthritis, unspecified site (principal); J94.9 Pleural condition, unspecified; Z79.631 Long term (current) use of antimetabolite agent | CPT/HCPCS: 99212 ==

== ENCOUNTER 2024-04-02 13:44 | Outpatient (AMB) | payer OTHER, SELFPAY ==
--- NOTE | 2024-04-02 14:12 | A.OFFPC_ITS ---
Vital Signs 04/02/24 14:14 Height 4 ft 11 in Weight 184 lb BMI 37.2 BP 120/62 Blood Pressure Location Lt brachial Position Sitting Pulse 69 Pulse Source Pulse Oximeter Temp 97.1 F Temp Source Temporal Artery Scan Pulse Oximetry (%) 97 Oxygen Delivery Method Room Air Intake Visit Reasons: f/u DMII Intake Note: Patient is here to follow up on DM. Weight Shifter Required: Yes Weight Shifter Language: Brush Material Preparer Name: Pily (daughter) Information Interpreted: non-clinical & clinical (Pt decline piano regulator inspector service, prefer daughter to translate.) Pega Developer: Present Accompanied by: Daughter Allergies acetaminophen [Ultracet] Allergy (Intermediate, Verified 04/02/24 14:41) anaphylaxis tramadol [From ULTRACET] Allergy (Intermediate, Verified 04/02/24 14:41) ANAPHYLAXIS lisinopril [Lisinopril] Allergy (Mild, Verified 04/02/24 14:41) SWELLING, anaphylaxis Medication List - Last Reconciled 04/02/24 by Mikey Buenrostro PA-C acetaminophen ER (Tylenol Arthritis Pain) 650 mg PO Q12H PRN [adult diapers pull-ups As directed] albuterol sulfate 90 mcg/actuation 2 inhalations inhalation Q6H PRN 30 days albuterol sulfate 2.5 mg (0.5 mL) inhalation Q20M PRN amlodipine 5 mg PO DAILY [bath mat As directed] [Bed rails As directed] blood pressure monitor As directed blood sugar diagnostic (FreeStyle Lite Strips) Use 1 strip once a day blood-glucose meter (FreeStyle Lite Meter kit) As directed blood-glucose meter,continuous (FreeStyle Norman 3 Baldwin) As directed blood-glucose sensor (FreeStyle [place]an 3 Sensor device) As directed bupropion HCl XL 150 mg PO QAM bupropion HCl XL 300 mg PO DAILY cane As directed cetirizine 10 mg PO DAILY cholecalciferol (vitamin D3) 25 mcg PO DAILY 90 days compr.stocking,knee,long,large As directed CPAP (CPAP Machine/Device) As directed disposable gloves latex free gloves, large doxepin 10 mg PO BEDTIME dulaglutide (Trulicity) 0.75 mg (0.5 mL) subcut QWEEK 4 weeks duloxetine (Cymbalta) 60 mg PO DAILY fluticasone propion-salmeterol 230-21 mcg/actuation (Advair HFA) 2 puffs inhalation Q12H 30 days fluticasone propionate 50 mcg/actuation 2 sprays intranasal DAILY folic acid 1 mg PO DAILY gabapentin 100 mg PO BID 30 days [handheld showerhead As directed] [incontinence wipes 4 packages per month] lancets (FreeStyle Lancets) Use 1 lancet once a day levothyroxine 25 mcg PO DAILY 90 days lidocaine HCl 4% (Theraworx Pain Relief) 1 ea topical TID meclizine 25 mg PO DAILY metformin 1,000 mg PO DAILY 90 days methotrexate sodium 20 mg (8 x 2.5 mg) PO QWEEK metoprolol tartrate 25 mg PO BID mirtazapine 7.5 mg PO BEDTIME miscellaneous medical supply (Blood Pressure Cuff) As directed miscellaneous medical supply 1 ea miscellaneous DAILY 99 days miscellaneous medical supply 1 ea miscellaneous DAILY 99 days montelukast (Singulair) 10 mg PO BEDTIME 30 days nebulizers As directed omeprazole 20 mg PO DAILY [pantyliner As directed] rosuvastatin 20 mg PO DAILY 90 days [Shower gel As directed] spironolactone 12.5 mg PO DAILY Tobacco use date assessed: 04/02/24 Fall risk assessment: No Falls in past year Last assessed Fall Risk: 04/02/24 Dental Screening Dental Screen Date: 04/02/24 Did you have a dental visit in the last 12 months?: Yes Did you have a dental problem in the last 6 months where you did not have access to dental care?: No Was dental information given to patient?: Patient has dentist HPI f/u DMII HPI Details Patient is a 68-year-old [place]inamese-speaking female here today for a follow-up visit . Patient has multiple medical conditions including hypertension, type 2 diabetes, hyperlipidemia, obstructive sleep apnea, asthma, seronegative arthritis, obesity. Concern--> reports she has been having a bit of a hard time breathing chest tightness related to her asthma. Has been using her albuterol inhaler. Has not used her nebulizer recently and will do so to help has been. We discussed trying prednisone though will like to off on this due to fears of hyperglycemia. . Arthritis: She is now followed by orthopaedic general and has been started on disease modifying medication. .. HTN: Has recently followed up with a [employer]ographer print [employer] . Blood pressure today in office acceptable. Will continue her current dose of antihypertensive medication. She otherwise denies any chest discomfort, headache, dizziness or vision issues. .. Hypothyroidism: Has not gained weight since last office visit. Patient continues on levothyroxine 25 mcg. Most recent TSH stable .. Moderate persistent asthma/ MELBA: Patient is followed by pulmonology. She reports recently having some worsening in her asthma. Has been having to use her albuterol inhaler much more. She continues on CPAP at night. . .. Type 2 diabetes: Patient's A1c at 6.2 from 5.5. She does report increase in hunger. She believes her GLP 1 0s and as effective. Will increase her Trulicity dose to 1.5 mg weekly. Laboratory Tests 11/30/23 04/02/24 14:10 14:12 Hgb A1c (Clinic) 5.5 6.2 H PFSH Medical History Pulmonary hypertension Atelectasis Diastolic dysfunction Chronic restrictive lung disease Murmur (~08/31/21) Moderate asthma Surgical History History of colonoscopy (~2018) History of laparoscopic cholecystectomy (~2009) History of tubal ligation (~1991) Family History Father No problems noted. Mother Lymphoma Maternal Aunt Diabetes Paternal Uncle Diabetes Brother No problems noted. Sister No problems noted. Sister No problems noted. Son No problems noted. Daughter No problems noted. Daughter No problems noted. Social History Housing: Apartment Alcohol intake: never Patient Tobacco Use Status: Never used Tobacco e-Cigarette/Vaping Use: Never Used Second Hand Smoke Exposure: No service: No Current occupational status: disabled Cognitive needs: No Hearing needs: No Vision needs: No Questionnaire PHQ-9 Over the last 2 weeks, how often have you been bothered by any of the following problems? 1. Little interest or pleasure in doing things: nearly every day 2. Feeling down, depressed, or hopeless: nearly every day 3. Trouble falling or staying asleep, or sleeping too much: nearly every day 4. Feeling tired or having little energy: more than half the days 5. Poor appetite or overeating: nearly every day 6. Feeling bad about yourself - or that you are a failure or have let yourself or your family down: not at all 7. Trouble concentrating on things, such as reading the newspaper or watching television: nearly every day 8. Moving or speaking so slowly that other people could have noticed. Or the opposite - being so fidgety or restless that you have been moving around a lot more than usual: more than half the days 9. Thoughts that you would be better off or of hurting yourself in some way: not at all Total score: 19 Depression Screening Interpretation: Positive Depression Screening Follow-up: Existing condition and In treatment Depression Screening Done: Yes 34661 - PHQ-9 Billing: Yes Source: Developed by Drs. Aristeo Gifford, Cheryl Burgess, Chauncey Armenta and colleagues, with an educational nilsa from [employer]. Thrive Questionnaire Date Thrive assessed: 04/02/24 I am a: Patient What is your living situation today?: I have a steady place to live Within the past 12 months, did the food you bought not last and you didn't have the money to get more?: Never true Within the past 12 months, did you worry whether your food would run out before you got money to buy more?: Never true Do you have trouble paying for medicines?: No Do you have trouble getting transportation to medical appointments?: No Do you have trouble paying your heating and electricity bill?: No Do you have trouble taking care of your child, family member or friend?: No Do you have trouble with day-to-day activities such as bathing, preparing meals, shopping, managing finances, etc.?: No Are you currently unemployed and looking for a job?: No Are you interested in more education?: No Please select the resources that you would like help with: None Currently or been in a relationship where the following occur: No concerns reported THRIVE Score: 0 AUDIT C Alcohol Use Questionnaire (AUDIT-C) 1. How often do you have a drink containing alcohol?: Never 3. How often do you have six or more drinks on one occasion?: Never Total Score: 0 BOBBY-7 AMB Questionnaire BOBBY-7 Date BOBBY - 7 assessed: 04/02/24 Feeling nervous, anxious, or on edge: 3 = Nearly every day Not being able to stop or control worryin = Nearly every day Worrying too much about different things: 3 = Nearly every day Trouble relaxin = More than half the days Being so restless that it is hard to sit still: 0 = Not at all Becoming easily annoyed or irritable: 3 = Nearly every day Feeling afraid as if something awful might happen: 3 = Nearly every day Total BOBBY-7 score (0-4 normal; 5-9 mild; 10-14 moderate; 15-21 severe): 17 Source: Developed by Drs. Aristeo Gifford, Cheryl Burgess, Chauncey Armenta and colleagues, with an educational nilsa from [employer]. BOBBY-7 Assessment Billing BOBBY-7 Assessment Tool: BOBBY-7 Assessment [id number] Review of Systems Const Denies headache(s) Eyes Denies loss of vision ENT Denies vertigo, Denies dizziness, Denies headache(s) and Denies sore throat Card Denies chest pain, Denies leg edema and Denies lightheadedness Resp Denies cough, Denies hemoptysis and Denies wheezing GI Denies abdominal pain, Denies melena, Denies constipation, Denies diarrhea and Denies vomiting Denies urinary frequency, Denies dysuria and Denies urinary urgency Musc Denies arthralgias, Denies joint swelling, Denies numbness and Denies tingling Neuro Denies Abnormal speech present, Denies behavioral changes, Denies vertigo, Denies dizziness, Denies headache(s), Denies loss of vision, Denies memory loss, Denies numbness and Denies tingling Psych Denies anxiety, Denies behavioral changes, Denies depression, Denies memory loss and Denies panic attacks Werner/Lymph Denies easy bleeding and Denies easy bruising Aller/Immun Denies wheezing Physical exam (Primary Care) Vital Signs: Last Vital Signs Temp 97.1 F 04/02/24 14:14 Pulse 69 04/02/24 14:14 BP 120/62 04/02/24 14:14 Pulse Ox 97 04/02/24 14:14 Oxygen Delivery Method Room Air 04/02/24 14:14 BMI result Body Mass Index 37.2 Tobacco/Smoking Status: Tobacco use Status Tobacco use date assessed 04/02/24 04/02/24 14:26 Patient Tobacco Use Status Never used Tobacco 04/02/24 14:26 e-Cigarette/Vaping Use Never Used 04/02/24 14:26 PHQ-9: PHQ-9 Score PHQ-9: Total score 19 04/02/24 14:26 Depression Screening Interpretation: Positive Depression Screening Follow-up: Existing condition and In treatment Thrive Assessment: Date of Thrive Assessment Date Thrive assessed 04/02/24 04/02/24 14:26 Currently or been in a relationship where the following occur: No concerns reported Const General: healthy appearing, no acute distress, alert and awake Nutritional Appearance: well nourished Orientation/consciousness: oriented to person, oriented to place and oriented to time HENMT Ears: TM's normal bilaterally General nose exam: Normal nasal mucous membranes and turbinates present Eyes Conjunctivae: conjunctivae normal Sclerae: sclerae normal Pupils: Equal, round and reactive pupils present Neck Neck: Yes no lymphadenopathy and Yes no JVD Thyroid: Thyroid normal Carotids: no bruits Resp Effort & Inspection: normal respiratory effort and not tachypneic Auscultation: no crackles, no rales, no rhonchi and no wheezes Cardio Rate: regular rate Rhythm: regular rhythm Heart sounds: no murmurs and normal S1 and S2 GI Palpation (GI): Soft to palpation, nontender, no hepatomegaly and no splenomegaly Auscultation: normal bowel sounds Skin General skin exam: no rashes or lesions noted and dry skin Neuro General: oriented to person, oriented to place and oriented to time Cranial nerves: Yes Equal, round and reactive pupils present Speech: No Abnormal speech present Gait exam (Neuro): Normal gait present Motor exam (neuro): no tremor noted Extrem Right upper extremity: full ROM Left upper extremity: full ROM Right lower extremity: full ROM; no edema Left lower extremity: full ROM; no edema Psych Mental Status: mental status grossly normal Speech and movement: Normal speech and movement present Affect: normal affect Attitude: cooperative Thought process: Normal thought process present Results AMB Hemoglobin A1c AMB Hemoglobin A1c 6.2 % Last Edit by RO Wood on 04/02/24 14:26 Results Reviewed Results Reviewed: Laboratory Last Values Hgb A1c (Clinic) 6.2 % (4.0-6.0) H 04/02/24 14:12 Coding Level of Care Code Est Pt Level 4 (42523) Diagnoses Type 2 diabetes mellitus without complication, without long-term current use of insulin E11.9 Diabetes mellitus intermodal customer service insulin use: without [facility] use Diabetes mellitus complication status: without complication Mixed hyperlipidemia E78.2 Hyperlipidemia type: mixed hyperlipidemia Essential hypertension I10 Hypertension type: essential hypertension Moderate persistent asthma without complication J45.40 Asthma persistence: persistent Asthma complication type: uncomplicated Mild recurrent major depression F33.0 Functional urinary incontinence R39.81 Urinary Incontinence type: functional incontinence Additional Codes PHQ-9 - 38785 - PHQ-9 Billing: Yes ([id number]) BOBBY-7 Assessment Billing - BOBBY-7 Assessment Tool: BOBBY-7 Assessment [id number] ([id number]) Assessment & Plan Assessment & Plan (1) DMII (diabetes mellitus, type 2): Code(s): E11.9 - Type 2 diabetes mellitus without complications Category: Medical Qualifiers: Diabetes mellitus [facility] insulin use: without [employer] customer [employer] use Diabetes mellitus complication status: without complication Qualified Code(s): E11.9 - Type 2 diabetes mellitus without complications Plan: Patient's type 2 diabetes well controlled. She does report some breakthrough hunger and would like to increase her Trulicity to 1.5 mg weekly. Goal A1c is to remain below 7.0. (2) HLD (hyperlipidemia): Code(s): E78.5 - Hyperlipidemia, unspecified Category: Medical Qualifiers: Hyperlipidemia type: mixed hyperlipidemia Qualified Code(s): E78.2 - Mixed hyperlipidemia Plan: Patient's most recent lipid panel showing excellent control over total cholesterol and LDL. Will continue current dose. Goal LDL to be below 100 (3) HTN (hypertension): Code(s): I10 - Essential (primary) hypertension Category: Medical Qualifiers: Hypertension type: essential hypertension Qualified Code(s): I10 - Essential (primary) hypertension Plan: Patient's blood pressure acceptable today in office. Will continue current dose of antihypertensive medication with goal blood pressure to be below 140/90 (4) Moderate asthma: Code(s): J45.909 - Unspecified asthma, uncomplicated Category: Social Hx Qualifiers: Asthma persistence: persistent Asthma complication type: uncomplicated Qualified Code(s): J45.40 - Moderate persistent asthma, uncomplicated Plan: Patient does report some cough and chest tightness related to her asthma. She will try to do her home nebulizers (5) Mild recurrent major depression: Code(s): F33.0 - Major depressive disorder, recurrent, mild Category: Medical Plan: Patient's PHQ-9 score positive for depression which has been existing condition for her. Patient depression has been well controlled with current dose of Wellbutrin. (6) Urinary incontinence: Code(s): R32 - Unspecified urinary incontinence Category: Medical Qualifiers: Urinary Incontinence type: functional incontinence Qualified Code(s): R39.81 - Functional urinary incontinence Plan: Continues with the use of incontinence supplies with good effect. Needs refill on her adult briefs. Orders: Orders Complete Blood Count no Diff Today E11.9 - Type 2 diabetes mellitus without complications Lipid Panel Today E78.2 - Mixed hyperlipidemia AMB Hemoglobin A1c Today E11.9 - Type 2 diabetes mellitus without complications Microalbumin, Random (w Creat) Today E11.9 - Type 2 diabetes mellitus without complications Comprehensive [place]. Panel Fast Today E11.9 - Type 2 diabetes mellitus without complications TSH reflex Free T4 Today E03.9 - Hypothyroidism, unspecified Medications: New dulaglutide (Trulicity) 1.5 mg (0.5 mL) subcut QWEEK 4 weeks 2 mL 3RF E11.9 - Type 2 diabetes mellitus without complications Refilled blood sugar diagnostic (FreeStyle Lite Strips) Use 1 strip once a day 50 ea 11RF E11.9 - Type 2 diabetes mellitus without complications [adult diapers pull-ups] As directed 240 ea 11RF E66.01 - Morbid (severe) obesity due to excess calories, R32 - Unspecified urinary incontinence Discontinued blood-glucose meter,continuous (FreeStyle Norman 3 Baldwin) Discontinued Reason: Doctor's Order As directed 1 ea 0RF E11.9 - Type 2 diabetes mellitus without complications blood-glucose sensor (FreeStyle Norman 3 Sensor device) Discontinued Reason: Doctor's Order As directed 1 ea 6RF E11.9 - Type 2 diabetes mellitus without complications dulaglutide (Trulicity) Discontinued Reason: Doctor's Order 0.75 mg (0.5 mL) subcut QWEEK 4 weeks 2 mL 2RF E11.9 - Type 2 diabetes mellitus without complications Patient Instructions: Goal: A1c to remain below 7.0, LDL to be below 100 Barriers: Adherence to physical activity and healthy eating habits.
[2024-04-02 14:14] VITALS: BP 120/62; PULSE 69; TEMP 36.2; O2SAT 97; BMI 37.2
--- OUTSIDE RECORDS SUMMARY | 2024-04-02 15:43 | XMS_ITS | Encounter Summary ---
Author Organization [facility] Address [address] [place] [address] Care Team Providers Care Distribution Dispatcher Name Role Phone Dalila Rodriguez MD Primary Care Provider [phone] Reason for Visit * Reason Comments Foot Pain Fu-Diabetic foot exa m Encounter Details Date Type Department Care Team (Late st Contact Info) Description 03/14/2024 1:15 PM EST Office Visit Orthopedic Surgery - [place] [address] [phone] Adam Cruz DPM [address] [address] Controlled type 2 diabetes with neuropathy (CMS/HCC) (Primary Dx); Arthritis of both feet; Pain in toes of both feet; Dermatophytosis, nail Social History Tobacco Use Types Packs/Day Years Used Date Smoking Tobacco: Never Assessed Comments Unknown Sex and Gender Information Value Date Recorded Sex Assigned at Not on file Legal Sex Female 8:49 PM EST Gender Identity Not on file Sexual Orientation Not on file documented as of this encounter Last Filed Vital Signs Vital Sign Reading Time Taken Comments Blood Pressure - - Pulse - - Temperature - - Respiratory Rate - - Oxygen Saturation - - Inhaled Oxygen Concentration - - Weight 79.4 kg (175 lb) 03/14/2024 1:00 PM EST Height 149.9 cm (4' 11.02 ) 03/14/2024 1:[address] Body Mass Index 35.33 03/14/2024 1:00 PM EST documented in this encounter Progress Notes * Adam Cruz DPM - 03/14/2024 1:15 PM EST Referring MD: Jennifer Last PCP visit: 01/21/2024 IDENTIFIER: @TITLE@ Darcy is a 68 y.o. year old female who presents for consultation. CC: Bilateral foot pain HPI: Patient returns for bilateral pain in feet Patient states that they have been diabetic for the past few years and had tingling numbness of feet bilaterally Denies any history of ulceration, or infection. Patient would like to inquire about their pedal hygiene, as their toenails have become elongated and painful. Patient is not using antifungals at this time. Patient is wearing good supportive shoes at this time. Patient reports mild calluses that are becoming bothersome. Patient with minimal other pedal complaints at this time. Patient's FBS this AM was 164 Recent A1C is %. 5.5 ROS: GENERAL: Pt denies nausea, fever, vomiting, chills, or shortness of breath. Pt in NAD. CARDIOLOGY: pt denies chest pain, palpitations LUNGS: pt denies shortness of breath MUSCULOSKELETAL: See HPI, otherwise no joint pain or swelling, back pain, or muscle pain. SKIN: see HPI, otherwise no lesions, rash or itching NEURO: No persistent headache, weakness or numbness The remainder of the review of systems is noncontributory PAST MEDICAL HISTORY: There is no problem list on file for this patient. SOCIAL HISTORY: Social History Tobacco Use Smoking status: Not on file Smokeless tobacco: Not on file Substance Use Topics Alcohol use: Not on file ACTIVE MEDICATIONS: Outpatient Medications Marked as Taking for the 03/14/24 encounter (Office Visit) with Adam Cruz DPM Medication Sig Dispense Refill buPROPion SR (WELLBUTRIN SR) 150 mg 12 hr tablet Take 1 tablet (150 mg total) by mouth 2 (two) times a day. cetirizine (ZyrTEC) 10 mg tablet Take 1 tablet (10 mg total) by mouth 1 (one) time each day. clotrimazole (LOTRIMIN) 1 % cream Apply to skin daily for 6 weeks doxepin (SINEquan) 25 mg capsule Take 2 capsules (50 mg total) by mouth at bedtime. dulaglutide (Trulicity) 0.75 mg/0.5 mL pen injector injection Inject 0.5 mL (0.75 mg total) under the skin. See Admin Instructions. DULoxetine (CYMBALTA) [address] capsule Take 1 capsule (60 mg total) by mouth 1 (one) time each day. gabapentin (NEURONTIN) 100 mg capsule Take 1 capsule (100 mg total) by mouth 1 (one) time each day. hydroCHLOROthiazide (HYDRODIURIL) 25 mg tablet Take 1 tablet (25 mg total) by mouth 1 (one) time each day. levothyroxine (SYNTHROID, LEVOTHROID) 25 mcg tablet Take 1 tablet (25 mcg total) by mouth 1 (one) time each day. meclizine (ANTIVERT) 25 mg tablet Take by mouth. metFORMIN (GLUCOPHAGE) 1,000 mg tablet Take 1 tablet (1,000 mg total) by mouth 2 (two) times a day with meals. methotrexate 2.5 mg tablet Take 1 tablet (2.5 mg total) by mouth 1 (one) time each day metoprolol tartrate (LOPRESSOR) 25 mg tablet Take 1 tablet (25 mg total) by mouth 2 (two) times a day. mirtazapine (REMERON) 7.5 mg tablet Take 1 tablet (7.5 mg total) by mouth at bedtime. omeprazole (PriLOSEC) [address] capsule Take 1 capsule (20 mg total) by mouth 1 (one) time each day. pioglitazone (ACTOS) 30 mg tablet Take 1 tablet (30 mg total) by mouth 1 (one) time each day. pravastatin (PRAVACHOL) 40 mg tablet Take 1 tablet (40 mg total) by mouth 1 (one) time each day. ALLERGIES: @ALL@ PHYSICAL EXAM: Height 1.499 m (59.02 ), weight 79.4 kg (175 lb). PODIATRIC EXAMINATION: GENERAL: Patient appears well nourished, with NAD. VASCULAR: Dorsalis pedis pulses are 1/4 bilaterally and Posterior tibial pulses are 0/4 bilaterally. Capillary filling time within normal limits the digits. No pallor on elevation or rubor on dependency. Positive hair growth. Many varicosities. Denies rest pain or claudication pain. NEUROLOGICAL: Sharp/dull sensation intact, protective sensation diminished on [place]. Peripheral neuropathy throughout the feet bilaterally. ORTHOPEDIC: Good muscle strength 5/5 of all flexors and extensors. Dorsi flexion of ankle ,10 degrees, plantar flexion WNL. No muscle atrophy. Arthritic changes of midfoot bilaterally with dorsal exostoses that are palpable. Contracture of digits 2 through 5 at the PIPJ's. DERMATOLOGICAL:.No masses or skin lesions noted. Normal skin temperature, normal skin turgor. Nailsare elongated dystrophic discolored x 10 with subungual debris BIOMECHANICS: STJ ROM wnl, MTJ ROM wnl, 1st MPJ ROM wnl. IMPRESSION: 1. Controlled type 2 diabetes with neuropathy (CMS/HCC) 2. Arthritis of both feet 3. Pain in toes of both feet 4. Dermatophytosis, nail PLAN: Pt was seen and examined, history reviewed. Patient educated on the importance of good pedal hygiene and tight blood glucose control. Patient encouraged to maintain a healthy lifestyle with a well-balanced diet. Patient should never go barefoot and wear supportive shoe gear. Patient should aim for A1c less than 7% every month. Continue with regular appointments with PMD or store cashier for tight medical management Patient with symptoms of arthritic changes in the pedal joints. Patient showed good understanding of etiology of arthritis. Patient is aware that conservative options include padding, over the counter products, orthotics, and shoes. Patient aware that they are other treatments available such as oral anti- inflammatories, injections, and steroid dose packs. Patient understands that these measures are conservative measures to help handle the osteoarthritic flares. Patient found to have contracted and hammered digits of bilateral forefoot. Due to patients currentage and activity level, will continue with conservative management of these deformities. There are devices that will help reduce chance of irritation, pressure points, blisters, and/or infection. Nail debridement performed to nails 1-5 bilateral as nails were described to be causing pain and difficulty for walking while in shoegear at their previous length. They were debrided in thickness andlength, with no incident. Clinical evidence of mycosis is documented which required active treatment. Patient expressed immediate relief. Patient is to RTC in 9 weeks Adam Cruz DPM documented in this encounter Plan of Treatment Upcoming Encounters Date Type Department Care Team (Late st Contact Info) Description 05/16/2024 1:30 PM EDT Office Visit Orthopedic Surgery - [place] [address] [phone] Adam Cruz DPM [address] [address] documented as of this encounter Visit Diagnoses Diagnosis Controlled type 2 diabetes with neuropathy (CMS/HCC)- Primary Type II or unspecified type diabetes mellitus with neurological manifestations, not stated as uncontrolled Arthritis of both feet Pain in toes of both feet Dermatophytosis, nail Dermatophytosis of nail documented in this encounter Care Teams Distribution Dispatcher Relationship Specialty Start Date End Date Dalila Rodriguez MD [address] [place] [address] DrB[address], [address] [facility] D/B/A: [facility] [place], [place] PCP - General 06/30/22 documented as of this encounter
--- OUTSIDE RECORDS SUMMARY | 2024-04-02 15:43 | XMS_ITS | Clinical Summary ---
Author Organization 175 [facility] Address 175 [place] [address] Phone Care Team Providers Care Plug Shaper Hand Name Role Phone Dalila Rodriguez MD Primary Care Provider [phone] Allergies Active Allergy Reactions Criticality Noted Date Comments Acetaminophen 08/24/2022 Lisinopril 08/24/2022 Tramadol 08/24/2022 Medications buPROPion SR (WELLBUTRIN SR) 150 mg 12 hr tablet Take 1 tablet (150 mg total) by mouth 2 (two) times a day. Active cetirizine (ZyrTEC) 10 mg tablet Take 1 tablet (10 mg total) by mouth 1 (one) time each day. Active clotrimazole (LOTRIMIN) 1 % cream Apply to skin daily for 6 weeks Active doxepin (SINEquan) 25 mg capsule Take 2 capsules (50 mg total) by mouth at bedtime. Active dulaglutide (Trulicity) 0.75 mg/0.5 mL pen injector injection Inject 0.5 mL (0.75 mg total) under the skin. See Admin Instructions. Active DULoxetine (CYMBALTA) [address] capsule Take 1 capsule (60 mg total) by mouth 1 (one) time each day. Active gabapentin (NEURONTIN) 100 mg capsule Take 1 capsule (100 mg total) by mouth 1 (one) time each day. Active hydroCHLOROthia zide (HYDRODIURIL) 25 mg tablet Take 1 tablet (25 mg total) by mouth 1 (one) time each day. Active levothyroxine (SYNTHROID, LEVOTHROID) 25 mcg tablet Take 1 tablet (25 mcg total) by mouth 1 (one) time each day. Active meclizine (ANTIVERT) 25 mg tablet Take by mouth. Activ e metFORMIN (GLUCOPHAGE) 1,000 mg tablet Take 1 tablet (1,000 mg total) by mouth 2 (two) times a day with meals. Active methotrexate 2.5 mg tablet Take 1 tablet (2.5 mg total) by mouth 1 (one) time each day 4 Active metoprolol tartrate (LOPRESSOR) 25 mg tablet Take 1 tablet (25 mg total) by mouth 2 (two) times a day. Active mirtazapine (REMERON) 7.5 mg tablet Take 1 tablet (7.5 mg total) by mouth at bedtime. Active omeprazole (PriLOSEC) [address] capsule Take 1 capsule (20 mg total) by mouth 1 (one) time each day. Active pioglitazone (ACTOS) 30 mg tablet Take 1 tablet (30 mg total) by mouth 1 (one) time each day. Active pravastatin (PRAVACHOL) 40 mg tablet Take 1 tablet (40 mg total) by mouth 1 (one) time each day. Active clotrimazole (LOTRIMIN) 1 % external solution Apply topically 2 (two) times a day. Apply to nails and skin 30 mL 2 4 03/08/19 25 Encounters Date Type Department Care Team Description 03/14/2024 1:15 PM EST Office Visit Orthopedic Surgery [address] [phone] Adam Cruz DPM Controlled type 2 diabetes with neuropathy (CMS/HCC) (Primary Dx); Arthritis of both feet; Pain in toes of both feet; Dermatophytosis, nail 01/12/2024 1:00 PM EST Office Visit Orthopedic Surgery [address] [phone] Doni Ansari DPM Tinea pedis of both feet (Primary Dx); Dermatophytosis of nail; Diabetic mononeuropathy simplex (CMS/HCC) from Last 3 Months Social History Tobacco Use Types Packs/Day Years Used Date Smoking Tobacco: Never Assessed Comments Unknown Sex and Gender Information Value Date Recorded Sex Assigned at Not on file Legal Sex Female 8:49 PM EST Gender Identity Not on file Sexual Orientation Not on file Last Filed Vital Signs Vital Sign Reading Time Taken Comments Blood Pressure 138/81 04/01/2023 1:40 PM EST Pulse 78 04/01/2023 1:40 PM EST Temperature - - Respiratory Rate - - Oxygen Saturation - - Inhaled Oxygen Concentration - - Weight 79.4 kg (175 lb) 03/14/2024 1:00 PM EST Height 149.9 cm (4' 11.02 ) 03/14/2024 1:[address] Body Mass Index 35.33 03/14/2024 1:00 PM EST Plan of Treatment Upcoming Encounters Date Type Department Care Team (Late st Contact Info) Description 05/16/2024 1:30 PM EDT Office Visit Orthopedic Surgery - [place] 250 [address] [facility] [address] [place] [address] Adam rCuz, MAILE 175 [facility] [address] [place] [address] Health Maintenance Due Date Last Done Comments Breast Cancer Screening 1955 Diabetes: Annual GFR (Glomer ular Filtration Rate) 1956 COVID-19 Vaccine (#1) 1961 Diabetes: Annual Foot Exam 1966 Diabetes: Annual Retina Eye Exam 1966 DTaP,Tdap,and Td Vaccines (1 - Tdap) 07/14/1975 Pneumococcal Vaccine: 50+ Ye ars (1 of 2 - PCV) 07/14/1975 Zoster Vaccines (1 of 2) 2006 RSV Immunization Patients 60 + Years Old (1 - Risk 60-74 years 1-dose series) 2016 Cholesterol Screening (Lipid Panel) 03/04/2023 Colorectal Cancer Screening: Colonoscopy 03/04/2023 Depression Screening 03/04/2023 Falls Risk Assessment 03/04/2023 Hepatitis C Screening 03/04/2023 Medicare Annual Wellness Visit 03/04/2023 Osteoporosis Screening (Bone Density Screening) 03/04/2023 Social Influencers of Health Screening 03/04/2023 Influenza Vaccine (#1) 2023 Diabetes: Annual Urine Albumin-Creatinine Ratio (uACR) 01/12/2024 Diabetes: Blood Sugar Contro l Test (HGBA1C) 01/12/2024 Hypertension/CHF/CAD Annual BMP Blood Test 01/12/2024 HIB Vaccines Aged Out No longer eligi ble based on patient's age to complete this topic HPV Vaccines Aged Out No longer eligi ble based on patient's age to complete this topic Hepatitis A Vaccines Aged Out No long er eligible based on patient's age to complete this topic Hepatitis B Vaccines Aged Out No long er eligible based on patient's age to complete this topic IPV Vaccines Aged Out No longer eligi ble based on patient's age to complete this topic MMR Vaccines Aged Out No longer eligi ble based on patient's age to complete this topic Meningococcal ACWY Vaccine Aged Out N o longer eligible based on patient's age to complete this topic Meningococcal B Vacine Aged Out No lo nger eligible based on patient's age to complete this topic RSV Immunization Patients Un darren 20 months Aged Out No longer eligible b ased on patient's age to complete this topic Varicella Vaccines Aged Out No longer eligible based on patient's age to complete this topic Insurance [employer] MEDICARE Member Subscriber Plan / Payer (Ef fective 2022-Present) Name:Taveras, Fiordaliza Relation to Subscriber:Self Name:Fiordaliza Taveras Payer ID:[id number] Group ID:[id number] Type:Not on file Address: [place] [address] [address] [address] Care Teams Plug Shaper Hand Relationship Specialty Start Date End Date Dalila Rodriguez MD [address] [place] [address] , [address] [facility] D/B/A: [facility] VALENTINE Rashid PCP - General 06/30/22
--- OUTSIDE RECORDS SUMMARY | 2024-04-02 15:43 | XMS_ITS | Clinical Summary ---
Author Organization [facility] Address [address] [place] [address] Phone Care Team Providers Care Mangle Catcher Name Role Phone Mikey Buenrostro Primary Care Provider [phone] Allergies Active Allergy Reactions Criticality Noted Date Comments Acetaminophen Anaphylaxis High 10/22/2022 Lisinopril Anaphylaxis,Swelling High 10/22/2022 Tramadol Anaphylaxis High 10/22/2022 Medications albuterol (2.5 MG/3ML) 0.083% nebulizer solution Take 2.5 mg by nebulization every 6 (six) hours if needed for wheezing Active Albuterol Sulfate 108 (90 Base) MCG/ACT aerosol powder Inhale Activ e buPROPion XL (WELLBUTRIN XL) 150 MG 24 hr tablet Take 150 mg by mouth 1 (one) time each day Do not crush, chew, or split. Active cetirizine (ZyrTEC) 10 MG tablet Take 10 mg by mouth 1 (one) time each day Active Cholecalciferol (Vitamin D3) 25 MCG (1000 UT) capsule Take by mouth Active doxepin (SINEquan) 50 MG capsule Take 50 mg by mouth every night Active DULoxetine (CYMBALTA) [address] capsule Take 60 mg by mouth 1 (one) time each day Do not crush or chew. Active fluticasone-[place] meterol (ADVAIR HFA) 230-21 MCG/ACT inhaler Inhale 2 puffs in the morning and 2 puffs before bedtime. Rinse mouth with water after use to reduce aftertaste and incidence of candidiasis. Do not swallow.. Active fluticasone (VERAMYST) 27.5 MCG/SPRAY nasal spray Administer 2 sprays into each nostril 1 (one) time each day Active gabapentin (NEURONTIN) 100 MG capsule Take 100 mg by mouth 1 (one) time each day Active levothyroxine sodium (TIROSINT) 25 MCG capsule Take 25 mcg by mouth 1 (one) time each day Active meclizine (ANTIVERT) 25 MG tablet Take 25 mg by mouth 1 (one) time each day Active metoprolol tartrate 25 MG tablet Take 25 mg by mouth in the morning and 25 mg in the evening. Active mirtazapine (REMERON) 7.5 MG tablet Take 7.5 mg by mouth every night Active omeprazole (PriLOSEC) [address] capsule Take 20 mg by mouth 1 (one) time each day Do not crush or chew. Active pravastatin (PRAVACHOL) 40 MG tablet Take 40 mg by mouth 1 (one) time each day Active spironolactone (Aldactone) 25 MG tablet Take 0.5 tablets (12.5 mg total) by mouth 1 (one) time each day 15 tablet 11 3 Active Trulicity 0.75 MG/0.5ML solution pen-injector ADMINISTER 0.75 MG UNDER THE SKIN EVERY WEEK FOR 4 WEEKS Active folic acid (FOLVITE) 1 MG tablet Take 1 tablet by mouth 1 (one) time each day Active montelukast (SINGULAIR) 10 MG tablet Take 10 mg by mouth at bed time Active amLODIPine (NORVASC) 5 MG tablet Take 1 tablet (5 mg total) by mouth 1 (one) time each day 90 tablet 3 4 07/14/19 25 Active Active Problems Problem Noted Date Diagnosed Date Urinary tract infection 03/31/2023 Acute nontraumatic kidney injury 03/31/2023 supervisor intermediates current use of methotrexate 03/31/2023 Osteoporosis 03/31/2023 Chronic low back pain 03/31/2023 Menopausal syndrome 03/31/2023 Unable to balance 03/31/2023 Morbid obesity 03/31/2023 Urinary incontinence 03/31/2023 Microalbuminuria 03/31/2023 Mild recurrent major depression 03/31/2023 Onychogryposis 03/31/2023 Murmur 03/31/2023 Atelectasis 03/31/2023 Diastolic dysfunction 03/31/2023 Obstructive sleep apnea syndrome 03/31/2023 Moderate asthma 03/31/2023 Hypertension 03/31/2023 Hyperlipidemia 03/31/2023 Diabetes mellitus 03/31/2023 Hypothyroidism 03/31/2023 Gastroesophageal reflux disease 03/31/2023 Allergic rhinitis 03/31/2023 Body mass index 40+ - severely obese 03/31/2023 Sinusitis 03/31/2023 Multiple joint pain 03/31/2023 Tinea pedis 03/31/2023 Encounters Date Type Department Care Team Description 01/12/2024 1:45 PM EST [facility] Visit [facility] [address] [place] [address] Rahul Cooley MD Stage 3a chronic kidney disease (HCC) (Primary Dx) from Last 3 Months Family History Medical History Relation Comments Cancer Mother Relation Status Comments Mother Social History Tobacco Use Types Packs/Day Years Used Date Smoking Tobacco: Never Assessed Comments Unknown Sex and Gender Information Value Date Recorded Sex Assigned at Not on file Legal Sex Female 11:11 AM EDT Gender Identity Not on file Sexual Orientation Not on file Last Filed Vital Signs Vital Sign Reading Time Taken Comments Blood Pressure 130/62 01/12/2024 1:59 PM EST Pulse 75 01/12/2024 1:59 PM EST Temperature - - Respiratory Rate - - Oxygen Saturation 93% 01/12/2024 1:59 PM EST Inhaled Oxygen Concentration - - Weight 82.6 kg (182 lb 3.2 oz) 01/12/2024 1:59 P M EST Height 149.9 cm (4' 11 ) 10/28/2022 2:58 PM EDT Body Mass Index 36.8 10/28/2022 2:58 PM EDT Plan of Treatment Upcoming Encounters Date Type Department Care Team (Late st Contact Info) Description 07/12/2024 1:30 PM EDT Office Visit [facility] [address] [place] [address] Rahul Cooley MD [address] [facility] [address] [place] [address] Health Maintenance Due Date Last Done Comments Breast Cancer Screening 1955 Pneumococcal Vaccine: 65+ Ye ars (1 of 2 - PCV) 1962 Colorectal Cancer Screening: Annual FOBT 2005 Colorectal Cancer Screening: Colonoscopy 2005 Colorectal Cancer Screening: Sigmoidoscopy 2005 Diabetes: Hemoglobin A1C 10/22/2022 Diabetes: Ophthalmology Exam 10/22/2022 Diabetes: Pedal Pulse Checked 10/22/2022 Diabetes: Sensory Foot Exam 10/22/2022 Diabetes: Visual Foot Exam 10/22/2022 Influenza Vaccine (#1) 2023 Hepatitis B Vaccine Aged Out No longe r eligible based on patient's age to complete this topic Insurance [facility] ONE CARE DUAL SNP ([id number]) [facility] ONE CARE DUAL SNP ([id number]) Care Teams Mangle Catcher Relationship Specialty Start Date End Date Mikey Buenrostro PA [address] [place] [address], [address] [place] [address] PCP - General Physician Anodiser 01/12/24
--- OUTSIDE RECORDS SUMMARY | 2024-04-02 15:43 | XMS_ITS | Data Portability ---
Author Organization [facility], Ar in - [facility] Address [address] [place] [phone] Care Team Providers Care Engineering Supplies Sales Name Role Phone [facility] Primary Care Provider Assessment Encounter Date Assessment Date Assessment LastModified by Organization Details LastModified Time 02/28/2023 02/28/2023 I provided real -time medical direction via phone for this encounter, and was available for additional phone based assistance as needed. I have reviewed and agree with the Assessment and Plan as documented by the Cafeteria Food Server. We discussed the diagnostic uncertainty of home visits and the risk associated with this. In this case the patient and I felt this to be an acceptable and reasonable amount of risk given the benefit of avoiding an ED visit. The patient given the opportunity to ask questions. Advised if develops CP/severe SOB/turning blue/uncontrolle d n/v/d or black/bloody emesis or stool/ AMS/ syncope/ hi fever unresponsive to APAP to call 911- verbalized understanding of instructions [email or web address] Not available 03/01/2023 23:48:23 Plan of Treatment Reminders Order Date Submit Date Provider Last Modified By Organization Details Last Modified Time Details Appointments None recorded. Lab influenza virus A + B and SARS CoV 2 (COVID-19) and RSV RNA panel, NESTOR+probe, respiratory specimen 2023 024 THONG [facility] (Centralized Electronic Ordering - All Locations), Patient Can Go To The Location Of Their Choice, [id number] 13:56:34 rapid SARS CoV 2 Ag, QL IA, respiratory specimen 2023 024 [email or web address] 0 [facility], [address] [place] [address], [phone], 4 12:31:30 rapid flu (A+B) 2023 024 [email or web address] 0 [facility], [address] [place] [address], [phone], 4 12:31:28 BMP, serum or plasma 2023 [email or web address] 0 Main - [facility], [address] [place] [address], [phone], 4 12:50:36 glucose, fingerstick , blood 2023 [email or web address] 0 Main - [facility], [address] [place] [address], [phone], 4 12:50:38 Referral None recorded. Procedures None recorded. Surgeries None recorded. Imaging None recorded. Medication Orders benzonatate 200 mg capsule 2023 [id number], [address] [place], [place], [phone], 12:50:42 ipratropium 0.5 mg-albutero l 3 mg (2.5 mg base)/3 mL nebulizatio n soln 2023 [email or web address] 0 [facility] #[id number], [address], [place], [phone], 23:50:31 Patient TargetsNo targets recorded. Patient InstructionsNo instructions recorded. Reason for Referral None Reported. Results Created Date Observation Date Name Description Value Unit Range Abnormal Flag Note LastModifiedBy Organization Detail LastModifiedTime 02/28/19 24 03/01/2023 COVID -19, RSV, FLU A/B PCR influenza A PCR (neg) NEGAT YUSEF INFLU JOANNA A TARGE T RNA IS NOT DETEC NICHOLE. REFER ENCE RANGE :NOT DETEC NICHOLE. A NEGAT YUSEF TEST RESUL T DOES NOT RULE OUT INFEC TIONS CAUSE D BY INFLU JOANNA A, OR OTHER VIRAL OR BACTE RIAL PATHO GENS. ALL TEST RESUL TS MUST BE CORRE LATED WITH CLINI NICOLASA FINDI NGS. THIS ASSAY IS PERFO RMED BY REAL- TIME RT-PC R. Not Available [facility] (Centralized Electronic Ordering - All Locations) Patient Can Go To The Location Of Their Choice, [id number] 03/01/2023 13:56:33 02/28/19 24 03/01/2023 COVID -19, RSV, FLU A/B PCR influenza B PCR (neg) NEGAT YUSEF INFLU JOANNA B TARGE T RNA IS NOT DETEC NICHOLE. REFER ENCE RANGE :NOT DETEC NICHOLE. A NEGAT YUSEF TEST RESUL T DOES NOT RULE OUT INFEC TIONS CAUSE D BY INFLU OJANNA B, OR OTHER VIRAL OR BACTE RIAL PATHO GENS. ALL TEST RESUL TS MUST BE CORRE LATED WITH CLINI NICOLASA FINDI NGS. THIS ASSAY IS PERFO RMED BY REAL- TIME RT-PC R. Not Available [facility] (Centralized Electronic Ordering - All Locations) Patient Can Go To The Location Of Their Choice, [id number] 03/01/2023 13:56:33 02/28/19 24 03/01/2023 COVID -19, RSV, FLU A/B PCR RSV by PCR (neg) NEGAT YUSEF RSV TARGE T RNA IS NOT DETEC NICHOLE. REFER ENCE RANGE :NOT DETEC NICHOLE. A NEGAT YUSEF RESUL T DOES NOT RULE OUT INFEC TIONS CAUSE D BY RESPI RATOR Y SYNCY TIAL VIRUS , OR OTHER VIRAL OR BACTE RIAL PATHO GENS. ALL TEST RESUL TS MUST BE CORRE LATED WITH CLINI NICOLASA FINDI NGS. THIS ASSAY IS PERFO RMED BY REAL- TIME RT-PC R. Not Available [facility] (Centralized Electronic Ordering - All Locations) Patient Can Go To The Location Of Their Choice, [id number] 03/01/2023 13:56:33 02/28/19 24 03/01/2023 COVID -19, RSV, FLU A/B PCR covid-19 PCR result (neg) NEGAT YUSEF 2019- novel Coron aviru s (2018 -nCoV ) not detec nichole by real- time RT-PC R. Note: If clini nicolasa suspi cion for COVID -19 is high, rajinder nue to maint ain preca ution s and consi darren repea t testi ng. Resul t repor nichole to the [facility]. All test resul ts must be corre lated with clini nicolasa findi ngs. This test has been autho rized by the FDA under an Emerg ency Use Autho riomar ion (EUA) for use by autho risusan alvarado. Testi mateusz perfo rmed on the Cephe id GeneX pert utili zing real- time RT-PC R. Not Available [facility] (Centralized Electronic Ordering - All Locations) Patient Can Go To The Location Of Their Choice, 03/01/2023 13:56:33 02/28/19 24 03/01/2023 COVID -19, RSV, FLU A/B PCR covid-19 PCR specimen source NASAL Not Available [facility] (Centralized Electronic Ordering - All Locations) Patient Can Go To The Location Of Their Choice, 03/01/2023 13:56:33 02/28/19 24 02/28/2023 BMP, serum or plasm a BUN 17 Not Available [facility] - [facility] [address], [address], 02/28/2023 12:31:34 02/28/19 24 02/28/2023 BMP, serum or plasm a Ca Ionize d calciu m 1.22 Not Available Main - [facility] [address], [address], 02/28/2023 12:31:34 02/28/19 24 02/28/2023 BMP, serum or plasm a CI- 24 Not Available [facility] - [facility] [address], [address], 02/28/2023 12:31:34 02/28/19 24 02/28/2023 BMP, serum or plasm a CRE 0.8 Not Available [facility] - [facility] [address], [address], 02/28/2023 12:31:34 02/28/19 24 02/28/2023 BMP, serum or plasm a GLU 189 Not Available [facility] - [facility] [address], [address], 02/28/2023 12:31:34 02/28/19 24 02/28/2023 BMP, serum or plasm a K+ 4.4 Not Available [facility] - [facility] [address], [address], 02/28/2023 12:31:34 02/28/19 24 02/28/2023 BMP, serum or plasm a Na+ 140 Not Available [facility] - [facility] [address], [address], 02/28/2023 12:31:34 02/28/19 24 02/28/2023 BMP, serum or plasm a tCO2 24 Not Available [facility] - [facility] [address], [address], 02/28/2023 12:31:34 02/28/19 24 02/28/2023 gluco se, finge rstic k, blood Blood Glucose: mg/dl 252 Not Available [facility] [address] [place] [address], [address], 02/28/2023 12:48:48 02/28/19 24 02/28/2023 rapid flu (A+B) Flu negati ve Not Available [facility] [address] [place] [address], [phone], 02/28/2023 12:31:09 02/28/19 24 02/28/2023 rapid SARS CoV 2 Ag, QL IA, respi rator y speci men rapid SARS CoV 2 Ag, QL IA, respiratory specimen negati ve Not Available [facility] [address] [place] [address], [address], 02/28/2023 12:31:07 Result Notes None recorded. Medical Equipment None Reported. Allergies Allergen ID Allergen Name Allergen Category Reaction Reaction Severity Criticality Documentation Date Start Date Code Code System Note Provider Name and Address Organization Details Recorded Time 440 lisinopri l medicatio n Not available Not available Not available 02/28/2023 16614 RxNorm Candace Koroma MD [address] [place] [address],[address], [place], [phone], [place] 5 Minutes 4 12:28:38 4402 trazodone medicatio n Not available Not available Not available 02/28/2023 81586 RxNorm Candace Koroma MD [address] [facility],[address], [place], [address], 5 Minutes 4 12:28:46 Medications Name Sig Start Date Stop Date Status Note LastModified by Organization Details LastModified Time amoxicillin 500 mg capsule TAKE 1 CAPSULE BY MOUTH EVERY 6 HOURS UNTIL GONE active Not Available Not Available N ot Available doxepin 50 mg capsule TAKE 1 CAPSULE BY MOUTH AT BEDTIME active Not Available Not Available No t Available ipratropium 0.5 mg-albuterol 3 mg (2.5 mg base)/3 mL nebulization soln Inhale 3 mL by nebulizatio n route. 2023 active Not Available Not Available Not Avai lable cetirizine 10 mg tablet TAKE 1 TABLET BY MOUTH DAILY active Not Available Not Available Not Available benzonatate 200 mg capsule TAKE 1 CAPSULE BY MOUTH THREE TIMES DAILY NEEDED active Not Available Not Available No t Available acetaminophe n 300 mg-codeine 30 mg tablet TAKE 1 TABLET BY MOUTH EVERY 6 HOURS NEEDED FOR PAIN active Not Available Not Available No t Available doxepin 10 mg capsule TAKE 1 CAPSULE BY MOUTH AT BEDTIME active Not Available Not Available No t Available spironolacto ne 25 mg tablet active Not Available Not Available Not Available levothyroxin e 25 mcg tablet TAKE 1 TABLET BY MOUTH DAILY active Not Available Not Available Not Available methotrexate sodium 2.5 mg tablet active Not Available Not Available No t Available meclizine 25 mg tablet TAKE 1 TABLET BY MOUTH DAILY active Not Available Not Available Not Available metformin 1,000 mg tablet TAKE 1 TABLET BY MOUTH DAILY active Not Available Not Available Not Available omeprazole 20 mg capsule,christina yed release TAKE 1 CAPSULE BY MOUTH DAILY active Not Available Not Available Not Available folic acid 1 mg tablet TAKE 1 TABLET BY MOUTH DAILY active Not Available Not Available Not Available montelukast 10 mg tablet TAKE 1 TABLET BY MOUTH AT BEDTIME active Not Available Not Available No t Available hydrochlorot hiazide 25 mg tablet TAKE 1 TABLET BY MOUTH DAILY active Not Available Not Available Not Available gabapentin 100 mg capsule TAKE 1 CAPSULE BY MOUTH AT BEDTIME active Not Available Not Available No t Available albuterol sulfate HFA 90 mcg/actuatio n aerosol inhaler INHALE 2 PUFFS EVERY 6 HOURS NEEDED FOR SHORTNESS OF BREATH OR WHEEZING FOR 30 DAYS active Not Available Not Available Not Available pioglitazone 30 mg tablet TAKE 1 TABLET BY MOUTH DAILY active Not Available Not Available Not Available fluticasone propionate 50 mcg/actuatio n nasal spray,suspen manuel SHAKE LIQUID AND USE 2 SPRAYS IN EACH NOSTRIL DAILY active Not Available Not Available No t Available cholecalcife rol (vitamin D3) 25 mcg (1,000 unit) capsule TAKE 1 CAPSULE BY MOUTH DAILY active Not Available Not Available Not Available rosuvastatin 20 mg tablet TAKE 1 TABLET BY MOUTH DAILY active Not Available Not Available Not Available bupropion HCl XL 300 mg 24 hr tablet, extended release TAKE 1 TABLET BY MOUTH EVERY MORNING active Not Available Not Available No t Available bupropion HCl XL 150 mg 24 hr tablet, extended release TAKE 1 TABLET BY MOUTH EVERY MORNING active Not Available Not Available No t Available metoprolol tartrate 25 mg tablet TAKE 1 TABLET BY MOUTH TWICE DAILY active Not Available Not Available No t Available albuterol sulfate concentrate 2.5 mg/0.5 mL solution for nebulization INHALE 0.5ML VIA NEBULIZER EVERY 20 MINUTES NEEDED FOR SHORTNESS OF BREATH OR WHEEZING. USE UP TO 3 DOSES PER DAY. active Not Available Not Available No t Available duloxetine 60 mg capsule,christina yed release TAKE 1 CAPSULE BY MOUTH EVERY DAY active Not Available Not Available No t Available Advair HFA 230 mcg-21 mcg/actuatio n aerosol inhaler INHALE 2 PUFFS BY MOUTH EVERY 12 HOURS active Not Available Not Available No t Available Ultra Thin Lancets 30 gauge TEST BLOOD SUGAR EVERY DAY active Not Available Not Available No t Available Trulicity 0.75 mg/0.5 mL subcutaneous pen injector ADMINISTER 0.75 MG UNDER THE SKIN EVERY WEEK FOR 4 WEEKS active Not Available Not Available No t Available Vitals Date Recorded Respiratory rate Body temperature Body weight Heart rate Body height Oxygen saturation Oxygen saturation in Arterial blood by Pulse oximetry Systolic blood pressure Diastolic blood pressure Provider Name and Address Organization Details Last Updated DateTime 3 16 /min 98.8 [degF] 63806.2 56 g 74 /min 149.86 cm 97 % 97 % 136 mm[Hg] 82 mm[Hg] Not Available [facility] - production 3 19:36:24 Date Recorded Body weight Respiratory rate Heart rate Body height Oxygen saturation Oxygen saturation in Arterial blood by Pulse oximetry Body temperature Systolic blood pressure Diastolic blood pressure Provider Name and Address Organization Details Last Updated DateTime 4 87782.4 8 g 16 /min 90 /min 149.86 cm 96 % 96 % 98.3 [degF] 160 mm[Hg] 82 mm[Hg] Not Available [facility] - production 4 12:20:04 Social History None recorded. Functional Status None recorded. Mental Status None recorded. Family History Nothing Reported. Medical History No medical history recorded. Gynecological HistoryNo gynecological history recorded. Obstetrics History GPAL:G 0 P 0 0 0 0 Past Encounters Encounter ID Performer Location Encounter Start Date Encounter Closed Date Diagnosis/Indication Diagnosis SNOMED-CT Code Diagnosis ICD10 Code Diagnosis Note [id number] Vik Parker MD Main - [address] [phone] 11/22/2022 19:36:17 11/23/2022 11:00:03 Venous stasis 27812315 I87.8 The family of this 67-year-ol d female called because they were concerned she might be getting cellulitis in her legs. She also had some diarrhea yesterday that has resolved. I reviewed images of her legs and I saw no evidence of cellulitis , although she does seem to have some venous insufficie ncy with leg edema. I recommende d that she elevate her legs periodical ly and follow-up with her PCP for any new symptoms. The patient and her family agreed with this plan. [id number] Candace Koroma MD [facility] - [facility] [address] [place] [phone] 02/28/2023 12:20:00 03/03/2023 09:19:03 Upper respiratory infection 86614612 J06.9 cont APAP as prescribed / rest stay well hydrated -patient has not been eating much but she is drinking well /renal function is stable and will be able to tolerate Paxlovid if PCR is positive and it returns before the end of day 5 of symptoms (today is day 3 )as long as her buspirone/ pravastati n/fluticas one are held or decreased Advised patient to use her albuterol 4 times a day while ill as she responded very well to the neb by the medic-stat us post lungs CTA. Health Concerns Section Related Observation LastModified by Organization Detai ls LastModified Time None Recorded Concern Status LastModified by Organization Details LastModified Time None Recorded Advance Directives Directive None Recorded Payers Encounter Date Sequence Insurance Name Policy Number Policy Loredo Covered Member ID Loredo Member ID Guarantor Name 11/22/2022 1 [facility] - DOS ON OR AFTER 2022 - DUAL ELIGIBLE - SKILLED NURSING OPTIONS AND ONE CARE (MEDICARE REPLACEMENT/ADV ANTAGE - HMO) [facility] [id number] [facility] Noris Restrepogo 02/28/2023 1 [facility] - DOS ON OR AFTER 2022 - DUAL ELIGIBLE - SKILLED NURSING OPTIONS AND ONE CARE (MEDICARE REPLACEMENT/ADV ANTAGE - HMO) [facility] [id number] [facility] Notes Date Note Type Note Provider Name and Address Organization Details Recorded Time 11/22/2022 text/html [facility] Nursing Assessment: Reason For Request: Right leg redness Chief Complaints: Cellulitis PMH: Diabetes, Hypertension Allergies: Unknown Comments: right leg redness, no pain/positive itchy fever/body aches PMH: DM, HTN, takes water pill Vik Parker MD [address] [place] [address],[address], [place], [phone], 5 Minutes 11/22/2022 19:41:11 02/28/2023 text/html [facility] Nurse Liss martinez Notes (Sheron Murcia): Reason For Request: PT asthma is flaring up>coughing, headache and mbr feels very sick>daughter is unsure if her mother has contracted something else like COVID-19 or the flu>to the touch mbr is warm, no temp taken, has had chills. Chief Complaints: Cough, Headache, Weakness/Lethargy PMH: Diabetes, Hypertension Allergies: No Known Comments: 67 year old female with PMH: DM, HTN, History given by daughter: chief complaint of URI symptoms. Not feeling good since yesterday, coughing, fever, chills, flu-like symptoms, headaches. Sick contacts on Tuesday. /phone verified. Tom PRABHAKAR SEGMD: Patient is on day 3 of symptoms. She has had exposure to family members with similar. Has had chills, has felt warm but she is on Tylenol Extra Strength for OA, so is currently afebrile. She denies nausea /vomiting/diarrhea , but has had anorexia to solids. She is drinking well and staying well-hydrated. Cough is clear to yellow sputum. Patient has adequate albuterol for nebulizer but has not used it.Patient's PMH includes but is not limited to DM 2(just started on Trulicity last week)/HTN/diastoli c dysfunction, HPL, asthma and proteinuria with stage IIIa CKD per her nephrology note October 2022 which the patient was unaware. Her BUN/creat on 10/28/22 was 19/1.06 .................. .................. .................. .................. .................. .................. .................. ............... Cafeteria Food Server Note From Yosi Soto: Dispatched to the call address for the female with URI symptoms. Pt states she is on day 3 of not feeling well, complaining of a headache, productive cough (yellow sputum), chills at times and some body aches. Pt states she has been taking Tylenol but not any OTC cough medicine. Pt denies n/v/d, CP or SOB. Pt does have a nebulizer but has not been using it. Pt was found opening door, CAOx4, airway open and patent, breathing non labored, able to speak in full sentences, -JVD, -HEENT, skin PWD with good turgor, abd soft non tender/distended, pupils PERRL, +CMSx4, -edema, -sinus pressure/tendernes s, slight wheezing in the bases prior to duoneb and clear post treatment. Rapid Covid/Flu (-). PCR preformed, BMP results WNL. [facility] consulted. Pt prescribed cough medicine to preferred pharmacy. Red flags discussed. ALL times are approx. .................. .................. .................. .................. .................. .................. .................. ............... Disposition: Fulfilled Candace Koroma MD [address] [place] [address],[address] [facility], [place], [phone], [email or web address] - [employer] 03/01/2023 23:51:40 OBGyn Episode No OBEpisode recorded.
== END 2024-04-02 14:53 | disposition home or self-care (01) ==
PROVIDERS: PCP Physician Assistant; Visit Provider Physician Assistant
DX: E11.9 Type 2 diabetes mellitus without complications (principal); F33.0 Major depressive disorder, recurrent, mild; E78.2 Mixed hyperlipidemia; I10 Essential (primary) hypertension; J45.40 Moderate persistent asthma, uncomplicated; R39.81 Functional urinary incontinence

== ENCOUNTER → 2024-04-02 13:44 | Outpatient (BNVA) | payer OTHER, SELFPAY | PROVIDERS: PCP Physician Assistant; Visit Provider Physician Assistant | DX: E11.9 Type 2 diabetes mellitus without complications (principal); E78.2 Mixed hyperlipidemia; I10 Essential (primary) hypertension; J45.40 Moderate persistent asthma, uncomplicated; F33.0 Major depressive disorder, recurrent, mild; R39.81 Functional urinary incontinence | CPT/HCPCS: 83036; 96127; 99212 ==

== ENCOUNTER 2024-04-23 15:48 | Outpatient (REF) | payer OTHER, SELFPAY ==
[2024-04-23] MEDS: iohexoL 350 MG/ML 75 ML INFUS..BTL 65 ML IV (16:56)
--- OUTSIDE RECORDS SUMMARY | 2024-04-23 18:14 | XMS_ITS | Clinical Summary ---
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 03/31/2023 Osteoporosis 03/31/2023 [...] Multiple joint pain 03/31/2023 Tinea pedis 03/31/2023 Family History Medical History Relation Comments Cancer [...] Visit [facility] [address] [place] [address] Rahul Cooley MD [address] [facility] [address] [place] [address] Health Maintenance Due Date Last [...] patient's age to complete this topic Insurance [facility] ONE CARE DUAL SNP ([id number]) [facility] ONE CARE DUAL SNP ([id number]) Care Teams Manager Market Relationship Specialty Start Date End Date Mikey Buenrostro PA [address] [facility], [address] [place] [address] PCP - General Physician Progress Developer 01/12/24
--- OUTSIDE RECORDS SUMMARY | 2024-04-23 18:14 | XMS_ITS | Clinical Summary ---
Author Organization [address] [facility] Address [address] [place] [address] Phone Care Team Providers Care Seam Checker Name Role Phone Dalila Rodriguez MD Primary Care Provider [phone] Allergies Active Allergy Reactions Criticality Noted Date [...] Apply to skin daily for 6 weeks 11/24/2022 Active doxepin (SINEquan) 25 mg capsule Take [...] (ANTIVERT) 25 mg tablet Take by mouth. Active metFORMIN (GLUCOPHAGE) 1,000 mg tablet Take 1 tablet (1,000 mg total) by mouth 2 (two) times a day with meals. Active methotrexate 2.5 mg tablet Take 1 tablet (2.5 mg total) by mouth 1 (one) time each day 04/14/2023 Active metoprolol tartrate (LOPRESSOR) 25 mg tablet [...] mouth 1 (one) time each day. 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); Arthritis of both feet; Pain in toes of both feet; Dermatophytosis, nail from Last 3 Months Social History Tobacco [...] PM EDT Office Visit Orthopedic Surgery - [place] [address] [facility] [address] [place] [phone] Adam Cruz, MAILE [address] [facility] [address] [place] [address] Health Maintenance Due Date Last Done Comments [...] Subscriber Plan / Payer (Ef fective 2022-Present) Name:Fiordaliza Taveras Relation to Subscriber:Self Name:Darcy Fiordaliza Payer ID:[id number] Group ID:[id number] Type:Not on file Address: [place] [address] [address] [address] Care Teams Seam Checker Relationship Specialty Start Date End Date Dalila Rodriguez MD [address] [place] [address] , [address] [facility] D/B/A: [facility] VALENTINE Rashid PCP - General 06/30/22
--- OUTSIDE RECORDS SUMMARY | 2024-04-23 18:14 | XMS_ITS | Data Portability ---
Author Organization [employer] [facility] [place] [facility] Address [address] [place] [id number] Care Team Providers Care Civil Engineering Intern Name Role Phone [facility] Primary Care Provider Assessment Encounter Date Assessment Date Assessment LastModified by Organization Details LastModified Time 02/28/2023 02/28/2023 I provided real -time medical direction via phone for this encounter, and was available for additional phone based assistance as needed. I have reviewed and agree with the Assessment and Plan as documented by the Medical Lab Scientist. We discussed the diagnostic uncertainty of home [...] to call 911- verbalized understanding of instructions [email or web address] Not available 03/01/2023 23:48:23 Plan of Treatment Reminders Order Date Submit Date Provider Last Modified By Organization Details Last Modified Time Details Appointments None recorded. Lab influenza virus A + B and SARS CoV 2 (COVID-19) and RSV RNA panel, NESTOR+probe, respiratory specimen 2023 024 THONG [facility] (Centralized Electronic Ordering - All Locations), Patient Can Go To The Location Of Their Choice, [address] 13:56:34 rapid SARS CoV 2 Ag, QL IA, respiratory specimen 2023 024 [email or web address] 0 [facility], [address] [place] [address], [phone], 4 12:31:30 rapid flu (A+B) 2023 024 [email or web address] 0 [facility], [address] [place] [address], [phone], 4 12:31:28 BMP, serum or plasma 2023 [email or web address] 0 Main - [facility], [address] [place] [address], [phone], 4 12:50:36 glucose, fingerstick , blood 2023 [email or web address] 0 [facility], [address] [place] [address], [phone], 4 12:50:38 Referral None recorded. Procedures None recorded. Surgeries None recorded. Imaging None recorded. Medication Orders benzonatate 200 mg capsule 2023 [id number], [address] [place], [place], [phone], 12:50:42 ipratropium 0.5 mg-albutero l 3 mg (2.5 mg base)/3 mL nebulizatio n soln 2023 [email or web address] 0 [facility] #[id number], [address], [place], [phone], 23:50:31 Patient TargetsNo targets recorded. Patient InstructionsNo [...] Go To The Location Of Their Choice, [id number] 03/01/2023 13:56:33 02/28/19 24 03/01/2023 COVID -19, RSV, FLU A/B PCR influenza B PCR (neg) NEGAT YUSEF INFLU JOANNA B TARGE T RNA IS NOT DETEC NICHOLE. REFER ENCE RANGE :NOT DETEC NICHOLE. A NEGAT YUSEF TEST RESUL T DOES NOT RULE OUT INFEC TIONS CAUSE D BY INFLU JOANNA B, OR OTHER VIRAL OR BACTE RIAL PATHO GENS. ALL TEST RESUL TS MUST BE CORRE LATED WITH CLINI NICOLASA FINDI NGS. THIS ASSAY IS PERFO RMED BY REAL- TIME RT-PC R. Not Available [facility] (Centralized Electronic Ordering - All Locations) Patient Can Go To The Location Of Their Choice, [address] 03/01/2023 13:56:33 02/28/19 24 03/01/2023 COVID -19, [...] Go To The Location Of Their Choice, [address] 03/01/2023 13:56:33 02/28/19 24 03/01/2023 COVID -19, [...] ng. Resul t repor nichole to the [facility]. All test resul ts must be corre [...] BUN 17 Not Available Main - [facility] [address], [address], 02/28/2023 12:31:34 02/28/19 24 02/28/2023 BMP, serum or plasm a Ca Ionize d calciu m 1.22 Not Available Main - [facility] [address], [address], 02/28/2023 12:31:34 02/28/19 24 02/28/2023 BMP, serum or plasm a CI- 24 Not Available Main - [facility] [address], [address], 02/28/2023 12:31:34 02/28/19 24 02/28/2023 BMP, serum or plasm a CRE 0.8 Not Available Main - [facility] [address], [address], 02/28/2023 12:31:34 02/28/19 24 02/28/2023 BMP, serum or plasm a GLU 189 Not Available [facility] - [facility] [address], [address], 02/28/2023 12:31:34 02/28/19 24 02/28/2023 BMP, serum or plasm a K+ 4.4 Not Available [facility] - [facility] [address], [address], 02/28/2023 12:31:34 02/28/19 24 02/28/2023 BMP, serum or plasm a Na+ 140 Not Available Main - [facility] [address], [address], 02/28/2023 12:31:34 02/28/19 24 02/28/2023 BMP, serum or plasm a tCO2 24 Not Available Main - [facility] [address], [address], 02/28/2023 12:31:34 02/28/19 24 02/28/2023 gluco se, finge rstic k, blood Blood Glucose: mg/dl 252 Not Available [facility] - [facility] [address] [place] [address], [address], 02/28/2023 12:48:48 02/28/19 24 02/28/2023 rapid flu (A+B) Flu negati ve Not Available [facility] [address] [place] [address], [phone], 02/28/2023 12:31:09 02/28/19 24 02/28/2023 rapid SARS CoV 2 Ag, QL IA, respi rator y speci men rapid SARS CoV 2 Ag, QL IA, respiratory specimen negati ve Not Available [facility] [address] [place] [address], [phone], 02/28/2023 12:31:07 Result Notes None recorded. Medical Equipment None Reported. Allergies Allergen ID Allergen Name Allergen Category Reaction Reaction Severity Criticality Documentation Date Start Date Code Code System Note Provider Name and Address Organization Details Recorded Time 440 lisinopri l medicatio n Not available Not available Not available 02/28/2023 31074 RxNorm Candace Koroma MD [address] [place] [address],[address], [place], [address], [place] [employer] 4 12:28:38 4402 trazodone medicatio n Not available Not available Not available 02/28/2023 93528 RxNorm Candace Koroma MD [address] [facility],[address], [place], [phone], [employer] 4 12:28:46 Medications Name Sig Start Date [...] Updated DateTime 3 16 /min 98.8 [degF] 75211.2 56 g 74 /min 149.86 cm 97 % 97 % 136 mm[Hg] 82 mm[Hg] Not Available [facility] - production 3 19:36:24 Date Recorded Body weight Respiratory rate Heart rate Body height Oxygen saturation Oxygen saturation in Arterial blood by Pulse oximetry Body temperature Systolic blood pressure Diastolic blood pressure Provider Name and Address Organization Details Last Updated DateTime 4 49075.4 8 g 16 /min 90 /min 149.86 [...] SNOMED-CT Code Diagnosis ICD10 Code Diagnosis Note 21040 Vik Parker MD Main - [address] [phone] 11/22/2022 19:36:17 11/23/2022 11:00:03 Venous stasis 59554925 I87.8 The family of this 67-year-ol d [...] and her family agreed with this plan. 11583 Candace Koroma MD Main - [facility] [address] [place] [phone] 02/28/2023 12:20:00 03/03/2023 09:19:03 Upper respiratory infection [id number] J06.9 cont APAP as prescribed / rest [...] Loredo Member ID Guarantor Name 11/22/2022 1 [facility] - DOS ON OR AFTER 2022 - DUAL ELIGIBLE - CUSTODIAL OPTIONS AND ONE CARE (MEDICARE REPLACEMENT/ADV ANTAGE - HMO) [facility] [id number] [facility] [employer]is [employer] 02/28/2023 1 [facility] - DOS ON OR AFTER 2022 - DUAL ELIGIBLE - CUSTODIAL OPTIONS AND ONE CARE (MEDICARE REPLACEMENT/ADV ANTAGE - HMO) [facility] [id number] [facility] Notes Date Note Type Note Provider Name and Address Organization Details Recorded Time 11/22/2022 text/html [facility] Nursing Assessment: Reason For Request: Right leg redness Chief Complaints: Cellulitis PMH: Diabetes, Hypertension Allergies: Unknown Comments: right leg redness, no pain/positive itchy fever/body aches PMH: DM, HTN, takes water pill Vik Parker MD [address] [place] [address],[address], [place], [address], [employer] 11/22/2022 19:41:11 02/28/2023 text/html [facility] Nurse Liss martinez Notes (Sheron Murcia): Reason [...] .................. .................. .................. .................. .................. .................. ............... Medical Lab Scientist Note From Yosi Soto: Dispatched to the [...] .................. ............... Disposition: Fulfilled Candace Koroma MD [address] [place] [address],[address] [facility], [place], [address], [address] - Email Data SourceSEAN 03/01/2023 23:51:40 OBGyn Episode No OBEpisode recorded.
[2024-04-24 08:16] LABS: Creatinine POC 1.1 mg/dL (0.5-1.4); GFR POC 53
== END 2024-04-23 15:49 | disposition home or self-care (01) ==
LOC: HO.CT 15:48
PROVIDERS: PCP Physician Assistant; Visit Provider Student in an Organized Health Care Education/Training Program
DX: J94.9 Pleural condition, unspecified (principal)
CPT/HCPCS: 71260; 82565; Q9967

== ENCOUNTER → 2024-04-23 15:51 | Outpatient (BNV) | payer OTHER, SELFPAY | PROVIDERS: PCP Physician Assistant; Visit Provider Radiology Diagnostic Radiology | DX: R91.8 Other nonspecific abnormal finding of lung field (principal) | CPT/HCPCS: 71260 ==

== ENCOUNTER 2024-06-05 14:12 | Outpatient (AMB) | payer OTHER, SELFPAY ==
[2024-06-05 14:27] VITALS: BP 120/62; PULSE 69; O2SAT 99; BMI 37.2
--- NOTE | 2024-06-05 14:27 | A.OFFVIS_ITS ---
Vital Signs 06/05/24 14:27 Height 4 ft 11 in Weight 184 lb 1.376 oz BMI 37.2 BP 120/62 Blood Pressure Location Rt brachial Position Sitting Pulse 69 Pulse Source Pulse Oximeter Pulse Oximetry (%) 99 Oxygen Delivery Method Room Air Intake Visit Reasons: Obstructive sleep apnea Allergies acetaminophen [Ultracet] Allergy (Intermediate, Verified 06/05/24 14:30) anaphylaxis tramadol [From ULTRACET] Allergy (Intermediate, Verified 06/05/24 14:30) ANAPHYLAXIS lisinopril [Lisinopril] Allergy (Mild, Verified 06/05/24 14:30) SWELLING, anaphylaxis HPI Comments Details: Patient is a 68 year-old woman with a known history of asthma in addition to obstructive sleep apnea on CPAP. Became sick with COVID-19 back in arly 2020. She did not require hospitalization. Although, she felt her respiratory status worsens. The patient been using Flovent but did the prescription ran and she using it. Therefore she has been using her short-acting beta agonist 3 to 4 times a day. The short-acting beta agonists is only partially helpful. She is describing increasing shortness of with activity. Severity. She has also noticed increased lower extremity edema. Although, she does get more edema usually in the summertime she has not had any recent pulmonary function studies or imaging studies to review at this time. On my examination her cardiac exam is still it out with a significant pronounced S2 suggesting the possibility of pulmonary hypertension. Again from a CPAP standpoint the patient has been very adherent to the therapy the 10 years. She used the machine than 4 hours a night. I do need to get a download from her machine to make sure that is adequate for her. 07/07/2021 the patient is here for a pulmonary follow-up visit. She is complaining of worsening shortness of breath and chest tightness. Moderate severity. She states that she is got back from [place]. Unfortunately when she was there she was not monitoring her intake. Therefore she did develop significant edema. She started developing wheezing and chest tightness. She is concerned about potential allergies. My suspicion is that she may have some cardiac asthma. We will increase her diuresis and she is going to monitor closely her sodium intake. In the meantime she does use her CPAP. The CPAP therapy continues to be affecting beneficial. She does use it more than 4 hours a night. She even to get on vacation to [place] based on the fact that she is now very comfortable using it. She does need to get supplies and will will request CPAP supplies from her DME company, [email or web address]. Based on the patient's symptoms also request a chest x-ray. Will also provide her with allergy medicine. If the patient is no better she is to call the office for an earlier evaluation. 08/31/2021 the patient is here for a pulmonary follow-up visit. Since we spoke the patient has developed a worsening cough and URI like symptoms. Denies any fevers or chills. She has not been tested for COVID. She feels like she has increasing wheezing and coughing. She has been using her rescue inhaler between 3 to 4 times a day. Will go ahead and treat her for an asthma exacerbation. In the meantime she can get tested for COVID as well. She has been using the CPAP. The CPAP therapy continues to be affecting beneficial. She does use it for more than 4 hours a night. Unfortunately she has not been able to get supplies because she is no longer active with a [employer] company. Therefore I will request a repeat study in order to get a reactivated with a [employer] company start getting supplies regularly. She is very compliant with therapy 04/05/2022 the patient is here for a pulmonary follow-up visit. She still struggling not get supplies with her CPAP. We did review her CPAP study from September 2021 demonstrating [id number] sleep apnea. we will resend a prescription for CPAP supplies will local DME company to see if we can try to assist in getting her supplies. In the meantime she does use a P 10 mask and I did have a sample available for her to use. She is going to continue using her machine as much as possible since she can not sleep without it. His CPAP therapy has been very affecting beneficial. Unfortunately she has not been able to the supplies. From the asthma standpoint she started to get more asthma symptoms now that she going to the fall. She is having significant allergies nasal congestion. Moderate severity. She does respond to the allergy medication and also her additional refills. 04/08/2023 the patient is here for a pulmonary follow-up visit. Overall she has been doing well. She has been using the Advair as prescribed. She has not had significant wheezing which is reassuring. She does have a rescue inhaler available. In the meantime she continues use her CPAP. CPAP therapy has been very affecting beneficial for her for many years. She does use it for more than 4 hours a night. Unfortunately she does have a dispute with her [employer] company regarding unpaid bills and currently under collection. Therefore she has not able to get supplies. We did go over some ways that she can get some supplies online. There we fairly reasonable. She does use the P 10 nasal pillows. We did have a cushion available that she can use. Her master works well. She is going to get tubing in a water chamber from an online store. We did review her last chest x-ray. Appears that she does have some atelectasis on an x-ray done more than a year ago. Would be reasonable just to repeat the x-ray to make sure there has no worsening or further changes. Will plan to follow-up in 6-8 months. The patient has any difficulties prior to that she will call for an assessment. 12/05/2023 the patient is here for a pulmonary follow-up visit. The patient has been complaining of worsening cough for the last week. Chest congestion. Chest tightness. Moderate severity. She has been using her respiratory medications only partial improvement. She did get tested for COVID was negative. She has not had any imaging studies. Her exam she does have diminished breath sounds with some cough post exhalation. Will go ahead and treat her. She does have a from diabetes so prednisone only if her symptoms worsen. The patient also has been using the CPAP. CPAP therapy continues to be affecting beneficial. She does try to use it more than 4 hours a night. 06/05/2024 the patient is here for a pulmonary follow-up visit. Overall the patient has been doing well she has been using a CPAP every night. CPAP therapy has been affecting beneficial. She does use nasal pillows. And she does use it for more than 4 hours a night. From an asthma standpoint she is doing better this time. She is using her Advair. She had been sick with bronchopneumonia during the last time that exacerbate her asthma, but, she is better at this time. She feels like she is at her baseline. Therefore she will continue with current respiratory therapy continue with PAP therapy and will follow-up in a year's time. [facility] Medical History Pulmonary hypertension Atelectasis Diastolic dysfunction Chronic restrictive lung disease Murmur (~08/31/21) Moderate asthma Surgical History History of colonoscopy (~2018) History of laparoscopic cholecystectomy (~2009) History of tubal ligation (~1991) Family History Father No problems noted. Mother Lymphoma Maternal Aunt Diabetes Paternal Uncle Diabetes Brother No problems noted. Sister No problems noted. Sister No problems noted. Son No problems noted. Daughter No problems noted. Daughter No problems noted. Social History Housing: Apartment Alcohol intake: never Patient Tobacco Use Status: Never used Tobacco e-Cigarette/Vaping Use: Never Used Second Hand Smoke Exposure: No service: No Current occupational status: disabled Cognitive needs: No Hearing needs: No Vision needs: No Review of Systems Const Denies chills, Denies fatigue, Denies fever(s), Denies weight gain and Denies weight loss ENT Denies dizziness Card Denies chest pain, Denies leg edema, Denies lightheadedness, Denies palpitations, Reports dyspnea on exertion, Denies orthopnea and Denies other Resp Reports cough and Reports dyspnea on exertion GI Denies hematochezia and Denies change in stool character Musc Denies abnormal gait, Denies muscle weakness, Denies numbness, Denies radiating pain into limb and Denies tingling Neuro Denies abnormal gait, Denies dizziness, Denies numbness and Denies tingling Endo Denies fatigue and Denies palpitations Physical Exam Vital Signs: Last Vital Signs Pulse 69 06/05/24 14:27 BP 120/62 06/05/24 14:27 Pulse Ox 99 06/05/24 14:27 Oxygen Delivery Method Room Air 06/05/24 14:27 BMI result Body Mass Index 37.2 Const General: alert HEENT Face and sinus: Yes sinus tenderness Neck Neck: Yes normal visual inspection, Yes full ROM and Yes no lymphadenopathy Chest Chest palpation & inspection: normal inspection of the chest Resp Auscultation: no wheezes and diminished lung sounds Cardio Rate: regular rate Rhythm: regular rhythm Heart sounds: S1 normal heart sound present, S2 normal heart sound present (pronounced) and Murmur heart sound present systolic early, II/ and at the right sternal border GI Palpation (GI): Soft to palpation and nontender Auscultation: normal bowel sounds Skin General skin exam: rashes and/or lesions noted Assessment & Plan Assessment & Plan (1) Moderate asthma: Code(s): J45.909 - Unspecified asthma, uncomplicated Category: Social Hx Qualifiers: Asthma complication type: uncomplicated Asthma persistence: persistent Qualified Code(s): J45.40 - Moderate persistent asthma, uncomplicated (2) GERD (gastroesophageal reflux disease): Code(s): K21.9 - Gastro-esophageal reflux disease without esophagitis Category: Medical Qualifiers: Esophagitis presence: without esophagitis Qualified Code(s): K21.9 - Gastro-esophageal reflux disease without esophagitis (3) MELBA (obstructive sleep apnea): Code(s): G47.33 - Obstructive sleep apnea (adult) (pediatric) Category: Medical (4) Murmur: Onset Date: ~08/31/21 Code(s): R01.1 - Cardiac murmur, unspecified Category: Medical (5) Diastolic dysfunction: Code(s): I51.89 - Other ill-defined heart diseases Category: Medical (6) Chronic restrictive lung disease: Code(s): J98.4 - Other disorders of lung Category: Medical (7) Atelectasis: Code(s): J98.11 - Atelectasis Category: Medical Plan start Azithromycin/vantin ANIBAL to use as needed Continue using CPAP, not able to get supplies due to collection issue with [employer], using P10. Will get some supplies online Low Na diet Allergy medicine: Claritin Nasal therapy: fluticasone F/U 12 month Coding Level of Care Code Est Pt Level 4 (58856) Diagnoses Moderate persistent asthma without complication J45.40 Asthma complication type: uncomplicated Asthma persistence: persistent Gastroesophageal reflux disease without esophagitis K21.9 Esophagitis presence: without esophagitis MELBA (obstructive sleep apnea) G47.33 Murmur R01.1 Diastolic dysfunction I51.89 Chronic restrictive lung disease J98.4 Atelectasis J98.11 Time Spent (min) 16
--- OUTSIDE RECORDS SUMMARY | 2024-06-05 16:25 | XMS_ITS | Clinical Summary ---
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 03/31/2023 Osteoporosis 03/31/2023 [...] Visit [facility] [address] [place] [address] Rahul Cooley MD [address] [facility] [address] [place] [address] Health Maintenance Due Date Last Done Comments Breast Cancer Screening 1955 Pneumococcal Vaccine: 50+ Ye ars (1 of 2 - PCV) 07/14/1975 Colorectal Cancer Screening: Annual FOBT 2005 Colorectal Cancer Screening: Colonoscopy 2005 Colorectal Cancer Screening: Sigmoidoscopy 2005 Diabetes: Hemoglobin A1C 10/22/2022 Diabetes: Ophthalmology Exam 10/22/2022 Diabetes: Pedal Pulse Checked 10/22/2022 Diabetes: Sensory Foot Exam 10/22/2022 Diabetes: Visual Foot Exam 10/22/2022 Influenza Vaccine (Season Ended) 2024 Hepatitis B Vaccine Aged Out No longe r eligible based on patient's age to complete this topic Insurance [facility] One Care Dual SNP ([id number]) [facility] One Care Dual SNP ([id number]) Care Teams Merry Go Round Operator Relationship Specialty Start Date End Date Mikey Buenrostro PA [address] [facility], [address] [place] [address] PCP - General Physician Washer Off 01/12/24
--- OUTSIDE RECORDS SUMMARY | 2024-06-05 16:25 | XMS_ITS | Data Portability ---
Author Organization [facility] [place] [facility] Address [address] [place] [id number] Care Team Providers Care Guest Services Associate Name Role Phone [facility] Primary Care Provider [phone] Assessment Encounter Date Assessment Date Assessment LastModified by Organization Details LastModified Time 02/28/2023 02/28/2023 I provided real -time medical direction via phone for this encounter, and was available for additional phone based assistance as needed. I have reviewed and agree with the Assessment and Plan as documented by the Production Engine Repairer. We discussed the diagnostic uncertainty of home [...] to call 911- verbalized understanding of instructions Not available 03/01/2023 23:48:23 Plan of Treatment Reminders Order Date Submit Date Provider Last Modified By Organization Details Last Modified Time Details Appointments None recorded. Lab influenza virus A + B and SARS CoV 2 (COVID-19) and RSV RNA panel, NESTOR+probe, respiratory specimen 2023 024 THONG [facility] (Centralized Electronic Ordering - All Locations), Patient Can Go To The Location Of Their Choice, [id number] 13:56:34 rapid SARS CoV 2 Ag, QL IA, respiratory specimen 2023 024 [email or web address] 0 [facility], [address] [place] [address], [id number] 4 12:31:30 rapid flu (A+B) 2023 024 [email or web address] 0 [facility], [address] [place] [address], [id number] 4 12:31:28 BMP, serum or plasma 2023 024 [email or web address] 0 [facility], [address] [place] [address], [id number] 4 12:50:36 glucose, fingerstick , blood 2023 024 [email or web address] 0 [facility], [address] [place] [address], [phone] 4 12:50:38 Referral None recorded. Procedures None recorded. Surgeries None recorded. Imaging None recorded. Medication Orders benzonatate 200 mg capsule 2023 THONG [id number], [address] [place], [place], [phone], 4 12:50:42 ipratropium 0.5 mg-albutero l 3 mg (2.5 mg base)/3 mL nebulizatio n soln 2023 024 [email or web address] 0 [id number], [address], [place], [id number], 4 23:50:31 Patient TargetsNo targets recorded. Patient InstructionsNo [...] Go To The Location Of Their Choice, [id number] 03/01/2023 13:56:33 02/28/19 24 03/01/2023 COVID -19, [...] Go To The Location Of Their Choice, [facility] 03/01/2023 13:56:33 02/28/19 24 03/01/2023 COVID -19, [...] Go To The Location Of Their Choice, [facility] 03/01/2023 13:56:33 02/28/19 24 03/01/2023 COVID -19, RSV, FLU A/B PCR covid-19 PCR result (neg) NEGAT YUSEF 2019- novel Coron aviru s (2019 -nCoV ) not detec nichole by real- time RT-PC R. Note: If clini nicolasa suspi cion for COVID -19 is high, rajinder nue to maint ain preca ution s and consi darren repea t testi ng. Resul t repor nichole to the [facility]. All test resul ts must be corre lated with clini nicolasa findi ngs. This test has been autho rized by the FDA under an Emerg ency Use Autho rizat ion (EUA) for use by autho rized labor atori es. Testi ng perfo rmed on the [employer] [facility] GeneX pert utili zing real- time RT-PC R. Not Available [facility] (Centralized Electronic Ordering - All Locations) Patient Can Go To The Location Of Their Choice, [facility] 03/01/2023 13:56:33 02/28/19 24 03/01/2023 COVID -19, RSV, FLU A/B PCR covid-19 PCR specimen source NASAL Not Available [facility] (Centralized Electronic Ordering - All Locations) Patient Can Go To The Location Of Their Choice, [facility] 03/01/2023 13:56:33 02/28/19 24 02/28/2023 BMP, serum or plasm a BUN 17 Not Available Main - Ins [address], [address] [place] [address] 02/28/2023 12:31:34 02/28/19 24 02/28/2023 BMP, serum or plasm a Ca Ionize d calciu m 1.22 Not Available Main - [address], [address] [place] [address] 02/28/2023 12:31:34 02/28/19 24 02/28/2023 BMP, serum or plasm a CI- 24 Not Available Main - Ins [address], [address] [place] [address] 02/28/2023 12:31:34 02/28/19 24 02/28/2023 BMP, serum or plasm a CRE 0.8 Not Available Main - Ins [address], [address] [place] [address] 02/28/2023 12:31:34 02/28/19 24 02/28/2023 BMP, serum or plasm a GLU 189 Not Available Main - Ins [address], [address] [place] [address] 02/28/2023 12:31:34 02/28/19 24 02/28/2023 BMP, serum or plasm a K+ 4.4 Not Available Main - Ins [address], [address] [place] [address] 02/28/2023 12:31:34 02/28/19 24 02/28/2023 BMP, serum or plasm a Na+ 140 Not Available Main - Ins [address], [address] [place] [address] 02/28/2023 12:31:34 02/28/19 24 02/28/2023 BMP, serum or plasm a tCO2 24 Not Available Main - Ins nichole [address] [place] [address], [phone] 02/28/2023 12:31:34 02/28/19 24 02/28/2023 gluco se, finge rstic k, blood Blood Glucose: mg/dl 252 Not Available Main - [facility] [address] [place] [address], [phone] 02/28/2023 12:48:48 02/28/19 24 02/28/2023 rapid flu (A+B) Flu negati ve Not Available Main - Inst ed [address] [place] [address], [phone] 02/28/2023 12:31:09 02/28/19 24 02/28/2023 rapid SARS CoV 2 Ag, QL IA, respi rator y speci men rapid SARS CoV 2 Ag, QL IA, respiratory specimen negati ve Not Available Main - [facility] ed [address] [place] [address], [phone] 02/28/2023 12:31:07 Result Notes None recorded. Medical Equipment None Reported. Allergies Allergen ID Allergen Name Allergen Category Reaction Reaction Severity Criticality Documentation Date Start Date Code Code System Note Provider Name and Address Organization Details Recorded Time 4401 lisinopri l medicatio n Not available Not available Not available 02/28/2023 77736 RxNorm Candace Koroma MD [address] [place] [address],[address], [place], [phone], [employer] 4 12:28:38 4402 trazodone medicatio n Not available Not available Not available 02/28/2023 01987 RxNorm Candace Koroma MD [address] [place] [address],[address], [place], [phone], [employer] 4 12:28:46 Medications Name Sig Start Date [...] Updated DateTime 3 16 /min 98.8 [degF] 00525.2 56 g 74 /min 149.86 cm 97 % 97 % 136 mm[Hg] 82 mm[Hg] Not Available [facility] 3 19:36:24 Date Recorded Body weight Respiratory rate Heart rate Body height Oxygen saturation Oxygen saturation in Arterial blood by Pulse oximetry Body temperature Systolic blood pressure Diastolic blood pressure Provider Name and Address Organization Details Last Updated DateTime 4 03952.4 8 g 16 /min 90 /min 149.86 cm 96 % 96 % 98.3 [degF] 160 mm[Hg] 82 mm[Hg] Not Available [facility] 4 12:20:04 Social History None recorded. Functional Status None recorded. Mental Status None recorded. Family History Nothing Reported. Medical History No medical history recorded. Gynecological HistoryNo gynecological history recorded. Obstetrics History GPAL:G 0 P 0 0 0 0 Past Encounters Encounter ID Performer Location Encounter Start Date Encounter Closed Date Diagnosis/Indication Diagnosis SNOMED-CT Code Diagnosis ICD10 Code Diagnosis Note [id number] Vik Parker MD Main - [facility] [address] [place] [phone] 11/22/2022 19:36:17 11/23/2022 11:00:03 Venous stasis 58983011 I87.8 The family of this 67-year-ol d [...] and her family agreed with this plan. [id number] Candace Koroma MD Main - [facility] [address] [place] [phone] 02/28/2023 12:20:00 03/03/2023 09:19:03 Upper respiratory infection 16345108 J06.9 cont APAP as prescribed / rest [...] Lored[employer] Member ID Guarantor Name 11/22/2022 1 [facility] - DOS ON OR AFTER 2022 - DUAL ELIGIBLE - SNF OPTIONS AND ONE CARE (MEDICARE REPLACEMENT/ADV ANTAGE - HMO) Fiordaliza Munoz [id number] Fiordaliza Munoz 02/28/2023 1 [facility] [employer] - DOS ON OR AFTER 2022 - DUAL ELIGIBLE - SNF OPTIONS AND ONE CARE (MEDICARE REPLACEMENT/ADV ANTAGE - HMO) Fiordaliza Restrepogo [id number] Fiordaliza Campbelliago Notes Date Note Type Note Provider Name and Address Organization Details Recorded Time 11/22/2022 text/html [facility] Nursing Assessment: Reason For Request: Right leg redness Chief Complaints: Cellulitis PMH: Diabetes, Hypertension Allergies: Unknown Comments: right leg redness, no pain/positive itchy fever/body aches PMH: DM, HTN, takes water pill Vik Parker MD [address] [facility],[address], [place], [address], [employer] 11/22/2022 19:41:11 02/28/2023 text/html [facility] Nurse Liss martinez Notes (Sheron Murcia): [...] .................. .................. .................. .................. .................. .................. ............... Production Engine Repairer Note From Yosi Soto: Dispatched to the [...] .................. ............... Disposition: Fulfilled Candace Koroma MD [address] [facility],[address], [place], [address], VALENTINE - VoltariANISA, SEAN 03/01/2023 23:51:40 OBGyn Episode No OBEpisode recorded.
--- OUTSIDE RECORDS SUMMARY | 2024-06-05 16:25 | XMS_ITS | Clinical Summary ---
Author Organization 175 [facility] Address [address] [place] [address] Phone Care Team Providers Care Relations Liaison Name Role Phone Dalila Rodriguez MD Primary Care Provider [phone] Allergies Active Allergy Reactions Criticality Noted Date [...] Encounters Date Type Department Care Team Description 05/16/2024 1:30 PM EDT Office Visit Orthopedic Surgery [address] [phone] Adam Cruz DPM Controlled type 2 diabetes with neuropathy (CMS/HCC V24, CMS/HCC V28) (Primary Dx); Pain in toes of both feet; Arthritis of both feet; Ingrown left big toenail; Dermatophytosis, nail 03/14/2024 1:15 PM EST Office Visit Orthopedic [address] [phone] Adam Cruz DPM Controlled type 2 diabetes with neuropathy (CMS/HCC V24, CMS/HCC V28) (Primary Dx); Arthritis of both feet; Pain [...] - - Weight 79.4 kg (175 lb) 05/16/2024 1:19 PM EDT Height 149.9 cm (4' 11.02 ) 05/16/2024 1:19 PM E DT Body Mass Index 35.33 05/16/2024 1:19 PM EDT Plan of Treatment Upcoming Encounters Date Type Department Care Team (Late st Contact Info) Description 07/18/2024 1:30 PM EDT Office Visit Orthopedic Surgery - [place] [address] [phone] Adam Cruz, MAILE [address] [address] Health Maintenance Due Date Last Done Comments Breast Cancer Screening 1955 Diabetes: Annual GFR (Glomer ular Filtration Rate) 1955 COVID-19 Vaccine (#1) 1961 Diabetes: Annual Foot Exam 1966 Diabetes: Annual Retina Eye Exam 1966 DTaP,Tdap,and Td Vaccines (1 - Tdap) 07/14/1975 Pneumococcal Vaccine: 50+ Ye ars (1 of 2 - PCV) 07/14/1975 Zoster Vaccines (1 of 2) 2006 RSV Immunization Adult Patie nts (1 - Risk 60-74 years 1-dose series) 2016 Cholesterol Screening (Lipid Panel) 03/04/2023 Colorectal Cancer Screening: Colonoscopy 03/04/2023 Depression Screening 03/04/2023 Falls Risk Assessment 03/04/2023 Hepatitis C Screening 03/04/2023 Medicare Annual Wellness Visit 03/04/2023 Osteoporosis Screening (Bone Density Screening) 03/04/2023 Social Influencers of Health Screening 03/04/2023 Diabetes: Annual Urine Albumin-Creatinine Ratio (uACR) 01/12/2024 Diabetes: Blood Sugar Contro l Test (HGBA1C) 01/12/2024 Hypertension/CHF/CAD Annual BMP Blood Test 01/12/2024 Influenza Vaccine (Season Ended) 2024 HIB Vaccines Aged Out No longer eligi [...] age to complete this topic Meningococcal B Vaccine Aged Out No l onger eligible based on patient's age to complete this topic RSV Immunization Patients Un darren 20 months Aged Out No longer eligible b ased on patient's age to complete this topic Varicella Vaccines Aged Out No longer eligible based on patient's age to complete this topic Insurance [employer] MEDICARE Member Subscriber Plan / Payer (Ef fective 2022-Present) Name:Fiordaliza Taveras Relation to Subscriber:Self Name:Fiordaliza Taveras Payer ID:[id number] Group ID:[id number] Type:Not on file Address: [place] [address] [address] [address] Care Teams Relations Liaison Relationship Specialty Start Date End Date Dalila Rodriguez MD [address] [place] [address] , [address] [facility]ician Associ D/B/A: [facility] In Internal Medicine VALENTINE Rashid PCP - General 06/30/22
== END 2024-06-05 15:28 | disposition home or self-care (01) ==
LOC: HO.HPS 14:13
PROVIDERS: PCP Physician Assistant; Visit Provider Hospitalist
DX: J45.40 Moderate persistent asthma, uncomplicated (principal); K21.9 Gastro-esophageal reflux disease without esophagitis; G47.33 Obstructive sleep apnea (adult) (pediatric); R01.1 Cardiac murmur, unspecified; I51.89 Other ill-defined heart diseases; J98.4 Other disorders of lung; J98.11 Atelectasis
CPT/HCPCS: 99214

== ENCOUNTER → 2024-06-05 14:12 | Outpatient (BNVA) | payer OTHER, SELFPAY | PROVIDERS: PCP Physician Assistant; Visit Provider Hospitalist | DX: J40 Bronchitis, not specified as acute or chronic (principal); J45.40 Moderate persistent asthma, uncomplicated; J98.4 Other disorders of lung; J98.11 Atelectasis; G47.33 Obstructive sleep apnea (adult) (pediatric); K21.9 Gastro-esophageal reflux disease without esophagitis; R01.1 Cardiac murmur, unspecified; I51.89 Other ill-defined heart diseases; Z99.89 Dependence on other enabling machines and devices; Z79.899 Other long term (current) drug therapy | CPT/HCPCS: 99212 ==

== ENCOUNTER 2024-06-20 07:04 | Outpatient (REF) | payer OTHER, SELFPAY ==
[2024-06-20 07:17] LABS: MANUAL DIFF FLAG NO
[2024-06-20 07:45] LABS: Basophils Percent Auto 0.3 % (0-2); Eosinophils Absolute Auto 0.2 X10*3/uL (0.0-0.4); Eosinophils Percent Auto 1.9 % (0-4); Hematocrit 37.6 % (37.0-47.0); Hemoglobin 12.2 g/dl (12.0-16.0); Imm Gran Abs Auto 0.03 X10*3/uL (0.00-0.03); Imm Gran Pct Auto 0.3 % (0.0-0.4); Lymphocytes Absolute Auto 3.3 X10*3/uL (1.2-4.9); Lymphocytes Percent Auto 37.3 % (20-40); Mean Corpuscular HGB Conc 32.4 g/dl (31.0-35.0); Mean Corpuscular Hemoglobin 28.2 pg (27.0-33.0); Mean Corpuscular Volume 86.8 fL (80.0-98.0); Mean Platelet Volume 10.1 fL (9.4-12.3); Monocytes Absolute Auto 0.6 X10*3/uL (0.1-1.2); Monocytes Percent Auto 6.7 % (2-11); Neutrophils Absolute Auto 4.7 x10*3/uL (2.0-8.3); Neutrophils Percent Auto 53.5 % (45-73); Platelet Count 247 X10*3/uL (160-400); Red Blood Count 4.33 X10*6/uL (4.20-5.50); Red Cell Distribution Width 13.2 % (11.0-16.0); White Blood Count 8.7 X10*3/uL (4.8-10.8)
[2024-06-20 08:00] LABS: Appearance Urine Clear; Color Urine Yellow; Glucose Urine UA Negative (Negative); Leukocyte Esterase Urine Trace (Negative); Nitrite Urine Negative (Negative); UMIC TRIGGER UACC YES; Urine Blood Negative (Negative); Urine Ketones Trace mg/dL (Negative); Urine Protein Trace mg/dL (Neg-Trace)
[2024-06-20 08:07] LABS: Bacteria Urine None Seen (None Seen); Hyaline Casts Urine 0-2 /LPF (0-2); RBC Urine 0-2 /HPF (0-2); Squamous Epithelial Cell Urine 0-2 /HPF (0-2); WBC Urine 0-5 /HPF (0-5)
[2024-06-20 08:17] LABS: Alanine Aminotransferase 24 U/L (0-31); Albumin Level 3.9 g/dL (3.5-5.0); Alkaline Phosphatase 89 U/L (39-117); Anion Gap 15 (12-20); Aspartate Amino Transferase 29 U/L (5-31); Blood Urea Nitrogen 19 mg/dL (9-16); Calcium 9.9 mg/dL (8.4-10.2); Carbon Dioxide 28 mmol/L (22-29); Chloride 104 mmol/L (96-108); Cholesterol 102 mg/dL (<200); Estimated Glomerular Filt Rate 50; Glucose Fasting 127 mg/dL (60-99); Glucose Random 128 mg/dL (60-115); HDL Cholesterol 32 mg/dL (>40); LDL Cholesterol Calculated 42 mg/dL (<100); Potassium 3.7 mmol/L (3.3-5.1); Sodium 143 mmol/L (135-145); Total Protein 7.7 g/dL (6.5-8.0); Triglycerides 141 mg/dL (<150)
[2024-06-20 08:23] LABS: Erythrocyte Sedimentation Rate 54 MM/HR (0-20)
[2024-06-20 08:38] LABS: TSH reflex Free T4 3.52 uIU/mL (0.32-4.0)
[2024-06-20 08:48] LABS: Creatinine Urine 175.11 mg/dL; Microalbum/Creatinine Ratio Ur 27.4 ug/mg cr (<30)
== END 2024-06-20 07:05 | disposition home or self-care (01) ==
LOC: HO.LAB 07:04
PROVIDERS: Absent Provider Student in an Organized Health Care Education/Training Program; PCP Physician Assistant; Visit Provider Physician Assistant
DX: E11.9 Type 2 diabetes mellitus without complications (principal); E78.2 Mixed hyperlipidemia; E03.9 Hypothyroidism, unspecified; M13.80 Other specified arthritis, unspecified site; Z79.631 Long term (current) use of antimetabolite agent
CPT/HCPCS: 36415; 80053; 80061; 81001; 81003; 82043; 82570; 84443; 85025; 85652; 86140

== ENCOUNTER 2024-06-26 12:50 | Outpatient (AMB) | payer OTHER, SELFPAY ==
[2024-06-26 13:04] VITALS: BP 130/74; PULSE 67; O2SAT 99; BMI 36.6
--- NOTE | 2024-06-26 13:04 | A.OFFVIS_ITS ---
Vital Signs 06/26/24 13:04 Height 4 ft 11 in Weight 181 lb 3.52 oz BMI 36.6 BP 130/74 Blood Pressure Location Lt brachial Position Sitting Pulse 67 Pulse Source Pulse Oximeter Pulse Oximetry (%) 99 Oxygen Delivery Method Room Air Intake Visit Reasons: RA Intake Note: Patient presents for follow up on RA and lab review. Manager Country Services: Manager Country Offered & Declined Manager Country Name: abby daughter Accompanied by: Daughter Allergies acetaminophen [Ultracet] Allergy (Intermediate, Verified 06/26/24 13:07) anaphylaxis tramadol [From ULTRACET] Allergy (Intermediate, Verified 06/26/24 13:07) ANAPHYLAXIS lisinopril [Lisinopril] Allergy (Mild, Verified 06/26/24 13:07) SWELLING, anaphylaxis HPI Comments Details: Patient is a 68-year-old female with asthma, hypertension, depression, diabetes, hypothyroidism, hyperlipidemia, polyarticular osteoarthritis and seronegative rheumatoid arthritis here today for follow up. Interval History: Patient last seen 02/23/[address] Stauffer. At that time she was following up for her seronegative rheumatoid arthritis with her daughter. She was on methotrexate 20 mg once a week and folic acid 1 mg daily. She is tolerating this well. Complained of increased achiness which she believes was related to the cold reporting increased stiffness in her knees, hands and back. Saw pain management and spine surgery however not a candidate for surgical or procedural interventions. There was no synovitis on examination Her spine MRI showed a T2 enhancing pleural lesion and a CT chest with contrast was ordered. She was found to have pulmonary nodules up to 5 mm with recommendation for [address] follow up. Today, Feels the same No prolonged AM stiffness C/o right shoulder pain Rheumatologic History: -ve RF/CCP/ERIN/HLA B27. X-ray shows multiple joints with enthesopathy dx 12/2022 MTX 12/2022 effective Initial history: This is a 67-year-old female who presents for evaluation of diffuse joint pain. She presents with her daughter. Over the last year patient has been having pain and swelling of her hands, fingers. She has morning stiffness of her hands lasting 30 minutes to 1 hour. She also has swelling of her ankles, usually worse at night. She also has significant lower back pain radiating to her buttocks. She takes Tylenol Arthritis which provides little relief. She mentions that her mother had rheumatoid arthritis. States that her joints improved when she gets prednisone taper for her bronchitis Current Rheumatology Medication(s): Methotrexate 20 mg weekly Folic acid 1 mg daily [facility] Medical History Pulmonary hypertension Atelectasis Diastolic dysfunction Chronic restrictive lung disease Murmur (~08/31/21) Moderate asthma Surgical History History of colonoscopy (~2018) History of laparoscopic cholecystectomy (~2009) History of tubal ligation (~1991) Family History Father No problems noted. Mother Lymphoma Maternal Aunt Diabetes Paternal Uncle Diabetes Brother No problems noted. Sister No problems noted. Sister No problems noted. Son No problems noted. Daughter No problems noted. Daughter No problems noted. Social History Housing: Apartment Alcohol intake: never Patient Tobacco Use Status: Never used Tobacco e-Cigarette/Vaping Use: Never Used Second Hand Smoke Exposure: No service: No Current occupational status: disabled Cognitive needs: No Hearing needs: No Vision needs: No Review of Systems Const Details: Review of Systems Constitutional: Denies fever, chills, weight loss ENT: Denies vision changes, eye pain or eye redness, dental caries, dry mouth GI: Denies nausea, vomiting, diarrhea, abdominal pain, change in BM Pulm: Denies SOB, JOHNSON, hemoptysis, wheezing Cards: Denies chest pain, palpitations Skin: Denies Raynaud's, rash, nail changes, photosensitivity, INSTITUTIONAL AIDE: Denies headaches, weakness, paresthesias, recurrent falls MSK: as per HPI All other systems reviewed and are unremarkable except noted above Physical Exam Vital Signs: Last Vital Signs Pulse 67 06/26/24 13:04 BP 130/74 06/26/24 13:04 Pulse Ox 99 06/26/24 13:04 Oxygen Delivery Method Room Air 06/26/24 13:04 BMI result Body Mass Index 36.6 Vital signs reviewed Physical Examination CONSTITUITIONAL Patient alert and cooperative. Well appearing and in no apparent painful distress HEENT Conjunctiva and sclera clear. ?Pupils equal round and reactive to light. ?No lymphadenopathy. ? CHEST/RESPIRATORY SYSTEM Normal respiratory effort and able to speak in complete sentences. ?Clear to auscultation bilaterally. ?No crackles, rales, rhonchi, wheezes heard. CARDIAC SYSTEM Regular rate and rhythm. ?S1 and S2 heard no murmurs. ?Radial pulses intact bilaterally MSK Hands: ?Able to make a fist. No synovitis noted to the MCPs, PIPs or DIPs. ?No tenderness to palpation of these joints. No deformities noted. ? Wrists: ?Full range of motion at the wrists without pain. ?No tenderness to palpation or synovitis noted to the wrists. Elbows: Full range of motion without pain. No tenderness, weakness, swelling, increased warmth or erythema. Shoulders: Decreased range of motion to the right shoulder with tenderness to palpation of the AC joint. Knees: ?Full range of motion. ?No tenderness, swelling, increased warmth or erythema.?No effusion. Crepitations felt bilaterally Ankles: Full range of motion. ?No tenderness, swelling, increased warmth or erythema.? Feet: ?Negative squeeze test. ?No tenderness to palpation or swelling of the MTPs. Tender points:?No tenderness to palpation of the bilateral trapezius, supraspinatus, greater trochanters, anterior costochondral junctions, bilateral gluteal areas, bilateral suboccipital muscle insertions SKIN Skin intact without rashes. Office Procedures AMB Joint Injection/Aspiration Joint Injection/Aspiration Details: Procedure was explained to the patient and consent was obtained. ? The area of interest was identified and confirmed with patient. ?This was subsequently cleaned with chlorhexidine x3. ? The area was then anesthetized using ethyl chloride spray. 40 mg Kenalog with 1 cc 1% lidocaine was injected without issue. ?Minimal to no bleeding. ?Patient tolerated procedure. Primary Site: right shoulder Prep: site was prepped using aseptic technique and ethochloride spray was applied Injected: 40 mg of, Kenalog, with 1 mL of and 1% plain lidocaine Approach Used: anterior Procedure: The patient tolerated the procedure well Coding 77724 - Acromioclavicular Procedure code (CPT) selection complete Office Meds lidocaine (PF) 10 mg/mL (1 %) injection solution Performing Provider: Francia Kramer MD Performing Location: [facility] Rheumatology Administered by: Francia Kramer MD on 06/26/24 13:57 Dose Route Admin Location Dispensed Lot Number Expiration Date [facility] Informatics Physician Liaison 1 mL Infiltration right AC joint 2 mL [id number] 04/07/26 29211-571-21 [facility] [employer] Kenalog 40 mg/mL suspension for injection Performing Provider: Francia Kramer MD Performing Location: [facility] Rheumatology Administered by: Francia Kramer MD on 06/26/24 13:57 Dose Route Admin Location Dispensed Lot Number Expiration Date [place] Informatics Physician Liaison 40 mg intra-articular right AC joint 1 mL [id number] 08/07/25 [address]-4 [employer] Results Reviewed Results Reviewed: Laboratory Tests 06/20/24 07:15 WBC 8.7 RBC 4.33 Hgb 12.2 Hct 37.6 Plt Count 247 ESR 54 H Sodium 143 Potassium 3.7 Chloride 104 Carbon Dioxide 28 BUN 19 H Creatinine 1.09 AST 29 ALT 24 Alkaline Phosphatase 89 C-Reactive Protein 1.50 H Immunology labs 11/23/22 12/16/22 07:54 10:27 Rheumatoid Factor < 13.0 ERIN Screen NEGATIVE HLA-B27 Negative Assessment & Plan Assessment & Plan (1) Seronegative arthritis: Comment: -ve RF/CCP/ERIN/HLA B27. X-ray shows multiple joints with enthesopathy dx 12/2022 MTX 12/2022 effective Code(s): M13.80 - Other specified arthritis, unspecified site Category: Medical Plan: #Seronegative RA Patient is a 68-year-old female with seronegative rheumatoid arthritis/inflammatory arthritis here today for follow up. In remission on methotrexate monotherapy. Increase methotrexate to 6 pills weekly Plan - Decrease MTx 15mg weekly - Folic acid 1mg daily - RTC 4 months - Labs before visit: CBC, CMP, ESR, CRP (2) Polyarticular osteoarthritis: Code(s): M15.9 - Polyosteoarthritis, unspecified Plan: #Polyarticular OA Patient with polyarticular osteoarthritis specifically lumbar spondylosis. Not a candidate for surgical or procedural interventions. Discussed the chronic and degenerative nature of the disease with the patient. She is to continue gabapentin as well as stretching exercises. s/p right AC shoulder joint steroid injection today (3) longterm methotrexate user: Code(s): Z79.631 - termite control servicer (current) use of antimetabolite agent Category: Medical Plan: #Long-term Current Use of Methotrexate Discussed with patient the benefits and risks of methotrexate for managing their rheumatic condition Benefits include reduced pain, reduced mortality, maintenance of remission and reduction of flares Risks include oral ulcers, photosensitivity, hepatotoxicity, hematologic toxicity, pneumonitis, flu-like symptoms (especially day after administration), nodulosis, lymphomas ? Limit alcohol and avoid Bactrim ? Monitoring: ?CBC, BMP, LFTs every 3-4 months and hepatitis serologies as needed Plan I spent 32 minutes reviewing the record and labs, taking a history, examining the patient, discussing the treatment plan, ordering diagnostic work up and documenting in the medical record Orders: Orders Complete Blood Count Auto Diff 4 Months M13.80 - Other specified arthritis, unspecified site Comprehensive Met. Panel 4 Months M13.80 - Other specified arthritis, unspecified site Erythrocyte Sedimentation Rate 4 Months M13.80 - Other specified arthritis, unspecified site C Reactive Protein 4 Months M13.80 - Other specified arthritis, unspecified site AMB Joint Injection/Aspiration Today M19.011 - Primary osteoarthritis, right shoulder Medications: Changed From methotrexate sodium 20 mg (8 x 2.5 mg) PO QWEEK 103 tabs 0RF M13.80 - Other specified arthritis, unspecified site To methotrexate sodium 15 mg (6 x 2.5 mg) PO QWEEK 90 days 78 tabs 1RF M13.80 - Other specified arthritis, unspecified site Refilled folic acid 1 mg PO DAILY 90 tabs 1RF M13.80 - Other specified arthritis, unspecified site Coding Level of Care Code Est Pt Level 4 (52355) Complex EM visit Add On G2211 Diagnoses Seronegative arthritis M13.80 Polyarticular osteoarthritis M15.9 longterm methotrexate user Z79.631 CPT Codes Coding - Joint 5: 54629 - Acromioclavicular ([id number])
--- OUTSIDE RECORDS SUMMARY | 2024-06-26 13:55 | XMS_ITS | Data Portability ---
Author Organization [facility] Address [address] [place] [phone] Care Team Providers Care Environmental Services Tech Name Role Phone [facility] Primary Care Provider Assessment Encounter Date Assessment Date Assessment LastModified by Organization Details LastModified Time 02/28/2023 02/28/2023 I provided real -time medical direction via phone for this encounter, and was available for additional phone based assistance as needed. I have reviewed and agree with the Assessment and Plan as documented by the Mortgage Specialist. We discussed the diagnostic uncertainty of home [...] to call 911- verbalized understanding of instructions [email or web address] Not available 03/01/2023 23:48:23 Plan of Treatment Reminders Order Date Submit Date Provider Last Modified By Organization Details Last Modified Time Details Appointments None recorded. Lab influenza virus A + B and SARS CoV 2 (COVID-19) and RSV RNA panel, NESTOR+probe, respiratory specimen 2023 024 THONG [facility] (Centralized Electronic Ordering - All Locations), Patient Can Go To The Location Of Their Choice, [address] 13:56:34 rapid SARS CoV 2 Ag, QL IA, respiratory specimen 2023 024 [email or web address] 0 [facility], [address] [place] [address], [id number] 4 12:31:30 rapid flu (A+B) 2023 024 [email or web address] 0 [facility], [address] [place] [address], [id number] 4 12:31:28 BMP, serum or plasma 2023 024 [email or web address] 0 [facility], [address] [place] [address], [id number] 4 12:50:36 glucose, fingerstick , blood 2023 024 [email or web address] 0 [facility], [address] [place] [address], [phone] 4 12:50:38 Referral None recorded. Procedures None recorded. Surgeries None recorded. Imaging None recorded. Medication Orders benzonatate 200 mg capsule 2023 THONG [id number], [address], [place], [id number], 4 12:50:42 ipratropium 0.5 mg-albutero l 3 mg (2.5 mg base)/3 mL nebulizatio n soln 2023 024 [email or web address] 0 [id number], [address], [place], [phone], 4 23:50:31 Patient TargetsNo targets recorded. Patient [...] Go To The Location Of Their Choice, [id number] 03/01/2023 13:56:33 02/28/19 24 03/01/2023 COVID -19, [...] To The Location Of Their Choice, [facility] 03/01/2023 13:56:33 02/28/19 24 03/01/2023 COVID -19, [...] To The Location Of Their Choice, [facility] 03/01/2023 13:56:33 02/28/19 24 03/01/2023 COVID -19, [...] ng. Resul t repor nichole to the [facility]. All test resul ts must be corre lated with clini nicolasa findi ngs. This test has been autho rized by the FDA under an Emerg ency Use Autho rizat ion (EUA) for use by autho rized labor atori es. Testi ng perfo rmed on the [employer] Guru id GeneX pert utili zing real- time RT-PC R. Not Available [facility] (Centralized Electronic Ordering - All Locations) Patient Can Go To The Location Of Their Choice, [facility] 03/01/2023 13:56:33 02/28/19 24 03/01/2023 COVID -19, RSV, FLU A/B PCR covid-19 PCR specimen source NASAL Not Available [facility] (Centralized Electronic Ordering - All Locations) Patient Can Go To The Location Of Their Choice, [facility] 03/01/2023 13:56:33 02/28/19 24 02/28/2023 BMP, serum or plasm a BUN 17 Not Available Main - Ins [address], [address] [place] [address] 02/28/2023 12:31:34 02/28/19 24 02/28/2023 BMP, serum or plasm a Ca Ionize d calciu m 1.22 Not Available Main - [address], [address] [place] [address] 02/28/2023 12:31:34 02/28/19 24 02/28/2023 BMP, serum or plasm a CI- 24 Not Available Main - Ins [address], [address] [place] [address] 02/28/2023 12:31:34 02/28/19 24 02/28/2023 BMP, serum or plasm a CRE 0.8 Not Available Main - Ins [address], [address] [place] [address] 02/28/2023 12:31:34 02/28/19 24 02/28/2023 BMP, serum or plasm a GLU 189 Not Available Main - Ins [address], [address] [place] [address] 02/28/2023 12:31:34 02/28/19 24 02/28/2023 BMP, serum or plasm a K+ 4.4 Not Available Main - Ins [address], [address] [place] [address] 02/28/2023 12:31:34 02/28/19 24 02/28/2023 BMP, serum or plasm a Na+ 140 Not Available Main - Ins [address], [address] [place] [address] 02/28/2023 12:31:34 02/28/19 24 02/28/2023 BMP, serum or plasm a tCO2 24 Not Available Main - Ins nichole [address] [place] [address], [phone] 02/28/2023 12:31:34 02/28/19 24 02/28/2023 gluco se, finge rstic k, blood Blood Glucose: mg/dl 252 Not Available Main - [facility] [address] [place] [address], [phone] 02/28/2023 12:48:48 02/28/19 24 02/28/2023 rapid flu (A+B) Flu negati ve Not Available Main - Inst [facility] [address] [place] [address], [address] 02/28/2023 12:31:09 02/28/19 24 02/28/2023 rapid SARS CoV 2 Ag, QL IA, respi rator y speci men rapid SARS CoV 2 Ag, QL IA, respiratory specimen negati ve Not Available Main - [facility] ed [address] [place] [address], [phone] 02/28/2023 12:31:07 Result Notes None recorded. Medical Equipment None Reported. Allergies Allergen ID Allergen Name Allergen Category Reaction Reaction Severity Criticality Documentation Date Start Date Code Code System Note Provider Name and Address Organization Details Recorded Time 4401 lisinopri l medicatio n Not available Not available Not available 02/28/2023 74511 RxNorm Candace Koroma MD [address] [place] [address],[address], [place], [address], [employer] 4 12:28:38 4402 trazodone medicatio n Not available Not available Not available 02/28/2023 67800 RxNorm Candace Koroma MD [address] [place] [address],[address], [place], [address], [employer] 4 12:28:46 Medications Name Sig Start Date [...] Updated DateTime 3 16 /min 98.8 [degF] 75679.2 56 g 74 /min 149.86 cm 97 % 97 % 136 mm[Hg] 82 mm[Hg] Not Available [employer] 3 19:36:24 Date Recorded Body weight Respiratory rate Heart rate Body height Oxygen saturation Oxygen saturation in Arterial blood by Pulse oximetry Body temperature Systolic blood pressure Diastolic blood pressure Provider Name and Address Organization Details Last Updated DateTime 4 16128.4 8 g 16 /min 90 /min 149.86 cm 96 % 96 % 98.3 [degF] 160 mm[Hg] 82 mm[Hg] Not Available [employer] 4 12:20:04 Social History None recorded. Functional Status None recorded. Mental Status None recorded. Family History Nothing Reported. Medical History No medical history recorded. Gynecological HistoryNo gynecological history recorded. Obstetrics History GPAL:G 0 P 0 0 0 0 Past Encounters Encounter ID Performer Location Encounter Start Date Encounter Closed Date Diagnosis/Indication Diagnosis SNOMED-CT Code Diagnosis ICD10 Code Diagnosis Note [id number] Vik Parker MD Main - [facility] [address] [place] [phone] 11/22/2022 19:36:17 11/23/2022 11:00:03 Venous stasis 57237195 I87.8 The family of this 67-year-ol d [...] and her family agreed with this plan. [id number] Candace Koroma MD Main - [facility] [address] [place] [phone] 02/28/2023 12:20:00 03/03/2023 09:19:03 Upper respiratory infection 31669762 J06.9 cont APAP as prescribed / rest [...] Recorded Advance Directives Directive None Recorded Payers Insurance Date Sequence Insurance Name Policy Number Policy Loredo Covered Member ID Loredo Member ID Guarantor Name 02/28/2023 1 [facility]INT [facility] - DOS ON OR AFTER 2022 - DUAL ELIGIBLE - DETENTION OPTIONS AND ONE CARE (MEDICARE REPLACEMENT/ADV ANTAGE - HMO) Fiordaliza Munoz [id number] Fiordaliza Munoz Notes Date Note Type Note Provider Name and Address Organization Details Recorded Time 11/22/2022 text/html [facility] Nursing Assessment: Reason For Request: Right leg redness Chief Complaints: Cellulitis PMH: Diabetes, Hypertension Allergies: Unknown Comments: right leg redness, no pain/positive itchy fever/body aches PMH: DM, HTN, takes water pill Vik Parker MD [address] [facility], [place], [address], [employer] 11/22/2022 19:41:11 02/28/2023 text/html [facility] Nurse Liss martinez Notes (Sheron Murcia): Reason [...] .................. .................. .................. .................. .................. .................. ............... Mortgage Specialist Note From Yosi Soto: Dispatched to the [...] ............... Disposition: Fulfilled Candace Koroma MD [address] [facility], [place], [address], [employer] [employer] 03/01/2023 23:51:40 OBGyn Episode No OBEpisode recorded.
--- OUTSIDE RECORDS SUMMARY | 2024-06-26 13:55 | XMS_ITS | Clinical Summary ---
Author Organization [facility] Address [address] [place] [address] Phone Care Team Providers Care Title Abstractor Name Role Phone Mikey Buenrostro Primary Care Provider [phone] Allergies Active Allergy Reactions Criticality Noted Date [...] infection 03/31/2023 Acute nontraumatic kidney injury 03/31/2023 intermediate accountant current use of methotrexate 03/31/2023 Osteoporosis 03/31/2023 [...] Team (Late st Contact Info) Description 07/12/2024 Orders Only [facility] [address] [place] [address] Rahul Cooley MD [address] [address] Stage 3a chronic kidney disease (HCC) 07/12/2024 1:30 PM EDT Office Visit [facility] [address] [place] [address] Rahul Cooley MD [address] [address] Health Maintenance Due Date Last Done Comments [...] patient's age to complete this topic Insurance [employer] One Care Dual SNP ([id number]) [employer] One Care Dual SNP ([id number]) [place] [phone] Care Teams Title Abstractor Relationship Specialty Start Date End Date Mikey Buenrostro PA [address] [place] [address], [address] [place] [address] PCP - General Physician Biblical Languages Professor 01/12/24
--- OUTSIDE RECORDS SUMMARY | 2024-06-26 13:55 | XMS_ITS | Clinical Summary ---
Author Organization [facility] Address [address] [place] [address] Phone Care Team Providers Care Press Officer Name Role Phone Dalila Rodriguez MD Primary Care Provider [phone] Allergies Active Allergy Reactions Criticality Noted Date [...] PM EDT Office Visit Orthopedic Surgery - [address] [address] Adam Cruz DPM Controlled type 2 diabetes with neuropathy (CMS/HCC V24, CMS/HCC V28) (Primary Dx); Pain in toes of both feet; Arthritis of both feet; Ingrown left big toenail; Dermatophytosis, nail from Last 3 Months Social [...] PM EDT Office Visit Orthopedic Surgery - [place] [address] [facility] [address] [place] [address] Adam Cruz, DPM [address] [facility] [address] [place] [address] Health Maintenance Due Date Last Done Comments [...] fective 2022-Present) Name:Taveras, Fiordaliza Relation to Subscriber:Self Name:Darcy Fiordaliza Payer ID:[id number] Group ID:[id number] Type:Not on file Address: [place] [address] [place] [address] Care Teams Press Officer Relationship Specialty Start Date End Date Dalila Rodriguez MD [address] [facility] , [address] [facility] D/B/A: Gay Nashat[facility]rist[facility] Internal Medicine VALENTINE Rashid PCP - General 06/30/22
== END 2024-06-26 13:50 | disposition home or self-care (01) ==
LOC: HO.RHE 12:51
PROVIDERS: PCP Physician Assistant; Visit Provider Student in an Organized Health Care Education/Training Program
DX: M13.89 Other specified arthritis, multiple sites (principal); Z79.631 Long term (current) use of antimetabolite agent; M19.011 Primary osteoarthritis, right shoulder
CPT/HCPCS: 20605; 99214

== ENCOUNTER → 2024-06-26 12:50 | Outpatient (BNVA) | payer OTHER, SELFPAY | PROVIDERS: PCP Physician Assistant; Visit Provider Student in an Organized Health Care Education/Training Program | DX: M19.011 Primary osteoarthritis, right shoulder (principal); M13.89 Other specified arthritis, multiple sites; M06.00 Rheumatoid arthritis without rheumatoid factor, unspecified site; Z79.631 Long term (current) use of antimetabolite agent | CPT/HCPCS: 20605; 99212; J3300 ==

== ENCOUNTER 2024-10-01 14:04 | Outpatient (REF) | payer OTHER, SELFPAY ==
[2024-10-01 15:49] LABS: Resp Syncy Virus RNA Qual PCR NEGATIVE (Negative); SARS COV2 PCR INHOUSE NEGATIVE (Negative)
== END 2024-10-01 14:05 | disposition home or self-care (01) ==
LOC: HO.LNP 14:04
PROVIDERS: PCP Physician Assistant; Visit Provider Physician Assistant
DX: J06.9 Acute upper respiratory infection, unspecified (principal); E11.9 Type 2 diabetes mellitus without complications; E78.2 Mixed hyperlipidemia; I10 Essential (primary) hypertension; J45.40 Moderate persistent asthma, uncomplicated; R39.81 Functional urinary incontinence
CPT/HCPCS: 87637; 96127; 99212

== ENCOUNTER 2024-10-01 14:04 | Outpatient (AMB) | payer OTHER, SELFPAY ==
[2024-10-01 14:22] VITALS: BP 118/60; PULSE 69; RESP 18; TEMP 36.3; O2SAT 96; BMI 37.6
--- NOTE | 2024-10-01 14:22 | A.OFFPC_ITS ---
Vital Signs 10/01/24 14:22 Height 4 ft 11 in Weight 186 lb BMI 37.6 BP 118/60 Blood Pressure Location Lt brachial Position Sitting Respiration 18 Pulse 69 Pulse Source Pulse Oximeter Temp 97.3 F Temp Source Temporal Artery Scan Pulse Oximetry (%) 96 Oxygen Delivery Method Room Air Intake Visit Reasons: 6 Months f/u Parachute Supervisor Required: No Accompanied by: Self / Same As Patient Allergies acetaminophen (Ultracet) Allergy (Intermediate, Verified 10/01/24 14:31) anaphylaxis tramadol (From ULTRACET) Allergy (Intermediate, Verified 10/01/24 14:31) ANAPHYLAXIS lisinopril (Lisinopril) Allergy (Mild, Verified 10/01/24 14:31) SWELLING, anaphylaxis Medication List - Last Reconciled 10/01/24 by Mikey Buenrostro PA-C acetaminophen ER (Tylenol Arthritis Pain) 650 mg PO Q12H PRN [adult diapers pull-ups As directed] albuterol sulfate 90 mcg/actuation 2 inhalations inhalation Q6H PRN 30 days albuterol sulfate 2.5 mg (0.5 mL) inhalation Q20M PRN amlodipine 5 mg PO DAILY [bath mat As directed] [Bed rails As directed] blood pressure monitor As directed blood sugar diagnostic (FreeStyle Lite Strips) Use 1 strip once a day blood-glucose meter (FreeStyle Lite Meter kit) As directed bupropion HCl XL 150 mg PO QAM cane As directed cetirizine 10 mg PO DAILY cholecalciferol (vitamin D3) 25 mcg PO DAILY 90 days compr.stocking,knee,long,large As directed CPAP (CPAP Machine/Device) As directed disposable gloves latex free gloves, large doxepin 10 mg PO BEDTIME dulaglutide (Trulicity) 1.5 mg (0.5 mL) subcut QWEEK 4 weeks duloxetine (Cymbalta) 60 mg PO DAILY fluticasone propion-salmeterol 230-21 mcg/actuation (Advair HFA) 2 puffs inhalation Q12H 30 days fluticasone propionate 50 mcg/actuation 2 sprays intranasal DAILY folic acid 1 mg PO DAILY gabapentin 100 mg PO BID 30 days [handheld showerhead As directed] [incontinence wipes 4 packages per month] lancets (FreeStyle Lancets) Use 1 lancet once a day levothyroxine 25 mcg PO DAILY 90 days lidocaine HCl 4% (Theraworx Pain Relief) 1 ea topical TID meclizine 25 mg PO DAILY methotrexate sodium 15 mg (6 x 2.5 mg) PO QWEEK 90 days metoprolol tartrate 25 mg PO BID mirtazapine 7.5 mg PO BEDTIME miscellaneous medical supply (Blood Pressure Cuff) As directed miscellaneous medical supply 1 ea miscellaneous DAILY 99 days miscellaneous medical supply 1 ea miscellaneous DAILY 99 days montelukast (Singulair) 10 mg PO BEDTIME 30 days nebulizers As directed omeprazole 20 mg PO DAILY [pantyliner As directed] [Shower gel As directed] spironolactone 12.5 mg PO DAILY Tobacco use date assessed: 10/01/24 Fall risk assessment: No Falls in past year Last assessed Fall Risk: 10/01/24 Dental Screening Dental Screen Date: 10/01/24 Did you have a dental visit in the last 12 months?: Yes Did you have a dental problem in the last 6 months where you did not have access to dental care?: No Was dental information given to patient?: Patient has dentist HPI 6 Months f/u HPI Details Patient is a 69- year-old Yi-speaking female here today for a follow-up visit . Patient has multiple medical conditions including hypertension, type 2 diabetes, hyperlipidemia, obstructive sleep apnea, asthma, seronegative arthritis, obesity. Concern--> The patient reports symptoms consistent with an upper respiratory infection, including a mild cold and left ear erythema. An antibiotic prescription was discussed as a precautionary measure if symptoms worsen. . Arthritis: She is now followed by professor of spanish and has been started on diseas e modifying medication. .. HTN: Has recently followed up with a sterile process coordinator . Blood pressure today in office acceptable. Will continue her current dose of antihypertensive medication. She otherwise denies any chest discomfort, headache, dizziness or vision issues. .. Hypothyroidism: Has not gained weight since last office visit. Patient continues on levothyroxine 25 mcg. Most recent TSH stable .. Moderate persistent asthma/ MELBA: Patient is followed by pulmonology. She reports recently having some worsening in her asthma. Has been having to use her albuterol inhaler much more. She continues on CPAP at night. . Urinary incontinence: Patient has functional incontinence to which she uses pain and liners and adult briefs. Needs refill on both these sent to her DME supplier. . .. Type 2 diabetes: Patient's A1c at 6.2 from 5.5. She does report increase in hunger. She believes her GLP 1 0s and as effective. Will increase her Trulicity dose to 1.5 mg weekly. [facility] Medical History Pulmonary hypertension Atelectasis Diastolic dysfunction Chronic restrictive lung disease Murmur (~08/31/21) Moderate asthma Surgical History History of colonoscopy (~2018) History of laparoscopic cholecystectomy (~2009) History of tubal ligation (~1991) Family History Father No problems noted. Mother Lymphoma Maternal Aunt Diabetes Paternal Uncle Diabetes Brother No problems noted. Sister No problems noted. Sister No problems noted. Son No problems noted. Daughter No problems noted. Daughter No problems noted. Social History Housing: Apartment Alcohol intake: never Patient Tobacco Use Status: Never used Tobacco e-Cigarette/Vaping Use: Never Used Second Hand Smoke Exposure: No service: No Current occupational status: disabled Cognitive needs: No Hearing needs: No Vision needs: No Questionnaire PHQ-9 Over the last 2 weeks, how often have you been bothered by any of the following problems? 1. Little interest or pleasure in doing things: several days 2. Feeling down, depressed, or hopeless: several days 3. Trouble falling or staying asleep, or sleeping too much: more than half the days 4. Feeling tired or having little energy: more than half the days 5. Poor appetite or overeating: several days 6. Feeling bad about yourself - or that you are a failure or have let yourself or your family down: not at all 7. Trouble concentrating on things, such as reading the newspaper or watching television: not at all 8. Moving or speaking so slowly that other people could have noticed. Or the opposite - being so fidgety or restless that you have been moving around a lot more than usual: several days 9. Thoughts that you would be better off or of hurting yourself in some way: not at all Total score: 8 Depression Screening Interpretation: Positive Depression Screening Follow-up: Existing condition and In treatment Depression Screening Done: Yes 19196 - PHQ-9 Billing: Yes Source: Developed by Drs. Aristeo Gifford, Cheryl Burgess, Chauncey Armenta and colleagues, with an educational nilsa from [employer]. Thrive Questionnaire Date Thrive assessed: 10/01/24 I am a: Parent/Caregiver What is your living situation today?: I have a steady place to live Within the past 12 months, did the food you bought not last and you didn't have the money to get more?: Never true Within the past 12 months, did you worry whether your food would run out before you got money to buy more?: Never true Do you have trouble paying for medicines?: No Do you have trouble getting transportation to medical appointments?: No Do you have trouble paying your heating and electricity bill?: No Do you have trouble taking care of your child, family member or friend?: I choose not to answer this question Do you have trouble with day-to-day activities such as bathing, preparing meals, shopping, managing finances, etc.?: Yes Are you currently unemployed and looking for a job?: No Are you interested in more education?: No Please select the resources that you would like help with: None Currently or been in a relationship where the following occur: No concerns reported THRIVE Score: 0 AUDIT C Alcohol Use Questionnaire (AUDIT-C) 1. How often do you have a drink containing alcohol?: Never Total Score: 0 BOBBY-7 AMB Questionnaire BOBBY-7 Date BOBBY - 7 assessed: 10/01/24 Feeling nervous, anxious, or on edge: 2 = More than half the days Not being able to stop or control worryin = Several days Worrying too much about different things: 1 = Several days Trouble relaxin = Several days Being so restless that it is hard to sit still: 1 = Several days Becoming easily annoyed or irritable: 1 = Several days Feeling afraid as if something awful might happen: 0 = Not at all Total BOBBY-7 score (0-4 normal; 5-9 mild; 10-14 moderate; 15-21 severe): 7 Source: Developed by Cheryl Arshad.W. Aditya, Chauncey brooks nd colleagues, with an educational nilsa from [employer]. Review of Systems Const Denies headache(s) Eyes Denies loss of vision ENT Denies vertigo, Denies dizziness, Denies headache(s) and Denies sore throat Card Denies chest pain, Denies leg edema and Denies lightheadedness Resp Reports cough, Denies hemoptysis and Denies wheezing GI Denies abdominal pain, Denies melena, Denies constipation, Denies diarrhea and Denies vomiting Denies urinary frequency, Denies dysuria and Denies urinary urgency Musc Denies arthralgias, Denies joint swelling, Denies numbness and Denies tingling Neuro Denies Abnormal speech present, Denies behavioral changes, Denies vertigo, Denies dizziness, Denies headache(s), Denies loss of vision, Denies memory loss, Denies numbness and Denies tingling Psych Denies anxiety, Denies behavioral changes, Denies depression, Denies memory loss and Denies panic attacks Werner/Lymph Denies easy bleeding and Denies easy bruising Aller/Immun Denies wheezing Physical exam (Primary Care) Vital Signs: Last Vital Signs Temp 97.3 F 10/01/24 14:22 Pulse 69 10/01/24 14:22 Resp 18 10/01/24 14:22 BP 118/60 10/01/24 14:22 Pulse Ox 96 10/01/24 14:22 Oxygen Delivery Method Room Air 10/01/24 14:22 BMI result Body Mass Index 37.6 Tobacco/Smoking Status: Tobacco use Status Tobacco use date assessed 10/01/24 10/01/24 14:30 Patient Tobacco Use Status Never used Tobacco 10/01/24 14:30 e-Cigarette/Vaping Use Never Used 10/01/24 14:30 PHQ-9: PHQ-9 Score PHQ-9: Total score 8 10/01/24 14:30 Depression Screening Interpretation: Positive Depression Screening Follow-up: Existing condition and In treatment Thrive Assessment: Date of Thrive Assessment Date Thrive assessed 10/01/24 10/01/24 14:30 Currently or been in a relationship where the following occur: No concerns reported Const General: healthy appearing, no acute distress, alert and awake Nutritional Appearance: well nourished Orientation/consciousness: oriented to person, oriented to place and oriented to time HENMT Other: LEFT TYMPANIC MEMBRANE SLIGHTLY ERYTHEMATOUS Ears: TM's normal bilaterally General nose exam: Normal nasal mucous membranes and turbinates present Eyes Conjunctivae: conjunctivae normal Sclerae: sclerae normal Pupils: Equal, round and reactive pupils present Neck Neck: Yes no lymphadenopathy and Yes no JVD Thyroid: Thyroid normal Carotids: no bruits Resp Other: MILD COUGH DURING EXAM Effort & Inspection: normal respiratory effort and not tachypneic Auscultation: no crackles, no rales, no rhonchi and no wheezes Cardio Rate: regular rate Rhythm: regular rhythm Heart sounds: no murmurs and normal S1 and S2 GI Palpation (GI): Soft to palpation, nontender, no hepatomegaly and no splenomegaly Auscultation: normal bowel sounds Skin General skin exam: no rashes or lesions noted and dry skin Neuro General: oriented to person, oriented to place and oriented to time Cranial nerves: Yes Equal, round and reactive pupils present Speech: No Abnormal speech present Gait exam (Neuro): Normal gait present Motor exam (neuro): no tremor noted Extrem Right upper extremity: full ROM Left upper extremity: full ROM Right lower extremity: full ROM; no edema Left lower extremity: full ROM; no edema Psych Mental Status: mental status grossly normal Speech and movement: Normal speech and movement present Affect: normal affect Attitude: cooperative Thought process: Normal thought process present Coding Level of Care Code Est Pt Level 4 (12828) Diagnoses Type 2 diabetes mellitus without complication, without long-term current use of insulin E11.9 Diabetes mellitus watermelon inspector insulin use: without nursing home use Diabetes mellitus complication status: without complication Viral upper respiratory tract infection J06.9 URI type: unspecified viral URI Mixed hyperlipidemia E78.2 Hyperlipidemia type: mixed hyperlipidemia Essential hypertension I10 Hypertension type: essential hypertension Moderate persistent asthma without complication J45.40 Asthma persistence: persistent Asthma complication type: uncomplicated Functional urinary incontinence R39.81 Urinary Incontinence type: functional incontinence Additional Codes PHQ-9 - 79551 - PHQ-9 Billing: Yes ([id number]) Assessment & Plan Assessment & Plan (1) DMII (diabetes mellitus, type 2): Code(s): E11.9 - Type 2 diabetes mellitus without complications Category: Medical Qualifiers: Diabetes mellitus watermelon inspector insulin use: without nursing home use Diabetes mellitus complication status: without complication Qualified Code(s): E11.9 - Type 2 diabetes mellitus without complications Plan: Patient's type 2 diabetes well controlled. PATIENT CONTINUES WITH WEEKLY TRULICITY. Goal A1c is to remain below 7.0. (2) URI (upper respiratory infection): Code(s): J06.9 - Acute upper respiratory infection, unspecified Category: Medical Qualifiers: URI type: unspecified viral URI Qualified Code(s): J06.9 - Acute upper respiratory infection, unspecified Plan: The patient presents with symptoms of an upper respiratory infection, including mild cold symptoms and left ear erythema. An antibiotic prescription was discussed to be held at the pharmacy as a precaution if symptoms worsen, avoiding unnecessary ER visits. (3) HLD (hyperlipidemia): Code(s): E78.5 - Hyperlipidemia, unspecified Category: Medical Qualifiers: Hyperlipidemia type: mixed hyperlipidemia Qualified Code(s): E78.2 - Mixed hyperlipidemia Plan: Patient's most recent lipid panel showing excellent control over total cholesterol and LDL. Will continue current dose. Goal LDL to be below 100 (4) HTN (hypertension): Code(s): I10 - Essential (primary) hypertension Category: Medical Qualifiers: Hypertension type: essential hypertension Qualified Code(s): I10 - Essential (primary) hypertension Plan: Patient's blood pressure acceptable today in office. Will continue current dose of antihypertensive medication with goal blood pressure to be below 140/90 (5) Moderate asthma: Code(s): J45.909 - Unspecified asthma, uncomplicated Category: Social Hx Qualifiers: Asthma persistence: persistent Asthma complication type: uncomplicated Qualified Code(s): J45.40 - Moderate persistent asthma, uncomplicated Plan: Patient followed by pulmonology. Has recently had some upper respiratory infectious symptoms. Tested for flu RSV and COVID today. Otherwise her asthma has been fairly well controlled with her maintenance inhalers (6) Urinary incontinence: Code(s): R32 - Unspecified urinary incontinence Category: Medical Qualifiers: Urinary Incontinence type: functional incontinence Qualified Code(s): R39.81 - Functional urinary incontinence Plan: Continues with the use of incontinence supplies with good effect. Needs refill on her adult briefs. Orders: Orders Lipid Panel Today E78.2 - Mixed hyperlipidemia Comprehensive [place]. Panel Fast Today I10 - Essential (primary) hypertension Complete Blood Count no Diff Today I10 - Essential (primary) hypertension Hemoglobin A1c Today E11.9 - Type 2 diabetes mellitus without complications SARS-CoV2/FLU/RSV Today J06.9 - Acute upper respiratory infection, unspecified Medications: New azithromycin For 250 mg dose pack: take 500 mg today (day 1), then 250 mg for 4 days (days 2-5) PO 6 tabs 0RF J06.9 - Acute upper respiratory infection, unspecified Refilled [pantyliner] As directed 120 ea 11RF R32 - Unspecified urinary incontinence [incontinence wipes] 4 packages per month 4 ea 11RF R32 - Unspecified urinary incontinence meclizine 25 mg PO DAILY 90 tabs 3RF I10 - Essential (primary) hypertension
--- OUTSIDE RECORDS SUMMARY | 2024-10-01 15:29 | XMS_ITS | Clinical Summary ---
Author Organization [facility] Address [address] [place] [address] Phone Care Team Providers Care Wash Rack Operator Name Role Phone Mikey Buenrostro Primary Care Provider [phone] Allergies Active Allergy Reactions Criticality Noted Date [...] time Active amLODIPine (NORVASC) 5 MG tablet TAKE 1 TABLET(5 MG) BY MOUTH 1 TIME EACH DAY 30 tablet 11 5 Active Active Problems Problem Noted Date Diagnosed Date Urinary tract infection 03/31/2023 Acute nontraumatic kidney injury 03/31/2023 [facility] current use of methotrexate 03/31/2023 Osteoporosis 03/31/2023 [...] Encounters Date Type Department Care Team Description 07/18/2024 Office Communication [facility] [address] [place] [address] Jose Napoles 07/14/2024 Refill [facility] [address] [place] [address] Rahul Cooley MD 07/12/2024 1:30 PM EDT Office Visit [facility] [address] [place] [address] Rahul Cooley MD 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); Isolated proteinuria; Stage 3a chronic kidney disease (HCC) 07/12/2024 Orders Only [facility] [address] [place] [address] Rahul Cooley MD Stage 3a chronic kidney disease (HCC) from Last 3 Months Family History Medical [...] Sign Reading Time Taken Comments Blood Pressure 146/78 07/12/2024 1:13 PM EDT Pulse 57 07/12/2024 1:13 PM EDT Temperature - - Respiratory Rate - - Oxygen Saturation 98% 07/12/2024 1:13 PM EDT Inhaled Oxygen Concentration - - Weight 81.6 kg (180 lb) 07/12/2024 1:13 PM EDT Height 149.9 cm (4' 11 ) 10/28/2022 2:58 PM EDT Body Mass Index 36.36 10/28/2022 2:58 PM EDT Plan of Treatment Upcoming Encounters Date Type Department Care Team (Late st Contact Info) Description 01/24/2025 2:00 PM EST Office Visit [facility] [address] [place] [facility] [place] [address] Rahul Cooley MD [address] [facility] [address] [place] [address] Health Maintenance Due Date Last [...] Visual Foot Exam 10/22/2022 Influenza Vaccine (#1) 2024 Hepatitis B Vaccine Aged Out No longe r eligible based on patient's age to complete this topic Insurance [employer] One [employer] Dual SNP ([id number]) [place] [id number] [facility] One Care Dual SNP ([id number]) [place] [id number] Care Teams Wash Rack Operator Relationship Specialty Start Date End Date Mikey Buenrostro PA [address] [facility], [address] [place] [address] PCP - General Physician Field Machinist 01/12/24
--- OUTSIDE RECORDS SUMMARY | 2024-10-01 15:29 | XMS_ITS | Clinical Summary ---
Author Organization [address] [facility] Address [address] [place] [address] Phone Care Team Providers Care Production Superintendent Hydro Name Role Phone Dalila Rodriguez MD Primary Care Provider [phone] Allergies Active Allergy Reactions Criticality Noted Date [...] (one) time each day Active metoprolol tartrate (LOPRESSOR) 25 mg tablet [...] mouth 1 (one) time each day. Active ketoconazole (NIZORAL) 2 % cream Apply topically 1 (one) time each day. 60 g 2 Active Encounters Date Type Department Care Team Description 07/18/2024 1:30 PM EDT Office Visit Orthopedic Surgery - [address] [address] Adam Cruz, MAILE Controlled type 2 diabetes with neuropathy (CMS/HCC V24, CMS/HCC V28) (Primary Dx); Pain in toes of both feet; Ingrown left big toenail; Arthritis of both feet; Dermatophytosis, nail from Last [...] - - Weight 79.4 kg (175 lb) 07/18/2024 1:19 PM EDT Height 149.9 cm (4' 11.02 ) 07/18/2024 1:19 PM E DT Body Mass Index 35.33 07/18/2024 1:19 PM EDT Plan of Treatment Upcoming Encounters Date Type Department Care Team (Late st Contact Info) Description 10/02/2024 10:00 AM EDT Office Visit Orthopedic Surgery - [place] [address] [facility] [address] [place] [id number] Adam Cruz, MAILE [address] [facility] [address] [place] [address] Health Maintenance Due Date Last Done Comments [...] Panel) 03/04/2023 Colorectal Cancer Screening: Colonoscopy 03/04/2023 Falls Risk Assessment 03/04/2023 Hepatitis C Screening 03/04/2023 Medicare Annual Wellness Visit 03/04/2023 Osteoporosis Screening (Bone Density Screening) 03/04/2023 Social Influencers of Health Screening 03/04/2023 Diabetes: Annual Urine Albumin-Creatinine Ratio (uACR) 01/12/2024 Diabetes: Blood Sugar Contro l Test (HGBA1C) 01/12/2024 Hypertension/CHF/CAD Annual BMP Blood Test 01/12/2024 Depression Screening 02/08/2024 Influenza Vaccine (#1) 2024 HIB Vaccines Aged Out No longer [...] Subscriber Plan / Payer (Ef fective 2022-Present) Name:FIORDALIZA REESE Relation to Subscriber:Self Name:Fiordaliza Taveras Payer ID:[id number] Group ID:[id number] Type:Not on file Address: [place] [address] [place] [id number] Care Teams Production Superintendent Hydro Relationship Specialty Start Date End Date Dalila Rodriguez MD [address] [place] [address] , [address] [facility] D/B/A: [facility] [place] Rashid PCP - General 06/30/22
--- OUTSIDE RECORDS SUMMARY | 2024-10-01 15:29 | XMS_ITS | Patient Health Record ---
Author Organization [facility] Address [address] [place] [address] Care Team Providers Care Blueprint Assembler Name Role Phone Aristeo Eng [phone] Reason For Referral No Information Plan Of Treatment No Information
== END 2024-10-01 14:47 | disposition home or self-care (01) ==
LOC: HO.HMCH 14:04
PROVIDERS: PCP Physician Assistant; Visit Provider Physician Assistant
DX: E11.9 Type 2 diabetes mellitus without complications (principal); J06.9 Acute upper respiratory infection, unspecified; E78.2 Mixed hyperlipidemia; I10 Essential (primary) hypertension; J45.40 Moderate persistent asthma, uncomplicated; R39.81 Functional urinary incontinence

== ENCOUNTER 2024-10-25 08:14 | Outpatient (REF) | payer OTHER, SELFPAY ==
[2024-10-25 08:40] LABS: MANUAL DIFF FLAG NO
[2024-10-25 08:57] LABS: Hematocrit 38.5 % (37.0-47.0); Hemoglobin 12.6 g/dl (12.0-16.0); Imm Gran Abs Auto 0.03 X10*3/uL (0.00-0.03); Imm Gran Pct Auto 0.3 % (0.0-0.4); Lymphocytes Absolute Auto 3.1 X10*3/uL (1.2-4.9); Mean Corpuscular HGB Conc 32.7 g/dl (31.0-35.0); Mean Corpuscular Hemoglobin 28.8 pg (27.0-33.0); Mean Corpuscular Volume 87.9 fL (80.0-98.0); NRBC Abs Auto 0.000 X10*3/uL (0.0-0.012); NRBC Pct Auto 0.0 /100WBC (0.0-0.2); Platelet Count 249 X10*3/uL (160-400); Red Blood Count 4.38 X10*6/uL (4.20-5.50); White Blood Count 9.5 X10*3/uL (4.8-10.8)
[2024-10-25 09:05] LABS: Appearance Urine Clear; Glucose Urine UA Negative (Negative); PH 5.5 (5.0-9.0); Specific Gravity - Urine 1.025 (1.005-1.025)
--- OUTSIDE RECORDS SUMMARY | 2024-10-25 09:10 | XMS_ITS | Patient Health Record ---
Author Organization [facility] Address [address] [place] [address] Care Team Providers Care Respite Worker Name Role Phone Aristeo Eng [phone] Reason For Referral No Information Plan Of Treatment No Information
--- OUTSIDE RECORDS SUMMARY | 2024-10-25 09:10 | XMS_ITS | Clinical Summary ---
Author Organization [facility] Address [address] [place] [address] Phone Care Team Providers Care Supervisor Drying And Winding Name Role Phone Mikey Buenrostro Primary Care Provider [phone] Allergies Active Allergy Reactions Criticality Noted Date [...] infection 03/31/2023 Acute nontraumatic kidney injury 03/31/2023 [facility] current use of methotrexate 03/31/2023 Osteoporosis 03/31/2023 [...] Encounters Date Type Department Care Team Description 10/25/2024 Orders Only [facility] [address] [address] Rahul Cooley MD from Last 3 Months Family History Medical [...] Office Visit [facility] [address] [place] [phone] Rahul Cooley MD [address] [address] Health Maintenance Due Date Last Done [...] on patient's age to complete this topic Procedures Procedure Name Priority Date/Time Associated Diagnosis Comments URINALYSIS WITH MICROSCOPIC Routine 10/25/2024 8:46 AM EDT CBC AND DIFFERENTIAL Routine 10/25/2024 8:38 AM EDT from Last 3 Months Results * CBC and Differential (10/25/2024 8:38 AM EDT) WBC 9.5 4.8 - 10.8 X10*3/uL See order comments RBC 4.38 4.20 - 5.50 X10*6/uL See order comments Hgb 12.6 12.0 - 16.0 g/dl See order comments Hematocrit 38.5 37.0 - 47.0 % See order comments MCV 87.9 80.0 - 98.0 fL See order comments MCH 28.8 27.0 - 33.0 pg See order comments MCHC 32.7 31.0 - 35.0 g/dl See order comments RDW 12.9 11.0 - 16.0 % See order comments Platelets 249 160 - 400 X10*3/uL See order comments MPV 9.9 9.4 - 12.3 fL See order comments Neutrophils % Auto 58.6 45 - 73 % See order comments Immature Granulocytes 0.3 0.0 - 0.4 % See order comments Lymphocytes Relative 32.9 20 - 40 % See order comments Monocytes 5.8 2 - 11 % See order comments Eosinophils Relative 2.0 0 - 4 % See order comments Basophils Relative 0.4 0 - 2 % See order comments nRBC Count 0.0 0.0 - 0.2 /100WBC See order comments Neutrophils Absolute 5.6 2.0 - 8.3 x10*3/uL See order comments Immature Grans (Absolute) 0.03 0.00 - 0.03 X10*3/uL See order comments Lymphocytes Absolute 3.1 1.2 - 4.9 X10*3/uL See order comments Monocytes Absolute 0.6 0.1 - 1.2 X10*3/uL See order comments Eosinophils Absolute 0.2 0.0 - 0.4 X10*3/uL See order comments Basophils Absolute 0.0 0.0 - 0.2 X10*3/uL See order comments NRBC Absolute 0.000 0.0 - 0.012 X10*3/uL See order comments 10/25/2024 8:38 AM EDT 10/25/2024 8:38 AM EDT us Rahul Cooley MD LAB BLOOD ORDERABLES Final Result [place] See order comments [place] [address] from Last 3 Months Insurance [facility] One Care Dual SNP ([id number]) [place] [id number] [facility] One Care Dual SNP ([id number]) [place] [id number] Care Teams Supervisor Drying And Winding Relationship Specialty Start Date End Date Mikey Buenrostro PA [address] [place] [address], [address] [place] [address] PCP - General Physician Adult Secondary Education Instructor 01/12/24
--- OUTSIDE RECORDS SUMMARY | 2024-10-25 09:10 | XMS_ITS | Encounter Summary ---
Author Organization [facility] Address [address] [address] Phone Care Team Providers Care Slide Fastener Chain Assembler Name Role Phone Mikey Buenrostro Primary Care Provider [phone] Encounter Details Date Type Department Care Team (Late st Contact Info) Description 10/25/2024 Orders Only [facility] [address] [place] [phone] Rahul Cooley MD [address] [phone] Social History Tobacco Use Types Packs/Day Years Used Date Smoking Tobacco: Never Assessed Comments Unknown Sex and Gender Information Value Date Recorded Sex Assigned at Not on file Legal Sex Female 11:11 AM EDT Gender Identity Not on file Sexual Orientation Not on file documented as of this encounter Plan of Treatment Upcoming Encounters Date Type Department Care Team (Late st Contact Info) Description 01/24/2025 2:00 PM EST Office Visit [facility] [address] [place] [address] Rahul Cooley MD [address] [address] Pending Results Name Type Priority Associated Diagnoses Date /Time Urinalysis with microscopic Lab Routine 10/25/2024 8:46 AM EDT documented as of this encounter Procedures Procedure Name Priority Date/Time Associated Diagnosis Comments URINALYSIS WITH MICROSCOPIC Routine 10/25/2024 8:46 AM EDT CBC AND DIFFERENTIAL Routine 10/25/2024 8:38 AM EDT documented in this encounter Results * CBC and Differential (10/25/2024 8:38 [...] Cooley MD LAB BLOOD ORDERABLES Final Result [place] See order comments [place] [address] documented in this encounter Visit Diagnoses Not on filedocumented in this encounter Care Teams Slide Fastener Chain Assembler Relationship Specialty Start Date End Date Mikey Buenrostro PA [address] [facility], [address] [place] [address] PCP - General Physician Dry Lumber Grader 01/12/24 documented as of this encounter
--- OUTSIDE RECORDS SUMMARY | 2024-10-25 09:10 | XMS_ITS | Clinical Summary ---
Author Organization [facility] Address [address] [place] [address] Phone Care Team Providers Care President & Founder Name Role Phone Dalila Rodriguez MD Primary Care Provider [phone] Allergies Active Allergy Reactions Criticality Noted Date [...] (one) time each day. 60 g 2 5 Active hydrocortisone 2.5 % cream Apply topically 1 (one) time each day. 60 g 1 5 10/03/19 Active Encounters Date Type Department Care Team Description 10/02/2024 10:00 AM EDT Office Visit Orthopedic Surgery - [address] [address] Adam Cruz DPM Controlled type 2 diabetes with neuropathy (CMS/HCC V24, CMS/HCC V28) (Primary Dx); Pain in toes of both feet; Ingrown left big toenail; Arthritis of both feet; Dermatophytosis, nail; Dermatitis of left foot from Last 3 Months Social History Tobacco [...] Care Team (Late st Contact Info) Description 12/04/2024 1:30 PM EDT Office Visit Orthopedic Surgery - [place] [address] [facility] [address] [place] [id number] Adam Cruz, MAILE [address] [facility] [address] [place] [address] Health Maintenance Due Date Last Done Comments [...] ID:[id number] Type:Not on file Address: [place] [address] [place] [id number] Care Teams President & Founder Relationship Specialty Start Date End Date Dalila Rodriguez MD [address] [place] [address] , [address] [facility] D/B/A: [facility] VALENTINE Rashid PCP - General 06/30/22
[2024-10-25 09:28] LABS: Hemoglobin A1C 154.6319 umol/L; Total Hemoglobin (HGBA1C) 3343.6401 umol/L
[2024-10-25 09:51] LABS: Anion Gap 11 (12-20); Blood Urea Nitrogen 16 mg/dL (9-16); Calcium 9.7 mg/dL (8.4-10.2); Carbon Dioxide 31 mmol/L (22-29); Chloride 105 mmol/L (96-108); Estimated Glomerular Filt Rate 46; Iron 65 mcg/dL (30-160); Magnesium 1.9 mg/dL (1.6-2.6); Percent Iron Saturation 25 % (15-50); Potassium 3.6 mmol/L (3.3-5.1); Sodium 143 mmol/L (135-145); Total Iron Binding Capacity 260 mcg/dL (228-428); Unsaturated Iron Binding 195 ug/dL; Uric Acid 6.0 mg/dL (2.4-5.7)
[2024-10-25 09:58] LABS: Ferritin 50 ng/mL (10-250)
[2024-10-25 10:03] LABS: Microalbum/Creatinine Ratio Ur 22.0 ug/mg cr (<30); Protein/Creatinine Ratio, Ur 0.07 (<0.2); Total Protein Urine Random 18 mg/dL (<12)
== END 2024-10-25 08:15 | disposition home or self-care (01) ==
LOC: HO.LAB 08:14
PROVIDERS: PCP Physician Assistant; Visit Provider Internal Medicine
DX: E11.22 Type 2 diabetes mellitus with diabetic chronic kidney disease (principal); N18.31 Chronic kidney disease, stage 3a; R80.0 Isolated proteinuria
CPT/HCPCS: 36415; 80048; 81001; 82043; 82306; 82570; 82728; 83036; 83540; 83735; 84100; 84156; 84550; 85025

== ENCOUNTER 2024-10-31 13:48 | Outpatient (AMB) | payer OTHER, SELFPAY ==
--- NOTE | 2024-10-31 14:04 | A.OFFVIS_ITS ---
Vital Signs 10/31/24 14:13 Height 4 ft 11 in Weight 190 lb 14.725 oz BMI 38.6 BP 132/80 Blood Pressure Location Lt brachial Position Sitting Pulse 70 Pulse Source Pulse Oximeter Pulse Oximetry (%) 96 Oxygen Delivery Method Room Air Intake Visit Reasons: f/u Seronegative RA Intake Note: Patient presents for Seronegative RA follow up. Diesel Engine Fitter Required: Yes Diesel Engine Fitter Language: Personal Banking Officer Services: Diesel Engine Fitter Offered & Declined Diesel Engine Fitter Name: Tana Gaston Information Interpreted: non-clinical & clinical Master Baker: Master Baker Present (Tana Gaston) Accompanied by: Daughter Allergies acetaminophen (Ultracet) Allergy (Intermediate, Verified 10/31/24 14:13) anaphylaxis tramadol (From ULTRACET) Allergy (Intermediate, Verified 10/31/24 14:13) ANAPHYLAXIS lisinopril (Lisinopril) Allergy (Mild, Verified 10/31/24 14:13) SWELLING, anaphylaxis Medication List - Last Reconciled 10/31/24 by Francia Kramer MD acetaminophen ER (Tylenol Arthritis Pain) 650 mg PO Q12H PRN [adult diapers pull-ups As directed] albuterol sulfate 90 mcg/actuation 2 inhalations inhalation Q6H PRN 30 days albuterol sulfate 2.5 mg (0.5 mL) inhalation Q20M PRN amlodipine 5 mg PO DAILY azithromycin For 250 mg dose pack: take 500 mg today (day 1), then 250 mg for 4 days (days 2-5) PO [bath mat As directed] [Bed rails As directed] blood pressure monitor As directed blood sugar diagnostic (FreeStyle Lite Strips) Use 1 strip once a day blood-glucose meter (FreeStyle Lite Meter kit) As directed bupropion HCl XL 150 mg PO QAM cane As directed cetirizine 10 mg PO DAILY cholecalciferol (vitamin D3) 25 mcg PO DAILY 90 days compr.stocking,knee,long,large As directed CPAP (CPAP Machine/Device) As directed disposable gloves latex free gloves, large doxepin 10 mg PO BEDTIME dulaglutide (Trulicity) 1.5 mg (0.5 mL) subcut QWEEK 4 weeks duloxetine (Cymbalta) 60 mg PO DAILY fluticasone propion-salmeterol 230-21 mcg/actuation (Advair HFA) 2 puffs inhalation Q12H 30 days fluticasone propionate 50 mcg/actuation 2 sprays intranasal DAILY folic acid 1 mg PO DAILY gabapentin 100 mg PO BID 30 days [handheld showerhead As directed] [incontinence wipes 4 packages per month] lancets (FreeStyle Lancets) Use 1 lancet once a day levothyroxine 25 mcg PO DAILY 90 days lidocaine HCl 4% (Theraworx Pain Relief) 1 ea topical TID meclizine 25 mg PO DAILY methotrexate sodium 12.5 mg (5 x 2.5 mg) PO QWEEK 90 days metoprolol tartrate 25 mg PO BID mirtazapine 7.5 mg PO BEDTIME miscellaneous medical supply (Blood Pressure Cuff) As directed miscellaneous medical supply 1 ea miscellaneous DAILY 99 days miscellaneous medical supply 1 ea miscellaneous DAILY 99 days montelukast (Singulair) 10 mg PO BEDTIME 30 days nebulizers As directed omeprazole 20 mg PO DAILY [pantyliner As directed] [Shower gel As directed] spironolactone 12.5 mg PO DAILY HPI Comments Details: Patient is a 69-year-old female with asthma, hypertension, depression, diabetes, hypothyroidism, hyperlipidemia, polyarticular osteoarthritis and seronegative rheumatoid arthritis here today for follow up. Interval History: Patient last seen 06/26/2024 with me - Methotrexate 20mg weekly, folic acid 1mg - Doing well - No prolonged AM stiffness - C/o right shoulder pain - Decreased Mtx 15mg weekly - s/p steroid injection to right AC joint Today - On Methotrexate 15mg PO weekly and folic acid 1mg daily - No worsening of sx after the decreased Mtx - Right shoulder still improved Rheumatologic History: -ve RF/CCP/ERIN/HLA B27. X-ray shows multiple joints with enthesopathy dx 12/2022 MTX 12/2022 effective Initial history: This is a 67-year-old female who presents for evaluation of diffuse joint pain. She presents with her daughter. Over the last year patient has been having pain and swelling of her hands, fingers. She has morning stiffness of her hands lasting 30 minutes to 1 hour. She also has swelling of her ankles, usually worse at night. She also has significant lower back pain radiating to her buttocks. She takes Tylenol Arthritis which provides little relief. She mentions that her mother had rheumatoid arthritis. States that her joints improved when she gets prednisone taper for her bronchitis Current Rheumatology Medication(s): Methotrexate 20 mg weekly Folic acid 1 mg daily [facility] Medical History Pulmonary hypertension Atelectasis Diastolic dysfunction Chronic restrictive lung disease Murmur (~08/31/21) Moderate asthma Surgical History History of colonoscopy (~2018) History of laparoscopic cholecystectomy (~2009) History of tubal ligation (~1991) Family History Father No problems noted. Mother Lymphoma Maternal Aunt Diabetes Paternal Uncle Diabetes Brother No problems noted. Sister No problems noted. Sister No problems noted. Son No problems noted. Daughter No problems noted. Daughter No problems noted. Social History Housing: Apartment Alcohol intake: never Patient Tobacco Use Status: Never used Tobacco e-Cigarette/Vaping Use: Never Used Second Hand Smoke Exposure: No service: No Current occupational status: disabled Cognitive needs: No Hearing needs: No Vision needs: No Review of Systems Const Details: Review of Systems Constitutional: Denies fever, chills, weight loss ENT: Denies vision changes, eye pain or eye redness, dental caries, dry mouth GI: Denies nausea, vomiting, diarrhea, abdominal pain, change in BM Pulm: Denies SOB, JOHNSON, hemoptysis, wheezing Cards: Denies chest pain, palpitations Skin: Denies Raynaud's, rash, nail changes, photosensitivity, TWO NEEDLE MACHINE OPERATOR: Denies headaches, weakness, paresthesias, recurrent falls MSK: as per HPI All other systems reviewed and are unremarkable except noted above Physical Exam Exam Exam: Vital signs reviewed Physical Examination CONSTITUITIONAL Patient alert and cooperative. Well appearing and in no apparent painful distress MSK Hands * Right Hand: Able to make a fist. No swelling or tenderness to palpation of the MCPs, PIPs or DIPs. * Left Hand: Able to make a fist. No swelling or tenderness to palpation of the MCPs, PIPs or DIPs. * Herbedens nodes noted bilaterally Wrists * Right Wrist: Full ROM to flexion and extension. No swelling or TTP * Left Wrist: Full ROM to flexion and extension. No swelling or TTP Elbows * Right Elbow: Full ROM. No swelling or TTP. No TTP of the medial epicondyle. No TTP of the lateral epicondyle * Left Elbow: Full ROM. No swelling or TTP. No TTP of the medial epicondyle. No TTP of the lateral epicondyle Shoulders * Right shoulder: Decreased ROM. No swelling noted. No TTP of the AC joint. No TTP of the subacromial bursa. No TTP of the posterior shoulder * Left shoulder: Decreased ROM. No swelling noted. No TTP of the AC joint. No TTP of the subacromial bursa. No TTP of the posterior shoulder Knees * Right knee: Full ROM. No swelling noted. No TTP of the knee joint line. No TTP of pes anserine bursa * Left knee: Full ROM. No swelling noted. No TTP of the knee joint line. No TTP of pes anserine bursa. * Crepitations felt bilaterally Ankles * Right ankle: Good ankle dorsiflexion and plantar flexion. No swelling. No TTP of the ankle joint * Left ankle: Good ankle dorsiflexion and plantar flexion. No swelling. No TTP of the ankle joint Feet * Right foot: Negative squeeze test * Left foot: Negative squeeze test Tender points? * No tenderness to palpation of the bilateral trapezius, supraspinatus, anterior costochondral junctions, bilateral suboccipital muscle insertions SKIN No rashes Vital Signs: Last Vital Signs Pulse 70 10/31/24 14:13 BP 132/80 10/31/24 14:13 Pulse Ox 96 10/31/24 14:13 Oxygen Delivery Method Room Air 10/31/24 14:13 BMI result Body Mass Index 38.6 Results Reviewed Results Reviewed: Laboratory Tests 06/20/24 10/25/24 07:15 08:38 WBC 9.5 RBC 4.38 Hgb 12.6 Hct 38.5 Plt Count 249 ESR 54 H Sodium 143 Potassium 3.6 Chloride 105 Carbon Dioxide 31 H BUN 16 Creatinine 1.17 Uric Acid 6.0 H AST 29 ALT 24 C-Reactive Protein 1.50 H DEXA 12/2022 FINDINGS: LEFT FEMUR, NECK: Current: BMD 0.906 g/cm2, Z-score 0.1, T-score -0.9, normal. Prior: BMD 0.947 g/cm2. Baseline: BMD 0.983 g/cm2. LEFT FEMUR, TOTAL: Current: BMD 1.115 g/cm2, Z-score 1.6, T-score 0.9, normal, 0.1% increase from previous, 1.9% increase from baseline (<5% change is not significant). Prior: BMD 1.114 g/cm2. Baseline: BMD 1.094 g/cm2. AP SPINE L3-L4 (excluding L1 and L2): The data of L1-L4 has been changed to exclude the L1 and L2 vertebral bodies, because degenerative sclerosis at these levels may cause overestimation of lumbar spine density. Current: BMD 0.905 g/cm2, Z-score -1.6, T-score -2.5, osteoporosis, 9.8% decrease from previous, 14.1% decrease from baseline (<5% change is not significant). Prior: BMD 1.003 g/cm2. Baseline: BMD 1.053 g/cm2. Assessment & Plan Assessment & Plan (1) Seronegative arthritis: Comment: -ve RF/CCP/ERIN/HLA B27. X-ray shows multiple joints with enthesopathy dx 12/2022 MTX 12/2022 effective Code(s): M13.80 - Other specified arthritis, unspecified site Category: Medical Plan: #Seronegative RA Patient is a 69-year-old female with seronegative rheumatoid arthritis/inflammatory arthritis here today for follow up. In remission on methotrexate monotherapy. Increase methotrexate to 6 pills weekly Plan - Decrease MTx 12.5mg weekly - Folic acid 1mg daily - RTC 6 months - Labs before visit: CBC, CMP, ESR, CRP (2) Polyarticular osteoarthritis: Code(s): M15.9 - Polyosteoarthritis, unspecified Plan: #Polyarticular OA Patient with polyarticular osteoarthritis specifically lumbar spondylosis. Not a candidate for surgical or procedural interventions. Discussed the chronic and degenerative nature of the disease with the patient. She is to continue gabapentin as well as stretching exercises. s/p right AC shoulder joint steroid injection 06/2024, with improvement (3) Osteoporosis: Comment: DEXA 12/2022: Left femur neck -0.9, Left femur total 0.9, AP spine -2.5 Code(s): M81.0 - Age-related osteoporosis without current pathological fracture Category: Medical Qualifiers: Osteoporosis type: age-related Presence of current pathological fracture: without current pathological fracture Qualified Code(s): M81.0 - Age- related osteoporosis without current pathological fracture Plan: #Osteoporosis Patient with osteoporosis of the L spine Not currently on treatment Due for repeat DEXA Plan - DEXA Scan 12/2024 - Continue Vit D supplementation - Treatment decision based on the results of DEXA (4) buttermaker continuous churn methotrexate user: Code(s): Z79.631 - buttermaker continuous churn (current) use of antimetabolite agent Category: Medical Plan: #Long-term Current Use of Methotrexate Discussed with patient the benefits and risks of methotrexate for managing their rheumatic condition Benefits include reduced pain, reduced mortality, maintenance of remission and reduction of flares Risks include oral ulcers, photosensitivity, hepatotoxicity, hematologic toxicity, pneumonitis, flu-like symptoms (especially day after administration), nodulosis, lymphomas ? Limit alcohol and avoid Bactrim ? Monitoring: ?CBC, BMP, LFTs every 3-4 months and hepatitis serologies as needed Plan I spent 30 minutes reviewing the record and labs, taking a history, examining the patient, discussing the treatment plan, ordering diagnostic work up and documenting in the medical record Orders: Orders Complete Blood Count Auto Diff 6 Months Z79.899 - Other fci (current) drug therapy C Reactive Protein 6 Months Z79.899 - Other long wall mining machine helper (current) drug therapy Erythrocyte Sedimentation Rate 6 Months Z79.899 - Other fci (current) drug therapy XR DEXA axial skeleton 12/25/24 M81.0 - Age-related osteoporosis without current pathological fracture Vitamin D 25-OH Total 6 Months Z79.899 - Other long wall mining machine helper (current) drug therapy Comprehensive Met. Panel 6 Months Z79.899 - Other long wall mining machine helper (current) drug therapy Medications: Changed From methotrexate sodium 15 mg (6 x 2.5 mg) PO QWEEK 90 days 78 tabs 1RF M13.80 - Other specified arthritis, unspecified site To methotrexate sodium 12.5 mg (5 x 2.5 mg) PO QWEEK 65 tabs 1RF 90 days M13.80 - Other specified arthritis, unspecified site Refilled folic acid 1 mg PO DAILY 90 tabs 1RF M13.80 - Other specified arthritis, unspecified site Coding Level of Care Code Est Pt Level 4 (93885) Complex EM visit Add On G2211 Diagnoses Seronegative arthritis M13.80 Polyarticular osteoarthritis M15.9 Age-related osteoporosis without current pathological fracture M81.0 Osteoporosis type: age-related Presence of current pathological fracture: without current pathological fracture long-term methotrexate user Z79.631
[2024-10-31 14:13] VITALS: BP 132/80; PULSE 70; O2SAT 96; BMI 38.6
--- OUTSIDE RECORDS SUMMARY | 2024-10-31 16:18 | XMS_ITS | Clinical Summary ---
Author Organization [facility] Address [address] [place] [address] Phone Care Team Providers Care International Logistics Coordinator Name Role Phone Mikey Buenrostro Primary Care Provider [phone] Allergies Active Allergy Reactions Criticality Noted Date [...] infection 03/31/2023 Acute nontraumatic kidney injury 03/31/2023 [facility] current use of methotrexate 03/31/2023 Osteoporosis 03/31/2023 [...] Orders Only [facility] [address] [address] Rahul Cooley MD from Last [...] Office Visit [facility] [address] [place] [id number] Rahul Cooley MD [address] [address] Health Maintenance Due Date Last Done Comments Breast Cancer Screening 1955 Pneumococcal Vaccine: 50+ Ye ars (1 of 2 - PCV) 07/14/1975 Colorectal Cancer Screening: Annual FOBT 2005 Colorectal Cancer Screening: Colonoscopy 2005 Colorectal Cancer Screening: Sigmoidoscopy 2005 Diabetes: Ophthalmology Exam 10/22/2022 Diabetes: Pedal Pulse Checked 10/22/2022 Diabetes: Sensory Foot Exam 10/22/2022 Diabetes: Visual Foot Exam 10/22/2022 Influenza Vaccine (#1) 2024 Diabetes: Hemoglobin A1C 01/24/2025 10/25/2024 Hepatitis B Vaccine Aged Out No longe r eligible based on patient's age to complete this topic Procedures Procedure Name Priority Date/Time Associated Diagnosis Comments PROTEIN / CREATININE RATIO, URINE Routine 10/25/2024 8:46 AM EDT ALBUMIN, URINE, RANDOM Routine 10/25/2024 8:46 AM EDT URINALYSIS WITH MICROSCOPIC Routine 10/25/2024 8:46 AM EDT VITAMIN D 25 HYDROXY Routine 10/25/2024 8:38 AM EDT FERRITIN Routine 10/25/2024 8:38 AM EDT IRON PANEL (FE, TIBC, TSAT) Routine 10/25/2024 8:38 AM EDT MAGNESIUM Routine 10/25/2024 8:38 AM EDT PHOSPHATE ( PHOSPHORUS) Routine 10/25/2024 8:38 AM EDT URIC ACID Routine 10/25/2024 8:38 AM EDT BASIC METABOLIC PANEL Routine 10/25/2024 8:38 AM EDT HEMOGLOBIN A1C Routine 10/25/2024 8:38 AM EDT CBC AND DIFFERENTIAL Routine 10/25/2024 8:38 AM EDT from Last 3 Months Results * (ABNORMAL) Protein, Total, Random Urine w/Creatinine (Protein/Creat Ratio) (10/25/2024 8:46 AM EDT) Protein Urine Random 18(H) <12 mg/dL See order comments Protein/Creatin ine Ratio, Urine 0.07 <0.2 See order comments Comment: The spot urine protein:creatinine ratio may increase to 0.3 during normal . 10/25/2024 8:46 AM EDT 10/25/2024 8:46 AM EDT Rahul Cooley MD LAB URINE ORDERABLES Final Result Performing Organization Address [facility] Co de Phone Number H[place]YO See order comments [place] [address] * Albumin, urine, random (10/25/2024 8:46 AM EDT) Creatinine, Urine 267.75 mg/dL Se e order comments Urine Microalbumin 59.0 mg/L See order comments Microalbumin/Crea tinine Ratio 22.0 <30 ug/mg cr See order comments Comment: Albumin/Creatinine Ratio Reference Ranges: Normal: < 30 ug/mg creatinine Microalbuminuria: 30 - 300 ug/mg creatinine Clinical Albuminuria: > 300 ug/mg creatinine 10/25/2024 8:46 AM EDT 10/25/2024 8:46 AM EDT Rahul Cooley MD LAB URINE ORDERABLES Final Result Performing Organization Address [facility] Co de Phone Number [place] See order comments [place] [address] * Urinalysis with microscopic (10/25/2024 8:46 AM EDT) Color Urine Yellow See orde r comments Appearance Urine Clear See order comments pH Urine 5.5 5.0 - 9.0 See order comments Glucose Urine Negative Negative mg/dL See order comments Blood, Urine Negative Negative See ord er comments Specific Delano Urine 1.025 1.005 - 1.025 See order comments Protein Urine Trace Neg-Trace mg/dL See order comments Ketones, Urine Negative Negative mg/dL See order comments Nitrite, Urine Negative Negative See o rder comments Leukocyte Esterase Urine Negative Negative See order comments RBC, Urine 0-2 0 - 2 /HPF See orde r comments WBC 0-5 0 - 5 /HPF See order comments Squamous Epithelial, Urine 0-2 0 - 2 /HPF See order comments Bacteria, Urine None Seen None Seen See order comments Hyaline Casts, Urine 0-2 0 - 2 /LPF See order comments 10/25/2024 8:46 AM EDT 10/25/2024 8:46 AM EDT Rahul Cooley MD LAB URINE ORDERABLES Final Result Performing Organization Address [facility] de Phone Number ALBION See order comments [place] [address] * Iron Panel (Fe, TIBC, TSAT) (10/25/2024 8:38 AM EDT) Iron 65 30 - 160 mcg/dL See order comments TIBC 260 228 - 428 mcg/dL See order comments Iron Saturation (TSat) 25 15 - 50 % See order comments UIBC 195 ug/dL See order comments 10/25/2024 8:38 AM EDT 10/25/2024 8:38 AM EDT Rahul Cooley MD LAB BLOOD ORDERABLES Final Result Performing Organization Address [facility] Phone Number ALBION See order comments [place] [address] * (ABNORMAL) Vitamin D 25 Hydroxy (10/25/2024 8:38 AM EDT) Vitamin D, 25-Hydroxy 28.3(L) >30 ng/mL See order comments Comment: Health Based Reference Values* < 20 ng/mL Deficient 20-30 ng/mL Insufficient > 30 ng/mL Sufficient *Heidi CHEEMA. N Engl J Med. 2007;357:266-280 There is no well-established upper level of normal vitamin D levels. Some laboratories use 50 ng/mL as an upper limit of normal. However, toxicity is patient-dependent and may occur at any level. Careful correlation with the patient's presentation is necessary and, if there is concern for vitamin D toxicity, treatment should be considered irrespective of the serum level. Care must be taken in interpreting Vitamin D results from different laboratories and methodologies. Published data demonstrated that results from patients undergoing hemodialysis may show a negative bias when tested with various automated 25-OH vitamin D assays when compared to LC-MS/MS. When testing samples from patients whose predominant form of Vitamin D is Vitamin D2, such as patients receiving Vitamin D2 supplementation, results that are subtherapeutic should be confirmed with another method such as LC-MS/MS. 10/25/2024 8:38 AM EDT 10/25/2024 8:38 AM EDT us Rahul Cooley MD LAB BLOOD ORDERABLES Final Result AL[place]ION See order comments [place] [address] * CBC and Differential (10/25/2024 8:38 AM [...] 8:38 AM EDT 10/25/2024 8:38 AM EDT Rahul Cooley MD LAB BLOOD ORDERABLES Final Result Performing Organization Address [facility] Co de Phone Number HOLKE See order comments [place] [address] * (ABNORMAL) Uric Acid (10/25/2024 8:38 AM EDT) Pathologist [facility] Uric Acid 6.0(H) 2.4 - 5.7 mg/dL See order comments 10/25/2024 8:38 AM EDT 10/25/2024 8:38 AM EDT Rahul Cooley MD LAB BLOOD ORDERABLES Final Result Performing Organization Address [facility] Co de Phone Number [place] See order comments [place] [address] * Phosphorus (10/25/2024 8:38 AM EDT) Phosphorus, Serum 3.3 2.7 - 4.5 mg/dL See order comments 10/25/2024 8:38 AM EDT 10/25/2024 8:38 AM EDT us Rahul Cooley MD LAB BLOOD ORDERABLES Final Result [facility] See order comments [place] [address] * Magnesium (10/25/2024 8:38 AM EDT) Magnesium 1.9 1.6 - 2.6 mg/dL See order comments 10/25/2024 8:38 AM EDT 10/25/2024 8:38 AM EDT us Rahul Cooley MD LAB BLOOD ORDERABLES Final Result Performing Organization Address [facility] Co de Phone Number [facility] See order comments [place] [address] * (ABNORMAL) Hemoglobin A1c (10/25/2024 8:38 AM EDT) Hemoglobin A1C 6.4(H) <6.0 % See o rder comments Comment: Hemoglobin A1C Reference Range Adults: 4.8 - 6.0 % Non diabetic: < 6.0 % Goal: < 7.0 % Additional Action Suggested: > 8.0 % Note: Hemoglobin A1c results are invalid for patients with abnormal amounts of HbF. Blood transfusions may impact the HbA1c concentration in the patient sample. Estimated Average Glucose 137 mg/dL See order comments Comment: eAG = Estimated average glucose which is %A1C expressed as average glucose, using the formula of the [id number]-[id number] Average Glucose study (ADAG), Diabetes Care, Vol.31,#8, 2007 10/25/2024 8:38 AM EDT 10/25/2024 8:38 AM EDT us Rahul Cooley MD LAB BLOOD ORDERABLES Final Result Performing Organization Address [facility] Co de Phone Number [place] See order comments [place] [address] * Ferritin (10/25/2024 8:38 AM EDT) Ferritin 50 10 - 250 ng/mL See order comments 10/25/2024 8:38 AM EDT 10/25/2024 8:38 AM EDT Rahul Cooley MD LAB BLOOD ORDERABLES Final Result Performing Organization Address [facility] Co de Phone Number VJ See order comments [place] [address] * (ABNORMAL) Basic Metabolic Panel (10/25/2024 8:38 AM EDT) Sodium 143 135 - 145 mmol/L See order comments Potassium 3.6 3.3 - 5.1 mmol/L See order comments Chloride 105 96 - 108 mmol/L See order comments Bicarbonate (CO2) 31(H) 22 - 29 mmol/L See order comments Anion Gap 11(L) 12 - 20 See order comments BUN 16 9 - 16 mg/dL See order comments Creatinine Serum 1.17 0.5 - 1.4 mg/dL See order comments eGFR (Calc) 46 See orde r comments Comment: Chronic Kidney Disease: Estimated GFR < 60 mL/min/1.73m2 Severe Kidney Disease: Estimated GFR < 15 mL/min/1.73m2 Glucose 146(H) 60 - 115 mg/dL See order comments Calcium 9.7 8.4 - 10.2 mg/dL See order comments 10/25/2024 8:38 AM EDT 10/25/2024 8:38 AM EDT Rahul Cooley MD LAB BLOOD ORDERABLES Final Result Performing Organization Address [facility] Co de Phone Number VJ See order comments [place] [address] from Last 3 Months Insurance [facility] [employer] ([id number]) [facility] One [employer] Dual SNP ([id number]) Care Teams International Logistics Coordinator Relationship Specialty Start Date End Date Mikey Buenrostro PA [address] [facility], [address] [place] [address] PCP - General Physician Physical Testing Supervisor 01/12/24
--- OUTSIDE RECORDS SUMMARY | 2024-10-31 16:18 | XMS_ITS | Patient Health Record ---
Author Organization [facility] Address [address] [place] [address] Care Team Providers Care Sweeping Compound Blender Name Role Phone Aristeo Eng [phone] Reason For Referral No Information Plan Of Treatment No Information
--- OUTSIDE RECORDS SUMMARY | 2024-10-31 16:18 | XMS_ITS | Clinical Summary ---
Author Organization [address] [facility] Address [address] [place] [address] Phone Care Team Providers Care Agronomy Technician Name Role Phone Dalila Rodriguez MD Primary Care Provider [phone] Allergies Active Allergy Reactions Criticality Noted Date [...] AM EDT Office Visit Orthopedic Surgery - [address] [address] Adam Cruz DPM Controlled type [...] PM EDT Office Visit Orthopedic Surgery - [place] [address] [facility] [address] [place] [id number] Adam Cruz, MAILE [address] [facility] [address] [place] [address] Health Maintenance Due Date Last Done Comments [...] ID:[id number] Group ID:[id number] Type:Not on file Address: [place] [address] [address] [address] Care Teams Agronomy Technician Relationship Specialty Start Date End Date Dalila Rodriguez MD [address] [place] [address] , [address] [facility] D/B/A: [facility] VALENTINE Rashid PCP - General 06/30/22
== END 2024-10-31 14:46 | disposition home or self-care (01) ==
LOC: HO.RHES 13:49
PROVIDERS: PCP Physician Assistant; Visit Provider Student in an Organized Health Care Education/Training Program
DX: M06.09 Rheumatoid arthritis without rheumatoid factor, multiple sites (principal); M15.9 Polyosteoarthritis, unspecified; M81.0 Age-related osteoporosis without current pathological fracture; Z79.631 Long term (current) use of antimetabolite agent
CPT/HCPCS: 99214; G2211

== ENCOUNTER → 2024-10-31 13:48 | Outpatient (BNVA) | payer OTHER, SELFPAY | PROVIDERS: PCP Physician Assistant; Visit Provider Student in an Organized Health Care Education/Training Program | DX: M13.80 Other specified arthritis, unspecified site (principal); M06.00 Rheumatoid arthritis without rheumatoid factor, unspecified site; M81.0 Age-related osteoporosis without current pathological fracture; Z79.631 Long term (current) use of antimetabolite agent; Z79.899 Other long term (current) drug therapy | CPT/HCPCS: 99212 ==

== ENCOUNTER 2024-12-03 16:25 | Emergency (ER) | payer OTHER, SELFPAY ==
--- NOTE | ~2024-12-03 | XR_ITS ---
CLINICAL HISTORY: chest pain 2 view chest x-ray Comparison: CT/SR - CT CHEST W IV CON - 04/23/24 16:07 EDT Findings: There are linear opacities at the medial aspects of the bilateral lung bases. No consolidation or pleural effusion. Heart size is normal. Chronic deformity of the right ribcage. No acute displaced fracture. IMPRESSION: Linear opacities of the medial aspects of the lung bases likely secondary to atelectasis. This document has been electronically signed by: Mallory Wick MD on 12/03/2024 19:36:46
--- NOTE | 2024-12-03 16:26 | ECG_ITS ---
Test Reason : chest pain Blood Pressure : */* mmHG Vent. Rate : 81 BPM Atrial Rate : 81 BPM P-R Int : 194 ms QRS Dur : 88 ms QT Int : 396 ms P-R-T Axes : 66 -10 39 degrees QTcB Int : 460 ms Normal sinus rhythm Normal ECG When compared with ECG of 08-Feb-2018 02:03, No significant change was found Referred By: Generic ED Physician Electronically Signed By: MARYSE ARDON
--- NOTE | 2024-12-03 16:59 | ED_ITS ---
HPI - General Adult General Chief complaint: Chest Pain Stated complaint: chest pain Time Seen by Provider: 12/03/24 20:30 Source: patient Mode of arrival: ambulatory Limitations: language barrier ([employer] Worker services utilized.) History of Present Illness ED Provider: Bairon LEES HPI narrative: The patient is a 69-year-old female with a history of asthma, morbid obesity with MELBA, hypertension, hyperlipidemia, diabetes, hypothyroidism, GERD, and polyarthralgia presenting to the ED for evaluation of 1 week of substernal chest pressure described as congestion, with associated nonproductive cough and mild shortness of breath. Patient denies associated fever/chills, nausea, vomiting, diarrhea, abdominal pain, hemoptysis, pleurisy, headache, sore throat, rhinorrhea, recent sick contacts, or recent trauma. The patient reports she has been using her asthma inhalers as directed, however has not used her albuterol nebulizer as it makes her feel jittery. The patient reports she contacted her PCP who advised her to come to the ED for evaluation. Related Data Home Medications ?Medication ?Instructions ?Recorded ?Confirmed mirtazapine 7.5 mg tablet 7.5 mg PO BEDTIME 09/02/20 0 10/31/24 doxepin 10 mg capsule 10 mg PO BEDTIME 12/24/22 spironolactone 25 mg tablet 12.5 mg PO DAILY 12/24/22 10/31/24 acetaminophen 650 mg 650 mg PO Q12H PRN 02/21/23 10/31/24 tablet,extended release (Tylenol Arthritis Pain) bupropion HCl 150 mg 24 hr tablet, 150 mg PO QAM 02/2310/31/24 extended release nebulizers 04/08/23 10/31/24 amlodipine 5 mg tablet 5 mg PO DAILY 11/07/2310/31 Previous Rx's ?Medication ?Instructions ?Recorded CPAP (CPAP Machine/Device) #1 ea 05/01/20 miscellaneous medical supply #1 ea 05/01/20 (Blood Pressure Cuff) duloxetine 60 mg capsule,delayed 60 mg PO DAILY #90 ca ps 07/17/20 release (Cymbalta) blood pressure monitor #1 ea 12/18/21 cane #1 ea 12/18/21 blood-glucose meter (FreeStyle #1 ea 03/11/22 Lite Meter kit) bath mat #1 ea 08/09/22 disposable gloves #100 ea 08/09/22 handheld showerhead #1 ea 08/03/23 Bed rails #1 ea 08/31/23 Shower gel #1 ea 08/31/23 miscellaneous medical supply 1 ea miscellaneous DAILY 99 days 09/12/23 #1 ea miscellaneous medical supply 1 ea miscellaneous DAILY 99 days 09/12/23 #1 ea compr.stocking,knee,long,large #2 ea 09/13/23 lidocaine HCl 4 % topical liquid 1 ea topical TID pain #74 mL 11/07/23 roll-on (Theraworx Pain Relief) cetirizine 10 mg tablet 10 mg PO DAILY #90 tabs 10/31 fluticasone propionate 50 2 spray intranasal DAILY #15 .8 mL 11/16/23 mcg/actuation nasal spray,suspension albuterol sulfate 2.5 mg/0.5 mL 2.5 mg (0.5 mL) inhala tion Q20M 11/30/23 solution for nebulization PRN shortness of breath or wheezing #30 ea albuterol sulfate 90 mcg/actuation 2 inh inhalation Q6 H PRN shortness 11/30/23 aerosol inhaler of breath or wheezing 30 day s #8.5 grams cholecalciferol (vitamin D3) 25 25 mcg PO DAILY 90 day s #90 caps 11/30/23 mcg (1,000 unit) capsule fluticasone propionate 230 2 puff inhalation Q12H 30 d ays #12 11/30/23 mcg-salmeterol 21 mcg/actuation grams HFA inhaler (Advair HFA) lancets 28 gauge (FreeStyle #100 ea 11/30/23 Lancets) adult diapers pull-ups #240 ea 04/02/24 blood sugar diagnostic (FreeStyle #50 ea 04/02/24 Lite Strips) metoprolol tartrate 25 mg tablet 25 mg PO BID #180 tab s 05/23/24 gabapentin 100 mg capsule 100 mg PO BID pain 30 days # 60 caps 07/18/24 levothyroxine 25 mcg tablet 25 mcg PO DAILY 90 days #9 0 tabs 07/18/24 montelukast 10 mg tablet 10 mg PO BEDTIME 30 days #30 tabs 09/10/24 (Singulair) azithromycin 250 mg tablet See Rx Instructions PO .COM PLEX #6 10/01/24 tabs incontinence wipes #4 ea 10/01/24 meclizine 25 mg tablet 25 mg PO DAILY #90 tabs 09/08 07/01 pantyliner #120 ea 10/01/24 folic acid 1 mg tablet 1 mg PO DAILY #90 tabs 10/31 methotrexate sodium 2.5 mg tablet 12.5 mg (5 x 2.5 mg) PO QWEEK 90 10/31/24 days #65 tabs omeprazole 20 mg capsule,delayed 20 mg PO DAILY #90 ca ps 11/06/24 release azithromycin 250 mg tablet See Rx Instructions PO .COM PLEX #6 12/03/24 (Zithromax Z-Brandon) tabs dulaglutide 1.5 mg/0.5 mL 1.5 mg (0.5 mL) subcut QWEEK 4 12/03/24 subcutaneous pen injector weeks #2 mL (Trulicity) prednisone 20 mg tablet 60 mg (3 x 20 mg) PO DAILY 5 days 12/03/24 #15 tabs Allergies Allergy/AdvReac Type Severity Reaction Status Date / Time acetaminophen (Ultracet) Allergy Intermediate anaphylaxis Verified 12/03/24 17:02 tramadol (From ULTRACET) Allergy Intermediate ANAPHYLAXIS Verified 12/03/24 17:02 lisinopril (Lisinopril) Allergy Mild SWELLING, Verified 12/03/24 17:02 anaphylaxis Review of Systems 2 Review of Systems: Yes all other systems are reviewed and are negative PMF Past Medical History Medical History Pulmonary hypertension Atelectasis Diastolic dysfunction Chronic restrictive lung disease Murmur (~08/31/21) Moderate asthma Surgical History History of colonoscopy (~2018) History of laparoscopic cholecystectomy (~2009) History of tubal ligation (~1991) Family History Family History Father No problems noted. Mother Lymphoma Maternal Aunt Diabetes Paternal Uncle Diabetes Brother No problems noted. Sister No problems noted. Sister No problems noted. Son No problems noted. Daughter No problems noted. Daughter No problems noted. Social History Social History (Reviewed 10/31/24 @ 14:13 by Xiomara Mcdaniel [facility] Housing: Apartment Alcohol intake: never Patient Tobacco Use Status: Never used Tobacco e-Cigarette/Vaping Use: Never Used Second Hand Smoke Exposure: No Advance Directives: No Advance Directives Information Provided: No service: No Current occupational status: disabled Cognitive needs: No Hearing needs: No Vision needs: No Physical Exam ED Vital Signs: Vital Signs - 24 hr 12/03/24 17:00 12/03/24 20:34 12/03/24 21:06 Temperature 97.1 F 98.6 F 98.6 F Pulse Rate 85 78 78 Respiratory Rate 16 18 18 Blood Pressure 176/78 H 145/62 H 145/62 H Pulse Oximetry 97 97 97 Oxygen Delivery Method Room Air Room Air Room Air BMI result Body Mass Index 58.9 CONSTITUTIONAL: The patient appears non-toxic, well nourished and in no acute distress. Vital signs as documented. HEAD: Atraumatic, normocephalic. EYES: EOMs grossly intact, pupils equal, conjunctiva clear, no exudate. ENT: Nares patent, no discharge. Airway patent, no audible stridor, visible mucosa is pink and moist without noted lesions. NECK: Trachea is midline, no obvious masses or gross abnormalities. CHEST: Symmetric movement, normal appearance. LUNGS: LS present and CTAB, no w/r/r. Non-labored work of breathing. CARDIAC: Regular Rhythm, S1/S2 appreciated, no murmurs, rubs or gallops. ABDOMEN: Abdomen soft and non-tender x4 quadrants, no palpable masses or organomegaly. : Deferred. EXTREMITIES: Normal tone, moves all extremities spontaneously without reported pain. No obvious acute injury or deformity noted. NEURO: Alert and oriented x3, CN II-XII appear grossly intact. Cerebellar Functioning grossly intact. No obvious sensory or motor deficits. Speech clear and appropriate. PSYCH: normal affect, appropriate eye contact, fluid speech, with appropriate response to questioning. No reported suicidality or homicidality. SKIN: Warm, dry, color appropriate, normal turgor. No rashes noted. Course Course Course Narrative: Rapid medical examination performed in triage by Allyn Boogie PA-C. Patient is a 69 year old assigned female at presenting to the emergency department with chest pain. Patient states chest pressure over the last few days that has now become constant. Detailed physical exam and review of systems are deferred to the district manager primary care sales. EKG, labs, imaging and swabs ordered. Patient placed back in the waiting room pending room availability and results. Medications Administered Discontinued Medications Generic Name Dose Route Start Last Admin Trade Name Kim PRN Reason Stop Dose Admin Azithromycin 500 mg 12/03/24 20:48 12/03/24 21:04 Azithromycin 500 Mg Tablet PO 12/03/24 20:49 500 mg ONCE ONE Administration Prednisone 60 mg 12/03/24 20:48 12/03/24 21:04 Prednisone 20 Mg Tablet PO 12/03/24 20:49 60 mg ONCE ONE Administration Medical Decision Making Medical Decision Making MDM Narrative: 8:49 PM 12/03/2024 (Feliberto LEES): The patient is a 69-year-old female with a history of asthma, morbid obesity with MELBA, hypertension, hyperlipidemia, diabetes, hypothyroidism, GERD, and polyarthralgia presenting to the ED for evaluation of 1 week of substernal chest pressure described as congestion, with associated nonproductive cough and mild shortness of breath. Patient denies associated fever/chills, nausea, vomiting, diarrhea, abdominal pain, hemoptysis, pleurisy, headache, sore throat, rhinorrhea, recent sick contacts, or recent trauma. The patient reports she has been using her asthma inhalers as directed, however has not used her albuterol nebulizer as it makes her feel jittery. The patient reports she contacted her PCP who advised her to come to the ED for evaluation. On exam the patient is in no acute distress, lung sounds clear throughout, no other acute findings. The patient's laboratory evaluation shows no leukocytosis, anemia, electrolyte abnormality, or RAMONA. The patient's LFTs are unremarkable, lipase is normal. Troponin is negative x2, EKG is nonischemic. Chest x-ray shows no focal consolidation, mild atelectasis. The patient will be treated with the azithromycin and prednisone for presumed acute bronchitis with underlying asthma. Patient and patient's family stated they are comfortable with this plan. Patient will follow up with PCP for re-evaluation. Admission/Observation Consideration of admission/observation: Escalation of care including admission/observation considered Lab Data MDM Lab Attestation statement: I reviewed the patient's lab results. 12/03/24 17:12 12/03/24 17:12 Labs: Lab Results 12/03/24 12/03/24 Range/Units 17:12 19:34 WBC 8.8 (4.8-10.8) X10*3/uL RBC 4.40 (4.20-5.50) X10*6/uL Hgb 12.8 (12.0-16.0) g/dl Hct 39.4 (37.0-47.0) % MCV 89.5 (80.0-98.0) fL MCH 29.1 (27.0-33.0) pg MCHC 32.5 (31.0-35.0) g/dl RDW 12.6 (11.0-16.0) % Plt Count 249 (160-400) X10*3/uL MPV 10.3 (9.4-12.3) fL Immature Gran % (Auto) 0.1 (0.0-0.4) % Neut % (Auto) 55.6 (45-73) % Lymph % (Auto) 35.7 (20-40) % Grant % (Auto) 6.4 (2-11) % Eos % (Auto) 1.7 (0-4) % Baso % (Auto) 0.5 (0-2) % Lymph # (Auto) 3.1 (1.2-4.9) X10*3/uL Grant # (Auto) 0.6 (0.1-1.2) X10*3/uL Eos # (Auto) 0.2 (0.0-0.4) X10*3/uL Baso # (Auto) 0.0 (0.0-0.2) X10*3/uL Abs Immat Gran (auto) 0.01 (0.00-0.03) X10*3/uL Absolute Neuts (auto) 4.9 (2.0-8.3) x10*3/uL Absolute Nucleated RBC 0.000 (0.0-0.012) X10*3/uL Nucleated RBC % (auto) 0.0 (0.0-0.2) /100WBC PT 13.7 H (10.9-12.4) SEC INR 1.2 H (0.9-1.1) Sodium 145 (135-145) mmol/L Potassium 4.2 (3.3-5.1) mmol/L Chloride 107 (96-108) mmol/L Carbon Dioxide 29 (22-29) mmol/L Anion Gap 13 (12-20) BUN 21 H (9-16) mg/dL Creatinine 0.97 (0.5-1.4) mg/dL Estim Creat Clear Calc 77.5 Estimated GFR 57 Random Glucose 180 H (60-115) mg/dL Calcium 9.6 (8.4-10.2) mg/dL Magnesium 1.8 (1.6-2.6) mg/dL Total Bilirubin 0.7 (0.0-1.0) mg/dL AST 24 (5-31) U/L ALT 18 (0-31) U/L Alkaline Phosphatase 90 (39-117) U/L Troponin I High Sens < 2.7 < 2.7 (<3.5-17.0) ng/L NT-Pro-B Natriuret Pep 41.6 (<300) pg/mL Total Protein 7.6 (6.5-8.0) g/dL Albumin 4.2 (3.5-5.0) g/dL Lipase 36 (8-78) U/L COVID-19 (NESTOR) Negative (Negative) COVID-19 Clin Com See Note Influenza Type A (JERRI) Negative (Negative) Influenza Type B (JERRI) Negative (Negative) Influenza A & B Note See Note Independent Interpretation I performed an independent interpretation of an: EKG (EKG shows sinus rhythm with a rate of 81, no evidence of acute ischemia, no ST elevation, no ectopy. QTC 460. Compared to previous on 02/08/2018 there are no significant morphology changes. ) Radiology Impression Discussion of test interpretation with radiology: I have reviewed the radiologist's reading. Radiologist Impression: 2 view chest x-ray Comparison: CT/SR - CT CHEST W IV CON - 04/23/24 16:07 EDT Findings: There are linear opacities at the medial aspects of the bilateral lung bases. No consolidation or pleural effusion. Heart size is normal. Chronic deformity of the right ribcage. No acute displaced fracture. IMPRESSION: Linear opacities of the medial aspects of the lung bases likely secondary to atelectasis. This document has been electronically signed by: Mallory Wick MD on 12/03/2024 19:36:46 External Record Review External record reviewed: Outpatient record and Prior outpatient labs Prescription Management I considered prescription management with: Pain Medication and Antibiotic Discharge Plan Discharge Clinical Impression: Acute bronchitis Qualifiers: Bronchitis organism: unspecified organism Qualified Code(s): J20.9 - Acute bronchitis, unspecified Patient Disposition: Home, Self-Care Instructions: Acute Bronchitis (ED) Additional Instructions: Ant por elegir el [facility] para echevarria atenci?n m?dica de hoy. Afortunadamente, echevarria evaluaci?n de laboratorio, electrocardiograma, hisopado viral, radiograf?a de t?rax y examen de hoy son tranquilizadores. No se encontraron evidencias de ninguna causa card?reza, bacteriana, an?peggy, metab?lica ni de ninguna otra causa peligrosa para ignacio s?ntomas de hoy. En neal momento, no hay indicaci?n de ingreso hospitalario ni de observaci?n continua en urgencias, y es seguro darle de ernesto. Echevarria presentaci?n y evaluaci?n diagn?stica indican nishant probable enfermedad viral que causa inflamaci?n de las v?as respiratorias superiores, nishant afecci?n conocida ken bronquitis, que se complica por echevarria asma subyacente, lo que provoca presi?n/congesti?n en el pecho y aumento de la tos. [place] prednisona diariamente hay los pr?ximos 5 d?as seg?n las indicaciones, y tambi?n azitromicina hay los pr?ximos 5 d?as. Contin?e tomando todos ignacio medicamentos recetados regularmente, incluyendo ignacio inhaladores para el asma y echevarria nebulizador de albuterol. Debe bebeto dosis alternas (escalonadas) de ibuprofeno 600 mg y Tylenol 1000 mg cada 4 horas, seg?n sea necesario, para cualquier congesti?n o dolor adicional. Mant?ngase vel hidratado y descanse lo suficiente. Consulte con echevarria m?dico de cabecera para nishant reevaluaci?n, un manejo adicional de ignacio s?ntomas y atenci?n preventiva continua. Si no tiene un m?dico de cabecera, llame a [facility] al [phone] para asignarle un nuevo m?dico de cabecera. Mientras espera asignarle un nuevo m?dico de cabecera, puede llamar a nuestra [facility]n [facility] al [phone] para necesidades que no lise de emergencia. Regrese al servicio de urgencias si presenta un cambio repentino o grave en ignacio s?ntomas, fiebre superior a 38 ?C que no mejora con Tylenol o ibuprofeno, v?mitos recurrentes o cualquier otro s?ntoma o inquietud nuevo o que empeore. Thank you for choosing [facility] Emergency Department for your care today. Thankfully your laboratory evaluation, EKG, viral swabs, chest x-ray, and exam today are all reassuring. There was no evidence of any cardiac, bacterial, anemic, metabolic, or other dangerous cause for your symptoms today. At this time there is no indication for admission to the hospital or continued ED observation, and it is safe to discharge you home. Your presentation and workup is consistent with likely a viral illness causing inflammation of your upper airways , a condition known as bronchitis, which is complicated by your underlying asthma, resulting in your chest pressure/congestion and increased cough. Please take prednisone daily for the next 5 days as directed, please also take azithromycin for the next 5 days. Please continue taking all your other regularly prescribed medications including your asthma inhalers, and your albuterol nebulizer. You should take alternating (staggered) doses of ibuprofen 600mg and Tylenol 1000mg every 4 hours as needed for any additional congestion, or pain. Please stay well hydrated and get plenty of rest. Please follow up with your primary care physician for re-evaluation, additional management of your symptoms, and continued preventative care. If you do not have a primary care physician, please call the [facility] at [phone] to establish a new primary care physician. While waiting to establish your new primary care physician, you can call our [facility] at [phone] for non-emergency needs. Please return to the emergency department if you develop a severe or sudden change in your symptoms, a fever over 100.4 that does not improve with Tylenol or Ibuprofen, recurrent vomiting, or any other new or worsening symptoms or concerns. Prescriptions: New azithromycin [Zithromax Z-Brandon] 250 mg tablet See Rx Instructions .ROUTE .COMPLEX Qty: 6 0RF Rx Instructions: For 250 mg dose pack: take 500 mg today (day 1), then 250 mg for 4 days (days 2-5) prednisone 20 mg tablet 60 mg PO DAILY 5 Days Qty: 15 0RF No Action duloxetine [Cymbalta] 60 mg capsule,delayed release(DR/EC) 60 mg PO DAILY Qty: 90 1RF (DME) blood pressure monitor Kit See Rx Instructions .Route Qty: 1 0RF Rx Instructions: As directed (DME) cane Device See Rx Instructions .Route Qty: 1 0RF Rx Instructions: As directed (DME) disposable gloves Misc See Rx Instructions .Route Qty: 100 11RF Rx Instructions: latex free gloves, large (DME) bath mat large See Rx Instructions .Route .MEDSUPPLY Qty: 1 0RF Rx Instructions: As directed (DME) handheld showerhead See Rx Instructions .Route .MEDSUPPLY Qty: 1 0RF Rx Instructions: As directed (DME) Shower gel See Rx Instructions .Route .MEDSUPPLY Qty: 1 0RF Rx Instructions: As directed (DME) Bed rails See Rx Instructions .Route .MEDSUPPLY Qty: 1 0RF Rx Instructions: As directed miscellaneous medical supply Misc 1 ea miscellaneous DAILY 99 Days Qty: 1 0RF Rx Instructions: NEED FOR SAFETY RAILS FOR TOILET SEAT miscellaneous medical supply Misc 1 ea miscellaneous DAILY 99 Days Qty: 1 0RF Rx Instructions: NEED FOR DETACHABLE SHOWER HEAD (DME) compr.stocking,knee,long,large Misc See Rx Instructions .Route Qty: 2 0RF Rx Instructions: As directed fluticasone propionate 50 mcg/actuation spray,suspension 2 spray intranasal DAILY Qty: 15.8 11RF Rx Instructions: administer into each nostril cetirizine 10 mg tablet 10 mg PO DAILY Qty: 90 11RF metoprolol tartrate 25 mg tablet 25 mg PO BID Qty: 180 1RF gabapentin 100 mg capsule 100 mg PO BID 30 Days Qty: 60 3RF levothyroxine 25 mcg tablet 25 mcg PO DAILY 90 Days Qty: 90 1RF montelukast [Singulair] 10 mg tablet 10 mg PO BEDTIME 30 Days Qty: 30 11RF omeprazole 20 mg capsule,delayed release(DR/EC) 20 mg PO DAILY Qty: 90 1RF Trulicity 1.5 mg/0.5 mL pen injector 1.5 mg subcut QWEEK 28 Days Qty: 2 3RF (DME) Blood Pressure Cuff Misc See Rx Instructions .ROUTE .MEDSUPPLY Qty: 1 0RF Rx Instructions: As directed (DME) CPAP Machine/Device Device See Rx Instructions .ROUTE .MEDSUPPLY Qty: 1 0RF Rx Instructions: As directed (DME) blood-glucose meter [FreeStyle Lite Meter] Kit See Rx Instructions .Route Qty: 1 0RF Rx Instructions: As directed mirtazapine 7.5 mg tablet 7.5 mg PO BEDTIME doxepin 10 mg capsule 10 mg PO BEDTIME spironolactone 25 mg tablet 12.5 mg PO DAILY amlodipine 5 mg tablet 5 mg PO DAILY lidocaine HCl [Theraworx Pain Relief] 4 % liquid roll-on 1 ea topical TID Qty: 74 1RF (DME) nebulizers Misc See Rx Instructions .Route Rx Instructions: As directed acetaminophen [Tylenol Arthritis Pain] 650 mg tablet extended release 650 mg PO Q12H PRN bupropion HCl 150 mg tablet extended release 24 hr 150 mg PO QAM albuterol sulfate 2.5 mg/0.5 mL solution for nebulization 2.5 mg inhalation Q20M PRN (Reason: shortness of breath or wheezing) Qty: 30 0RF Rx Instructions: for up to 3 doses albuterol sulfate 90 mcg/actuation HFA aerosol inhaler 2 inh inhalation Q6H PRN (Reason: shortness of breath or wheezing) 30 Days Qty: 8.5 11RF cholecalciferol (vitamin D3) 25 mcg (1,000 unit) capsule 25 mcg PO DAILY 90 Days Qty: 90 1RF fluticasone propion-salmeterol [Advair HFA] 230-21 mcg/actuation HFA aerosol inhaler 2 puff inhalation Q12H 30 Days Qty: 12 11RF (DME) lancets [FreeStyle Lancets] 28 gauge misc See Rx Instructions .Route Qty: 100 3RF Rx Instructions: Use 1 lancet once a day (DME) FreeStyle Lite Strips Strip See Rx Instructions .Route Qty: 50 11RF Rx Instructions: Use 1 strip once a day (DME) adult diapers pull-ups XL See Rx Instructions .Route .MEDSUPPLY Qty: 240 11RF Rx Instructions: As directed meclizine 25 mg tablet 25 mg PO DAILY Qty: 90 3RF azithromycin 250 mg tablet See Rx Instructions PO .COMPLEX Qty: 6 0RF Rx Instructions: For 250 mg dose pack: take 500 mg today (day 1), then 250 mg for 4 days (days 2-5) PO (DME) pantyliner large See Rx Instructions .Route .MEDSUPPLY Qty: 120 11RF Rx Instructions: As directed (DME) incontinence wipes package See Rx Instructions .Route .MEDSUPPLY Qty: 4 11RF Rx Instructions: 4 packages per month methotrexate sodium 2.5 mg tablet 12.5 mg PO QWEEK 90 Days Qty: 65 1RF folic acid 1 mg tablet 1 mg PO DAILY Qty: 90 1RF Referrals: Mikey Buenrostro PA-C [Primary Care Provider, Internal Medicine] Clinical Impression: Acute bronchitis Stand Alone Forms: Work/School Release Discharge Date/Time: 12/03/24 21:07 Print Language: Other
[2024-12-03 17:00] VITALS: BP 176/78; PULSE 85; RESP 16; TEMP 36.2; O2SAT 97; BMI 58.9
[2024-12-03 17:18] LABS: MANUAL DIFF FLAG NO
[2024-12-03 17:22] LABS: Hematocrit 39.4 % (37.0-47.0); Hemoglobin 12.8 g/dl (12.0-16.0); Imm Gran Abs Auto 0.01 X10*3/uL (0.00-0.03); Imm Gran Pct Auto 0.1 % (0.0-0.4); Lymphocytes Absolute Auto 3.1 X10*3/uL (1.2-4.9); Mean Corpuscular HGB Conc 32.5 g/dl (31.0-35.0); Mean Corpuscular Hemoglobin 29.1 pg (27.0-33.0); Mean Corpuscular Volume 89.5 fL (80.0-98.0); NRBC Abs Auto 0.000 X10*3/uL (0.0-0.012); NRBC Pct Auto 0.0 /100WBC (0.0-0.2); Platelet Count 249 X10*3/uL (160-400); Red Blood Count 4.40 X10*6/uL (4.20-5.50); White Blood Count 8.8 X10*3/uL (4.8-10.8)
[2024-12-03 17:34] LABS: Alanine Aminotransferase 18 U/L (0-31); Albumin Level 4.2 g/dL (3.5-5.0); Alkaline Phosphatase 90 U/L (39-117); Anion Gap 13 (12-20); Aspartate Amino Transferase 24 U/L (5-31); Blood Urea Nitrogen 21 mg/dL (9-16); Calcium 9.6 mg/dL (8.4-10.2); Carbon Dioxide 29 mmol/L (22-29); Chloride 107 mmol/L (96-108); Creatinine Clr Calc Pharmacy 77.5; Estimated Glomerular Filt Rate 57; INTERNATIONAL NORM RATIO 1.2 (0.9-1.1); Lipase 36 U/L (8-78); Magnesium 1.8 mg/dL (1.6-2.6); Potassium 4.2 mmol/L (3.3-5.1); Prothrombin Time 13.7 SEC (10.9-12.4); Sodium 145 mmol/L (135-145); Total Protein 7.6 g/dL (6.5-8.0)
[2024-12-03 17:40] LABS: COVID-19 Test Negative (Negative); IDNOW Serial# 08D9AD1C; IDNOW Serial# 58CA691E; Influenza B2 Negative (Negative)
[2024-12-03 17:41] LABS: NT Pro B Type Natriuretic Pept 41.6 pg/mL (<300); Troponin-I High Sensitivity < 2.7 ng/L (<3.5-17.0)
--- OUTSIDE RECORDS SUMMARY | 2024-12-03 19:34 | XMS_ITS | Patient Health Record ---
Author Organization [facility] Address [address] [place] [address] Care Team Providers Care Drag Down Name Role Phone Aristeo Eng [phone] Reason For Referral No Information Plan Of Treatment No Information
--- OUTSIDE RECORDS SUMMARY | 2024-12-03 19:34 | XMS_ITS | Clinical Summary ---
Author Organization [facility] Address [address] [place] [address] Phone Care Team Providers Care Cloth Burler Name Role Phone Mikey Buenrostro Primary Care Provider [phone] Allergies Active Allergy Reactions Criticality Noted Date [...] infection 03/31/2023 Acute nontraumatic kidney injury 03/31/2023 residential current use of methotrexate 03/31/2023 Osteoporosis 03/31/2023 [...] 40+ - severely obese 03/31/2023 Sinusitis 03/31/2023 Pain of multiple joints 03/31/2023 Tinea pedis 03/31/2023 Encounters Date Type Department Care Team Description 10/25/2024 Orders Only [facility] [address] [address] Rahul Cooley MD from Last [...] Office Visit [facility] [address] [place] [phone] Rahul Cooley MD [address] [facility] [address] [place] [address] Health Maintenance Due Date Last [...] URINE ORDERABLES Final Result Performing Organization Address [facility] Co de Phone Number [place] See order comments [place] [address] * Albumin, urine, random (10/25/2024 8:46 AM [...] URINE ORDERABLES Final Result Performing Organization Address [facility] Co de Phone Number [place] See order comments [place] [address] * Urinalysis with microscopic (10/25/2024 8:46 AM EDT) Color Urine Yellow See orde r comments Appearance Urine Clear See order comments pH Urine 5.5 5.0 - 9.0 See order comments Glucose Urine Negative Negative mg/dL See order comments Blood, Urine Negative Negative See ord er comments Specific [place] Urine 1.025 1.005 - 1.025 See order [...] URINE ORDERABLES Final Result Performing Organization Address [facility] Phone Number [place] See order comments [place] [address] * Iron Panel (Fe, TIBC, TSAT) (10/25/2024 [...] BLOOD ORDERABLES Final Result Performing Organization Address [facility] Phone Number [place] See order comments [place] [address] * (ABNORMAL) Vitamin D 25 Hydroxy (10/25/2024 [...] Cooley MD LAB BLOOD ORDERABLES Final Result [place] See order comments [place] [address] * CBC and Differential (10/25/2024 8:38 AM [...] BLOOD ORDERABLES Final Result Performing Organization Address [facility] Co de Phone Number [place] See order comments [place] [address] * (ABNORMAL) Uric Acid (10/25/2024 8:38 AM EDT) Pathologist [facility] Uric Acid 6.0(H) 2.4 - 5.7 mg/dL See order comments 10/25/2024 8:38 AM EDT 10/25/2024 8:38 AM EDT Rahul Cooley MD LAB BLOOD ORDERABLES Final Result Performing Organization Address City/State/[facility] Co de Phone Number [place] See order comments [place] [address] * Phosphorus (10/25/2024 8:38 AM EDT) Pathologist [facility] Phosphorus, Serum 3.3 2.7 - 4.5 mg/dL See order comments 10/25/2024 8:38 AM EDT 10/25/2024 8:38 AM EDT us Rahul Cooley MD LAB BLOOD ORDERABLES Final Result [place] See order comments [place] [address] * Magnesium (10/25/2024 8:38 AM EDT) Magnesium 1.9 1.6 - 2.6 mg/dL See order comments 10/25/2024 8:38 AM EDT 10/25/2024 8:38 AM EDT us Rahul Cooley MD LAB BLOOD ORDERABLES Final Result Performing Organization Address [facility] Co de Phone [facility] See order comments [place] [address] * (ABNORMAL) Hemoglobin A1c (10/25/2024 8:38 AM [...] average glucose, using the formula of the B1W-Wrdnboz Average Glucose study (ADAG), Diabetes Care, Vol.31,#8, 2007 10/25/2024 8:38 AM EDT 10/25/2024 8:38 AM EDT us Rahul Cooley MD LAB BLOOD ORDERABLES Final Result Performing Organization Address [facility] Co de Phone Number [place] See order comments [place] [address] * Ferritin (10/25/2024 8:38 AM EDT) Ferritin 50 10 - 250 ng/mL See order comments 10/25/2024 8:38 AM EDT 10/25/2024 8:38 AM EDT Rahul Cooley MD LAB BLOOD ORDERABLES Final Result Performing Organization Address [facility] Co de Phone Number [place] See order comments [place] [address] * (ABNORMAL) Basic Metabolic Panel (10/25/2024 8:38 [...] BLOOD ORDERABLES Final Result Performing Organization Address [facility] Co de Phone Number VJ See order comments [place] [address] from Last 3 Months Insurance [facility] One [employer] Dual SNP ([id number]) [facility] One Care Dual SNP ([id number]) Care Teams Cloth Burler Relationship Specialty Start Date End Date Mikey Buenrostro PA [address] [facility], [address] [place] [address] PCP - General Physician Research Phlebotomist 01/12/24
--- OUTSIDE RECORDS SUMMARY | 2024-12-03 19:35 | XMS_ITS | Clinical Summary ---
Author Organization [address] [facility] Address [address] [place] [address] Phone Care Team Providers Care Line Fixer Name Role Phone Dalila Rodriguez MD Primary Care Provider [phone] Allergies Active Allergy Reactions Criticality Noted Date [...] AM EDT Office Visit Orthopedic Surgery - [address] [address] Adam Cruz DPM Controlled type [...] cm (4' 11.02 ) 07/18/2024 1:19 PM EDT Body Mass Index 35.33 07/18/2024 1:19 PM EDT Plan of Treatment Upcoming Encounters Date Type Department Care Team (Late st Contact Info) Description 12/04/2024 1:30 PM EDT Office Visit Orthopedic Surgery - [place] [address] [place] [address] [place] [phone] Adam Cruz, MAILE [address] [place] [address] Health Maintenance Due Date Last Done Comments Breast Cancer Screening 1955 Colorectal Cancer Screening: Colonoscopy 1955 Diabetes: Annual GFR (Glomer ular Filtration Rate) 1956 COVID-19 Vaccine (#1) 1961 Diabetes: Annual Foot Exam 1966 Diabetes: Annual Retina Eye Exam 1966 DTaP,Tdap,and Td Vaccines (1 - Tdap) 07/14/1975 Pneumococcal Vaccine: 50+ Ye ars (1 of 2 - PCV) 07/14/1975 RSV Immunization Adult Patie nts (1 - Risk 50-74 years 1-dose series) 2006 Zoster Vaccines (1 of 2) 2006 Cholesterol Screening (Lipid Panel) 03/04/2023 Falls Risk Assessment 03/04/2023 Hepatitis C [...] ID:[id number] Group ID:[id number] Type:Not on file Address: [place] [address] [address] [address] Care Teams Line Fixer Relationship Specialty Start Date End Date Dalila Rodriguez MD [address] [place] [address] , [address] [facility] Physician Associ D/B/A: [facility] VALENTINE Rashid PCP - General 06/30/22
--- OUTSIDE RECORDS SUMMARY | 2024-12-03 19:35 | XMS_ITS | Data Portability ---
Author Organization [employer] [facility], [facility] Address [address] [place] [address] Care Team Providers Care School Photograph Editor Name Role Phone [facility] Primary Care Provider [phone] Assessment Encounter Date Assessment Date Assessment LastModified by Organization Details LastModified Time 02/28/2023 02/28/2023 I provided real -time medical direction via phone for this encounter, and was available for additional phone based assistance as needed. I have reviewed and agree with the Assessment and Plan as documented by the Directory Carrier. We discussed the diagnostic uncertainty of home [...] to call 911- verbalized understanding of instructions [email or web address] Not available 03/01/2023 23:48:23 Plan of Treatment Reminders Order Date Submit Date Provider Last Modified By Organization Details Last Modified Time Details Appointments None recorded. Lab influenza virus A + B and SARS CoV 2 (COVID-19) and RSV RNA panel, NESTOR+probe, respiratory specimen 2023 024 THONG [facility] (Centralized Electronic Ordering - All Locations), Patient Can Go To The Location Of Their Choice, [address] 4 13:56:34 rapid SARS CoV 2 Ag, QL [place], respiratory specimen 2023 024 [email or web address] 0 [facility], [address] [place] [address], [phone] 4 12:31:30 rapid flu (A+B) 2023 024 [email or web address] 0 [facility], [address] [place] [address], [phone] 4 12:31:28 BMP, serum or plasma 2023 024 [email or web address] 0 [facility], [address] [place] [address], [id number] 4 12:50:36 glucose, fingerstick , blood 2023 024 [email or web address] 0 [facility] - [facility], [address] [place] [address], [phone] 4 12:50:38 Referral None recorded. Procedures None recorded. Surgeries None recorded. Imaging None recorded. Medication Orders benzonatate 200 mg capsule 2023 [place] [id number], [address] [place], [place], [id number], 4 12:50:42 ipratropium 0.5 mg-albutero l 3 mg (2.5 mg base)/3 mL nebulizatio n soln 2023 024 [email or web address] 0 [id number], [address] [place], [place], [id number], 4 23:50:31 Patient TargetsNo targets recorded. Patient [...] Go To The Location Of Their Choice, [facility] 03/01/2023 13:56:33 02/28/19 24 03/01/2023 COVID [...] Go To The Location Of Their Choice, [facility] 03/01/2023 13:56:33 02/28/19 24 03/01/2023 COVID [...] Go To The Location Of Their Choice, [facility] 03/01/2023 13:56:33 02/28/19 24 03/01/2023 COVID [...] ng. Resul t repor nichole to the [facility]. All test resul ts must be corre lated with clini nicolasa findi ngs. This test has been autho rized by the FDA under an Emerg ency Use Autho rizat ion (EUA) for use by authgabriel ornelas atori es. Testi ng perfo rmed on the CepYieldr id GeneX pert aliciai rigong real- time RT-PC R. Not Available [facility] (Centralized Electronic Ordering - All Locations) Patient Can Go To The Location Of Their Choice, [facility] 03/01/2023 13:56:33 02/28/19 24 03/01/2023 COVID -19, RSV, FLU A/B PCR covid-19 PCR specimen source NASAL Not Available [facility] (Centralized Electronic Ordering - All Locations) Patient Can Go To The Location Of Their Choice, [id number] 03/01/2023 13:56:33 02/28/19 24 02/28/2023 BMP, serum or plasm a BUN 17 Not Available [facility] - [facility] [address], [address] [place] [address] 02/28/2023 12:31:34 02/28/19 24 02/28/2023 BMP, serum or plasm a Ca Ionize d calciu m 1.22 Not Available [facility] - [facility] [address], [address] [place] [address] 02/28/2023 12:31:34 02/28/19 24 02/28/2023 BMP, serum or plasm a CI- 24 Not Available [facility] - [facility] [address], [address] [place] [address] 02/28/2023 12:31:34 02/28/19 24 02/28/2023 BMP, serum or plasm a CRE 0.8 Not Available [facility] - [facility] [address], [address] [place] [address] 02/28/2023 12:31:34 02/28/19 24 02/28/2023 BMP, serum or plasm a GLU 189 Not Available [facility] [address], [address] [place] [address] 02/28/2023 12:31:34 02/28/19 24 02/28/2023 BMP, serum or plasm a K+ 4.4 Not Available [facility] [address], [address] [place] [address] 02/28/2023 12:31:34 02/28/19 24 02/28/2023 BMP, serum or plasm a Na+ 140 Not Available [facility] [address], [address] 02/28/2023 12:31:34 02/28/19 24 02/28/2023 BMP, serum or plasm a tCO2 24 Not Available [facility] - [facility] nichloe [address] [place] [address], [address] 02/28/2023 12:31:34 02/28/19 24 02/28/2023 gluco se, finge rstic k, blood Blood Glucose: mg/dl 252 Not Available [facility] [address] [place] [address], [phone] 02/28/2023 12:48:48 02/28/19 24 02/28/2023 rapid flu (A+B) Flu negati ve Not Available [facility] [address] [place] [address], [phone] 02/28/2023 12:31:09 02/28/19 24 02/28/2023 rapid SARS CoV 2 Ag, QL IA, respi rator y speci men rapid SARS CoV 2 Ag, QL IA, respiratory specimen negati ve Not Available [facility] [address] [place] [address], [phone] 02/28/2023 12:31:07 Result Notes None recorded. Medical Equipment None Reported. Allergies Allergen ID Allergen Name Allergen Category Reaction Reaction Severity Criticality Documentation Date Start Date Code Code System Note Provider Name and Address Organization Details Recorded Time 4401 lisinopri l medicatio n Not available Not available Not available 02/28/2023 97407 RxNorm Candace Koroma MD [address] [place] [address],[address], [place], [phone], [employer] 4 12:28:38 4402 trazodone medicatio n Not available Not available Not available 02/28/2023 76770 RxNorm Candace Koroma MD [address] [place] [address],[address], [place], [phone], [employer] 4 12:28:46 Medications Name Sig Start Date [...] Available No t Available Vitals Date Recorded Body weight Respiratory rate Heart rate Body height Oxygen saturation Oxygen saturation in Arterial blood by Pulse oximetry Body temperature Systolic And Diastolic Provider Name and Address Organization Details Last Updated DateTime 4 02183.4 8 g 16 /min 90 /min 149.86 cm 96 % 96 % 98.3 [degF] 160/82 mm[Hg] Not Available [employer] 4 12:20:04 Date Recorded Respiratory rate Body temperature Body weight Heart rate Body height Oxygen saturation Oxygen saturation in Arterial blood by Pulse oximetry Systolic And Diastolic Provider Name and Address Organization Details Last Updated DateTime 3 16 /min 98.8 [degF] 27674.2 56 g 74 /min 149.86 cm 97 % 97 % 136/82 mm[Hg] Not Available [employer] 3 19:36:24 Social History None recorded. Functional Status None recorded. Mental Status None recorded. Family History Nothing Reported. Medical History No medical history recorded. Gynecological HistoryNo gynecological history recorded. Obstetrics History GPAL:G 0 P 0 0 0 0 Past Encounters Encounter ID Performer Location Encounter Start Date Encounter Closed Date Diagnosis/Indication Diagnosis SNOMED-CT Code Diagnosis ICD10 Code Diagnosis IMO Codes Diagnosis Note [id number] Vik Pakrer MD [facility] [address] [place] [phone] 11/22/2022 19:36:17 11/23/2022 11:00:03 Venous stasis 27555384 I87.8 The family of this 67-year-ol d [...] and her family agreed with this plan. [id number] Candace Koroma MD [facility] [address] [place] [phone] 02/28/2023 12:20:00 03/03/2023 09:19:03 Upper respiratory infection 23567402 J06.9 cont APAP as prescribed / rest [...] [place]ored[employer] Member ID Guarantor Name 02/28/2023 1 [facility] - DOS ON OR AFTER 2022 - DUAL ELIGIBLE - PRISON OPTIONS AND ONE CARE (MEDICARE REPLACEMENT/ADV ANTAGE - HMO) Fiordaliza Munoz [id number] Fiordaliza Munoz Notes Date Note Type Note Provider Name and Address Organization Details Recorded Time 11/22/2022 text/html ROS as noted in the HPI CRC Nursing Assessment: Reason For Request: Right leg redness Chief Complaints: Cellulitis PMH: Diabetes, Hypertension Allergies: Unknown Comments: right leg redness, no pain/positive itchy fever/body aches PMH: DM, HTN, takes water pill Vik Parker MD [address] [facility], [place], [phone], [employer] 11/22/2022 19:41:11 02/28/2023 text/html ROS as noted in the [facility] Nurse Triage Notes (Sheron Murcia): Reason For Request: PT [...] .................. .................. .................. .................. .................. .................. ............... Directory Carrier Note From Yosi Soto: Dispatched to the [...] Covid/Flu (-). PCR preformed, BMP results WNL. C consulted. Pt prescribed cough medicine to preferred pharmacy. Red flags discussed. ALL times are approx. .................. .................. .................. .................. .................. .................. .................. ............... Disposition: Fulfilled Candace Koroma MD [address] [facility],[address], [place], [address], [employer] [facility] 03/01/2023 23:51:40 OBGyn Episode No OBEpisode recorded.
[2024-12-03 20:12] LABS: Troponin-I High Sensitivity < 2.7 ng/L (<3.5-17.0)
[2024-12-03 20:34] VITALS: BP 145/62; PULSE 78; RESP 18; TEMP 37; O2SAT 97
[2024-12-03 21:06] VITALS: BP 145/62; PULSE 78; RESP 18; TEMP 37; O2SAT 97
== END 2024-12-03 21:07 | disposition home or self-care (01) ==
PROVIDERS: Physician Assistant Medical; Emergency Provider Student in an Organized Health Care Education/Training Program; PCP Physician Assistant
DX: J20.9 Acute bronchitis, unspecified (principal); R05.9 Cough, unspecified; R07.9 Chest pain, unspecified; Z03.818 Encounter for observation for suspected exposure to other biological agents ruled out; J45.909 Unspecified asthma, uncomplicated; I10 Essential (primary) hypertension; E78.5 Hyperlipidemia, unspecified; E11.9 Type 2 diabetes mellitus without complications; K21.9 Gastro-esophageal reflux disease without esophagitis
CPT/HCPCS: 36415; 71046; 80053; 83690; 83735; 83880; 84484; 85025; 85610; 87502; 87635; 93005; 99284

== ENCOUNTER → 2024-12-03 16:26 | Outpatient (BNV) | payer OTHER, SELFPAY | PROVIDERS: Emergency Provider Student in an Organized Health Care Education/Training Program; PCP Physician Assistant; Visit Provider Internal Medicine | DX: R07.9 Chest pain, unspecified (principal) | CPT/HCPCS: 93010 ==

== ENCOUNTER → 2024-12-03 17:03 | Outpatient (BNV) | payer OTHER, SELFPAY | PROVIDERS: PCP Physician Assistant; Visit Provider Radiology Diagnostic Radiology | DX: R91.8 Other nonspecific abnormal finding of lung field (principal) | CPT/HCPCS: 71046 ==

== ENCOUNTER 2024-12-10 15:32 | Outpatient (AMB) | payer OTHER, SELFPAY ==
--- NOTE | 2024-12-10 15:36 | MHC.PC.OV ---
Vital Signs 12/10/24 15:38 Height 4 ft 11 in Weight 191 lb 8 oz BMI 38.7 BP 110/64 Blood Pressure Location Lt brachial Position Sitting Pulse 80 Pulse Source Pulse Oximeter Temp 97.1 F Temp Source Temporal Artery Scan Pulse Oximetry (%) 99 Oxygen Delivery Method Room Air Intake Visit Reasons: F/u visit Intake Note: Patient is here to follow-up after a visit the emergency department at [facility] on 12/03/24. Speech Assistant Required: Yes Speech Assistant Language: Sustainable Design Consultant Name: Max (daughter) Information Interpreted: non-clinical & clinical (pt decline translating service prefer daughter to translate.) Literary Agent: Present Accompanied by: Daughter Allergies acetaminophen (Ultracet) Allergy (Intermediate, Verified 12/10/24 15:51) anaphylaxis tramadol (From ULTRACET) Allergy (Intermediate, Verified 12/10/24 15:51) ANAPHYLAXIS lisinopril (Lisinopril) Allergy (Mild, Verified 12/10/24 15:51) SWELLING, anaphylaxis Medication List - Last Reconciled 12/10/24 by Mikey Buenrostro PA-C acetaminophen ER (Tylenol Arthritis Pain) 650 mg PO Q12H PRN [adult diapers pull-ups As directed] albuterol sulfate 90 mcg/actuation 2 inhalations inhalation Q6H PRN 30 days albuterol sulfate 2.5 mg (0.5 mL) inhalation Q20M PRN amlodipine 5 mg PO DAILY azithromycin (Zithromax Z-Brandon) For 250 mg dose pack: take 500 mg today (day 1), then 250 mg for 4 days (days 2-5) [bath mat As directed] [Bed rails As directed] blood pressure monitor As directed blood sugar diagnostic (FreeStyle Lite Strips) Use 1 strip once a day blood-glucose meter (FreeStyle Lite Meter kit) As directed bupropion HCl XL 150 mg PO QAM cane As directed cetirizine 10 mg PO DAILY cholecalciferol (vitamin D3) 25 mcg PO DAILY 90 days compr.stocking,knee,long,large As directed CPAP (CPAP Machine/Device) As directed disposable gloves latex free gloves, large doxepin 10 mg PO BEDTIME dulaglutide (Trulicity) 1.5 mg (0.5 mL) subcut QWEEK 4 weeks duloxetine (Cymbalta) 60 mg PO DAILY fluticasone propion-salmeterol 230-21 mcg/actuation (Advair HFA) 2 puffs inhalation Q12H 30 days fluticasone propionate 50 mcg/actuation 2 sprays intranasal DAILY folic acid 1 mg PO DAILY gabapentin 100 mg PO BID 30 days [handheld showerhead As directed] [incontinence wipes 4 packages per month] lancets (FreeStyle Lancets) Use 1 lancet once a day levothyroxine 25 mcg PO DAILY 90 days lidocaine HCl 4% (Theraworx Pain Relief) 1 ea topical TID meclizine 25 mg PO DAILY methotrexate sodium 12.5 mg (5 x 2.5 mg) PO QWEEK 90 days metoprolol tartrate 25 mg PO BID mirtazapine 7.5 mg PO BEDTIME miscellaneous medical supply (Blood Pressure Cuff) As directed miscellaneous medical supply 1 ea miscellaneous DAILY 99 days miscellaneous medical supply 1 ea miscellaneous DAILY 99 days montelukast (Singulair) 10 mg PO BEDTIME 30 days nebulizers As directed omeprazole 20 mg PO DAILY [pantyliner As directed] prednisone 60 mg (3 x 20 mg) PO DAILY 5 days [Shower gel As directed] spironolactone 12.5 mg PO DAILY Tobacco use date assessed: 12/10/24 Fall risk assessment: No Falls in past year Last assessed Fall Risk: 12/10/24 Dental Screening Dental Screen Date: 10/01/24 HPI F/u visit HPI Details Patient is a 69- year-old Guamanian-speaking female here today for a follow-up visit . Patient has multiple medical conditions including hypertension, type 2 diabetes, hyperlipidemia, obstructive sleep apnea, asthma, seronegative arthritis, obesity. Patient recently seen at the [facility] for acute shortness of breath cough. She was found to have an acute bronchitis/ASTHMA EXACERBATION and was treated with prednisone and azithromycin. A chest X-ray from the ER visit showed atelectasis, which was described as crunched up areas of her lungs, contributing to a sensation of chest tightness. Despite treatment, she continues to experience difficulty breathing but denies coughing up any sputum. She owns a nebulizer but has not been using it as she does not have a mask. [facility] Medical History Pulmonary hypertension Atelectasis Diastolic dysfunction Chronic restrictive lung disease Murmur (~08/31/21) Moderate asthma Surgical History History of colonoscopy (~2018) History of laparoscopic cholecystectomy (~2009) History of tubal ligation (~1991) Family History Father No problems noted. Mother Lymphoma Maternal Aunt Diabetes Paternal Uncle Diabetes Brother No problems noted. Sister No problems noted. Sister No problems noted. Son No problems noted. Daughter No problems noted. Daughter No problems noted. Social History Housing: Apartment Alcohol intake: never Patient Tobacco Use Status: Never used Tobacco e-Cigarette/Vaping Use: Never Used Second Hand Smoke Exposure: No service: No Current occupational status: disabled Cognitive needs: No Hearing needs: No Vision needs: No Questionnaire Thrive Questionnaire Date Thrive assessed: 10/01/24 I am a: Parent/Caregiver What is your living situation today?: I have a steady place to live Within the past 12 months, did the food you bought not last and you didn't have the money to get more?: Never true Within the past 12 months, did you worry whether your food would run out before you got money to buy more?: Never true Do you have trouble paying for medicines?: No Do you have trouble getting transportation to medical appointments?: No Do you have trouble paying your heating and electricity bill?: No Do you have trouble taking care of your child, family member or friend?: I choose not to answer this question Do you have trouble with day-to-day activities such as bathing, preparing meals, shopping, managing finances, etc.?: Yes Are you currently unemployed and looking for a job?: No Are you interested in more education?: No Please select the resources that you would like help with: None Currently or been in a relationship where the following occur: No concerns reported THRIVE Score: 0 BOBBY-7 AMB Questionnaire BOBBY-7 Date BOBBY - 7 assessed: 10/01/24 Source: Developed by Drs. Aristeo Gifford, Cheryl Burgess, Chauncey Armenta and colleagues, with an educational nilsa from [email or web address]. Review of Systems Const Denies headache(s) Eyes Denies loss of vision ENT Denies vertigo, Denies dizziness, Denies headache(s) and Denies sore throat Card Denies chest pain, Denies leg edema, Denies lightheadedness and Reports dyspnea Resp Reports cough, Denies hemoptysis, Reports dyspnea and Denies wheezing GI Denies abdominal pain, Denies melena, Denies constipation, Denies diarrhea and Denies vomiting Denies urinary frequency, Denies dysuria and Denies urinary urgency Musc Denies arthralgias, Denies joint swelling, Denies numbness and Denies tingling Neuro Denies Abnormal speech present, Denies behavioral changes, Denies vertigo, Denies dizziness, Denies headache(s), Denies loss of vision, Denies memory loss, Denies numbness and Denies tingling Psych Denies anxiety, Denies behavioral changes, Denies depression, Denies memory loss and Denies panic attacks Werner/Lymph Denies easy bleeding and Denies easy bruising Aller/Immun Denies wheezing Physical exam (Primary Care) Vital Signs: Last Vital Signs Temp 97.1 F 12/10/24 15:38 Pulse 80 12/10/24 15:38 BP 110/64 12/10/24 15:38 Pulse Ox 99 12/10/24 15:38 Oxygen Delivery Method Room Air 12/10/24 15:38 BMI result Body Mass Index 38.7 Tobacco/Smoking Status: Tobacco use Status Tobacco use date assessed 12/10/24 12/10/24 15:39 Patient Tobacco Use Status Never used Tobacco 12/10/24 15:39 e-Cigarette/Vaping Use Never Used 12/10/24 15:39 Thrive Assessment: Date of Thrive Assessment Date Thrive assessed 10/01/24 12/10/24 15:39 Currently or been in a relationship where the following occur: No concerns reported Const General: healthy appearing, no acute distress, alert and awake Nutritional Appearance: well nourished Orientation/consciousness: oriented to person, oriented to place and oriented to time HENMT Ears: TM's normal bilaterally General nose exam: Normal nasal mucous membranes and turbinates present Eyes Conjunctivae: conjunctivae normal Sclerae: sclerae normal Pupils: Equal, round and reactive pupils present Neck Neck: Yes no lymphadenopathy and Yes no JVD Thyroid: Thyroid normal Carotids: no bruits Resp Effort & Inspection: normal respiratory effort and not tachypneic Auscultation: no crackles, no rales, no rhonchi and no wheezes Cardio Rate: regular rate Rhythm: regular rhythm Heart sounds: no murmurs and normal S1 and S2 GI Palpation (GI): Soft to palpation, nontender, no hepatomegaly and no splenomegaly Auscultation: normal bowel sounds Skin General skin exam: no rashes or lesions noted and dry skin Neuro General: oriented to person, oriented to place and oriented to time Cranial nerves: Yes Equal, round and reactive pupils present Speech: No Abnormal speech present Gait exam (Neuro): Normal gait present Motor exam (neuro): no tremor noted Extrem Right upper extremity: full ROM Left upper extremity: full ROM Right lower extremity: full ROM; no edema Left lower extremity: full ROM; no edema Psych Mental Status: mental status grossly normal Speech and movement: Normal speech and movement present Affect: normal affect Attitude: cooperative Thought process: Normal thought process present Coding Level of Care Code Est Pt Level 3 (73310) Diagnoses Mild persistent asthma with acute exacerbation J45.31 Asthma severity: mild Asthma persistence: persistent Assessment & Plan Assessment & Plan (1) Acute asthma exacerbation: Code(s): J45.901 - Unspecified asthma with (acute) exacerbation Category: Medical Qualifiers: Asthma severity: mild Asthma persistence: persistent Qualified Code(s): J45.31 - Mild persistent asthma with (acute) exacerbation Plan: For the acute asthma exacerbation, the patient was provided with a mask and tubing for her home nebulizer and advised to use it three to four times a day to improve breathing. A new prescription for a 9-day prednisone taper will be sent, consisting of 10 mg tablets to be taken as 3 tablets daily for 3 days, followed by 2 tablets daily for 3 days, and finally 1 tablet daily for 3 days. The patient was counseled that the steroid may cause a temporary increase in blood sugar levels. Medications: New prednisone Take 3 tablets x3 days, 2 tablets x3 days, 1 tablet x3 days 10 mg PO DIRECTED 18 tabs 0RF 9 days J06.9 - Acute upper respiratory infection, unspecified Refilled [pantyliner] As directed 120 ea 11RF R32 - Unspecified urinary incontinence
[2024-12-10 15:38] VITALS: BP 110/64; PULSE 80; TEMP 36.2; O2SAT 99; BMI 38.7
--- OUTSIDE RECORDS SUMMARY | 2024-12-10 16:43 | XMS_ITS | Clinical Summary ---
Author Organization [address] [facility] Address [address] [place] [address] Phone Care Team Providers Care Data Center Technician Name Role Phone Dalila Rodriguez MD Primary Care Provider Allergies Active Allergy Reactions Criticality Noted Date [...] time each day. 60 g 2 Active hydrocortisone 2.5 % cream Apply topically 1 (one) time each day. 60 g 1 5 10/03/19 Active ammonium lactate (AmLactin) 12 % lotion Apply topically if needed for dry skin. 400 g 2 5 12/05/19 Active Encounters Date Type Department Care Team Description 12/04/2024 1:30 PM EDT Office Visit Orthopedic Surgery [address] [phone] Adam Cruz DPM Controlled type 2 diabetes with neuropathy (CMS/HCC V24, CMS/HCC V28) (Primary Dx); Pain in toes of both feet; Ingrown left big toenail; Arthritis of both feet; Dermatophytosis, nail 10/02/2024 10:00 AM EDT Office Visit Orthopedic Surgery [place] [phone] [phone] Adam Cruz, DPM Controlled type 2 diabetes with neuropathy [...] Care Team (Late st Contact Info) Description 02/05/2025 1:30 PM EST Office Visit Orthopedic Surgery - [address] [phone] Adam Cruz, MAILE [address] [place] [phone] Health Maintenance Due Date Last Done Comments Breast Cancer Screening 1955 Colorectal Cancer Screening: Colonoscopy 1955 COVID-19 Vaccine (#1) 1961 Diabetes: Annual Foot Exam 1966 Diabetes: Annual Retina Eye Exam 1966 DTaP,Tdap,and Td Vaccines (1 - Tdap) 07/14/1975 Pneumococcal Vaccine: 50+ Years (1 of 2 - PCV) 07/14/1975 RSV Immunization Adult Patients (1 - Risk 50-74 years 1-dose series) 2006 Zoster Vaccines (1 of 2) 2006 Cholesterol Screening (Lipid Panel) 03/04/2023 Falls Risk Assessment 03/04/2023 Hepatitis C Screening 03/04/2023 Medicare Annual Wellness Visit 03/04/2023 Osteoporosis Screening (Bone Density Screening) 03/04/2023 Social Influencers of Health Screening 03/04/2023 Depression Screening 02/08/2024 Influenza Vaccine (#1) 2024 Diabetes: Blood Sugar Contro l Test (HGBA1C) 04/24/2025 10/25/2024, 10/25/2024 Diabetes: Annual Urine Albumin-Creatinine Ratio (uACR) 10/25/2025 10/25/2024 Diabetes: Annual GFR (Glomerular Filtration Rate) 10/25/2025 10/25/2024 Hypertension/CHF/CAD Annual BMP Blood Test 10/25/2025 10/25/2024 HIB Vaccines Aged Out No longer eligi [...] to complete this topic RSV Immunization Patients Under 20 months Aged Out No longer eligible b ased on patient's age to complete this topic Varicella Vaccines Aged Out No longer eligible based on patient's age to complete this topic Insurance [facility] MEDICARE Member Subscriber Plan / Payer (Ef fective 2022-Present) Name:FIORDALIZA REESE Relation to Subscriber:Self Name:Fiordaliza Taveras Payer ID:[id number] Group ID:[id number] Type:Not on file Address: [place] [address] [address] [id number] Care Teams Data Center Technician Relationship Specialty Start Date End Date Dalila Rodriguez MD [address] [facility] , [address] [facility] D/B/A: [facility] VALENTINE Rashid PCP - General 06/30/22
--- OUTSIDE RECORDS SUMMARY | 2024-12-10 16:43 | XMS_ITS | Patient Health Record ---
Author Organization [facility] Address [address] [place] [address] Care Team Providers Care Broadband Installer Name Role Phone Aristeo Eng [phone] Reason For Referral No Information Plan Of Treatment No Information
== END 2024-12-10 16:02 | disposition home or self-care (01) ==
LOC: HO.HMCH 15:33
PROVIDERS: PCP Physician Assistant; Visit Provider Physician Assistant
DX: J45.31 Mild persistent asthma with (acute) exacerbation (principal)

== ENCOUNTER → 2024-12-10 15:32 | Outpatient (BNVA) | payer OTHER, SELFPAY | PROVIDERS: PCP Physician Assistant; Visit Provider Physician Assistant | DX: J45.31 Mild persistent asthma with (acute) exacerbation (principal); I10 Essential (primary) hypertension; E11.9 Type 2 diabetes mellitus without complications; E78.5 Hyperlipidemia, unspecified; G47.33 Obstructive sleep apnea (adult) (pediatric); J45.909 Unspecified asthma, uncomplicated; E66.9 Obesity, unspecified; Z68.38 Body mass index [BMI] 38.0-38.9, adult; Z79.899 Other long term (current) drug therapy | CPT/HCPCS: 99212 ==